=== PATIENT | female | born 1965 | race Caucasian/White ===

== ENCOUNTER → 2016-08-16 | Outpatient (CLI) | payer OTHER ==
--- NOTE | 2016-08-16 09:13 | US ---
EXAMINATION TYPE: US abdomen complete DATE OF EXAM: 08/16/2016 8:50 AM COMPARISON: NONE CLINICAL HISTORY: leokocytosis EXAM MEASUREMENTS: Liver Length: 14.2 cm Gallbladder Wall: 0.4 cm , mildly thickened. CBD: 0.2 cm Spleen: 8.2 cm Right Kidney: 10.3 x 3.2 x 3.7 cm Left Kidney: 9.5 x 5.0 x 5.6 cm ANATOMY: TECHNOLOGIST IMPRESSION: Pancreas: portions seen wnl, head and tail are secured by overlying bowel gas on images saved Liver: wnl Gallbladder: Poor distention with multiple shadowing mobile gallstones. Evidence for sonographic Spence's sign: no CBD: wnl Spleen: Heterogeneous nonenlarged. Right Kidney: upper pole 1.0 x 0.8 x 1.0 cm bright specular reflectors , possible small nonobstruc ting renal calculus no hydro Left Kidney: no hydro seen, Upper IVC: wnl Abd Aorta: wnl The liver is homogenous. The intrahepatic portion of the IVC and proximal abdominal aorta are within normal limits. Common bile duct is unremarkable. Kidneys are symmetric and free of hydronephrosis. No renal lesions are seen. IMPRESSION: Spleen is not enlarged but heterogeneous in appearance. Gallstones are present without se condary ultrasound evidence for acute cholecystitis. Normal Values: Liver Length: < 16cm wnl, 17-18cm upper limits, >18cm enlarged Spleen Length = < 13cm Renal Length = 9 - 12cm GB Wall: < 0.3cm CBD: < 0.6cm or < 1.0cm post cholecystectomy
== END | disposition home or self-care (01) ==
LOC: RADUSWWP 08:31
PROVIDERS: ATTEND Family Medicine
DX: K80.20 Calculus of gallbladder without cholecystitis without obstruction (principal); R93.5 Abnormal findings on diagnostic imaging of other abdominal regions, including retroperitoneum; D72.829 Elevated white blood cell count, unspecified
CPT/HCPCS: 76700

== ENCOUNTER → 2016-09-19 | Outpatient (CLI) | payer OTHER ==
--- NOTE | 2016-09-19 09:05 | CT ---
EXAMINATION TYPE: CT chest wo con DATE OF EXAM: 09/19/2016 8:30 AM COMPARISON: NONE HISTORY: Abn chest x-ray CT DLP: 423 mGycm Automated exposure control for dose reduction was used. FINDINGS: There are emphysematous changes throughout the lungs. There is a triangular, 4.6 mm nodule in the rig ht middle lobe, best seen on image 25. On the same image there is a second, 6.2 mm lesion in the righ t middle lobe. No additional nodular densities are seen. There is no significant axillary, internal mammary or hilar adenopathy. There is a 6.3 mm lymph node in the pretracheal space. There is no pleural or pericardial fluid. The heart is not enlarged. Visualized portions of the upper abdomen are normal. There is sclerosis and mild wedging of the T7 vertebral body and also mild sclerosis of the T8 verteb ral body. No definite obstructing lesion is seen. IMPRESSION: 1. EMPHYSEMATOUS CHANGE. 2. 2 RIGHT MIDDLE LOBE PULMONARY NODULES. 3. ABNORMAL SCLEROSIS OF THE T7 AND T8 VERTEBRAL BODIES. A NUCLEAR MEDICINE WHOLE BODY BONE SCAN WOUL D BE SUGGESTED.
== END | disposition home or self-care (01) ==
LOC: RADCTMAIN 08:02
PROVIDERS: ATTEND Family Medicine
DX: R91.8 Other nonspecific abnormal finding of lung field (principal); J43.9 Emphysema, unspecified
CPT/HCPCS: 71250

== ENCOUNTER → 2016-09-28 | Outpatient (CLI) | payer OTHER ==
[2016-09-28 11:58] LABS: Blood Urea Nitrogen 13 mg/dL (7-17); Non-African American GFR(MDRD) >60 (>60 ml/min/1.73 sqM)
--- NOTE | 2016-09-28 15:36 | NM ---
EXAMINATION TYPE: NM bone scan whole body DATE OF EXAM: 09/28/2016 3:24 PM COMPARISON: CT chest September 19, 2016. HISTORY: Abnormal recent CT. CT done after recent abnormal chest x-ray Delayed whole-body scanning was performed following the injection of 25.8 mCi Tc 99m MDP. Images acq uired 3.5 hours post injection. Spot images of the thorax are acquired in several projections. FINDINGS: Corresponding to area of CT concern there is increase uptake at T7-T8 vertebral body level, this is n onspecific finding and could reflect product of active inflammation or infection or increased degener ative change at this level. The latter is favored as there is some spurring at this level and scleros is is centered at the endplates on CT. No additional areas of suspicious radiotracer uptake identifie d. IMPRESSION: As above.
== END | disposition home or self-care (01) ==
LOC: RADNMMAIN 11:14
PROVIDERS: ATTEND Family Medicine
DX: R93.8 Abnormal findings on diagnostic imaging of other specified body structures (principal); R10.9 Unspecified abdominal pain
CPT/HCPCS: 82565; 84520; 78306; 36415; A9503

== ENCOUNTER → 2016-10-03 | Outpatient (CLI) | payer OTHER ==
--- NOTE | 2016-10-03 13:26 | CT ---
EXAMINATION TYPE: CT abdomen pelvis w con DATE OF EXAM: 10/03/2016 11:51 AM COMPARISON: NONE INDICATION: Right lower quadrant pain for years DLP: 1065 mGycm, Automated exposure control for dose reduction was used. CONTRAST: 100 mL of Omnipaque 300. Study performed with Oral Contrast TECHNIQUE: Axial images were obtained from above the diaphragm to the pubic rami in the axial plane a t 5 mm thick sections. Reconstructed images are reviewed on the computer in the coronal plane. FINDINGS: Limited CT sections are obtained the lung bases. The lung bases are clear. CT ABDOMEN: Liver: There is likely a 0.9 cm hemangioma within the anterior left lobe liver which appears homogeno us on delayed images. Spleen: Normal Pancreas: Normal Adrenal glands: The adrenal glands are normal. Gallbladder: Normal Kidneys: No masses are evident. No hydronephrosis is present. No cysts are present. Delayed images were obtained through the kidneys, which remain unremarkable. Aorta: Vascular calcification is within the aorta. Inferior vena cava: Normal. CT PELVIS: There is an intussusception of a small bowel loop within the left midabdomen. Series 3 image 41 no ob struction is evident. Contrast extends to the colon. Sigmoid colon has some irregular wall thickening . Correlate for mild diverticulitis. Underlying mass is considered within the differential. Additiona l workup is recommended. No perisigmoid inflammatory changes identified. There are loops of bowel whi ch are incompletely distended or lack oral contrast limiting their evaluation. Appendix: Normal as visualized. Urinary bladder: Normal. Genitourinary structures: Uterus is normal. Left adnexa is normal. Right ovary is not identified. Osseous structures: No suspicious lytic or sclerotic lesions. IMPRESSIONS: 1. Long segment of irregular thickening within the sigmoid colon without. Sigmoid inflammatory foley es. Correlate for mild acute diverticulitis versus underlying neoplasm. Additional workup is recommen ded. 2. Intussusception of a small bowel loop within the left midabdomen. 3. Probable 0.9 cm hemangioma anterior left lobe liver.
== END | disposition home or self-care (01) ==
LOC: RADCTMAIN 11:21
PROVIDERS: ATTEND Family Medicine
DX: K63.89 Other specified diseases of intestine (principal); R10.9 Unspecified abdominal pain
CPT/HCPCS: 74177; Q9967

== ENCOUNTER → 2017-02-03 | Outpatient (CLI) | payer OTHER ==
--- NOTE | 2017-02-03 14:59 | CT ---
EXAMINATION TYPE: CT chest w con DATE OF EXAM: 02/03/2017 COMPARISON: Prior chest CT 09/19/2016 HISTORY: Lung nodule CT DLP: 241.4 mGycm Automated exposure control for dose reduction was used. CONTRAST: CT scan of the chest is performed with IV Contrast, patient injected with 100 mL of Omnipaque 300. FINDINGS: LUNGS: The lungs are grossly clear, there is no concerning parenchymal mass identified. The right mid dle lobe nodularity is stable and may represent scar. Apical paraseptal emphysematous changes are pr esent as on prior exam. There is no pleural effusion or pneumothorax seen. The tracheobronchial tree is patent. MEDIASTINUM: There are no greater than 1 cm hilar or mediastinal lymph nodes. No pericardial effusi on is seen. AORTA: No additional significant abnormality is seen. OTHER: Sclerotic appearance of the T7, T8 vertebral bodies with anterior wedging at T7 is stable. Ga llbladder wall is contracted, there is questionable wall thickening. There is shows low attenuation p ossibly due to fatty infiltration. IMPRESSION: Stable exam, no significant interval change. Contracted gallbladder with wall thickening , correlate to exclude cholecystitis. Probable hepatic steatosis. Degenerative disc disease in the sp ine.
== END | disposition home or self-care (01) ==
LOC: RADCTMAIN 12:50
PROVIDERS: ATTEND Internal Medicine Hematology & Oncology
DX: R91.1 Solitary pulmonary nodule (principal)
CPT/HCPCS: 71260; Q9967

== ENCOUNTER → 2018-01-26 | Outpatient (CLI) | payer OTHER ==
--- NOTE | 2018-01-26 10:42 | CT ---
EXAMINATION TYPE: CT chest wo con DATE OF EXAM: 01/26/2018 COMPARISON: Prior chest CT February 03, 2017 and older exam September 19, 2016. HISTORY: Pulmonary nodule CT DLP: 241.80 mGycm. Automated Exposure Control for Dose Reduction was Utilized. TECHNIQUE: CT scan of the thorax is performed without IV contrast. FINDINGS: LUNGS: There is background mild to moderate right apical bleb formation redemonstrated. There is back ground mild emphysematous change. There is stable groundglass nodularity right middle lobe anteriorly axial image 26 with largest lesion measuring 6 x 5 mm. No new suspicious greater than 5 mm parenchym al nodule or mass is present. There is no pleural effusion or pneumothorax seen. The tracheobronchia l tree is patent. MEDIASTINUM: Lack of IV contrast is noted to limit evaluation for mediastinal and especially hilar ad enopathy. There are no definitive greater than 1 cm hilar or mediastinal lymph nodes. No cardiomega ly or pericardial effusion is seen. Coronary artery calcification is redemonstrated which is noted ma rker for coronary artery disease. OTHER: Gallbladder is hyperdense with dependent lucent areas, I suspect sludge-filled gallbladder wit h dependent stones. No surrounding inflammatory changes seen. Centered in the mid to lower thoracic s pine there is focal marked disc space narrowing and spurring with sclerosis at the peak of scoliosis and kyphosis involving the T7 and T8 vertebra with mild height loss of the T7 vertebra, this is not s ignificantly changed from prior exam. IMPRESSION: Overall stable findings, stable 6 x 5 mm anterior right mid lung groundglass nodule. No n ew nodules identified.
== END | disposition home or self-care (01) ==
LOC: RADCTMAIN 08:24
PROVIDERS: ATTEND Family Medicine
DX: R91.1 Solitary pulmonary nodule (principal)
CPT/HCPCS: 71250

== ENCOUNTER → 2018-02-14 | Outpatient (CLI) | payer OTHER ==
[2018-02-14 11:34] VITALS: BP 144/85; PULSE 83; TEMP 98.8; BMI 24.7
--- NOTE | 2018-02-16 08:47 | MM ---
Reason for exam: screening (asymptomatic). Last mammogram was performed 2 years and 3 months ago. History: Patient is postmenopausal. Family history of breast cancer in mother at age 52. Physical Findings: A clinical breast exam by your physician is recommended on an annual basis and results should be correlated with mammographic findings. MG Screening Mammo w CAD Bilateral CC and MLO view(s) were taken. Prior study comparison: November 03, 2015, bilateral MG screening mammo w CAD. There is a 4mm mass in the central, slightly lateral lower right breast at middle depth more conspicuous than the prior. No suspicious abnormality in the left breast. ASSESSMENT: Incomplete: need additional imaging evaluation, BI-RAD 0 RECOMMENDATION: Special view mammogram of the right breast. If lesion persists on supplemental views, image directed ultrasound is recommended. [facility] will attempt to contact patient to return for supplemental views and ultrasound if indicated.
== END | disposition home or self-care (01) ==
LOC: WWCWWP 11:12
PROVIDERS: ATTEND Obstetrics & Gynecology
DX: Z12.31 Encounter for screening mammogram for malignant neoplasm of breast (principal)
CPT/HCPCS: 77067

== ENCOUNTER 2018-02-16 06:04 | Observation (INO) | payer OTHER ==
--- NOTE | 2018-02-16 06:36 | ED ---
General Adult HPI - General Source: patient, RN notes reviewed, old records reviewed Mode of arrival: ambulatory Limitations: no limitations <Nikolay Heath - Last Filed: 02/16/18 06:32> <Nikolay Sandoval - Last Filed: 02/16/18 08:56> - General Chief complaint: Abdominal Pain Stated complaint: abd pain, gall stones Time Seen by Provider: 02/16/18 06:25 - History of Present Illness Initial comments: 52-year-old female presents for evaluation of right upper quadrant pain. Patient was diagnosed with gallstones on computed tomography scan approximately one month ago. She has had intermittent pain in her right upper quadrant since this time. She has an appointment with general surgery in approximately 6 weeks. She states she is unable to wait this long secondary to the pain. She denies fever or chills. Denies nausea or vomiting. Pain is constant in nature , does not seem to be associated with eating. Denies chest pain or shortness of breath. She denies significant alcohol consumption. (Nikolay Heath) - Related Data Home Medications Medication Instructions Recorded Confirmed Ibuprofen [Motrin] 600 mg PO Q6HR PRN 10/04/16 02/16/18 Sertraline HCl [Zoloft] 100 mg PO DAILY 10/04/16 02/16/18 Aspirin EC [Ecotrin Low Dose] 324 mg PO DAILY 02/16/18 02/16/18 Atorvastatin [Lipitor] 20 mg PO HS 02/16/18 02/16/18 Cholecalciferol [Vitamin D3] 1,000 unit PO DAILY 02/16/18 02/16/18 [place]-3 Fatty Acids/Fish Oil [Fish 1 cap PO DAILY 02/16/18 02/16/18 Oil 1,000 mg Softgel] Allergies Allergy/AdvReac Type Severity Reaction Status Date / Time Penicillins Allergy Unknown Verified 02/16/18 08:26 Childhood phenobarbital Allergy Unknown Verified 02/16/18 08:26 Review of Systems ROS Other: All systems not noted in ROS Statement are negative. <Nikolay Heath - Last Filed: 02/16/18 06:32> ROS Other: All systems not noted in ROS Statement are negative. <Nikolay Sandoval - Last Filed: 02/16/18 08:56> ROS Statement: Those systems with pertinent positive or pertinent negative responses have been documented in the HPI. Past Medical History Past Medical History: COPD, Hyperlipidemia Additional Past Medical History / Comment(s): Pt states she has had abdominal pain, bowel problems for many years, migraines, past bilateral buttock abscesses with I&Ds, "possible emphysema", has been told recently that her chest xray was abnormal and there are "dark spots on her T7 or T8 vertebrae-had recent bone scan. History of Any Multi-Drug Resistant Organisms: None Reported Past Surgical History: Appendectomy, Hysterectomy (Supracervical in 2012 with LSO) Additional Past Surgical History / Comment(s): Colonoscopies, ORIF L ankle, I&D bilateral buttock abscesses, PICC line insertion and removal. Past Anesthesia/Blood Transfusion Reactions: No Reported Reaction Past Psychological History: Anxiety, Depression Smoking Status: Current every day smoker Past Alcohol Use History: Occasional Past Drug Use History: Marijuana - Past Family History Father Family Medical History: Diabetes Mellitus (Type II diabetes) Additional Family Medical History / Comment(s): Father is an alcoholic. He is 86yrs old. Mother Family Medical History: Cancer Additional Family Medical History / Comment(s): Breast cancer with metastasis. <Nikolay Heath N - Last Filed: 02/16/18 06:32> General Exam Limitations: no limitations General appearance: alert, in no apparent distress Head exam: Present: atraumatic, normocephalic Eye exam: Present: normal appearance, PERRL ENT exam: Present: normal exam Neck exam: Present: normal inspection. Absent: tenderness, meningismus Respiratory exam: Present: normal lung sounds bilaterally. Absent: respiratory distress Cardiovascular Exam: Present: regular rate, normal rhythm GI/Abdominal exam: Present: soft, tenderness (Minimal right upper quadrant tenderness). Absent: distended, guarding, rebound Extremities exam: Present: normal inspection, full ROM, normal capillary refill. Absent: pedal edema, joint swelling Neurological exam: Present: alert, oriented X3, CN II-XII intact. Absent: motor sensory deficit Psychiatric exam: Present: normal affect, normal mood Skin exam: Present: warm, dry, intact. Absent: cyanosis, diaphoretic <Nikolay Heath - Last Filed: 02/16/18 06:32> Vital Signs 02/16/18 06:10 Temperature 98.1 F Pulse Rate 77 Respiratory 21 Rate Blood Pressure 142/94 O2 Sat by Pulse 98 Oximetry Medical Decision Making <Nikolay Heath Vanessa - Last Filed: 02/16/18 06:32> - Lab Data Result diagrams: 02/16/18 06:31 02/16/18 06:31 - Radiology Data Radiology results: report reviewed (I did review the imaging and report is evidence of gallbladder wall thickening gallstone sludge the CBD is within normal limits.), image reviewed <Nikolay Sandoval - Last Filed: 02/16/18 08:56> - Medical Decision Making Reexamination patient reveals she is still has marked tenderness to right upper quadrant to palpation. He does have a mildly elevated white blood cell count gallstones second gallbladder wall the presentation is consistent with acute cholelithiasis and cholecystitis. I did discuss the case with Dr. Prather who is covering for Dr. Herring. The patient be admitted with laparoscopic cholecystectomy done this afternoon. (Nikolay Sandoval) - Lab Data Lab Results 02/16/18 02/16/18 02/16/18 Range/Units 06:31 06:31 06:31 WBC 12.1 H (3.8-10.6) k/uL RBC 4.54 (3.80-5.40) m/uL Hgb 14.1 (11.4-16.0) gm/dL Hct 40.8 (34.0-46.0) % MCV 89.7 (80.0-100.0) fL MCH 31.0 (25.0-35.0) pg MCHC 34.6 (31.0-37.0) g/dL RDW 13.1 (11.5-15.5) % Plt Count 337 (150-450) k/uL Neutrophils % 53 % Lymphocytes % 36 % Monocytes % 7 % Eosinophils % 2 % Basophils % 1 % Neutrophils # 6.4 (1.3-7.7) k/uL Lymphocytes # 4.3 (1.0-4.8) k/uL Monocytes # 0.8 (0-1.0) k/uL Eosinophils # 0.3 (0-0.7) k/uL Basophils # 0.1 (0-0.2) k/uL PT 10.8 (9.0-12.0) sec INR 1.1 (<1.2) APTT 22.2 (22.0-30.0) sec Sodium 138 (137-145) mmol/L Potassium 5.0 (3.5-5.1) mmol/L Chloride 108 H (98-107) mmol/L Carbon Dioxide 22 (22-30) mmol/L Anion Gap 8 mmol/L BUN 17 (7-17) mg/dL Creatinine 0.60 (0.52-1.04) mg/dL Est GFR (CKD-EPI)AfAm >90 (>60 ml/min/1.73 sqM) Est GFR (CKD-EPI)NonAf >90 (>60 ml/min/1.73 sqM) Glucose 102 H (74-99) mg/dL Calcium 9.2 (8.4-10.2) mg/dL Total Bilirubin 0.3 (0.2-1.3) mg/dL AST 25 (14-36) U/L ALT 40 (9-52) U/L Alkaline Phosphatase 88 (38-126) U/L Total Protein 6.8 (6.3-8.2) g/dL Albumin 4.1 (3.5-5.0) g/dL Amylase 53 (30-110) U/L Lipase 197 (23-300) U/L Urine Color Urine Appearance (Clear) Urine pH (5.0-8.0) Ur Specific [place] (1.001-1.035) Urine Protein (Negative) Urine Glucose (UA) (Negative) Urine Ketones (Negative) Urine Blood (Negative) Urine Nitrite (Negative) Urine Bilirubin (Negative) Urine Urobilinogen (<2.0) mg/dL Ur Leukocyte Esterase (Negative) 02/16/18 Range/Units 06:34 WBC (3.8-10.6) k/uL RBC (3.80-5.40) m/uL Hgb (11.4-16.0) gm/dL Hct (34.0-46.0) % MCV (80.0-100.0) fL MCH (25.0-35.0) pg MCHC (31.0-37.0) g/dL RDW (11.5-15.5) % Plt Count (150-450) k/uL Neutrophils % % Lymphocytes % % Monocytes % % Eosinophils % % Basophils % % Neutrophils # (1.3-7.7) k/uL Lymphocytes # (1.0-4.8) k/uL Monocytes # (0-1.0) k/uL Eosinophils # (0-0.7) k/uL Basophils # (0-0.2) k/uL PT (9.0-12.0) sec INR (<1.2) APTT (22.0-30.0) sec Sodium (137-145) mmol/L Potassium (3.5-5.1) mmol/L Chloride (98-107) mmol/L Carbon Dioxide (22-30) mmol/L Anion Gap mmol/L BUN (7-17) mg/dL Creatinine (0.52-1.04) mg/dL Est GFR (CKD-EPI)AfAm (>60 ml/min/1.73 sqM) Est GFR (CKD-EPI)NonAf (>60 ml/min/1.73 sqM) Glucose (74-99) mg/dL Calcium (8.4-10.2) mg/dL Total Bilirubin (0.2-1.3) mg/dL AST (14-36) U/L ALT (9-52) U/L Alkaline Phosphatase (38-126) U/L Total Protein (6.3-8.2) g/dL Albumin (3.5-5.0) g/dL Amylase (30-110) U/L Lipase (23-300) U/L Urine Color Light Yellow Urine Appearance Clear (Clear) Urine pH 7.0 (5.0-8.0) Ur Specific [place] 1.015 (1.001-1.035) Urine Protein Negative (Negative) Urine Glucose (UA) Negative (Negative) Urine Ketones Negative (Negative) Urine Blood Negative (Negative) Urine Nitrite Negative (Negative) Urine Bilirubin Negative (Negative) Urine Urobilinogen <2.0 (<2.0) mg/dL Ur Leukocyte Esterase Negative (Negative) Disposition <Nikolay Heath - Last Filed: 02/16/18 06:32> <Nikolay Sandoval - Last Filed: 02/16/18 08:56> Clinical Impression: Cholelithiasis and cholecystitis without obstruction Disposition: ADMITTED IP TO THIS [facility] Condition: Stable Referrals: Nancy Dobbs MD [Primary Care Provider] - 1-2 days
[2018-02-16 06:43] LABS: Basophils # (A) 0.1 k/uL (0-0.2); Basophils % (A) 1 %; Eosinophils # (A) 0.3 k/uL (0-0.7); Eosinophils % (A) 2 %; HCT 40.8 % (34.0-46.0); HGB 14.1 gm/dL (11.4-16.0); Lymphocytes # (A) 4.3 k/uL (1.0-4.8); Lymphocytes % (A) 36 %; MCHC 34.6 g/dL (31.0-37.0); MCV 89.7 fL (80.0-100.0); Mean Platelet Volume 7.1; Monocytes # (A) 0.8 k/uL (0-1.0); Monocytes % (A) 7 %; Neutrophils # (A) 6.4 k/uL (1.3-7.7); Neutrophils % (A) 53 %; Platelet Count 337 k/uL (150-450); RBC 4.54 m/uL (3.80-5.40); RDW 13.1 % (11.5-15.5); WBC 12.1 k/uL (3.8-10.6)
[2018-02-16 06:54] LABS: INR 1.1 (<1.2); Partial Thromboplastin Time 22.2 sec (22.0-30.0); Prothrombin Time 10.8 sec (9.0-12.0)
[2018-02-16 06:56] LABS: ALT 40 U/L (9-52); AST 25 U/L (14-36); Albumin 4.1 g/dL (3.5-5.0); Alkaline Phosphatase 88 U/L (38-126); Amylase 53 U/L (30-110); Anion Gap 8 mmol/L; Blood Urea Nitrogen 17 mg/dL (7-17); Calcium 9.2 mg/dL (8.4-10.2); Carbon Dioxide 22 mmol/L (22-30); Chloride 108 mmol/L (98-107); Glucose 102 mg/dL (74-99); Lipase 197 U/L (23-300); Sodium 138 mmol/L (137-145); Total Bilirubin 0.3 mg/dL (0.2-1.3); Total Protein 6.8 g/dL (6.3-8.2)
[2018-02-16 06:56] LABS: Appearance,Urine Clear (Clear); Bilirubin,Urine Negative (Negative); Blood,Urine Negative (Negative); Color,Urine Light Yellow; Glucose,Urine (UA) Negative (Negative); Ketones,Urine Negative (Negative); Leukocyte Esterase,Urine Negative (Negative); Nitrite,Urine Negative (Negative); Protein,Urine Negative (Negative); Specific Gravity,Urine 1.015 (1.001-1.035); Urobilinogen,Urine <2.0 mg/dL (<2.0)
--- NOTE | 2018-02-16 07:03 | XR ---
EXAMINATION TYPE: XR KUB DATE OF EXAM: 02/16/2018 COMPARISON: NONE HISTORY: Right upper quadrant pain TECHNIQUE: 2 views FINDINGS: There is no sign of intestinal obstruction or pneumoperitoneum. Fecal pattern is normal. Cely ng bases are clear. There are no pathologic calcifications over the kidneys. IMPRESSION: Nonacute abdomen.
--- NOTE | 2018-02-16 07:53 | US ---
EXAMINATION TYPE: US gallbladder DATE OF EXAM: 02/16/2018 COMPARISON: 08/16/2016 CLINICAL HISTORY: Pain. EXAM MEASUREMENTS: Liver Length: 13.4 cm Gallbladder Wall: 0.5 cm CBD: 0.2 cm Right Kidney: 11.2 x 4.3 x 4.6cm Patient unable to well hold her breath, limiting exam. Pancreas: mid and ail obscured by overlying bowel gas Liver: hemangioma seen on CT, not seen by today's ultrasound, heterogeneous Gallbladder: full of stones and sludge, there appears to be some comet tail artifact seen in thicken ed wall Evidence for sonographic Spence's sign: very tender here CBD: wnl Right Kidney: Two probable punctate echogenic foci seen superior, again exam limited by patient abili ty to hold her breath IMPRESSION: 1. Gallbladder findings suggesting cholelithiasis, biliary sludge, and possible adenomyomatosis. Gall bladder wall thickening is favored to be sequela of chronic biliary disease as there is no current co mmon bile duct enlargement although right upper quadrant tenderness is noted on the examination. 2. Probable nonobstructing punctate right upper pole renal calculi.
[2018-02-16] MEDS ORDERED: NALOXONE 0.4 MG/ML 1 ML VIAL IV PRN (08:57)
[2018-02-16] MEDS ORDERED: ONDANSETRON 4 MG/2 ML VIAL IVP PRN (08:57)
[2018-02-16] MEDS ORDERED: PIPERACILLIN-TAZOBACTAM 3.375 GM in DEXTROSE/WATER 1 50ML.BAG IVPB STA (08:58)
[2018-02-16] MEDS ORDERED: PANTOPRAZOLE 40 MG/10 ML VIAL IV SCH (09:00)
[2018-02-16] MEDS: SODIUM CHLORIDE 0.9% 1,000 ML IV SCH ×3 (09:23→23:37)
[2018-02-16 10:29] VITALS: BMI 24.7
[2018-02-16] MEDS ORDERED: IV FLUID CONTINUATION 1,000 ML IV ONE (11:49)
[2018-02-16] MEDS ORDERED: ONDANSETRON 4 MG/2 ML VIAL IVP ONE ×2 (11:57→14:42)
[2018-02-16] MEDS ORDERED: DEXAMETHASONE SOD PHOS (MDV) 100 MG/10 ML VIAL IVP ONE (11:57)
--- NOTE | 2018-02-16 12:59 | P.GSHP ---
History of Present Illness H&P Date: 02/16/18 Chief Complaint: Right upper quadrant pain Is a 52-year-old female who presents today for laparoscopic cholecystectomy. Patient's echo with recurrent quadrant pain. She's had multiple attacks of cholecystitis. She presented emergently with complaints of pain. She is workup found have gallstones gallbladder wall. Patient admitted for laparoscopic cholecystectomy. Past Medical History Past Medical History: COPD, Hyperlipidemia Additional Past Medical History / Comment(s): Pt states she has had abdominal pain, bowel problems for many years, migraines, past bilateral buttock abscesses with I&Ds, "possible emphysema", has been told recently that her chest xray was abnormal and there are "dark spots on her T7 or T8 vertebrae-had recent bone scan. History of Any Multi-Drug Resistant Organisms: None Reported Past Surgical History: Appendectomy, Hysterectomy Additional Past Surgical History / Comment(s): Colonoscopies, ORIF L ankle, I&D bilateral buttock abscesses, PICC line insertion and removal. Past Anesthesia/Blood Transfusion Reactions: No Reported Reaction Past Psychological History: Anxiety, Depression Additional Psychological History / Comment(s): Pt states in the pase she has had suicidal thoughts and at one time, years ago she did take a bottle of pills. She states that she has depression and anxiety but her depression isn't severe at this time and has no thoughts of suicide or wishing to be . 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 She is independent. Smoking Status: Current every day smoker Past Alcohol Use History: Occasional Additional Past Alcohol Use History / Comment(s): Pt states she started smoking in 1972 and is a ppd smoker. Past Drug Use History: Marijuana Additional Drug Use History / Comment(s): Pt states she smokes 3 joints a day. - Past Family History Father Family Medical History: Diabetes Mellitus Additional Family Medical History / Comment(s): Father is an alcoholic. He is 86yrs old. Mother Family Medical History: Cancer Additional Family Medical History / Comment(s): Breast cancer with metastasis. Medications and Allergies Home Medications Medication Instructions Recorded Confirmed Type Ibuprofen [Motrin] 600 mg PO Q6HR PRN 10/04/16 02/16/18 History Sertraline HCl [Zoloft] 100 mg PO DAILY 10/04/16 02/16/18 History Aspirin EC [Ecotrin Low Dose] 324 mg PO DAILY 02/16/18 02/16/18 History Atorvastatin [Lipitor] 20 mg PO HS 02/16/18 02/16/18 History Cholecalciferol [Vitamin D3] 1,000 unit PO DAILY 02/16/18 02/16/18 History Medon-3 Fatty Acids/Fish Oil [Fish 1 cap PO DAILY 02/16/18 02/16/18 History Oil 1,000 mg Softgel] Allergies Allergy/AdvReac Type Severity Reaction Status Date / Time Penicillins Allergy Unknown Verified 02/16/18 08:26 Childhood phenobarbital Allergy Unknown Verified 02/16/18 08:26 Surgical - Exam Vital Signs Temp Pulse Resp BP Pulse Ox 98.1 F 77 21 142/94 98 02/16/18 06:10 02/16/18 06:10 02/16/18 06:10 02/16/18 06:10 02/16/18 06:10 - General well developed, no distress - Eyes PERRL - ENT normal pinna - Neck no masses - Respiratory normal expansion - Cardiovascular Rhythm: regular - Abdomen Right upper quadrant pain Abdomen: soft Results - Labs 02/16/18 06:31 02/16/18 06:31 Abnormal Lab Results - Last 24 Hours (Table) 02/16/18 02/16/18 Range/Units 06:31 06:31 WBC 12.1 H (3.8-10.6) k/uL Chloride 108 H (98-107) mmol/L Glucose 102 H (74-99) mg/dL Diabetes panel 02/16/18 Range/Units 06:31 Sodium 138 (137-145) mmol/L Potassium 5.0 (3.5-5.1) mmol/L Chloride 108 H (98-107) mmol/L Carbon Dioxide 22 (22-30) mmol/L BUN 17 (7-17) mg/dL Creatinine 0.60 (0.52-1.04) mg/dL Glucose 102 H (74-99) mg/dL Calcium 9.2 (8.4-10.2) mg/dL AST 25 (14-36) U/L ALT 40 (9-52) U/L Alkaline Phosphatase 88 (38-126) U/L Total Protein 6.8 (6.3-8.2) g/dL Albumin 4.1 (3.5-5.0) g/dL Calcium panel 02/16/18 Range/Units 06:31 Calcium 9.2 (8.4-10.2) mg/dL Albumin 4.1 (3.5-5.0) g/dL Pituitary panel 02/16/18 Range/Units 06:31 Sodium 138 (137-145) mmol/L Potassium 5.0 (3.5-5.1) mmol/L Chloride 108 H (98-107) mmol/L Carbon Dioxide 22 (22-30) mmol/L BUN 17 (7-17) mg/dL Creatinine 0.60 (0.52-1.04) mg/dL Glucose 102 H (74-99) mg/dL Calcium 9.2 (8.4-10.2) mg/dL Adrenal panel 02/16/18 Range/Units 06:31 Sodium 138 (137-145) mmol/L Potassium 5.0 (3.5-5.1) mmol/L Chloride 108 H (98-107) mmol/L Carbon Dioxide 22 (22-30) mmol/L BUN 17 (7-17) mg/dL Creatinine 0.60 (0.52-1.04) mg/dL Glucose 102 H (74-99) mg/dL Calcium 9.2 (8.4-10.2) mg/dL Total Bilirubin 0.3 (0.2-1.3) mg/dL AST 25 (14-36) U/L ALT 40 (9-52) U/L Alkaline Phosphatase 88 (38-126) U/L Total Protein 6.8 (6.3-8.2) g/dL Albumin 4.1 (3.5-5.0) g/dL Assessment and Plan Assessment: Right upper quadrant pain Cholelithiasis We will perform laparoscopic cholecystectomy.
[2018-02-16] MEDS ORDERED: ROCURONIUM BROMIDE 10 MG/ML 10 ML VIAL IV ONE (13:35)
[2018-02-16] MEDS ORDERED: MIDAZOLAM 2 MG/2 ML VIAL ONE (13:35)
[2018-02-16] MEDS ORDERED: PHENYLEPHRINE-0.9% NACL SYG 1 MG/10 ML SYRINGE ONE (13:35)
[2018-02-16] MEDS ORDERED: LIDOCAINE 1% INJ 10MG/ML (20 ML MDV) ONE (13:35)
[2018-02-16] MEDS ORDERED: NEOSTIGMINE 1 MG/ML 10 ML VIAL ONE (13:35)
[2018-02-16] MEDS ORDERED: PROPOFOL 10 MG/ML 20 ML VIAL IV ONE (13:35)
[2018-02-16] MEDS ORDERED: DEXAMETHASONE SOD PHOS (MDV) 100 MG/10 ML VIAL ONE (13:35)
[2018-02-16] MEDS ORDERED: KETOROLAC 30 MG/ML 1 ML VIAL ONE (13:35)
[2018-02-16] MEDS ORDERED: fentaNYL (PF) 50 MCG/ML 2 ML AMP ONE (13:35)
[2018-02-16] MEDS ORDERED: SUCCINYLCHOLINE CHLORIDE 100 MG/5 ML SYR IV ONE (13:35)
[2018-02-16] MEDS ORDERED: GLYCOPYRROLATE 0.2 MG/ML 2 ML VIAL ONE (13:35)
[2018-02-16] MEDS ORDERED: BUPIVACAINE (PF) 0.5% 30 ML VIAL SQ ONE (13:52)
--- NOTE | 2018-02-16 14:13 | P.OP ---
Date of Procedure: 02/16/18 Preoperative Diagnosis: Cholecystitis Postoperative Diagnosis: Cholecystitis Procedure(s) Performed: Laparoscopic cholecystectomy Anesthesia: VERONA Surgeon: Jacky Prather Estimated Blood Loss (ml): 20 Pathology: other (Gallbladder) Condition: stable Disposition: PACU Description of Procedure: The patient was placed on the operating table. The patient received a general endotracheal tube anesthesia. The patients abdomen was prepped and draped in the usual sterile fashion. Through an infraumbilical stab incision, the fascia of the anterior abdominal wall was grasped with a pair of Kochers and then the Veress needle was placed in the peritoneal cavity. Position of the Veress needle was confirmed with positive drop test. The abdomen was then insufflated. After adequate insufflation, the 10 mm trocar was placed in the peritoneal cavity. Following this the laparoscope was placed in the peritoneal cavity. The patient was placed in the head-up, right side up position and then a 5 mm trocar was placed in the right lateral and right subcostal position under direct visualization. A 8 mm trocar was placed in the epigastric position. The gallbladder was grasped in the fundus and infundibulum. Traction on the gallbladder was placed in the lateral and the cephalad positions. The triangle of Calot was visualized.. The cystic duct was bluntly dissected until the union of the cystic duct and common bile duct was seen. The cystic duct was then divided and sealed with the Harmonic scissors. A PDS Endoloop was then placed throughout the cystic duct stump. The cystic artery divided and sealed with the Harmonic scissors. The gallbladder was then removed from the liver bed using Harmonic scissors. The gallbladder was then extracted through the epigastric port site. Operative field was checked for any bleeding spots and Harmonic scissors was used to coagulate the liver bed. The abdomen was irrigated. The trocars were removed. The skin was closed using interrupted 3-0 Vicryl suture. Dermabond dressing were applied. The patient tolerated the procedure well.
[2018-02-16] MEDS ORDERED: ALBUTEROL NEBULIZED 2.5 MG/3 ML INHALATION ONE (14:35)
[2018-02-16] MEDS: HYDROmorphone 0.5 MG/0.5 ML SYRINGE IVP ONE ×2 (14:45→15:05)
[2018-02-16] MEDS: HYDROmorphone 1 MG/ML 1 ML SYRINGE IVP ONE ×2 (15:25→15:40)
[2018-02-16] MEDS ORDERED: NICOTINE 21MG/24HR PATCH TRANSDERM SCH (16:28)
[2018-02-16] MEDS: SERTRALINE 100 MG TAB PO SCH (19:03)
[2018-02-16] MEDS: HYDROmorphone 0.5 MG/0.5 ML SYRINGE IVP PRN ×2 (19:07→21:49)
[2018-02-16] MEDS ORDERED: ATORVASTATIN 20 MG TAB PO SCH (21:00)
[2018-02-17] MEDS: HYDROmorphone 0.5 MG/0.5 ML SYRINGE IVP PRN ×2 (02:33→05:44)
[2018-02-17] MEDS: SODIUM CHLORIDE 0.9% 1,000 ML IV SCH (06:30)
[2018-02-17] MEDS: SERTRALINE 100 MG TAB PO SCH (08:05)
[2018-02-17 08:10] VITALS: BP 118/73; PULSE 86; RESP 20; TEMP 98.9
[2018-02-17] MEDS ORDERED: ASPIRIN 325 MG TAB PO SCH (09:00)
[2018-02-17] MEDS ORDERED: NICOTINE 21MG/24HR PATCH TRANSDERM SCH (09:00)
[2018-02-17] MEDS ORDERED: LORazepam 2 MG/ML INJ IV STA (09:07)
[2018-02-17] MEDS ORDERED: WATER FOR INJECTION, STERILE 10 ML IV ONE (09:33)
--- NOTE | 2018-02-17 12:39 | P.PN ---
Subjective Progress Note Date: 02/17/18 The patient is a 52 year old female status post laparoscopic cholecystectomy by Dr. Prather. Patient is doing well. She is tolerating diet. Her pain is controlled. Objective - Vital Signs Vital signs: Vital Signs Temp 98.9 F 02/17/18 08:09 Pulse 86 02/17/18 08:09 Resp 20 02/17/18 08:09 BP 118/73 02/17/18 08:09 Pulse Ox 93 L 02/17/18 08:09 Intake & Output 02/16/18 02/17/18 02/17/18 18:59 06:59 18:59 Intake Total 1100 Output Total 30 Balance 1070 Weight 63.503 kg Intake: IV 1100 Output: Estimated Blood Loss 30 Other: # Voids 2 - Exam GENERAL: Well developed and in no acute distress. Pleasant. HEENT: No sclera icterus. Extraocular movements grossly intact. Moist buccal mucosa. Head is atraumatic, normocephalic. Hears conversational speech. No nasal drainage. NECK: Supple without lymphadenopathy. CHEST: Non-labored respirations and equal bilateral excursions. CARDIOVASCULAR: Regular rate and rhythm. Palpable 2+ radial pulses. ABDOMEN: Soft, incisions clean dry and intact. MUSCULOSKELETAL: No clubbing, cyanosis or edema. NEUROLOGIC: No focal or lateralizing signs. PSYCH: Appropriate affect. Alert and oriented to person, place and time. SKIN: Good skin turgor. Well perfused. - Labs CBC & Chem 7: 02/16/18 06:31 02/16/18 06:31 Assessment and Plan (1) Cholelithiasis and cholecystitis without obstruction Status: Acute Code(s): K80.10 - CALCULUS OF GALLBLADDER W CHRONIC CHOLECYST W/ O OBSTRUCTION SNOMED Code(s): 46802629 (2) Alcohol abuse Status: Acute Code(s): F10.10 - ALCOHOL ABUSE, UNCOMPLICATED SNOMED Code(s) : 18912124 (3) Tobacco abuse Status: Acute Code(s): Z72.0 - TOBACCO USE SNOMED Code(s): 716620670 Plan: 1. She is doing well and may follow up as outpatient. 2. Recommend outpatient management for multiple social issues and addiction.
--- NOTE | 2018-02-18 01:09 | P.CONS ---
History of Present Illness - Reason for Consult Consult date: 02/17/18 Medical management of COPD and other medical problems - Chief Complaint Abdominal pain - History of Present Illness Patient is a 52-year-old female with a known history of COPD, hyperlipidemia and migraine headaches as well as anxiety/depression was admitted to hospital for right upper quadrant pain. Patient does have a history of gallstones in the past diagnosed about a month ago. Patient has been having intermittent pain in the right upper quadrant. She has an appointment with general surgery in approximately 6 weeks. She states she is unable to wait this long secondary to the pain. She denies fever or chills. Denies nausea or vomiting. Pain is constant in nature, does not seem to be associated with eating. Denies chest pain or shortness of breath. She denies significant alcohol consumption. Gallbladder ultrasound showed suggesting cholelithiasis. Biliary sludge and possible adenomyomatosis Review of Systems Constitutional: Patient denies any fever or chills . No generalized weakness or weight loss. Abdomen: Patient denied nausea vomiting and diarrhea and abdominal pain. Cardiovascular: Patient denies any chest pain or short of breath no palpitations. Respiratory: patient denied any cough is from production. No shortness of breath Neurologic: Patient denied any numbness or tingling headache. Musculoskeletal: Patient denies any complaints of joint swelling or deformity. Skin: Negative Psychiatric: Negative Endocrine: No heat or cold intolerance. No recent weight gain. Genitourinary: No dysuria or hematuria. All other 14 point ROS negative except the above Past Medical History Past Medical History: COPD, Hyperlipidemia Additional Past Medical History / Comment(s): Pt states she has had abdominal pain, bowel problems for many years, migraines, past bilateral buttock abscesses with I&Ds, "possible emphysema", has been told recently that her chest xray was abnormal and there are "dark spots on her T7 or T8 vertebrae-had recent bone scan. History of Any Multi-Drug Resistant Organisms: None Reported Past Surgical History: Appendectomy, Hysterectomy Additional Past Surgical History / Comment(s): Colonoscopies, ORIF L ankle, I&D bilateral buttock abscesses, PICC line insertion and removal. Past Anesthesia/Blood Transfusion Reactions: No Reported Reaction Past Psychological History: Anxiety, Depression Additional Psychological History / Comment(s): Pt states in the pase she has had suicidal thoughts and at one time, years ago she did take a bottle of pills. She states that she has depression and anxiety but her depression isn't severe at this time and has no thoughts of suicide or wishing to be . 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 She is independent. Smoking Status: Current every day smoker Past Alcohol Use History: Occasional Additional Past Alcohol Use History / Comment(s): Pt states she started smoking in 1972 and is a ppd smoker. Past Drug Use History: Marijuana Additional Drug Use History / Comment(s): Pt states she smokes 3 joints a day. - Past Family History Father Family Medical History: Diabetes Mellitus Additional Family Medical History / Comment(s): Father is an alcoholic. He is 86yrs old. Mother Family Medical History: Cancer Additional Family Medical History / Comment(s): Breast cancer with metastasis. Medications and Allergies Home Medications Medication Instructions Recorded Confirmed Type Ibuprofen [Motrin] 600 mg PO Q6HR PRN 10/04/16 02/16/18 History Sertraline HCl [Zoloft] 100 mg PO DAILY 10/04/16 02/16/18 History Aspirin EC [Ecotrin Low Dose] 324 mg PO DAILY 02/16/18 02/16/18 History Atorvastatin [Lipitor] 20 mg PO HS 02/16/18 02/16/18 History Cholecalciferol [Vitamin D3] 1,000 unit PO DAILY 02/16/18 02/16/18 History Docusate [Colace] 100 mg PO BID #20 capsule 02/16/18 Rx HYDROcodone/APAP 7.5-325MG [[place] 1 tab PO Q4H PRN 3 Days #18 tab 02/16/18 Rx 7.5-325] Dike-3 Fatty Acids/Fish Oil [Fish 1 cap PO DAILY 02/16/18 02/16/18 History Oil 1,000 mg Softgel] Allergies Allergy/AdvReac Type Severity Reaction Status Date / Time Penicillins Allergy Unknown Verified 02/16/18 08:26 Childhood phenobarbital Allergy Unknown Verified 02/16/18 08:26 Physical Exam Vitals: Vital Signs Temp Pulse Pulse Resp BP Pulse Ox 02/17/18 08:09 98.9 F 86 20 118/73 93 L 02/17/18 03:55 98.4 F 92 16 132/79 96 02/16/18 23:10 98.2 F 87 16 113/70 95 02/16/18 20:15 98.3 F 88 18 110/75 96 02/16/18 18:00 90 20 113/71 94 L 02/16/18 17:30 90 18 105/74 93 L 02/16/18 17:00 92 18 101/65 94 L 02/16/18 16:45 84 18 105/70 94 L 02/16/18 16:30 78 18 118/66 93 L 02/16/18 16:15 98 F 80 18 124/70 93 L 02/16/18 15:45 79 16 123/77 97 02/16/18 15:30 80 16 129/75 95 02/16/18 15:15 70 16 128/72 92 L 02/16/18 15:00 72 16 137/79 92 L 02/16/18 14:48 70 16 149/83 92 L 02/16/18 14:33 72 16 150/80 96 Intake and Output 02/16/18 02/17/18 02/17/18 22:59 06:59 14:59 Intake Total 100 Balance 100 Intake: IV 100 Other: # Voids 1 2 PHYSICAL EXAMINATION: Patient is lying in the bed comfortably, no acute distress, awake alert and oriented.. HEENT: Normocephalic. Neck is supple. Pupils reactive. Nostrils clear. Oral cavity is moist. Ears reveal no drainage. Neck reveals no JVD, carotid bruits, or thyromegaly. CHEST EXAMINATION: Trachea is central. Symmetrical expansion. Lung carrion clear to auscultation and percussion. CARDIAC: Normal S1, S2 with no gallops. No murmurs ABDOMEN: Soft. Bowel sounds normal. No organomegaly. No abdominal bruits. Extremities: reveal no edema. No clubbing or cyanosis Neurologically awake, alert, oriented x3 with well-coordinated movements. No focal deficits noted Skin: No rash or skin lesions. Psychiatric: Coperative. Nonsuicidal Musculoskeletal: No joint swelling or deformity. Normal range of motion. Results CBC & Chem 7: 02/16/18 06:31 02/16/18 06:31 Assessment and Plan Assessment: Acute cholecystitis with gallbladder sludge and cholelithiasis. Status post laparoscopic cholecystectomy COPD stable Hyperlipidemia Anxiety and depression with history of suicidal ideation DVT prophylaxis Plan: Patient be continued on pain management and bowel regimen. Incentive spirometry. Breathing treatments as needed otherwise continue the current management. will continue to follow closely and further recommendations based on the clinical course. Thank you for your consult Time with Patient: Greater than 30
== END 2018-02-17 14:07 | disposition home or self-care (01) ==
LOC: EC 06:04 → 6PED 08:57
PROVIDERS: ADMIT Surgery; ATTEND Surgery
DX: K80.10 Calculus of gallbladder with chronic cholecystitis without obstruction (principal); K82.8 Other specified diseases of gallbladder; J44.9 Chronic obstructive pulmonary disease, unspecified; E78.5 Hyperlipidemia, unspecified; F17.210 Nicotine dependence, cigarettes, uncomplicated; F12.90 Cannabis use, unspecified, uncomplicated; F10.10 Alcohol abuse, uncomplicated; G43.909 Migraine, unspecified, not intractable, without status migrainosus; F41.9 Anxiety disorder, unspecified; F32.9 Major depressive disorder, single episode, unspecified; Z79.82 Long term (current) use of aspirin; Z79.899 Other long term (current) drug therapy; Z88.0 Allergy status to penicillin; Z88.8 Allergy status to other drugs, medicaments and biological substances; Z90.89 Acquired absence of other organs; Z90.710 Acquired absence of both cervix and uterus; Z91.5 Personal history of self-harm; Z83.3 Family history of diabetes mellitus; Z81.1 Family history of alcohol abuse and dependence; Z80.3 Family history of malignant neoplasm of breast; Z80.9 Family history of malignant neoplasm, unspecified
CPT/HCPCS: 47562; 99285 ×2; 36415; 88304; 80053; 82150; 83690; 85025; 85610; 85730; 81003; 87324; 74018; 76705; G0378 ×2; S4990; J2250; J2060; J2710; J2405; J2001; J3010; J1885; J1170 ×3; J2543; J1100; J2370; J0330; J2704; C9113

== ENCOUNTER → 2018-03-07 | Outpatient (CLI) | payer OTHER ==
[2018-03-07 11:16] LABS: Basophils # (A) 0.1 k/uL (0-0.2); Basophils % (A) 1 %; Eosinophils # (A) 0.4 k/uL (0-0.7); Eosinophils % (A) 3 %; HCT 43.9 % (34.0-46.0); HGB 14.1 gm/dL (11.4-16.0); Lymphocytes # (A) 4.7 k/uL (1.0-4.8); Lymphocytes % (A) 40 %; MCH 29.5 pg (25.0-35.0); MCV 92.1 fL (80.0-100.0); Mean Platelet Volume 7.2; Monocytes # (A) 0.6 k/uL (0-1.0); Monocytes % (A) 6 %; Neutrophils # (A) 5.6 k/uL (1.3-7.7); Neutrophils % (A) 48 %; Platelet Count 403 k/uL (150-450); RBC 4.77 m/uL (3.80-5.40); RDW 13.2 % (11.5-15.5); WBC 11.7 k/uL (3.8-10.6)
[2018-03-08 14:28] LABS: Alt. alternata IgE Class CLASS 0; Alternaria alternata IgE <0.35 kU/L (<0.35); Asperg. fumagatus IgE <0.35 kU/L (<0.35); Asperg. fumagatus IgE Class CLASS 0; Bermuda Grass IgE <0.35 kU/L (<0.35); Birch(Com.Silvr) IgE <0.35 kU/L (<0.35); Birch(Com.Silvr) IgE Class CLASS 0; Cat Epith & Dander IgE <0.35 kU/L (<0.35); Cat Epith & Dander IgE Class CLASS 0; Clad herbarum IgE <0.35 kU/L (<0.35); Cockroach IgE <0.35 kU/L (<0.35); Cottonwood IgE <0.35 kU/L (<0.35); Dermato. Pteronyssinus IgE <0.35 kU/L (<0.35); Dermato. farinae IgE <0.35 kU/L (<0.35); Dermato. farinae IgE Class CLASS 0; Dog Dander IgE <0.35 kU/L (<0.35); Elm IgE <0.35 kU/L (<0.35); Maple (Box Elder) IgE <0.35 kU/L (<0.35); Maple (Box Elder) IgE Class CLASS 0; Mountain Cedar IgE <0.35 kU/L (<0.35); Mountain Cedar IgE Class CLASS 0; Mouse Urine IgE Class CLASS 0; Nettle IgE <0.35 kU/L (<0.35); Nettle IgE Class CLASS 0; Oak IgE <0.35 kU/L (<0.35); Penicillium notatum IgE Class CLASS 0; Rough Marshelder IgE <0.35 kU/L (<0.35); Rough Marshelder IgE Class CLASS 0; Timothy Grass IgE <0.35 kU/L (<0.35); White Ash IgE Class CLASS 0
[2018-03-09 14:04] LABS: Alpha 1 Anti-Trypsin 121 mg/dL (90 - 200)
== END | disposition home or self-care (01) ==
LOC: LABWHC1 10:22
PROVIDERS: ATTEND Internal Medicine
DX: J45.909 Unspecified asthma, uncomplicated (principal)
CPT/HCPCS: 36415; 82103; 82104; 82785; 85025; 86001; 86003; 86606; 86609

== ENCOUNTER → 2018-05-15 | Outpatient (CLI) | payer OTHER ==
--- NOTE | 2018-05-16 08:25 | MM ---
Reason for exam: additional evaluation requested from abnormal screening. Last mammogram was performed 3 months ago. History: Patient is postmenopausal and history of other cancer. Family history of breast cancer in mother at age 52. Physical Findings: Nurse did not find any significant physical abnormalities on exam. MG Work Up Mamm w CAD RT Spot compression CC, spot compression MLO, and LM view(s) were taken of the right breast. Prior study comparison: February 14, 2018, bilateral MG screening mammo w CAD. November 03, 2015, bilateral MG screening mammo w CAD. Finding: There is a 5 mm round mass in the middle, central position of the right breast, does not go completely away on additional views. These results were verbally communicated with the patient and result sheet given to the patient on 05/15/18. ASSESSMENT: Incomplete: need additional imaging evaluation, BI-RAD 0 RECOMMENDATION: Ultrasound of the right breast.
--- NOTE | 2018-05-16 08:26 | USB ---
Reason for exam: additional evaluation requested from abnormal screening. History: Patient is postmenopausal and history of other cancer. Family history of breast cancer in mother at age 52. US Breast Workup Limited RT Right limited breast ultrasound including focal area of concern, retroareolar and axilla demonstrates a 0.5 x 0.3 x 0.5cm questionable node at 9 o'clock, an axilla node, a 0.3 x 0.3 x 0.3cm lesion too small to characterize at 11 o'clock and duct ectasia at the nipple. These results were verbally communicated with the patient and result sheet given to the patient on 05/15/18. ASSESSMENT: Probably benign, BI-RAD 3 RECOMMENDATION: Follow-up diagnostic mammogram of the right breast in 6 months.
== END ==
LOC: RADMAMWWP 14:21
PROVIDERS: ATTEND Obstetrics & Gynecology
DX: R92.8 Other abnormal and inconclusive findings on diagnostic imaging of breast (principal)
CPT/HCPCS: 77065

== ENCOUNTER → 2018-05-24 | Outpatient (CLI) | payer OTHER ==
--- NOTE | 2018-05-25 06:46 | CT ---
EXAMINATION TYPE: CT soft tissue neck wo con DATE OF EXAM: 05/24/2018 HISTORY: Vocal cord mass. COMPARISON: NONE CT DLP: 451 mGycm. Automated Exposure Control for Dose Reduction was Utilized. TECHNIQUE: CT scan of the neck is performed without intravenous contrast, axial images are obtained, coronal and sagittal reformatted images are reviewed. 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 True vocal cords appear symmetr ic and unremarkable. There is minimal asymmetry with focal 2 mm protuberance of the right mid to post erior false focal cord and some undulation of the left false vocal cord. The left piriform sinus is f illed with soft tissue density, possibly an most commonly related to secretions. Vallecula and right piriform sinus are unremarkable. There is some narrowing of the upper oropharynx by parapharyngeal to nsil hypertrophy. There is minimal left to right tracheal impression along the left lateral aspect of the trachea by the thyroid gland. Trachea is patent. Parotid/submandibular glands: No gross abnormality seen. Carotid/Vascular Structures: Normal variant bovine aortic arch. There appears to be ectasia of the ri ght carotid bulb and proximal internal carotid artery with some dilatation, limited in evaluation due to lack of intravenous contrast. Osseous Structures: Extensive degenerative changes are seen of the mid cervical spine, particularly a t C4-C6. There is grade 1 anterolisthesis of C3 on C4. There is diffuse sclerosis of the C4 and C5 ve rtebral bodies with endplate sclerosis of C6. Sclerosis of the C4 and C5 vertebral bodies is concerni ng for pathologic involvement. There are posterior disc osteophyte complexes at C5-C6 and C6-C7 creat ing at least mild spinal canal stenosis at these levels. Additionally C4-C5 there is severe left neur al foraminal narrowing and at C5-C6 there is severe bilateral neural foraminal narrowing. Other: Circumferential upper esophageal wall thickening may relate to incomplete distention or esopha gitis. There is incidentally noted bovine aortic arch. Subsegmental atelectasis is seen in the upper lungs. No enlarged (greater than 1 cm) lymph nodes are seen within the neck. Lymph nodes measure up to 6 mm. Left supraclavicular lymph node measures up to 4 mm and is within normal limits of size. Smaller ri ght supraclavicular lymph nodes are seen. IMPRESSION: 1. 2 mm polypoid nodular density of the right false vocal cord. True vocal cords appear unremarkable with no corresponding mass on CT to relate to the patient's history. No suspicious adenopathy in the neck. 2. Diffuse sclerosis of the C4 and C5 vertebral bodies suspicious for pathologic/metastatic involveme nt given the diffuse marrow replacement although laryngeal mass as a primary would be unlikely. Bone scan could be performed for further assessment. 3. Circumferential upper esophageal wall thickening is likely due to incomplete distention esophagiti s.
== END ==
LOC: RADCTMAIN 14:32
PROVIDERS: ATTEND Otolaryngology
DX: J38.2 Nodules of vocal cords (principal); K22.8 Other specified diseases of esophagus
CPT/HCPCS: 70490

== ENCOUNTER → 2018-07-20 | Outpatient (CLI) | payer OTHER ==
--- NOTE | 2018-07-20 15:00 | NM ---
EXAMINATION TYPE: NM bone scan whole body DATE OF EXAM: 07/20/2018 COMPARISON: NONE HISTORY: Abnormal CT neck Delayed whole-body scanning was performed following the injection of 24.8 mCi Tc 99m MDP. Images acq uired 3 hours post injection. FINDINGS: There are scattered areas of uptake at the appendicular joint spaces most likely degenerative in natu re. There is some focal uptake within the posterior right occipital vertex plain film correlation is rosa mmended There is some increased uptake within the mid thoracic spine on posterior views of the T8 and T9 leve ls. Plain film correlation is recommended. This exam is compared with the CT of the cervical spine 05/24/2018. Significant uptake within the mid cervical spine appears to correlate with the plain film findings suggestive for sclerotic metastasis . Some focal uptake is in the right lower spine likely at the T1 pedicles. Sclerotic metastasis shoul d be considered this level. IMPRESSION: 1. Increased uptake within the cervical spine as well as the right posterior T1 pedicle region suspic ious for sclerotic metastasis. 2. Increased uptake in the region of T8-T9 posteriorly within the posterior right occipital vertex wi thin the calvarium. Plain film correlation is recommended. These additional areas may also be suspici ous for metastatic disease. 3. Increased uptake diffusely within multiple joint space is more likely related to degenerative mora ges.
== END | disposition home or self-care (01) ==
LOC: RADNMMAIN 09:56
PROVIDERS: ATTEND Family Medicine
DX: R94.8 Abnormal results of function studies of other organs and systems (principal)
CPT/HCPCS: 78306; A9503

== ENCOUNTER → 2018-08-13 | Outpatient (CLI) | payer OTHER ==
--- NOTE | 2018-08-13 20:30 | MR ---
EXAMINATION TYPE: MR cervical spine wo/w con DATE OF EXAM: 08/13/2018 COMPARISON: None HISTORY: Neck pain and Stiffness with Left arm weakness, Gadavist 7.5ml CONTRAST: Performed utilizing 7.5 mL intravenous Gadavist gadolinium contrast. TECHNIQUE: Multiplanar multiecho imaging on a 3.0 Lois magnet is performed through the cervical spin e. FINDINGS: The craniovertebral junction is normal. Vertebral body alignment has a kyphosis centered a t C4-C6. There is a grade 1 spondylolisthesis of C3 anterior on C4. Mild retrolisthesis of C5 on C6 m ay be present. C7-T1: No focal disc herniation or significant disc bulge is evident. No spinal canal stenosis or n eural foraminal stenosis is present. C6-7: There is a broad-based central focal disc bulge with moderate anterior thecal sac compression. This has cord contact. This is not as apparent on the T1 postcontrast images. However, a moderate siz e left paracentral disc herniation appears to remain present. Some cord flattening may be present. Th ere is spinal canal stenosis measuring 0.8 cm in AP dimension. Foraminal stenosis is present bilatera lly. Disc space narrowing is present. C5-6: Broad-based disc uncovering from a retrolisthesis is present with moderate to severe anterior t hecal sac compression. This has cord contact and cord deformity. Spinal canal stenosis measuring 0.6 cm posterior to this disc level. Foraminal stenosis is present bilaterally. There is loss of disc hei ght to this level.. C4-5: There is loss of disc height is level. Large anterior vertebral body spurs present from the inf erior endplate of C4. Broad-based endplate changes have moderate anterior thecal sac flattening. This has cord contact. No spinal canal stenosis present. Mild right and moderate left foraminal stenosis is present. C3-4: No focal disc herniation or significant disc bulge is evident. No spinal canal stenosis or patricia ral foraminal stenosis is present. C2-3: No focal disc herniation or significant disc bulge is evident. No spinal canal stenosis or patricia ral foraminal stenosis is present. No suspicious enhancement is evident. IMPRESSIONS: 1. C6-7 disc bulging appears more focal into the left paracentral canal. This may have cord contact. 2. Broad-based disc uncovering has moderate anterior thecal sac compression and cord contact without cord deformity. AP spinal canal stenosis of 0.6 cm. 3. Endplate changes have moderate anterior thecal sac flattening at C4-5 with cord contact. 4. Multilevel foraminal stenosis C4-5 through C6-7.
== END | disposition home or self-care (01) ==
LOC: RADMRIMAIN 15:28
PROVIDERS: ATTEND Internal Medicine Hematology & Oncology
DX: M48.02 Spinal stenosis, cervical region (principal); M50.223 Other cervical disc displacement at C6-C7 level
CPT/HCPCS: 72156; A9585

== ENCOUNTER → 2018-11-14 | Outpatient (CLI) | payer OTHER ==
--- NOTE | 2018-11-14 14:13 | MM ---
Reason for exam: follow-up at short interval from prior study. Last mammogram was performed 6 months ago. History: Patient is postmenopausal and history of other cancer. Family history of breast cancer in mother at age 52. Physical Findings: Nurse did not find any significant physical abnormalities on exam. MG Diagnostic Mammo RT w CAD CC and MLO view(s) were taken of the right breast. Prior study comparison: May 15, 2018, right breast MG work up mamm w CAD RT. February 14, 2018, bilateral MG screening mammo w CAD. The breast tissue is heterogeneously dense. This may lower the sensitivity of mammography. Right central 3mm mass is unchanged at middle depth corresponding to a 3mm mass at 11 o'clock on prior ultrasound. These results were verbally communicated with the patient and result sheet given to the patient on 11/14/18. ASSESSMENT: Probably benign, BI-RAD 3 RECOMMENDATION: Follow-up diagnostic mammogram of both breasts in 6 months.
== END | disposition home or self-care (01) ==
LOC: RADMAMWWP 13:14
PROVIDERS: ATTEND Family Medicine
DX: R92.8 Other abnormal and inconclusive findings on diagnostic imaging of breast (principal)
CPT/HCPCS: 77065

== ENCOUNTER 2018-11-20 08:21 | Inpatient (IN) | payer OTHER ==
--- NOTE | 2018-11-20 08:38 | ED ---
General Adult HPI - General Chief complaint: Abdominal Pain Stated complaint: Constipation Time Seen by Provider: 11/20/18 08:28 Source: patient, RN notes reviewed, old records reviewed Mode of arrival: ambulatory Limitations: no limitations - History of Present Illness Initial comments: 53-year-old female presents with 3 days of generalized abdominal pain, and concern for constipation. Patient states she has not had a bowel movement in the past 3 days. She had several small hard bowel movements. She did have 2 episodes of vomiting yesterday. She has had previous cholecystectomy. Denies fever or chills. Denies cough or dyspnea. Denies chest pain. No previous history of obstruction. She does not recall when her last colonoscopy was. - Related Data Home Medications Medication Instructions Recorded Confirmed Sertraline HCl [Zoloft] 100 mg PO BID 10/04/16 11/20/18 Albuterol Sulfate [Proair Hfa] 2 puff INHALATION RT-Q4H PRN 11/20/18 11/20/18 Atorvastatin Calcium [Lipitor] 80 mg PO HS 11/20/18 11/20/18 Ergocalciferol [Vitamin D2] 50,000 unit PO QMONTH 11/20/18 11/20/18 Omeprazole [PriLOSEC] 20 mg PO DAILY 11/20/18 11/20/18 Tiotropium [place] [Spiriva] 1 cap INHALATION RT-DAILY 11/20/18 11/20/18 Allergies Allergy/AdvReac Type Severity Reaction Status Date / Time Penicillins Allergy Unknown Verified 11/20/18 08:45 Childhood phenobarbital Allergy Unknown Verified 11/20/18 08:45 Review of Systems ROS Statement: Those systems with pertinent positive or pertinent negative responses have been documented in the HPI. ROS Other: All systems not noted in ROS Statement are negative. Past Medical History Past Medical History: COPD, Hyperlipidemia Additional Past Medical History / Comment(s): Pt states she has had abdominal pain, bowel problems for many years, migraines, past bilateral buttock abscesses with I&Ds, "possible emphysema", has been told recently that her chest xray was abnormal and there are "dark spots on her T7 or T8 vertebrae-had recent bone scan. History of Any Multi-Drug Resistant Organisms: None Reported Past Surgical History: Appendectomy, Cholecystectomy, Hysterectomy Additional Past Surgical History / Comment(s): Colonoscopies, ORIF L ankle, I&D bilateral buttock abscesses, PICC line insertion and removal. Past Anesthesia/Blood Transfusion Reactions: No Reported Reaction Past Psychological History: Anxiety, Depression Smoking Status: Current every day smoker Past Alcohol Use History: Occasional Past Drug Use History: Marijuana - Past Family History Father Family Medical History: Diabetes Mellitus Additional Family Medical History / Comment(s): Father is an alcoholic. He is 86yrs old. Mother Family Medical History: Cancer Additional Family Medical History / Comment(s): Breast cancer with metastasis. General Exam Limitations: no limitations General appearance: alert, in no apparent distress Head exam: Present: atraumatic, normocephalic Eye exam: Present: normal appearance, PERRL ENT exam: Present: normal exam Neck exam: Present: normal inspection. Absent: tenderness, meningismus Respiratory exam: Present: normal lung sounds bilaterally. Absent: respiratory distress Cardiovascular Exam: Present: regular rate, normal rhythm GI/Abdominal exam: Present: soft, distended, tenderness. Absent: guarding, rebound Extremities exam: Present: normal inspection, normal capillary refill. Absent: pedal edema Neurological exam: Present: alert, oriented X3, CN II-XII intact. Absent: motor sensory deficit Psychiatric exam: Present: normal affect, normal mood Skin exam: Present: warm, dry, intact. Absent: cyanosis, diaphoretic Course Vital Signs 11/20/18 08:23 Temperature 99.0 F Pulse Rate 82 Respiratory 22 Rate Blood Pressure 134/89 O2 Sat by Pulse 95 Oximetry Medical Decision Making - Medical Decision Making 53-year-old female presenting with 3 days of abdominal pain, concern for constipation. On exam patient is distended, with diffuse tenderness palpation. His concern for obstruction, x-rays obtained, does show enlarged large intestine. CT is performed, CT shows large bowel obstruction, adjacent abscess, and concern for colonic mass. Patient is significantly elevated white blood cell count 19.3, normal CMP, urinalysis pending. She is initiated on antib iotics. She will be admitted with surgery on consult. Case discussed with admitting physician. - Lab Data Result diagrams: 11/20/18 08:55 11/20/18 08:55 Lab Results 11/20/18 11/20/18 11/20/18 Range/Units 08:55 08:55 08:55 WBC 19.3 H (3.8-10.6) k/uL RBC 4.56 (3.80-5.40) m/uL Hgb 13.6 (11.4-16.0) gm/dL Hct 41.1 (34.0-46.0) % MCV 90.1 (80.0-100.0) fL MCH 29.8 (25.0-35.0) pg MCHC 33.0 (31.0-37.0) g/dL RDW 12.7 (11.5-15.5) % Plt Count 437 (150-450) k/uL Neutrophils % 67 % Lymphocytes % 23 % Monocytes % 7 % Eosinophils % 1 % Basophils % 0 % Neutrophils # 12.9 H (1.3-7.7) k/uL Lymphocytes # 4.4 (1.0-4.8) k/uL Monocytes # 1.4 H (0-1.0) k/uL Eosinophils # 0.2 (0-0.7) k/uL Basophils # 0.1 (0-0.2) k/uL PT (9.0-12.0) sec INR (<1.2) APTT (22.0-30.0) sec Sodium 139 (137-145) mmol/L Potassium 3.8 (3.5-5.1) mmol/L Chloride 106 (98-107) mmol/L Carbon Dioxide 23 (22-30) mmol/L Anion Gap 10 mmol/L BUN 10 (7-17) mg/dL Creatinine 0.47 L (0.52-1.04) mg/dL Est GFR (CKD-EPI)AfAm >90 (>60 ml/min/1.73 sqM) Est GFR (CKD-EPI)NonAf >90 (>60 ml/min/1.73 sqM) Glucose 130 H (74-99) mg/dL Plasma Lactic Acid Philipp 0.9 (0.7-2.0) mmol/L Calcium 9.7 (8.4-10.2) mg/dL Total Bilirubin 0.7 (0.2-1.3) mg/dL AST 13 L (14-36) U/L ALT 31 (9-52) U/L Alkaline Phosphatase 133 H (38-126) U/L Total Protein 6.8 (6.3-8.2) g/dL Albumin 3.7 (3.5-5.0) g/dL Amylase 33 (30-110) U/L Lipase 75 (23-300) U/L 11/20/18 Range/Units 08:55 WBC (3.8-10.6) k/uL RBC (3.80-5.40) m/uL Hgb (11.4-16.0) gm/dL Hct (34.0-46.0) % MCV (80.0-100.0) fL MCH (25.0-35.0) pg MCHC (31.0-37.0) g/dL RDW (11.5-15.5) % Plt Count (150-450) k/uL Neutrophils % % Lymphocytes % % Monocytes % % Eosinophils % % Basophils % % Neutrophils # (1.3-7.7) k/uL Lymphocytes # (1.0-4.8) k/uL Monocytes # (0-1.0) k/uL Eosinophils # (0-0.7) k/uL Basophils # (0-0.2) k/uL PT 10.7 (9.0-12.0) sec INR 1.0 (<1.2) APTT 24.1 (22.0-30.0) sec Sodium (137-145) mmol/L Potassium (3.5-5.1) mmol/L Chloride (98-107) mmol/L Carbon Dioxide (22-30) mmol/L Anion Gap mmol/L BUN (7-17) mg/dL Creatinine (0.52-1.04) mg/dL Est GFR (CKD-EPI)AfAm (>60 ml/min/1.73 sqM) Est GFR (CKD-EPI)NonAf (>60 ml/min/1.73 sqM) Glucose (74-99) mg/dL Plasma Lactic Acid Philipp (0.7-2.0) mmol/L Calcium (8.4-10.2) mg/dL Total Bilirubin (0.2-1.3) mg/dL AST (14-36) U/L ALT (9-52) U/L Alkaline Phosphatase (38-126) U/L Total Protein (6.3-8.2) g/dL Albumin (3.5-5.0) g/dL Amylase (30-110) U/L Lipase (23-300) U/L Disposition Clinical Impression: Abdominal pain, Large bowel obstruction, Abdominal abscess Disposition: ADMITTED IP TO THIS [facility] Condition: Stable Is patient prescribed a controlled substance at d/c from ED?: No Referrals: Nancy Dobbs MD [Primary Care Provider] - 1-2 days Decision to Admit Reason: Admit from EC Decision Date: 11/20/18 Decision Time: 10:18
[2018-11-20] MEDS ORDERED: MORPHINE SULFATE 4 MG/ML SYRINGE IV STA (08:47)
[2018-11-20] MEDS ORDERED: SODIUM CHLORIDE 0.9% 1,000 ML IV STA (08:47)
[2018-11-20] MEDS ORDERED: SODIUM CHLORIDE 0.9% 500 ML 500 ML IV STA (08:47)
--- NOTE | 2018-11-20 09:03 | XR ---
EXAMINATION TYPE: XR KUB DATE OF EXAM: 11/20/2018 COMPARISON: 02/16/2018 INDICATION: Dizzy unable to stand pain constipation nausea TECHNIQUE: Single view abdomen frontal projection FINDINGS: There is a normal bowel gas pattern. No mass effect is evident. Psoas margins are normal. No organomegaly is present. No suspicious calcifications are evident. Phleboliths appear to be within the pelvis. Some pubic symp hysitis may be present. IMPRESSION: 1. No acute changes.
[2018-11-20] MEDS ORDERED: ONDANSETRON 4 MG/2 ML VIAL IVP STA (09:18)
[2018-11-20 09:25] LABS: ALT 31 U/L (9-52); AST 13 U/L (14-36); Albumin 3.7 g/dL (3.5-5.0); Alkaline Phosphatase 133 U/L (38-126); Amylase 33 U/L (30-110); Anion Gap 10 mmol/L; Blood Urea Nitrogen 10 mg/dL (7-17); Calcium 9.7 mg/dL (8.4-10.2); Carbon Dioxide 23 mmol/L (22-30); Chloride 106 mmol/L (98-107); Glucose 130 mg/dL (74-99); Lipase 75 U/L (23-300); Potassium 3.8 mmol/L (3.5-5.1); Sodium 139 mmol/L (137-145); Total Bilirubin 0.7 mg/dL (0.2-1.3); Total Protein 6.8 g/dL (6.3-8.2)
[2018-11-20 09:27] LABS: Basophils # (A) 0.1 k/uL (0-0.2); Basophils % (A) 0 %; Eosinophils # (A) 0.2 k/uL (0-0.7); Eosinophils % (A) 1 %; HCT 41.1 % (34.0-46.0); HGB 13.6 gm/dL (11.4-16.0); Lymphocytes # (A) 4.4 k/uL (1.0-4.8); Lymphocytes % (A) 23 %; MCH 29.8 pg (25.0-35.0); MCV 90.1 fL (80.0-100.0); Mean Platelet Volume 7.1; Monocytes # (A) 1.4 k/uL (0-1.0); Monocytes % (A) 7 %; Neutrophils # (A) 12.9 k/uL (1.3-7.7); Neutrophils % (A) 67 %; Platelet Count 437 k/uL (150-450); RBC 4.56 m/uL (3.80-5.40); RDW 12.7 % (11.5-15.5); WBC 19.3 k/uL (3.8-10.6)
[2018-11-20 09:39] LABS: Partial Thromboplastin Time 24.1 sec (22.0-30.0); Prothrombin Time 10.7 sec (9.0-12.0)
--- NOTE | 2018-11-20 10:06 | CT ---
EXAMINATION TYPE: CT abdomen pelvis w con DATE OF EXAM: 11/20/2018 HISTORY: Generalized pain and constipation. CT DLP: 788.3mGycm Automated Exposure Control for Dose Reduction was Utilized. CONTRAST: CT scan of the abdomen and pelvis is performed with IV Contrast, patient injected with 100 mL of Isov ue 300. COMPARISON: 10/03/2016 FINDINGS: LUNG BASES: Minimal bibasilar subsegmental dependent atelectasis is present. LIVER/GB: Unchanged probable flash filling hemangioma seen in the left hepatic lobe in comparison to exam of 2017. Minimal intrahepatic biliary ductal dilatation is also unchanged. Focal fatty infiltrat ion near the fissure for the falciform ligament is stable. Gallbladder is now surgically absent with a radiopaque clip at the cystic duct.. PANCREAS: No significant abnormality is seen. SPLEEN: No significant abnormality is seen. ADRENALS: No significant abnormality is seen. KIDNEYS: 1 cm right renal superior pole cyst is present. Otherwise the kidneys enhance and excrete sy mmetrically. BOWEL: There is progression of long segment sigmoid colonic wall thickening with new diffuse inflamma tory fat stranding and elongated bilobed abscess situated between the vaginal cuff and urinary bladde r. This originates from the inferior margin of the sigmoid colon extending 5.7 cm in craniocaudal dim ension and 2.6 cm in anterior posterior dimension as well as 2.5 cm in transverse dimension. Numerous tethering adhesions are seen within the pelvis on image 63. Focal stricturing of the sigmoid colon a nd extensive irregular bowel wall thickening to the rectum with surrounding mesenteric edema and smal l amount of dependent free fluid are also seen. There is resultant dilatation of the descending colon up to 5.8 cm and dilatation of the splenic flexure with less pronounced dilatation of the transverse and ascending colon. There are numerous surrounding abnormal lymph nodes measuring up to 1 cm in the left common iliac chain and 6 mm in the periaortic region. Other abnormal local lymph nodes are pres ent. What is likely the left ovary is situated along the left pelvic sidewall measures 3.0 cm. The go nafisa vein appears to abut this structure. This is less likely adenopathy. LYMPH NODES: Abnormal lymph nodes are discussed in the bowel section. OSSEOUS STRUCTURES: Grade 1 anterolisthesis of L5 on S1 likely as a result of facet hypertrophy. Scle rosis of the pubic bones with cystic change are likely degenerative. IMPRESSION: 1. 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 The abscess is situated between the posterior urinary bladder wall and vaginal cuff extending from the in ferior sigmoid colon. Resultant extensive urinary bladder wall thickening is seen. Fistulous communic ation remains a possibility. No air is seen within the urinary bladder at this time. 2. Suspicious retroperitoneal and intraperitoneal adenopathy. 3. Probable stable left hepatic lobe hemangioma and focal fatty infiltration.
[2018-11-20] MEDS ORDERED: LEVOFLOXACIN 500MG-D5W PMX 500 MG in DEXTROSE/WATER 1 100ML.BAG IVPB STA (10:08)
[2018-11-20] MEDS ORDERED: metroNIDAZOLE-NS PMX 500 MG in SALINE 1 100ML.BAG IVPB STA (10:08)
[2018-11-20] MEDS ORDERED: ACETAMINOPHEN TAB 325 MG TAB PO PRN (10:13)
[2018-11-20] MEDS ORDERED: ONDANSETRON 4 MG/2 ML VIAL IVP PRN ×2 (10:13→15:45)
[2018-11-20] MEDS ORDERED: NALOXONE 0.4 MG/ML 1 ML VIAL IV PRN ×2 (10:13→15:45)
[2018-11-20] MEDS ORDERED: HYDROmorphone 0.5 MG/0.5 ML SYRINGE IVP PRN (10:13)
[2018-11-20 11:16] LABS: Appearance,Urine Clear (Clear); Bilirubin,Urine Negative (Negative); Blood,Urine Trace (Negative); Color,Urine Yellow; Glucose,Urine (UA) Negative (Negative); Ketones,Urine Negative (Negative); Leukocyte Esterase,Urine Negative (Negative); Mucus,Urine Rare /hpf; Nitrite,Urine Negative (Negative); PH, Urine 6.5 (5.0-8.0); Protein,Urine Trace (Negative); RBC,Urine 2 /hpf (0-5); Squamous Epithelial Cell,Urine 2 /hpf (0-4); Urobilinogen,Urine <2.0 mg/dL (<2.0); WBC,Urine 1 /hpf (0-5)
[2018-11-20 11:34] LABS: Specific Gravity,Urine >1.050 (1.001-1.035)
--- NOTE | 2018-11-20 11:35 | P.HPIM ---
History of Present Illness This is a pleasant 63 years old female with past medical history of COPD, hyperlipidemia migraine, cigarette smoker who presents because of abdominal pain. Patient has bilateral lower abdominal pain on both sides, a 4 day duration, progressively getting worse, colicky in nature, 10/10 in severity up on admission, increase by movement and relieved by morphine. Associated with abdominal distention, nausea vomiting but with no blood in the fluid and no bowel movement over the last 3 days. Patient also has decreased appetite and shows not been eating for the last 3 days. She smokes about 1 pack per day, and she uses alcohol and marijuana occasionally whenever she gets them. However she denies daily use of alcohol or cannabinoids On admission vitals are stable, that shows leukocytosis with 19.3 KG, INR 1.0. BMP and liver enzymes were unremarkable. She has CT of the abdomen and pelvis: Rectosigmoid colon cancer with stricture and early stage bowel obstruction and extensive colitis with pericolonic abscess. Patient received 1 dose of Levaquin and Flagyl, IV fluids surgical team has been already contacted by emergency room staff, with plan for surgical intervention as per surgery team. I discussed the case with the emergency room physicians under going to call surgical team for evaluation. Review of Systems CONSTITUTIONAL: No fever, no malaise, no fatigue. HEENT: No recent visual problems or hearing problems. Denied any sore throat. CARDIOVASCULAR: No orthopnea, PND, no palpitations, no syncope. PULMONARY: No shortness of breath, no cough, no hemoptysis. GASTROINTESTINAL: No diarrhea, no nausea, no vomiting, no abdominal pain. Normoactive bowel sounds. NEUROLOGICAL: No headaches, no weakness, no numbness. HEMATOLOGICAL: Denies any bleeding or petechiae. GENITOURINARY: Denies any burning micturition, frequency, or urgency. MUSCULOSKELETAL/RHEUMATOLOGICAL: Denies any joint pain, swelling, or any muscle pain. ENDOCRINE: Denies any polyuria or polydipsia. Past Medical History Past Medical History: COPD, Hyperlipidemia Additional Past Medical History / Comment(s): Pt states she has had abdominal pain, bowel problems for many years, migraines, past bilateral buttock abscesses with I&Ds, "possible emphysema", has been told recently that her chest xray was abnormal and there are "dark spots on her T7 or T8 vertebrae-had recent bone scan. History of Any Multi-Drug Resistant Organisms: None Reported Past Surgical History: Appendectomy, Cholecystectomy, Hysterectomy Additional Past Surgical History / Comment(s): Colonoscopies, ORIF L ankle, I&D bilateral buttock abscesses, PICC line insertion and removal. Past Anesthesia/Blood Transfusion Reactions: No Reported Reaction Past Psychological History: Anxiety, Depression Smoking Status: Current every day smoker Past Alcohol Use History: Occasional Past Drug Use History: Marijuana - Past Family History Father Family Medical History: Diabetes Mellitus Additional Family Medical History / Comment(s): Father is an alcoholic. He is 86yrs old. Mother Family Medical History: Cancer Additional Family Medical History / Comment(s): Breast cancer with metastasis. Medications and Allergies Home Medications Medication Instructions Recorded Confirmed Type Sertraline HCl [Zoloft] 100 mg PO BID 10/04/16 11/20/18 History Albuterol Sulfate [Proair Hfa] 2 puff INHALATION RT-Q4H PRN 11/20/18 11/20/18 History Atorvastatin Calcium [Lipitor] 80 mg PO HS 11/20/18 11/20/18 History Ergocalciferol [Vitamin D2] 50,000 unit PO QMONTH 11/20/18 11/20/18 History Omeprazole [PriLOSEC] 20 mg PO DAILY 11/20/18 11/20/18 History Tiotropium [place] [Spiriva] 1 cap INHALATION RT-DAILY 11/20/18 11/20/18 History Allergies Allergy/AdvReac Type Severity Reaction Status Date / Time Penicillins Allergy Unknown Verified 11/20/18 08:45 Childhood phenobarbital Allergy Unknown Verified 11/20/18 08:45 Physical Exam Vitals: Vital Signs Temp Pulse Resp BP Pulse Ox 11/20/18 08:23 99.0 F 82 22 134/89 95 Intake and Output 11/19/18 11/20/18 11/20/18 22:59 06:59 14:59 Other: Weight 63.957 kg GENERAL: The patient is alert and oriented x3, not in any acute distress. Well developed, well nourished. HEENT: Pupils are round and equally reacting to light. EOMI. No scleral icterus. No conjunctival pallor. Normocephalic, atraumatic. No pharyngeal erythema. No thyromegaly. CARDIOVASCULAR: S1 and S2 present. No murmurs, rubs, or gallops. PULMONARY: Chest is clear to auscultation, no wheezing or crackles. ABDOMEN: Soft, nontender, nondistended, normoactive bowel sounds. No palpable organomegaly. MUSCULOSKELETAL: No joint swelling or deformity. EXTREMITIES: No cyanosis, clubbing, or pedal edema. NEUROLOGICAL: Gross neurological examination did not reveal any focal deficits. SKIN: No rashes. Results CBC & Chem 7: 11/20/18 08:55 11/20/18 08:55 Labs: Abnormal Lab Results - Last 24 Hours (Table) 11/20/18 11/20/18 Range/Units 08:55 08:55 WBC 19.3 H (3.8-10.6) k/uL Neutrophils # 12.9 H (1.3-7.7) k/uL Monocytes # 1.4 H (0-1.0) k/uL Creatinine 0.47 L (0.52-1.04) mg/dL Glucose 130 H (74-99) mg/dL AST 13 L (14-36) U/L Alkaline Phosphatase 133 H (38-126) U/L Assessment and Plan Assessment: Abdominal pain. Secondary to possible rectosigmoid cancer with early bowel obstruction Extensive colitis and pericolonic abscesses Possible left liver lobe hemangioma and focal fatty infiltration, seen on CAT scan of the abdomen Nicotine dependence History of COPD History of hyperlipidemia History of migraine Plan: This is a pleasant 53 years old female who presents with rectosigmoid cancer and colitis. Continue with antibiotics. Follow-up culture results. Surgical team consult for possible surgical resection of the cancers and abscesses.Labs and medication were reviewed.. Continue same treatment. Continue with symptomatic treatment. Resume home medication. Monitor lytes and vitals. DVT and GI prophylaxis. Further recommendations of the clinical course of the patient DVT prophylaxis: Anticoagulation on hold until after surgery GI Prophylaxis: Pepcid Prognosis is guarded
[2018-11-20] MEDS: NICOTINE 21MG/24HR PATCH TRANSDERM SCH (12:01)
--- NOTE | 2018-11-20 13:21 | P.GSCN ---
History of Present Illness Consult date: 11/20/18 Reason for Consult: Abdominal pain History of present illness: 53-year-old female presents to the ER with a one-week history of progressive abd ominal distention and pain. Patient apparently was having diarrhea initially following that had a decrease in bowel function. Last bowel moment 4-5 days ago. Scant flatus over the last several days. Patient describes increased bloating and cramps. No vomiting. Appetite diminished. Last colonoscopy over 5 years ago. No history of known inflammatory bowel disease. Describes a history of diverticulitis previously. Had a previous hysterectomy for a large tumor that was nonmalignant of the uterus in the past. Denies rectal bleeding or melena. Patient has had intentional weight loss over the last few years. Review of Systems Patient denies any acute changes in his hearing or vision, chest pain, shortness of breath, rectal bleeding, melena, dysuria, hematuria, lightheadedness, unexplained weight loss Past Medical History Past Medical History: COPD, Hyperlipidemia Additional Past Medical History / Comment(s): Pt states she has had abdominal pain, bowel problems for many years, migraines, past bilateral buttock abscesses with I&Ds, "possible emphysema", has been told recently that her chest xray was abnormal and there are "dark spots on her T7 or T8 vertebrae-had recent bone scan. History of Any Multi-Drug Resistant Organisms: None Reported Past Surgical History: Appendectomy, Cholecystectomy, Hysterectomy Additional Past Surgical History / Comment(s): Colonoscopies, ORIF L ankle, I&D bilateral buttock abscesses, PICC line insertion and removal. Past Anesthesia/Blood Transfusion Reactions: No Reported Reaction Past Psychological History: Anxiety, Depression Smoking Status: Current every day smoker Past Alcohol Use History: Occasional Past Drug Use History: Marijuana - Past Family History Father Family Medical History: Diabetes Mellitus Additional Family Medical History / Comment(s): Father is an alcoholic. He is 86yrs old. Mother Family Medical History: Cancer Additional Family Medical History / Comment(s): Breast cancer with metastasis. Medications and Allergies Home Medications Medication Instructions Recorded Confirmed Type Sertraline HCl [Zoloft] 100 mg PO BID 10/04/16 11/20/18 History Albuterol Sulfate [Proair Hfa] 2 puff INHALATION RT-Q4H PRN 11/20/18 11/20/18 History Atorvastatin Calcium [Lipitor] 80 mg PO HS 11/20/18 11/20/18 History Ergocalciferol [Vitamin D2] 50,000 unit PO QMONTH 11/20/18 11/20/18 History Omeprazole [PriLOSEC] 20 mg PO DAILY 11/20/18 11/20/18 History Tiotropium [place] [Spiriva] 1 cap INHALATION RT-DAILY 11/20/18 11/20/18 History Allergies Allergy/AdvReac Type Severity Reaction Status Date / Time Penicillins Allergy Unknown Verified 11/20/18 08:45 Childhood phenobarbital Allergy Unknown Verified 11/20/18 08:45 Surgical - Exam Vital Signs Temp Pulse Resp BP Pulse Ox 99.0 F 82 22 134/89 95 11/20/18 08:23 11/20/18 08:23 11/20/18 08:23 11/20/18 08:23 11/20/18 08:23 GENERAL: Well developed, well nourished HEENT: Normocephalic, sclera non-icteric CHEST: No deformities ABDOMEN: Distended, mild tympany, mild diffuse tenderness with moderate tenderness left midabdomen EXTREMITIES: No edema NEURO: Alert and appropriate Rectal: Perianal scarring from previous cyst per patient. Spastic anal canal with narrowing of the distal rectum and anus, no palpable mass Results - Labs 11/20/18 08:55 11/20/18 08:55 Abnormal Lab Results - Last 24 Hours (Table) 11/20/18 11/20/18 11/20/18 Range/Units 08:55 08:55 10:00 WBC 19.3 H (3.8-10.6) k/uL Neutrophils # 12.9 H (1.3-7.7) k/uL Monocytes # 1.4 H (0-1.0) k/uL Creatinine 0.47 L (0.52-1.04) mg/dL Glucose 130 H (74-99) mg/dL AST 13 L (14-36) U/L Alkaline Phosphatase 133 H (38-126) U/L Ur Specific [place] >1.050 H (1.001-1.035) Urine Protein Trace H (Negative) Urine Blood Trace H (Negative) Urine Mucus Rare H (None) /hpf Diabetes panel 11/20/18 Range/Units 08:55 Sodium 139 (137-145) mmol/L Potassium 3.8 (3.5-5.1) mmol/L Chloride 106 (98-107) mmol/L Carbon Dioxide 23 (22-30) mmol/L BUN 10 (7-17) mg/dL Creatinine 0.47 L (0.52-1.04) mg/dL Glucose 130 H (74-99) mg/dL Calcium 9.7 (8.4-10.2) mg/dL AST 13 L (14-36) U/L ALT 31 (9-52) U/L Alkaline Phosphatase 133 H (38-126) U/L Total Protein 6.8 (6.3-8.2) g/dL Albumin 3.7 (3.5-5.0) g/dL Calcium panel 11/20/18 Range/Units 08:55 Calcium 9.7 (8.4-10.2) mg/dL Albumin 3.7 (3.5-5.0) g/dL Pituitary panel 11/20/18 Range/Units 08:55 Sodium 139 (137-145) mmol/L Potassium 3.8 (3.5-5.1) mmol/L Chloride 106 (98-107) mmol/L Carbon Dioxide 23 (22-30) mmol/L BUN 10 (7-17) mg/dL Creatinine 0.47 L (0.52-1.04) mg/dL Glucose 130 H (74-99) mg/dL Calcium 9.7 (8.4-10.2) mg/dL Adrenal panel 11/20/18 Range/Units 08:55 Sodium 139 (137-145) mmol/L Potassium 3.8 (3.5-5.1) mmol/L Chloride 106 (98-107) mmol/L Carbon Dioxide 23 (22-30) mmol/L BUN 10 (7-17) mg/dL Creatinine 0.47 L (0.52-1.04) mg/dL Glucose 130 H (74-99) mg/dL Calcium 9.7 (8.4-10.2) mg/dL Total Bilirubin 0.7 (0.2-1.3) mg/dL AST 13 L (14-36) U/L ALT 31 (9-52) U/L Alkaline Phosphatase 133 H (38-126) U/L Total Protein 6.8 (6.3-8.2) g/dL Albumin 3.7 (3.5-5.0) g/dL Assessment and Plan (1) Large bowel obstruction Narrative/Plan: The patient's CAT scan findings were reviewed with the patient in detail. CAT scan suggests the development of a colonic obstruction at the site of narrowing involving the mid to distal sigmoid colon. Etiology unclear at this time. Received with barium enema at this time to evaluate the patency of that section of colon. If very minimal confirms significant obstruction we'll proceed with exploratory laparotomy with colostomy and possible colectomy. The patient was notified that divergent was the primary focus of that surgery and colectomy would take place if it appeared free of significant inflammation. Risks of bleeding, infection, abscess, hernia, colostomy-related complications, potential need for additional surgery and/or biopsies. Patient understands and wishes to proceed if needed. Current Visit: Yes Status: Acute Code(s): K56.609 - UNSP INTESTNL OBST, UNSP TO PARTIAL VERSUS COMPLETE OBST SNOMED Code(s): 315914732
--- NOTE | 2018-11-20 14:19 | FL ---
EXAMINATION TYPE: FL barium enema DATE OF EXAM: 11/20/2018 COMPARISON: CT dated 11/20/2018 HISTORY: Abdominal pain and constipation for 4 days TECHNIQUE: A single contrast enema study is performed with Isovue. 1 minute and 11 seconds of fluoro scopy was utilized. 23 fluoroscopic images were saved. FINDINGS: Slight resistance was felt while inserting the rectal probe however the probe was able to be inserted smoothly. There is some irregularity of the rectal wall posteriorly with no discrete mass. The rectu m is able to be distended. Approximately 10 cm from the rectum complete distal sigmoid colonic obstru ction is seen. After approximately 1 minute no contrast was seen extending through the point of obstr uction in the examination was terminated. Findings were discussed with the ordering physician directl y after the examination. IMPRESSION: Complete distal sigmoid colonic obstruction with concern for underlying neoplasm. Slight distal rectal posterior wall coastal irregularity is noted without discrete mass.
[2018-11-20] MEDS: SODIUM CHLORIDE 0.9% 1,000 ML IV SCH (15:15)
[2018-11-20] MEDS ORDERED: IV FLUID CONTINUATION 800 ML IV ONE (15:25)
[2018-11-20] MEDS ORDERED: MIDAZOLAM (PF) 2 MG/2 ML VIAL IV ONE (15:32)
[2018-11-20] MEDS ORDERED: fentaNYL (PF) 50 MCG/ML 2 ML AMP IV ONE (15:32)
[2018-11-20] MEDS ORDERED: GLYCOPYRROLATE 0.2 MG/ML 2 ML VIAL ONE (15:40)
[2018-11-20] MEDS ORDERED: NEOSTIGMINE 1 MG/ML 10 ML VIAL ONE (15:40)
[2018-11-20] MEDS ORDERED: LIDOCAINE 1% INJ 10MG/ML (20 ML MDV) ONE (15:40)
[2018-11-20] MEDS ORDERED: PHENYLEPHRINE-0.9% NACL SYG 1 MG/10 ML SYRINGE ONE (15:40)
[2018-11-20] MEDS ORDERED: PROPOFOL 10 MG/ML 20 ML VIAL IV ONE (15:40)
[2018-11-20] MEDS ORDERED: fentaNYL (PF) 50 MCG/ML 2 ML AMP ONE (15:40)
[2018-11-20] MEDS ORDERED: SUCCINYLCHOLINE CHLORIDE 100 MG/5 ML SYR IV ONE (15:40)
[2018-11-20] MEDS ORDERED: VECURONIUM 10 MG VIAL IV ONE (15:40)
[2018-11-20] MEDS ORDERED: ROPIVACAINE 250 MG, HYDROMORPHONE (PF) 5 MG in SODIUM CHLORIDE 0.9% 200 ML EPIDURAL PRN (15:45)
[2018-11-20] MEDS: HEPARIN SODIUM,PORCINE 5,000 UNIT/ML 1 ML VIAL SQ SCH (15:46)
[2018-11-20] MEDS ORDERED: SODIUM CHLORIDE 0.9% 100 ML with ceFAZolin 2,000 MG IV ONE ×2 (15:50)
[2018-11-20] MEDS ORDERED: LACTATED RINGERS 1,000 ML IV ONE ×2 (16:37→17:32)
[2018-11-20] MEDS ORDERED: METOCLOPRAMIDE 5 MG/ML 2 ML VIAL IVP PRN (17:51)
--- NOTE | 2018-11-20 17:58 | P.OP ---
Date of Procedure: 11/20/18 Procedure(s) Performed: PREOPERATIVE DIAGNOSIS: Colonic obstruction POSTOPERATIVE DIAGNOSIS: Colonic obstruction, intra-abdominal adhesions, incisional hernia PROCEDURE: Exploratory laparotomy, diverting loop colostomy, extensive lysis of adhesions, partial omentectomy, repair incisional hernia SURGEON: Nima EBL: 50 mL ANESTHESIA: Gen. COMPLICATIONS: None OPERATIVE PROCEDURE: Patient placed in the operating table in the supine position. The patient was placed under general anesthesia. The abdomen was prepped sterilely. The patient's previous midline incision was re-incised and this was extended above the umbilicus as well. Dissection through the saphenous fat and fascia took place using electrocautery. The patient had 2 small incisional hernias present along the midline inferior to the umbilicus. Both of these were incorporated into our fascial opening. These were later repaired as a part of our fascial closure. The patient had dense adhesions between the omentum and the small bowel loops. These were lysed using both sharp dissection electrocautery and blunt dissection. The patient's colon was distended however appeared viable throughout. As we identified the descending colon this was followed to an inflammatory/indurated region involving the deep pelvis. There were some small bowel loops that were adherent to this region as well. This was quite firm and I was not convinced this was resectable at this time. There was no purulence seen or evidence of perforation. Given the findings a diverting loop colostomy was chosen. The transverse colon proximally was mobilized. A circular incision was made in the right upper quadrant. Dissection through the subcutaneous fat and fascia took place using electrocautery. The loop of colon was then brought out through the chosen ostomy site and kept in place using a 28-Amharic red rubber catheter. This was later cut and utilized as a bridge. Following that the abdomen was irrigated. No bleeding was seen. The midline fascia was closed using 2 separate double-stranded #1 PDS sutures. The saphenous tissues were closed using 2-0 Vicryl sutures. The skin was closed using selwyn. It should be noted that the patient's liver and peritoneum showed no evidence of metastasis. Following that the loop colostomy was matured by making a transverse incision in the transverse colon at the stomal site. The edges of the stomal opening were sutured to the surrounding skin using 3-0 Vicryl sutures. The bridge was sutured to the skin using 2-0 silk sutures. An ostomy appliance was applied and a midline dressing was applied as well. At the end of the procedure the sponge needle and counts were all correct. DISPOSITION: Stable to recovery room
[2018-11-20] MEDS ORDERED: LIDOCAINE 1% INJ 10MG/ML (10 ML MDV) INTRATRACH ONE (18:32)
[2018-11-20 20:25] LABS: Basophils # (A) 0.1 k/uL (0-0.2); Basophils % (A) 0 %; Eosinophils # (A) 0.1 k/uL (0-0.7); Eosinophils % (A) 1 %; HCT 39.5 % (34.0-46.0); HGB 12.8 gm/dL (11.4-16.0); Lymphocytes # (A) 1.5 k/uL (1.0-4.8); Lymphocytes % (A) 8 %; MCH 30.3 pg (25.0-35.0); MCHC 32.5 g/dL (31.0-37.0); MCV 93.4 fL (80.0-100.0); Monocytes % (A) 5 %; Neutrophils % (A) 85 %; Platelet Count 386 k/uL (150-450); RBC 4.23 m/uL (3.80-5.40); RDW 12.7 % (11.5-15.5); WBC 18.8 k/uL (3.8-10.6)
[2018-11-20] MEDS: CEFEPIME 2 GM in SODIUM CHLORIDE 0.9% 100 ML IVPB SCH (20:30)
[2018-11-20] MEDS: FAMOTIDINE 20 MG/2 ML VIAL IV SCH (20:31)
[2018-11-20] MEDS: metroNIDAZOLE-NS PMX 500 MG in SALINE 1 100ML.BAG IVPB SCH (20:32)
[2018-11-20 20:40] LABS: Anion Gap 6 mmol/L; Blood Urea Nitrogen 11 mg/dL (7-17); Carbon Dioxide 24 mmol/L (22-30); Chloride 109 mmol/L (98-107); Glucose 112 mg/dL (74-99); Potassium 4.3 mmol/L (3.5-5.1); Sodium 139 mmol/L (137-145)
[2018-11-20] MEDS: diphenhydrAMINE 50 MG/ML 1 ML VIAL IVP PRN (20:56)
[2018-11-20] MEDS: SERTRALINE 100 MG TAB PO SCH (20:56)
[2018-11-20] MEDS ORDERED: ZOLPIDEM 5 MG TAB PO SCH (21:00)
[2018-11-21] MEDS: ZOLPIDEM 5 MG TAB PO PRN ×2 (00:09→20:54)
[2018-11-21] MEDS: SODIUM CHLORIDE 0.9% 1,000 ML IV SCH ×3 (02:08→20:58)
[2018-11-21 03:52] LABS: Appearance,Urine Turbid (Clear); Bacteria,Urine Moderate /hpf; Bilirubin,Urine Negative (Negative); Blood,Urine Moderate (Negative); Color,Urine Yellow; Glucose,Urine (UA) Negative (Negative); Ketones,Urine 1+ (Negative); Leukocyte Esterase,Urine Large (Negative); Mucus,Urine Moderate /hpf; Nitrite,Urine Negative (Negative); Protein,Urine 1+ (Negative); RBC,Urine 74 /hpf (0-5); Specific Gravity,Urine 1.027 (1.001-1.035); Squamous Epithelial Cell,Urine 1 /hpf (0-4); Urobilinogen,Urine <2.0 mg/dL (<2.0); WBC,Urine >182 /hpf (0-5)
[2018-11-21] MEDS: metroNIDAZOLE-NS PMX 500 MG in SALINE 1 100ML.BAG IVPB SCH ×3 (04:27→20:54)
[2018-11-21] MEDS: diphenhydrAMINE 50 MG/ML 1 ML VIAL IVP PRN ×2 (04:27→20:54)
--- NOTE | 2018-11-21 06:31 | CONS ---
CONSULTATION DATE OF SERVICE: 11/20/2018 REASON FOR CONSULTATION: Colitis, abdominal abscess, antibiotic recommendation. HISTORY OF PRESENT ILLNESS: The patient is a 53-year-old female presenting to the ER at [facility] this morning with chief complaint of generalized abdominal pain that has been going on for 3 days before presenting to the hospital. The patient now describes the pain to be more of a dull aching to sharp pain out of 10 and no radiation. The patient also did not have any bowel movement for 3 days and 2 episodes of vomiting yesterday. Denies high grade fever, rigors or chills. No chest pain, shortness of breath or cough and no urinary symptoms. With these symptoms, patient was evaluated by the ER physician. On arrival to the ER, the patient did have a low-grade fever of 99. She did have elevated white count 19,000. UA was negative. 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 Patient subsequently was evaluated by Dr. Herring. She was taken to the OR and the patient is status post exploratory laparotomy with diverting loop colostomy and extensive lysis of adhesions and partial omentectomy and repair of incisional hernia. No OR culture. The patient will be treated with Levaquin and Flagyl because of her PENICILLIN allergy. Infectious Disease was consulted for further recommendation regarding antibiotic therapy. REVIEW OF SYSTEMS: Positive points have been mentioned in HPI. The rest of the systems negative. PAST MEDICAL HISTORY: COPD, hyperlipidemia. PAST SURGICAL HISTORY: Appendectomy, cholecystectomy, hysterectomy, colonoscopy, ORIF left ankle, I&D bilateral buttock abscess, PICC line infection with subsequent removal. PAST PSYCHOLOGICAL HISTORY: Anxiety and depression. SOCIAL HISTORY: Current everyday smoker. Occasionally drinks. marijuana use. FAMILY HISTORY: Father history of diabetes who is an alcoholic as well. Mother with history of metastatic breast cancer. ALLERGIES: Allergy to PENICILLIN, childhood reaction, no clear history of anaphylaxis; also PHENOBARBITAL. MEDICATIONS: Medications include the patient is currently on Tylenol, Benadryl, Pepcid, heparin, Dilaudid, Reglan, Flagyl, Narcan, nicotine patch, Zoloft, Ambien. PHYSICAL EXAMINATION: On examination, her blood pressure is 164/76 with a pulse of 95, temperature 98.8. She is 91% on room air. General description is a middle aged female lying in bed in no distress. No tachypnea or accessory muscle for respiration use. HEENT examination shows no pallor or scleral icterus. Oral mucous membrane is dry. NECK: Trachea is central. No thyromegaly. LUNGS: Unlabored breathing. Clear to auscultation anteriorly. No wheeze or crackles. HEART: S1, S2. Regular rate and rhythm. ABDOMEN: Soft. No tenderness. No guarding or rigidity. EXTREMITIES: No edema of feet. SKIN EXAMINATION: No rash or mass palpable. NEUROLOGIC: The patient is slightly lethargic post surgery. . LABS: Hemoglobin is 12.8, white count of 18.8. The patient's white count was 19.3. BUN of 11, creatinine 0.55. were normal. UA was negative. Blood culture pending. No OR cultures. DIAGNOSTIC IMPRESSION AND PLAN: 1. Patient admitted to the hospital with abdominal pain, constipation and especially did have evidence of extensive colitis with some mucosal abscess and possible large bowel obstruction status post laparotomy with diverting colostomy. At the time of surgery, inflammatory changes were noted in the pelvis, but no mention of any abscess as no cultures. Will need to cover for enteric gram-negative both aerobes and anaerobes. 2. The patient did have a PENICILLIN ALLERGY that will limit the number of antibiotics safe use. PLAN: 1. Discontinue the Levaquin. 2. Start the patient on cefepime 2 grams q.12 and continue the Flagyl 500 IV q.8. 3. IV fluids. 4. We will follow up on clinical condition and culture to further adjust medication if needed. Thank you for this consultation. Will follow this patient along with you. MMODL / IJN: [id number] /
[2018-11-21] MEDS ORDERED: NALOXONE 0.4 MG/ML 1 ML VIAL IV PRN (07:22)
--- NOTE | 2018-11-21 07:22 | P.PN ---
Progress Note - Text Progress Note Date: 11/21/18 Postoperative day #1 status post explaratory laparotomy,epidural catheter p laced for postoperative analgesia, patient doing well epidural site okay, patient currently on combination of epidural infusion solution of Ropivacaine 0.0625% and Dilaudid 20 g per mL the infusion rate at 9 ml per hour , patient had no motor deficit epidural site okay , vital signs stable ,VAS 4/10 , patient complaining of severe itching, which could be side effect of the Dilaudid , patient getting Benadryl every 6 hours and she still have severe itching Assessment and plan= post operative day # 1 patient doing well , patient complaining of severe itching for this reason I will discontinue Dilaudid and I will start patient on combination medication of fentanyl/ropivacaine, and I will increase the rate from 9 mL/h to 10 mL/h, will follow up tomorrow morning
[2018-11-21 07:34] LABS: Basophils # (A) 0.1 k/uL (0-0.2); Basophils % (A) 0 %; Eosinophils # (A) 0.2 k/uL (0-0.7); Eosinophils % (A) 1 %; HCT 37.4 % (34.0-46.0); HGB 11.9 gm/dL (11.4-16.0); Lymphocytes # (A) 2.5 k/uL (1.0-4.8); Lymphocytes % (A) 13 %; MCH 29.5 pg (25.0-35.0); MCHC 31.9 g/dL (31.0-37.0); MCV 92.5 fL (80.0-100.0); Mean Platelet Volume 6.9; Monocytes # (A) 1.1 k/uL (0-1.0); Monocytes % (A) 6 %; Neutrophils # (A) 15.7 k/uL (1.3-7.7); Neutrophils % (A) 79 %; Platelet Count 390 k/uL (150-450); RBC 4.04 m/uL (3.80-5.40); RDW 12.7 % (11.5-15.5); WBC 19.8 k/uL (3.8-10.6)
[2018-11-21 07:56] LABS: ALT 91 U/L (9-52); AST 66 U/L (14-36); Albumin 2.8 g/dL (3.5-5.0); Alkaline Phosphatase 162 U/L (38-126); Anion Gap 7 mmol/L; Blood Urea Nitrogen 11 mg/dL (7-17); Calcium 8.7 mg/dL (8.4-10.2); Carbon Dioxide 23 mmol/L (22-30); Chloride 108 mmol/L (98-107); Glucose 74 mg/dL (74-99); Potassium 3.7 mmol/L (3.5-5.1); Sodium 138 mmol/L (137-145); Total Bilirubin 0.6 mg/dL (0.2-1.3); Total Protein 5.3 g/dL (6.3-8.2)
[2018-11-21] MEDS: FAMOTIDINE 20 MG/2 ML VIAL IV SCH ×2 (08:09→20:53)
[2018-11-21] MEDS: CEFEPIME 2 GM in SODIUM CHLORIDE 0.9% 100 ML IVPB SCH ×2 (08:09→21:56)
[2018-11-21] MEDS: NICOTINE 21MG/24HR PATCH TRANSDERM SCH (08:10)
[2018-11-21] MEDS: SERTRALINE 100 MG TAB PO SCH ×2 (08:10→17:51)
[2018-11-21] MEDS ORDERED: SODIUM CHLORIDE 0.9% 500 ML 500 ML IV ONE (09:22)
[2018-11-21] MEDS: ROPIVACAINE 250 MG, fentaNYL (PF) 625 MCG in SODIUM CHLORIDE 0.9% 188 ML EPIDURAL PRN (10:17)
--- NOTE | 2018-11-21 10:55 | P.PN ---
<Carmen Beaver A - Last Filed: 11/21/18 10:48> Subjective Progress Note Date: 11/21/18 CHIEF COMPLAINT: Abdominal pain HISTORY OF PRESENT ILLNESS: Patient is status post exploratory laparotomy, diverting loop colostomy, extensive lysis of adhesions, partial omentectomy, and repair of incisional hernia. POD #1. Patient examined this morning at the bedside. Epidural was changed this morning from dilaudid to fentanyl secondary to itching. Patient reports her pain is tolerable. Denies nausea or vomiting. Tolerating ice chips. Urinary catheter is intact with yvonne urine with sediment. 325 mL urine output per EMR overnight. PHYSICAL EXAM: VITAL SIGNS: Reviewed. GENERAL: Well-developed in no acute distress. HEENT: No sclera icterus. Extraocular movements grossly intact. Moist buccal mucosa. Head is atraumatic, normocephalic. ABDOMEN: Soft. Nondistended. Ostomy to right side of abdomen with small amount of serous drainage. No stool noted. Midline incision clean dry and intact. NEUROLOGIC: Alert and oriented. Cranial nerves II through XII grossly intact. ASSESSMENT: 1. Abdominal pain 2. Colonic obstruction, s/p exploratory laparotomy, diverting loop colostomy, extensive lysis of adhesions, partial omentectomy, and repair of incisional hernia PLAN: 1. Continue ice chips only until bowel function returns 2. Continue epidural and rothman. May remove POD #3 3. 500cc bolus secondary to decreased urine output. 4. Continue maintenance fluids at 100 mL an hour 5. Incentive spirometry 6. Activity as tolerated. Patient to be out of bed and in the chair today. 7. Ostomy resource nurse on consult. 8. Await pathology 9. Dr. Velarde on consult. Antibiotics per ID. Monitor WBC. Nurse practitioner note has been reviewed by physician. Signing provider agrees with the documented findings, assessment, and plan of care. Objective - Vital Signs Vital signs: Vital Signs Temp 98.8 F 11/21/18 07:54 Pulse 100 11/21/18 07:54 Resp 14 11/21/18 07:54 BP 115/75 11/21/18 07:54 Pulse Ox 95 11/21/18 07:54 Intake & Output 11/20/18 11/21/18 11/21/18 18:59 06:59 18:59 Intake Total 1999 Output Total 175 300 Balance 1825 -300 Weight 63.957 kg Intake: IV 2000 Output: Urine 125 200 Stool 100 Estimated Blood Loss 50 Other: Voiding Method Indwelling Catheter Indwelling Catheter - Labs CBC & Chem 7: 11/21/18 07:07 11/21/18 07:07 Labs: Abnormal Lab Results - Last 24 Hours (Table) 11/20/18 11/20/18 11/20/18 Range/Units 10:00 19:58 19:58 WBC 18.8 H (3.8-10.6) k/uL Neutrophils # 16.0 H (1.3-7.7) k/uL Monocytes # (0-1.0) k/uL Chloride 109 H (98-107) mmol/L Creatinine (0.52-1.04) mg/dL Glucose 112 H (74-99) mg/dL AST (14-36) U/L ALT (9-52) U/L Alkaline Phosphatase (38-126) U/L Total Protein (6.3-8.2) g/dL Albumin (3.5-5.0) g/dL Urine Appearance (Clear) Ur Specific Orr >1.050 H (1.001-1.035) Urine Protein Trace H (Negative) Urine Ketones (Negative) Urine Blood Trace H (Negative) Ur Leukocyte Esterase (Negative) Urine RBC (0-5) /hpf Urine WBC (0-5) /hpf Urine WBC Clumps (None) /hpf Urine Bacteria (None) /hpf Urine Mucus Rare H (None) /hpf 11/21/18 11/21/18 11/21/18 Range/Units 03:00 07:07 07:07 WBC 19.8 H (3.8-10.6) k/uL Neutrophils # 15.7 H (1.3-7.7) k/uL Monocytes # 1.1 H (0-1.0) k/uL Chloride 108 H (98-107) mmol/L Creatinine 0.50 L (0.52-1.04) mg/dL Glucose (74-99) mg/dL AST 66 H (14-36) U/L ALT 91 H (9-52) U/L Alkaline Phosphatase 162 H (38-126) U/L Total Protein 5.3 L (6.3-8.2) g/dL Albumin 2.8 L (3.5-5.0) g/dL Urine Appearance Turbid H (Clear) Ur Specific Orr (1.001-1.035) Urine Protein 1+ H (Negative) Urine Ketones 1+ H (Negative) Urine Blood Moderate H (Negative) Ur Leukocyte Esterase Large H (Negative) Urine RBC 74 H (0-5) /hpf Urine WBC >182 H (0-5) /hpf Urine WBC Clumps Few H (None) /hpf Urine Bacteria Moderate H (None) /hpf Urine Mucus Moderate H (None) /hpf Microbiology - Last 24 Hours (Table) 11/20/18 10:00 Urine Culture - Preliminary Urine,Voided <Malcolm Herring - Last Filed: 11/21/18 20:45> Subjective As above. Patient very hungry. She is ambulating in the hallways. Epidural seems to be controlling her pain nicely. Some ostomy function today. Ostomy is pink and viable. Will begin clear liquid diet. Continue ambulation. Continue antibiotics. Change in urinalysis could be on the basis of developing colovesical fistula. Objective - Vital Signs Vital signs: Vital Signs Temp 98.9 F 11/21/18 19:40 Pulse 100 11/21/18 19:40 Resp 16 11/21/18 19:40 BP 134/87 11/21/18 19:40 Pulse Ox 93 L 11/21/18 19:40 Intake & Output 11/21/18 11/21/18 11/22/18 06:59 18:59 06:59 Output Total 300 740 Balance -300 -740 Output: Urine 200 615 Stool 100 125 Other: Voiding Method Indwelling Catheter Indwelling Catheter - Labs CBC & Chem 7: 11/21/18 07:07 11/21/18 07:07 Labs: Abnormal Lab Results - Last 24 Hours (Table) 11/21/18 11/21/18 11/21/18 Range/Units 03:00 07:07 07:07 WBC 19.8 H (3.8-10.6) k/uL Neutrophils # 15.7 H (1.3-7.7) k/uL Monocytes # 1.1 H (0-1.0) k/uL Chloride 108 H (98-107) mmol/L Creatinine 0.50 L (0.52-1.04) mg/dL AST 66 H (14-36) U/L ALT 91 H (9-52) U/L Alkaline Phosphatase 162 H (38-126) U/L Total Protein 5.3 L (6.3-8.2) g/dL Albumin 2.8 L (3.5-5.0) g/dL Urine Appearance Turbid H (Clear) Urine Protein 1+ H (Negative) Urine Ketones 1+ H (Negative) Urine Blood Moderate H (Negative) Ur Leukocyte Esterase Large H (Negative) Urine RBC 74 H (0-5) /hpf Urine WBC >182 H (0-5) /hpf Urine WBC Clumps Few H (None) /hpf Urine Bacteria Moderate H (None) /hpf Urine Mucus Moderate H (None) /hpf Microbiology - Last 24 Hours (Table) 11/21/18 03:00 Urine Culture - Preliminary Urine,Catheterized 11/20/18 10:49 Blood Culture - Preliminary Blood No Growth after 24 hours 11/20/18 10:00 Urine Culture - Final Urine,Voided Assessment and Plan (1) Large bowel obstruction Current Visit: Yes Status: Acute Code(s): K56.609 - UNSP INTESTNL OBST, UNSP TO PARTIAL VERSUS COMPLETE OBST SNOMED Code(s): 718377785
[2018-11-21] MEDS ORDERED: LEVOFLOXACIN 500MG-D5W PMX 500 MG in DEXTROSE/WATER 1 100ML.BAG IVPB SCH (12:00)
--- NOTE | 2018-11-21 12:45 | P.PN ---
Subjective Patient is status post exploratory laparoscopy with diverticular loop colostomy with lysis of extensive adhesions, partial omentectomy and repair of incisional hernia. Patient is on a pain pump. She says that she is doing fine. No chest pain or r acing heart, no cough no shortness of breath. Objective - Vital Signs Vital signs: Vital Signs Temp 98.8 F 11/21/18 07:54 Pulse 100 11/21/18 07:54 Resp 14 11/21/18 07:54 BP 115/75 11/21/18 07:54 Pulse Ox 95 11/21/18 07:54 Intake & Output 11/20/18 11/21/18 11/21/18 18:59 06:59 18:59 Intake Total 2000 Output Total 175 300 Balance 1825 -300 Weight 63.957 kg Intake: IV 1999 Output: Urine 125 200 Stool 100 Estimated Blood Loss 50 Other: Voiding Method Indwelling Catheter Indwelling Catheter - Exam On exam, alert and oriented x3. HEENT: Conjunctivae normal. eyes normal. NECK: No JVD. No thyroid enlargement. No LNs CARDIOVASCULAR: S1, S2 muffled. No murmur RESPIRATION: Breath sounds diminished in the bases. No rhonchi or crackles. No bronchial breathing. ABDOMEN: Soft, tender she has colostomy bag in the right lower quadrant. She has dressing applied status post surgery in the middle of the abdomen. LEGS: No edema. no swelling NERVOUS SYSTEM: Cranial N 2-12 grossly normal. Moves all 4 limbs. No focal deficits. No sensory deficit. No signs of cerebellar dysfucntion. Skin: no ulcer no rash - Labs CBC & Chem 7: 11/21/18 07:07 11/21/18 07:07 Labs: Abnormal Lab Results - Last 24 Hours (Table) 11/20/18 11/20/18 11/21/18 Range/Units 19:58 19:58 03:00 WBC 18.8 H (3.8-10.6) k/uL Neutrophils # 16.0 H (1.3-7.7) k/uL Monocytes # (0-1.0) k/uL Chloride 109 H (98-107) mmol/L Creatinine (0.52-1.04) mg/dL Glucose 112 H (74-99) mg/dL AST (14-36) U/L ALT (9-52) U/L Alkaline Phosphatase (38-126) U/L Total Protein (6.3-8.2) g/dL Albumin (3.5-5.0) g/dL Urine Appearance Turbid H (Clear) Urine Protein 1+ H (Negative) Urine Ketones 1+ H (Negative) Urine Blood Moderate H (Negative) Ur Leukocyte Esterase Large H (Negative) Urine RBC 74 H (0-5) /hpf Urine WBC >182 H (0-5) /hpf Urine WBC Clumps Few H (None) /hpf Urine Bacteria Moderate H (None) /hpf Urine Mucus Moderate H (None) /hpf 11/21/18 11/21/18 Range/Units 07:07 07:07 WBC 19.8 H (3.8-10.6) k/uL Neutrophils # 15.7 H (1.3-7.7) k/uL Monocytes # 1.1 H (0-1.0) k/uL Chloride 108 H (98-107) mmol/L Creatinine 0.50 L (0.52-1.04) mg/dL Glucose (74-99) mg/dL AST 66 H (14-36) U/L ALT 91 H (9-52) U/L Alkaline Phosphatase 162 H (38-126) U/L Total Protein 5.3 L (6.3-8.2) g/dL Albumin 2.8 L (3.5-5.0) g/dL Urine Appearance (Clear) Urine Protein (Negative) Urine Ketones (Negative) Urine Blood (Negative) Ur Leukocyte Esterase (Negative) Urine RBC (0-5) /hpf Urine WBC (0-5) /hpf Urine WBC Clumps (None) /hpf Urine Bacteria (None) /hpf Urine Mucus (None) /hpf Microbiology - Last 24 Hours (Table) 11/20/18 10:00 Urine Culture - Preliminary Urine,Voided Assessment and Plan Assessment: - Colonic obstruction status post expiratory laparotomy, diverticular colostomy and extensive lysis of dictation, partial omentectomy and repair of the incisional hernia postop day 1 - History of COPD - History of migraines - Tobacco abuse - Hyperlipidemia Plan - We'll continue current management. - Pain control as per surgery team - Infectious disease consulted for antibiotic recommendations - Continue IV fluids - We'll continue to monitor the patient Time with Patient: Greater than 30
--- NOTE | 2018-11-21 18:19 | PN ---
PROGRESS NOTE DATE OF SERVICE: 11/21/2018. REASON FOR FOLLOWUP VISIT: Colitis with abdominal abscess. INTERVAL HISTORY: The patient did have a low-grade fever of 99.8 last night. The patient is afebrile. Since then, the patient has been breathing comfortably. The patient has been complaining of abdominal pain mostly lower abdominal area, worse with coughing. No chest pain. No nausea, no vomiting. PHYSICAL EXAMINATION: Blood pressure 115/75 with a pulse of 100. Temperature 98.8. She is 95% on 2 L nasal cannula. General description is a middle aged female lying in bed in no distress. Respiratory system: Unlabored breathing with decreased breath sounds at the bases. No wheeze. Heart S1, S2. Regular rate and rhythm. ABDOMEN: Soft, nondistended. No guarding. No rigidity. LABS: Hemoglobin 11.8, white count 8.8 with a BUN of 11, creatinine 0.50. Urine has been positive. Cultures currently pending. DIAGNOSTIC IMPRESSION AND PLAN: Patient with a diverticulitis and possible abscess in this patient status post laparotomy with diverting colostomy and repair of the hernias. The patient is currently covered with cefepime and Flagyl to continue while waiting for the culture to finalize. Did have slight jump in white count. We will monitor closely. If any new fever or further jump in the white count, cultures will be obtained before adjusting antibiotic further. Continue supportive care. MMODL / IJN: [id number] /
[2018-11-21] MEDS ORDERED: NICOTINE 21MG/24HR PATCH TRANSDERM STA (19:05)
[2018-11-21] MEDS: HEPARIN SODIUM,PORCINE 5,000 UNIT/ML 1 ML VIAL SQ SCH (20:54)
[2018-11-22] MEDS: metroNIDAZOLE-NS PMX 500 MG in SALINE 1 100ML.BAG IVPB SCH ×4 (05:14→23:59)
[2018-11-22] MEDS: SODIUM CHLORIDE 0.9% 1,000 ML IV SCH ×2 (05:18→15:14)
[2018-11-22] MEDS: CEFEPIME 2 GM in SODIUM CHLORIDE 0.9% 100 ML IVPB SCH ×2 (09:00→15:23)
[2018-11-22 09:03] LABS: Basophils % (A) 0 %; Eosinophils # (A) 0.5 k/uL (0-0.7); Eosinophils % (A) 3 %; HCT 34.2 % (34.0-46.0); HGB 11.5 gm/dL (11.4-16.0); Lymphocytes % (A) 11 %; MCH 30.4 pg (25.0-35.0); MCHC 33.6 g/dL (31.0-37.0); MCV 90.5 fL (80.0-100.0); Mean Platelet Volume 7.6; Monocytes # (A) 1.1 k/uL (0-1.0); Monocytes % (A) 6 %; Neutrophils # (A) 13.8 k/uL (1.3-7.7); Neutrophils % (A) 78 %; Platelet Count 410 k/uL (150-450); RBC 3.78 m/uL (3.80-5.40); RDW 12.8 % (11.5-15.5); WBC 17.6 k/uL (3.8-10.6)
[2018-11-22 09:33] LABS: Sodium 136 mmol/L (137-145)
[2018-11-22 09:34] LABS: ALT 59 U/L (9-52); AST 31 U/L (14-36); Albumin 2.6 g/dL (3.5-5.0); Alkaline Phosphatase 135 U/L (38-126); Anion Gap 5 mmol/L; Blood Urea Nitrogen 7 mg/dL (7-17); Calcium 8.4 mg/dL (8.4-10.2); Carbon Dioxide 23 mmol/L (22-30); Chloride 108 mmol/L (98-107); Glucose 116 mg/dL (74-99); Potassium 3.3 mmol/L (3.5-5.1); Total Bilirubin 0.4 mg/dL (0.2-1.3)
[2018-11-22] MEDS: HEPARIN SODIUM,PORCINE 5,000 UNIT/ML 1 ML VIAL SQ SCH ×2 (09:49→20:22)
[2018-11-22] MEDS: SERTRALINE 100 MG TAB PO SCH ×2 (09:51→19:06)
[2018-11-22] MEDS: NICOTINE 21MG/24HR PATCH TRANSDERM SCH (09:52)
[2018-11-22] MEDS ORDERED: Potassium Replacement Protocol 1 EACH MISC MISCELLANE PRN (09:58)
--- NOTE | 2018-11-22 10:00 | P.PN ---
<Carmen Beaver A - Last Filed: 11/22/18 09:53> Subjective Progress Note Date: 11/22/18 CHIEF COMPLAINT: Abdominal pain HISTORY OF PRESENT ILLNESS: Patient is status post exploratory laparotomy, diverting loop colostomy, extensive lysis of adhesions, partial omentectomy, and repair of incisional hernia. POD #2. Patient examined this morning at the bedside. Reports abdominal pain is tolerable this morning. Epidural infusing at 7cc/hr. Reports improvement in itching. Tolerating clear liquid diet. Ostomy with gas present but no stool. Urine appears more clear today. Patient using IS but only pulling 500-750. Encouraged use. PHYSICAL EXAM: VITAL SIGNS: Reviewed. GENERAL: Well-developed in no acute distress. HEENT: No sclera icterus. Extraocular movements grossly intact. Moist buccal mucosa. Head is atraumatic, normocephalic. ABDOMEN: Soft. Mildly distended. Ostomy to right side of abdomen with small amount of serous drainage. No stool noted. Midline incision dressing intact with small amount of shadowing present. NEUROLOGIC: Alert and oriented. Cranial nerves II through XII grossly intact. ASSESSMENT: 1. Abdominal pain 2. Colonic obstruction, s/p exploratory laparotomy, diverting loop colostomy, extensive lysis of adhesions, partial omentectomy, and repair of incisional hernia PLAN: 1. Continue clear liquid diet. Await bowel function 2. Continue epidural and rothman. May remove POD #3 3. Incentive spirometry 4. Activity as tolerated. Patient to be out of bed and in the chair today. Encourage ambulation in the hallways. 5. Ostomy resource nurse on consult. 6. Await pathology 7. Dr. Velarde on consult. Antibiotics per ID. Monitor WBC. Nurse practitioner note has been reviewed by physician. Signing provider agrees with the documented findings, assessment, and plan of care. Objective - Vital Signs Vital signs: Vital Signs Temp 98.8 F 11/22/18 07:15 Pulse 105 H 11/22/18 07:28 Resp 16 11/22/18 07:28 BP 127/80 11/22/18 07:28 Pulse Ox 98 11/22/18 07:28 Intake & Output 11/21/18 11/22/18 11/22/18 18:59 06:59 18:59 Output Total 740 400 Balance -740 -400 Output: Urine 615 400 Stool 125 Other: Voiding Method Indwelling Catheter Indwelling Catheter Indwelling Catheter - Labs CBC & Chem 7: 11/22/18 08:42 11/22/18 08:42 Labs: Abnormal Lab Results - Last 24 Hours (Table) 11/22/18 11/22/18 Range/Units 08:42 08:42 WBC 17.6 H (3.8-10.6) k/uL RBC 3.78 L (3.80-5.40) m/uL Neutrophils # 13.8 H (1.3-7.7) k/uL Monocytes # 1.1 H (0-1.0) k/uL Sodium 136 L (137-145) mmol/L Potassium 3.3 L (3.5-5.1) mmol/L Chloride 108 H (98-107) mmol/L Creatinine 0.42 L (0.52-1.04) mg/dL Glucose 116 H (74-99) mg/dL ALT 59 H (9-52) U/L Alkaline Phosphatase 135 H (38-126) U/L Total Protein 5.0 L (6.3-8.2) g/dL Albumin 2.6 L (3.5-5.0) g/dL Microbiology - Last 24 Hours (Table) 11/21/18 03:00 Urine Culture - Preliminary Urine,Catheterized 11/20/18 10:49 Blood Culture - Preliminary Blood No Growth after 24 hours 11/20/18 10:00 Urine Culture - Final Urine,Voided <Malcolm Herring - Last Filed: 11/22/18 18:49> Subjective As above. Patient still feels bloated. She did have a stool rectally today. Tolerating full liquids. She is increasing her activity today. Elevated white blood cell count persists. Continue pulmonary toilet. Objective - Vital Signs Vital signs: Vital Signs Temp 98.6 F 11/22/18 13:25 Pulse 103 H 11/22/18 13:27 Resp 16 11/22/18 13:25 BP 124/79 11/22/18 13:25 Pulse Ox 94 L 11/22/18 13:25 Intake & Output 11/21/18 11/22/18 11/22/18 18:59 06:59 18:59 Intake Total 570 Output Total 740 400 760 Balance -740 -400 -190 Intake: Intake, IV Titration 250 Amount Ropivacaine 250 mg 250 fentaNYL (PF) 625 mcg In Sodium Chloride 0.9% 188 ml @ Per Protocol EPIDURAL .Q0M PRN Rx#: [id number] Oral 320 Output: Urine 615 400 660 Uretheral (Rothman) 660 Stool 125 100 Other: Voiding Method Indwelling Catheter Indwelling Catheter Indwelling Catheter - Labs CBC & Chem 7: 11/22/18 08:42 11/22/18 14:51 Labs: Abnormal Lab Results - Last 24 Hours (Table) 11/22/18 11/22/18 Range/Units 08:42 08:42 WBC 17.6 H (3.8-10.6) k/uL RBC 3.78 L (3.80-5.40) m/uL Neutrophils # 13.8 H (1.3-7.7) k/uL Monocytes # 1.1 H (0-1.0) k/uL Sodium 136 L (137-145) mmol/L Potassium 3.3 L (3.5-5.1) mmol/L Chloride 108 H (98-107) mmol/L Creatinine 0.42 L (0.52-1.04) mg/dL Glucose 116 H (74-99) mg/dL ALT 59 H (9-52) U/L Alkaline Phosphatase 135 H (38-126) U/L Total Protein 5.0 L (6.3-8.2) g/dL Albumin 2.6 L (3.5-5.0) g/dL Microbiology - Last 24 Hours (Table) 11/20/18 10:49 Blood Culture - Preliminary Blood No Growth after 48 hours 11/21/18 03:00 Urine Culture - Final Urine,Catheterized Assessment and Plan (1) Large bowel obstruction Current Visit: Yes Status: Acute Code(s): K56.609 - UNSP INTESTNL OBST, UNSP TO PARTIAL VERSUS COMPLETE OBST SNOMED Code(s): 046464401
[2018-11-22] MEDS: POTASSIUM CHLORIDE ER 20 MEQ TAB.ER PO SCH ×4 (11:40→20:21)
--- NOTE | 2018-11-22 12:54 | P.PN ---
Subjective Patient is status post exploratory laparoscopy with diverting loop colostomy with lysis of extensive adhesions, partial omentectomy and repair of incisional hernia. Patient is on a pain pump. She says that she is doing fine. No chest pain or racing heart, no cough no shortness of breath. 11/22/2018 Patient says that she is doing better pain is better controlled on pain pump She tried popsicles today No chest pain or racing heart no cough or shortness breath Objective - Vital Signs Vital signs: Vital Signs Temp 98.8 F 11/22/18 07:15 Pulse 105 H 11/22/18 07:28 Resp 16 11/22/18 07:28 BP 127/80 11/22/18 07:28 Pulse Ox 98 11/22/18 07:28 Intake & Output 11/21/18 11/22/18 11/22/18 18:59 06:59 18:59 Output Total 740 400 Balance -740 -400 Output: Urine 615 400 Stool 125 Other: Voiding Method Indwelling Catheter Indwelling Catheter Indwelling Catheter - Exam On exam, alert and oriented x3. HEENT: Conjunctivae normal. eyes normal. NECK: No JVD. No thyroid enlargement. No LNs CARDIOVASCULAR: S1, S2 muffled. No murmur RESPIRATION: Breath sounds diminished in the bases. No rhonchi or crackles. No bronchial breathing. ABDOMEN: Soft, tender she has colostomy bag in the right lower quadrant. She has dressing applied status post surgery in the middle of the abdomen. LEGS: No edema. no swelling NERVOUS SYSTEM: Cranial N 2-12 grossly normal. Moves all 4 limbs. No focal deficits. No sensory deficit. No signs of cerebellar dysfucntion. Skin: no ulcer no rash - Labs CBC & Chem 7: 11/22/18 08:42 11/22/18 08:42 Labs: Abnormal Lab Results - Last 24 Hours (Table) 11/22/18 11/22/18 Range/Units 08:42 08:42 WBC 17.6 H (3.8-10.6) k/uL RBC 3.78 L (3.80-5.40) m/uL Neutrophils # 13.8 H (1.3-7.7) k/uL Monocytes # 1.1 H (0-1.0) k/uL Sodium 136 L (137-145) mmol/L Potassium 3.3 L (3.5-5.1) mmol/L Chloride 108 H (98-107) mmol/L Creatinine 0.42 L (0.52-1.04) mg/dL Glucose 116 H (74-99) mg/dL ALT 59 H (9-52) U/L Alkaline Phosphatase 135 H (38-126) U/L Total Protein 5.0 L (6.3-8.2) g/dL Albumin 2.6 L (3.5-5.0) g/dL Microbiology - Last 24 Hours (Table) 11/21/18 03:00 Urine Culture - Final Urine,Catheterized 11/20/18 10:49 Blood Culture - Preliminary Blood No Growth after 24 hours 11/20/18 10:00 Urine Culture - Final Urine,Voided Assessment and Plan Assessment: - Colonic obstruction status post expiratory laparotomy, diverticular colostomy and extensive lysis of dictation, partial omentectomy and repair of the incisional hernia postop day 1 - History of COPD - History of migraines - Tobacco abuse - Hyperlipidemia Plan - We'll continue current management. - Pain control as per surgery team - Diet advancement as per surgery recommendations - Infectious disease consulted for antibiotic recommendations - Continue IV fluids - We'll continue to monitor the patient Time with Patient: Greater than 30
[2018-11-22] MEDS: FAMOTIDINE 20 MG/2 ML VIAL IV SCH ×2 (15:17→20:21)
[2018-11-22] MEDS ORDERED: CEFEPIME 2 GM in SODIUM CHLORIDE 0.9% 100 ML IVPB SCH (16:00)
[2018-11-22] MEDS: ROPIVACAINE 250 MG, fentaNYL (PF) 625 MCG in SODIUM CHLORIDE 0.9% 188 ML EPIDURAL PRN (18:06)
--- NOTE | 2018-11-22 18:11 | PN ---
PROGRESS NOTE DATE OF SERVICE: 11/22/2018. REASON FOR FOLLOWUP: Colitis and abdominal abscess. INTERVAL HISTORY: The patient did have a low-grade fever of 100.8 . The patient afebrile since then. The patient seems to have a problem with IVs. Currently with no IV access. Denies having any chest pain. No shortness of breath. No cough. No worsening abdominal pain. Did have output in her colostomy bag. PHYSICAL EXAMINATION: Blood pressure 124/79 with a pulse of 103. Temperature 98.6, 94% on room air. General description is a middle-aged female lying in bed in no distress. Respiratory system: Unlabored breathing. Clear to auscultation anteriorly. Heart S1, S2. Regular rate and rhythm. Abdomen is soft, mildly distended. No guarding. No rigidity. Colostomy did have good output. Extremities: No edema of the feet. LABS: Hemoglobin 11.5, white count 17.8 with a BUN of 7, creatinine 0.42. Blood culture so far negative. No OR cultures. DIAGNOSTIC IMPRESSION AND PLAN: Patient with complicated diverticulitis in this patient who did have evidence of possible sepsis. The patient is status post laparotomy with diverting colostomy. Currently covered with Cefepime and Flagyl. In view of no IV access, will obtain a midline for IV antibiotic therapy. We will monitor clinical course and cultures closely. Continue supportive care. MMODL / KAILASHN: [id number] /
[2018-11-22] MEDS: ZOLPIDEM 5 MG TAB PO PRN (23:56)
[2018-11-23] MEDS: CEFEPIME 2 GM in SODIUM CHLORIDE 0.9% 100 ML IVPB SCH ×2 (02:49→14:39)
[2018-11-23] MEDS: SODIUM CHLORIDE 0.9% 1,000 ML IV SCH ×2 (03:29→11:29)
--- NOTE | 2018-11-23 06:02 | P.PN ---
Progress Note - Text Progress Note Date: 11/23/18 53 yo female s/p Exp. Lap. POD#3. Epidural catheter in place, no redness. Had a good night sleep. VAS=0. Adeqaute pain control. Epidural rate at 8cc/hr. No motor or sensory deficit, no itching. Keep at the same rate. Discontinue today.
[2018-11-23] MEDS: SERTRALINE 100 MG TAB PO SCH ×2 (06:55→17:21)
[2018-11-23] MEDS: metroNIDAZOLE-NS PMX 500 MG in SALINE 1 100ML.BAG IVPB SCH ×2 (06:55→15:58)
[2018-11-23] MEDS: NICOTINE 21MG/24HR PATCH TRANSDERM SCH (07:59)
[2018-11-23] MEDS: FAMOTIDINE 20 MG/2 ML VIAL IV SCH ×2 (07:59→20:46)
[2018-11-23 09:03] LABS: Basophils % (A) 0 %; Eosinophils # (A) 0.2 k/uL (0-0.7); Eosinophils % (A) 1 %; HCT 38.3 % (34.0-46.0); HGB 12.5 gm/dL (11.4-16.0); Lymphocytes # (A) 1.9 k/uL (1.0-4.8); Lymphocytes % (A) 9 %; MCH 29.7 pg (25.0-35.0); MCHC 32.6 g/dL (31.0-37.0); Mean Platelet Volume 7.6; Monocytes # (A) 1.1 k/uL (0-1.0); Monocytes % (A) 6 %; Neutrophils # (A) 16.6 k/uL (1.3-7.7); Neutrophils % (A) 83 %; Platelet Count 490 k/uL (150-450); RBC 4.21 m/uL (3.80-5.40); RDW 12.9 % (11.5-15.5); WBC 20.1 k/uL (3.8-10.6)
[2018-11-23 09:22] LABS: ALT 48 U/L (9-52); AST 20 U/L (14-36); Albumin 2.6 g/dL (3.5-5.0); Alkaline Phosphatase 123 U/L (38-126); Anion Gap 10 mmol/L; Blood Urea Nitrogen 8 mg/dL (7-17); Calcium 8.7 mg/dL (8.4-10.2); Carbon Dioxide 18 mmol/L (22-30); Chloride 113 mmol/L (98-107); Glucose 120 mg/dL (74-99); Sodium 141 mmol/L (137-145); Total Bilirubin 0.3 mg/dL (0.2-1.3); Total Protein 5.2 g/dL (6.3-8.2)
[2018-11-23] MEDS: HEPARIN SODIUM,PORCINE 5,000 UNIT/ML 1 ML VIAL SQ SCH ×2 (10:07→20:46)
[2018-11-23] MEDS: LORazepam 0.5 MG TAB PO PRN (10:09)
--- NOTE | 2018-11-23 11:10 | P.PN ---
<BeaverCarmen A - Last Filed: 11/23/18 11:05> Subjective Progress Note Date: 11/23/18 CHIEF COMPLAINT: Abdominal pain HISTORY OF PRESENT ILLNESS: Patient is status post exploratory laparotomy, diverting loop colostomy, extensive lysis of adhesions, partial omentectomy, and repair of incisional hernia. POD #3. Patient examined this morning at the bedside. Reports abdominal pain is tolerable this morning. Epidural infusing. Reports emesis z 1 this morning. WBC 20.1. Nursing reports patient is refusing Flagyl. Temp 99.1 this morning. Pathology report reveals fibroadipose tissue and scar with overlying skin consistent with omental adhesions. PHYSICAL EXAM: VITAL SIGNS: Reviewed. GENERAL: Well-developed in no acute distress. HEENT: No sclera icterus. Extraocular movements grossly intact. Moist buccal m ucosa. Head is atraumatic, normocephalic. ABDOMEN: Soft. Mildly distended. Ostomy to right side of abdomen with liquid stool present. Midline incision dressing intact with small amount of shadowing present. NEUROLOGIC: Alert and oriented. Cranial nerves II through XII grossly intact. ASSESSMENT: 1. Abdominal pain 2. Colonic obstruction, s/p exploratory laparotomy, diverting loop colostomy, extensive lysis of adhesions, partial omentectomy, and repair of incisional hernia PLAN: 1. Continue clear liquid diet. Do not advance due to episode of emesis this morning 2. Discontinue epidural today. Continue rothman catheter until evaluated by Dr. Herring this afternoon. 3. Incentive spirometry 4. Activity as tolerated. Patient to be out of bed and in the chair today. Encourage ambulation in the hallways. 5. Ostomy resource nurse on consult. 6. Nursing to notify Dr. Velarde that patient is refusing Flagyl.Antibiotics per ID. Monitor WBC. Nurse practitioner note has been reviewed by physician. Signing provider agrees with the documented findings, assessment, and plan of care. Objective - Vital Signs Vital signs: Vital Signs Temp 99.1 F 11/23/18 08:22 Pulse 96 11/23/18 08:22 Resp 16 11/23/18 08:22 BP 121/71 11/23/18 08:22 Pulse Ox 93 L 11/23/18 08:22 Intake & Output 11/22/18 11/23/18 11/23/18 18:59 06:59 18:59 Intake Total 570 Output Total 760 100 Balance -190 -100 Intake: Intake, IV Titration 250 Amount Ropivacaine 250 mg 250 fentaNYL (PF) 625 mcg In Sodium Chloride 0.9% 188 ml @ Per Protocol EPIDURAL .Q0M PRN Rx#: [id number] Oral 320 Output: Urine 660 Uretheral (Rothman) 660 Stool 100 100 Other: Voiding Method Indwelling Catheter Indwelling Catheter Indwelling Catheter - Labs CBC & Chem 7: 11/23/18 08:24 11/23/18 08:24 Labs: Abnormal Lab Results - Last 24 Hours (Table) 11/23/18 11/23/18 Range/Units 08:24 08:24 WBC 20.1 H (3.8-10.6) k/uL Plt Count 490 H (150-450) k/uL Neutrophils # 16.6 H (1.3-7.7) k/uL Monocytes # 1.1 H (0-1.0) k/uL Chloride 113 H (98-107) mmol/L Carbon Dioxide 18 L (22-30) mmol/L Creatinine 0.41 L (0.52-1.04) mg/dL Glucose 120 H (74-99) mg/dL Total Protein 5.2 L (6.3-8.2) g/dL Albumin 2.6 L (3.5-5.0) g/dL Microbiology - Last 24 Hours (Table) 11/20/18 10:49 Blood Culture - Preliminary Blood No Growth after 48 hours 11/21/18 03:00 Urine Culture - Final Urine,Catheterized <Malcolm Herring - Last Filed: 11/23/18 15:03> Subjective Patient had episodes of vomiting small morning. Doing better currently. She is asking for full liquid diet. We'll remove epidural. Following that we'll segundo ve Rothman catheter. Continue IV antibiotics. Advance diet to full liquids. Ambulate. Objective - Vital Signs Vital signs: Vital Signs Temp 99.6 F 11/23/18 14:58 Pulse 105 H 11/23/18 14:58 Resp 16 11/23/18 14:58 BP 126/85 11/23/18 14:58 Pulse Ox 92 L 11/23/18 14:58 Intake & Output 11/22/18 11/23/18 11/23/18 18:59 06:59 18:59 Intake Total 570 Output Total 760 100 Balance -190 -100 Weight 63.957 kg Intake: Intake, IV Titration 250 Amount Ropivacaine 250 mg 250 fentaNYL (PF) 625 mcg In Sodium Chloride 0.9% 188 ml @ Per Protocol EPIDURAL .Q0M PRN Rx#: [id number] Oral 320 Output: Urine 660 Uretheral (Rothman) 660 Stool 100 100 Other: Voiding Method Indwelling Catheter Indwelling Catheter Indwelling Catheter - Labs CBC & Chem 7: 11/23/18 08:24 11/23/18 08:24 Labs: Abnormal Lab Results - Last 24 Hours (Table) 11/23/18 11/23/18 Range/Units 08:24 08:24 WBC 20.1 H (3.8-10.6) k/uL Plt Count 490 H (150-450) k/uL Neutrophils # 16.6 H (1.3-7.7) k/uL Monocytes # 1.1 H (0-1.0) k/uL Chloride 113 H (98-107) mmol/L Carbon Dioxide 18 L (22-30) mmol/L Creatinine 0.41 L (0.52-1.04) mg/dL Glucose 120 H (74-99) mg/dL Total Protein 5.2 L (6.3-8.2) g/dL Albumin 2.6 L (3.5-5.0) g/dL Microbiology - Last 24 Hours (Table) 11/20/18 10:49 Blood Culture - Preliminary Blood No Growth after 72 hours 11/21/18 03:00 Urine Culture - Final Urine,Catheterized Assessment and Plan (1) Large bowel obstruction Current Visit: Yes Status: Acute Code(s): K56.609 - UNSP INTESTNL OBST, UNSP TO PARTIAL VERSUS COMPLETE OBST SNOMED Code(s): 300927783
[2018-11-23 13:18] VITALS: BMI 25.0
[2018-11-23] MEDS: HYDROmorphone 1 MG/ML 1 ML SYRINGE IVP PRN ×2 (16:24→20:47)
--- NOTE | 2018-11-23 16:42 | PN ---
PROGRESS NOTE DATE OF SERVICE: 11/23/2018 REASON FOR FOLLOWUP: Abdominal abscess. INTERVAL HISTORY: The patient is currently afebrile. The patient, though, did have one episode of vomiting. The patient apparently has been refusing her IV Flagyl and missed two of her doses. RN mentioned to me this morning that the patient is slightly upset for not getting the food, saying that current clear liquid diet is not giving her enough nutrition. Denies having any chest pain or shortness of breath or cough or any worsening abdominal pain. PHYSICAL EXAMINATION: Blood pressure 126/85 with a pulse of 96, temperature 99.6. She is 92% on room air. General description is a middle-aged female lying in bed in no distress. RESPIRATORY SYSTEM: Unlabored breathing with decreased breath sounds. No wheeze. HEART: S1, S2. Regular rate and rhythm. ABDOMEN: Soft. Mildly distended. No guarding or rigidity. EXTREMITIES: No edema of the feet. LABS: Hemoglobin is 12.5, white count 20,000. BUN of 8, creatinine 0.41. DIAGNOSTIC IMPRESSION AND PLAN: Patient with abdominal abscess, diverticulitis, status post diverting colostomy. The patient has been advised that she needs to take her Flagyl, as cefepime alone would not be able to cover for the enteric anaerobes that are usually involved in this type of infection. She did have a slightly elevated white count which could be more likely because patient missed two of her doses of Flagyl. Patient to continue with IV cefepime and Flagyl. Repeat CBC tomorrow. Continue with supportive care. MMODL / IJN: [id number] /
[2018-11-23] MEDS: KETOROLAC 30 MG/ML 1 ML VIAL IVP SCH ×2 (17:21→23:44)
[2018-11-23] MEDS ORDERED: LORazepam 0.5 MG TAB PO SCH (21:00)
[2018-11-23] MEDS: ZOLPIDEM 5 MG TAB PO PRN (23:45)
[2018-11-24] MEDS: metroNIDAZOLE-NS PMX 500 MG in SALINE 1 100ML.BAG IVPB SCH ×4 (01:44→23:46)
[2018-11-24] MEDS: SODIUM CHLORIDE 0.9% 1,000 ML IV SCH ×3 (01:45→17:50)
[2018-11-24] MEDS: KETOROLAC 30 MG/ML 1 ML VIAL IVP SCH ×4 (05:29→23:45)
[2018-11-24] MEDS: CEFEPIME 2 GM in SODIUM CHLORIDE 0.9% 100 ML IVPB SCH ×2 (05:29→14:32)
[2018-11-24 08:55] LABS: Basophils # (A) 0.1 k/uL (0-0.2); Basophils % (A) 0 %; Eosinophils # (A) 0.7 k/uL (0-0.7); Eosinophils % (A) 5 %; HCT 35.9 % (34.0-46.0); HGB 11.5 gm/dL (11.4-16.0); Lymphocytes # (A) 2.9 k/uL (1.0-4.8); Lymphocytes % (A) 20 %; MCH 29.9 pg (25.0-35.0); MCHC 32.2 g/dL (31.0-37.0); MCV 92.9 fL (80.0-100.0); Mean Platelet Volume 7.2; Monocytes % (A) 7 %; Neutrophils # (A) 9.6 k/uL (1.3-7.7); Neutrophils % (A) 66 %; Platelet Count 459 k/uL (150-450); RBC 3.86 m/uL (3.80-5.40); RDW 12.8 % (11.5-15.5); WBC 14.5 k/uL (3.8-10.6)
[2018-11-24 09:14] LABS: ALT 45 U/L (9-52); AST 22 U/L (14-36); Albumin 2.6 g/dL (3.5-5.0); Alkaline Phosphatase 105 U/L (38-126); Anion Gap 5 mmol/L; Blood Urea Nitrogen 8 mg/dL (7-17); Calcium 8.4 mg/dL (8.4-10.2); Carbon Dioxide 23 mmol/L (22-30); Chloride 112 mmol/L (98-107); Glucose 140 mg/dL (74-99); Potassium 3.5 mmol/L (3.5-5.1); Sodium 140 mmol/L (137-145); Total Bilirubin 0.2 mg/dL (0.2-1.3)
[2018-11-24] MEDS: NICOTINE 21MG/24HR PATCH TRANSDERM SCH (09:14)
[2018-11-24] MEDS: FAMOTIDINE 20 MG/2 ML VIAL IV SCH (09:15)
[2018-11-24] MEDS: SERTRALINE 100 MG TAB PO SCH ×2 (09:16→17:09)
[2018-11-24] MEDS: HEPARIN SODIUM,PORCINE 5,000 UNIT/ML 1 ML VIAL SQ SCH ×2 (09:16→20:33)
[2018-11-24] MEDS: LORazepam 0.5 MG TAB PO PRN ×2 (13:22→23:45)
[2018-11-24] MEDS: HYDROmorphone 1 MG/ML 1 ML SYRINGE IVP PRN ×2 (14:37→20:32)
--- NOTE | 2018-11-24 15:39 | P.PN ---
Subjective Progress Note Date: 11/24/18 CHIEF COMPLAINT: Large bowel obstruction HISTORY OF PRESENT ILLNESS: The patient is a 53-year-old female postop day 4 status post diverting loop colostomy and incisional hernia repair with lysis of adhesions, 11/20/2018. "I want to get out of here; someone took my colostomy appliance!" She is angry as she has a colostomy bag. She was to go home. No moderate reports of pain. Patient now taking antibiotics as per recommendation of infectious disease. She has been seen by ostomy nurse Penny Alarcon today. Ostomy is functioning. ROS: No reports of nausea and vomiting. No fevers or chills. No new chest pain. No productive sputum PHYSICAL EXAM: VITAL SIGNS: Reviewed CONSTITUTIONAL: Well developed and in no acute distress. EYES: Conjuctivae without sclera icterus. Extraocular movements grossly intact. HEAD, EARS, NOSE, THROAT: Moist buccal mucosa. Head is atraumatic, normoceph alic. Hears conversational speech. No nasal drainage. NECK: Supple. No thyroidomegaly. RESPIRATORY: Non-labored respirations and equal bilateral excursions. CARDIOVASCULAR: Palpable 2+ radial pulses. Regular rate. Regular rhythm. ABDOMEN: Dressing intact. Soft. No peritonitis. Ostomy with flatus and stool. MUSCULOSKELETAL: No gross deformity of the lower extremities noted. No clubbing. No cyanosis. SKIN: Good skin turgor. Well perfused. NEUROLOGIC: Cranial nerves I through XII grossly intact. No focal or lateralizing signs. PSYCH: Angry affect. Alert and oriented to person, place and time. CLINCAL LABS: White blood cell count over 20,000. ASSESSMENT: 1. Large bowel obstruction 2. Status post lysis of adhesions and diverting colostomy PLAN: 1. Her white count is elevating and pending additional recommendations by infectious disease 2. Ostomy education performed by ostomy nurse 3. Although she wants to go home, patient is not clinically stable for discharge with rising leukocytosis unless cleared by infectious disease 4. Repeat CBC and may need to look for sources of infection Objective - Vital Signs Vital signs: Vital Signs Temp 98.8 F 11/24/18 08:02 Pulse 90 11/24/18 08:02 Resp 16 11/24/18 08:02 BP 143/92 11/24/18 08:02 Pulse Ox 95 11/24/18 08:02 Intake & Output 11/23/18 11/24/18 11/24/18 18:59 06:59 18:59 Intake Total 200 Output Total 500 100 200 Balance -500 -100 0 Weight 63.957 kg Intake: Oral 200 Output: Urine 400 Stool 100 100 200 Other: Voiding Method Indwelling Catheter Toilet Toilet - Labs CBC & Chem 7: 11/24/18 08:21 11/24/18 08:21 Labs: Abnormal Lab Results - Last 24 Hours (Table) 11/24/18 11/24/18 Range/Units 08:21 08:21 WBC 14.5 H (3.8-10.6) k/uL Plt Count 459 H (150-450) k/uL Neutrophils # 9.6 H (1.3-7.7) k/uL Chloride 112 H (98-107) mmol/L Creatinine 0.41 L (0.52-1.04) mg/dL Glucose 140 H (74-99) mg/dL Total Protein 5.0 L (6.3-8.2) g/dL Albumin 2.6 L (3.5-5.0) g/dL Microbiology - Last 24 Hours (Table) 11/20/18 10:49 Blood Culture - Preliminary Blood No Growth after 96 hours
--- NOTE | 2018-11-24 16:51 | P.PN ---
Subjective Progress Note Date: 11/23/18 Principal diagnosis: Abdominal pain Patient is status post exploratory laparotomy, diverting loop colostomy, extensive lysis of adhesions, partial omentectomy, and repair of incisional hernia. POD #3. Patient examined this morning at the bedside. Reports abdominal pain is tolerable this morning. Epidural infusing. Reports emesis x 1 this morning. WBC 20.1. Nursing reports patient is refusing Flagyl. Temp 99.1 this morning. Pathology report reveals fibroadipose tissue and scar with overlying skin consistent with omental adhesions. Patient relates that she has episodes of itching with Flagyl; await further recommendations from ID Objective - Vital Signs Vital signs: Vital Signs Temp 99.1 F 11/23/18 08:22 Pulse 96 11/23/18 08:22 Resp 16 11/23/18 08:22 BP 121/71 11/23/18 08:22 Pulse Ox 93 L 11/23/18 08:22 Intake & Output 11/22/18 11/23/18 11/23/18 18:59 06:59 18:59 Intake Total 570 Output Total 760 100 Balance -190 -100 Intake: Intake, IV Titration 250 Amount Ropivacaine 250 mg 250 fentaNYL (PF) 625 mcg In Sodium Chloride 0.9% 188 ml @ Per Protocol EPIDURAL .Q0M PRN Rx#: [id number] Oral 320 Output: Urine 660 Uretheral (Rothman) 660 Stool 100 100 Other: Voiding Method Indwelling Catheter Indwelling Catheter - Exam PHYSICAL EXAMINATION: GENERAL: The patient is alert and oriented x3, not in any acute distress. Well developed, well nourished. HEENT: Pupils are round and equally reacting to light. EOMI. No scleral icterus. No conjunctival pallor. Normocephalic, atraumatic. No pharyngeal erythema. No thyromegaly. CARDIOVASCULAR: S1 and S2 present. No murmurs, rubs, or gallops. PULMONARY: Chest is clear to auscultation, no wheezing or crackles. ABDOMEN: Soft, nontender, nondistended, normoactive bowel sounds. No palpable organomegaly. MUSCULOSKELETAL: No joint swelling or deformity. EXTREMITIES: No cyanosis, clubbing, or pedal edema. NEUROLOGICAL: Gross neurological examination did not reveal any focal deficits. SKIN: No rashes. - Labs CBC & Chem 7: 11/24/18 08:21 11/24/18 08:21 Labs: Abnormal Lab Results - Last 24 Hours (Table) 11/23/18 11/23/18 Range/Units 08:24 08:24 WBC 20.1 H (3.8-10.6) k/uL Plt Count 490 H (150-450) k/uL Neutrophils # 16.6 H (1.3-7.7) k/uL Monocytes # 1.1 H (0-1.0) k/uL Chloride 113 H (98-107) mmol/L Carbon Dioxide 18 L (22-30) mmol/L Creatinine 0.41 L (0.52-1.04) mg/dL Glucose 120 H (74-99) mg/dL Total Protein 5.2 L (6.3-8.2) g/dL Albumin 2.6 L (3.5-5.0) g/dL Microbiology - Last 24 Hours (Table) 11/20/18 10:49 Blood Culture - Preliminary Blood No Growth after 48 hours 11/21/18 03:00 Urine Culture - Final Urine,Catheterized Assessment and Plan Assessment: 1. Abdominal pain 2. Colonic obstruction, s/p exploratory laparotomy, diverting loop colostomy, extensive lysis of adhesions, partial omentectomy, and repair of incisional hernia - Continue clear liquid diet. Do not advance due to episode of emesis this morning - Discontinue epidural today. Continue rothman catheter until evaluated by Dr. Herring this afternoon. - Incentive spirometry - Activity as tolerated. Patient to be out of bed and in the chair today. Encourage ambulation in the hallways. - Ostomy resource nurse on consult. - Nursing to notify Dr. Velarde that patient is refusing Flagyl.Antibiotics per ID. Monitor WBC. 3. COPD; not in exacerbation 4. Hyperlipidemia; we'll hold off on statin therapy to oral intake improves 5. History of migraines; Dilaudid when necessary 6. Chronic tobacco use; nicotine patch 21 mg per 24 hours 7. DVT prophylaxis; subcu heparin CODE STATUS; full code
[2018-11-24] MEDS: FAMOTIDINE 20 MG TAB PO SCH (20:32)
[2018-11-24] MEDS: ZOLPIDEM 5 MG TAB PO PRN (23:45)
[2018-11-25] MEDS: CEFEPIME 2 GM in SODIUM CHLORIDE 0.9% 100 ML IVPB SCH ×2 (04:42→15:21)
[2018-11-25] MEDS: KETOROLAC 30 MG/ML 1 ML VIAL IVP SCH ×4 (04:47→23:36)
[2018-11-25] MEDS: SODIUM CHLORIDE 0.9% 1,000 ML IV SCH ×3 (04:48→23:35)
[2018-11-25 07:37] LABS: Basophils # (A) 0.1 k/uL (0-0.2); Basophils % (A) 0 %; Eosinophils # (A) 0.7 k/uL (0-0.7); Eosinophils % (A) 5 %; HCT 35.6 % (34.0-46.0); HGB 11.7 gm/dL (11.4-16.0); Lymphocytes % (A) 20 %; MCHC 32.9 g/dL (31.0-37.0); MCV 91.2 fL (80.0-100.0); Mean Platelet Volume 7.4; Monocytes # (A) 0.9 k/uL (0-1.0); Monocytes % (A) 6 %; Neutrophils # (A) 10.3 k/uL (1.3-7.7); Neutrophils % (A) 67 %; Platelet Count 518 k/uL (150-450); RBC 3.91 m/uL (3.80-5.40); RDW 13.2 % (11.5-15.5); WBC 15.3 k/uL (3.8-10.6)
[2018-11-25] MEDS: metroNIDAZOLE-NS PMX 500 MG in SALINE 1 100ML.BAG IVPB SCH ×3 (07:41→23:37)
[2018-11-25] MEDS: SERTRALINE 100 MG TAB PO SCH ×2 (07:41→16:55)
[2018-11-25] MEDS: HEPARIN SODIUM,PORCINE 5,000 UNIT/ML 1 ML VIAL SQ SCH ×2 (08:44→20:06)
[2018-11-25] MEDS: FAMOTIDINE 20 MG TAB PO SCH ×2 (08:44→20:06)
[2018-11-25] MEDS: NICOTINE 21MG/24HR PATCH TRANSDERM SCH (08:44)
[2018-11-25] MEDS: HYDROmorphone 1 MG/ML 1 ML SYRINGE IVP PRN ×3 (10:33→21:11)
[2018-11-25] MEDS: LORazepam 0.5 MG TAB PO PRN (10:35)
--- NOTE | 2018-11-25 11:56 | P.PN ---
Subjective Progress Note Date: 11/24/18 Principal diagnosis: Abdominal pain Patient is status post exploratory laparotomy, diverting loop colostomy, extensive lysis of adhesions, partial omentectomy, and repair of incisional hernia. POD #3. Patient examined this morning at the bedside. Reports abdominal pain is tolerable this morning. Epidural infusing. Reports emesis x 1 this morning. WBC 20.1. Nursing reports patient is refusing Flagyl. Temp 99.1 this morning. Pathology report reveals fibroadipose tissue and scar with overlying skin consistent with omental adhesions. Patient relates that she has episodes of itching with Flagyl; await further recommendations from ID 11/24/2018 Patient is seen and evaluated in the room at bedside ; She is angry as she has a colostomy bag. She was to go home. No moderate reports of pain. Patient now taking antibiotics as per recommendation of infectious disease. She has been seen by ostomy nurse Penny Alarcon today. Ostomy is functioning. Vital signs are reviewed with a stable temperature of 98.8, pulse 90, respirations 16 and blood pressure of 143/92 Lab review shows an improved white blood count of 14.5; patient has been seen by ID and has been advised to take Flagyl along with cefepime since cefepime alone will not be enough to cover enteric anaerobes; patient is agreeable to continue with Flagyl for now; we will continue to monitor CBC Objective - Vital Signs Vital signs: Vital Signs Temp 98.8 F 11/24/18 08:02 Pulse 90 11/24/18 08:02 Resp 16 11/24/18 08:02 BP 143/92 11/24/18 08:02 Pulse Ox 95 11/24/18 08:02 Intake & Output 11/23/18 11/24/18 11/24/18 18:59 06:59 18:59 Intake Total 200 Output Total 500 100 200 Balance -500 -100 0 Weight 63.957 kg Intake: Oral 200 Output: Urine 400 Stool 100 100 200 Other: Voiding Method Indwelling Catheter Toilet Toilet - Exam PHYSICAL EXAMINATION: GENERAL: The patient is alert and oriented x3, not in any acute distress. Well developed, well nourished. HEENT: Pupils are round and equally reacting to light. EOMI. No scleral icterus. No conjunctival pallor. Normocephalic, atraumatic. No pharyngeal erythema. No thyromegaly. CARDIOVASCULAR: S1 and S2 present. No murmurs, rubs, or gallops. PULMONARY: Chest is clear to auscultation, no wheezing or crackles. ABDOMEN: Soft, nontender, nondistended, normoactive bowel sounds. No palpable organomegaly. MUSCULOSKELETAL: No joint swelling or deformity. EXTREMITIES: No cyanosis, clubbing, or pedal edema. NEUROLOGICAL: Gross neurological examination did not reveal any focal deficits. SKIN: No rashes. - Labs CBC & Chem 7: 11/25/18 07:13 11/24/18 08:21 Labs: Abnormal Lab Results - Last 24 Hours (Table) 11/24/18 11/24/18 Range/Units 08:21 08:21 WBC 14.5 H (3.8-10.6) k/uL Plt Count 459 H (150-450) k/uL Neutrophils # 9.6 H (1.3-7.7) k/uL Chloride 112 H (98-107) mmol/L Creatinine 0.41 L (0.52-1.04) mg/dL Glucose 140 H (74-99) mg/dL Total Protein 5.0 L (6.3-8.2) g/dL Albumin 2.6 L (3.5-5.0) g/dL Microbiology - Last 24 Hours (Table) 11/20/18 10:49 Blood Culture - Preliminary Blood No Growth after 96 hours Assessment and Plan Assessment: 1. Abdominal pain 2. Colonic obstruction, s/p exploratory laparotomy, diverting loop colostomy, extensive lysis of adhesions, partial omentectomy, and repair of incisional hernia - Continue clear liquid diet. Do not advance due to episode of emesis this morning - Discontinue epidural today. Continue rothman catheter until evaluated by Dr. Herring this afternoon. - Incentive spirometry - Activity as tolerated. Patient to be out of bed and in the chair today. Encourage ambulation in the hallways. - Ostomy resource nurse on consult. - Nursing to notify Dr. Velarde that patient is refusing Flagyl.Antibiotics per ID. Monitor WBC. 3. COPD; not in exacerbation 4. Hyperlipidemia; we'll hold off on statin therapy to oral intake improves 5. History of migraines; Dilaudid when necessary 6. Chronic tobacco use; nicotine patch 21 mg per 24 hours 7. DVT prophylaxis; subcu heparin CODE STATUS; full code Time with Patient: Greater than 30
--- NOTE | 2018-11-25 13:38 | P.PN ---
Subjective Progress Note Date: 11/25/18 CHIEF COMPLAINT: Large bowel obstruction HISTORY OF PRESENT ILLNESS: The patient is a 53-year-old female postop day 5 status post diverting loop colostomy and incisional hernia repair with lysis of adhesions, 11/20/2018. She is anxious to go home. She is much better mood today. She is tolerating diet. ROS: No reports of nausea and vomiting. No fevers or chills. No new chest pain. No productive sputum PHYSICAL EXAM: VITAL SIGNS: Reviewed CONSTITUTIONAL: Well developed and in no acute distress. EYES: Conjuctivae without sclera icterus. Extraocular movements grossly intact. HEAD, EARS, NOSE, THROAT: Moist buccal mucosa. Head is atraumatic, normocephalic. Hears conversational speech. No nasal drainage. NECK: Supple. No thyroidomegaly. RESPIRATORY: Non-labored respirations and equal bilateral excursions. CARDIOVASCULAR: Palpable 2+ radial pulses. Regular rate. Regular rhythm. ABDOMEN: Dressings clean dry and intact. Ostomy with stool and flatus. MUSCULOSKELETAL: No gross deformity of the lower extremities noted. No clubbing. No cyanosis. SKIN: Good skin turgor. Well perfused. NEUROLOGIC: Cranial nerves I through XII grossly intact. No focal or lateralizing signs. PSYCH: Angry affect. Alert and oriented to person, place and time. CLINCAL LABS: White blood cell count over 20,000 now under 15,000 ASSESSMENT: 1. Large bowel obstruction 2. Status post lysis of adhesions and diverting colostomy 3. Leukocytosis PLAN: 1. I discussed with her care management and home health care needs that requires authorization same day on a week day. Overall early feasible discharge is for Monday as leukocytosis resolves. 2. Diet as tolerated Objective - Vital Signs Vital signs: Vital Signs Temp 98.3 F 11/25/18 07:53 Pulse 89 11/25/18 07:53 Resp 16 11/25/18 07:53 BP 150/96 11/25/18 07:53 Pulse Ox 94 L 11/25/18 08:31 Intake & Output 11/24/18 11/25/18 11/25/18 18:59 06:59 18:59 Intake Total 200 Output Total 200 100 Balance 0 -100 Intake: Oral 200 Output: Stool 200 100 Other: Voiding Method Toilet - Labs CBC & Chem 7: 11/25/18 07:13 11/24/18 08:21 Labs: Abnormal Lab Results - Last 24 Hours (Table) 11/25/18 Range/Units 07:13 WBC 15.3 H (3.8-10.6) k/uL Plt Count 518 H (150-450) k/uL Neutrophils # 10.3 H (1.3-7.7) k/uL Microbiology - Last 24 Hours (Table) 11/20/18 10:49 Blood Culture - Preliminary Blood No Growth after 120 hours Assessment and Plan (1) Colostomy in place Current Visit: Yes Status: Acute Code(s): Z93.3 - COLOSTOMY STATUS SNOMED Code(s): 670568307 (2) Abdominal pain Current Visit: Yes Status: Acute Code(s): R10.9 - UNSPECIFIED ABDOMINAL PAIN SNOMED Code(s): 75400222 (3) Large bowel obstruction Current Visit: Yes Status: Acute Code(s): K56.609 - UNSP INTESTNL OBST, UNSP TO PARTIAL VERSUS COMPLETE OBST SNOMED Code(s): 524762875 (4) Leukocytosis Current Visit: Yes Status: Acute Code(s): D72.829 - ELEVATED WHITE BLOOD CELL COUNT, UNSPECIFIED SNOMED Code(s): 591559645
[2018-11-25] MEDS ORDERED: FLUCONAZOLE 100 MG TAB PO ONE (23:15)
[2018-11-25] MEDS: ZOLPIDEM 5 MG TAB PO PRN (23:31)
[2018-11-26 01:35] VITALS: RESP 16
[2018-11-26] MEDS: CEFEPIME 2 GM in SODIUM CHLORIDE 0.9% 100 ML IVPB SCH ×2 (03:56→14:35)
[2018-11-26] MEDS: HYDROmorphone 1 MG/ML 1 ML SYRINGE IVP PRN ×2 (03:56→08:10)
[2018-11-26] MEDS: KETOROLAC 30 MG/ML 1 ML VIAL IVP SCH ×2 (05:10→11:25)
[2018-11-26 07:54] LABS: Basophils # (A) 0.1 k/uL (0-0.2); Basophils % (A) 1 %; Eosinophils # (A) 0.7 k/uL (0-0.7); Eosinophils % (A) 5 %; HCT 34.6 % (34.0-46.0); HGB 11.4 gm/dL (11.4-16.0); Lymphocytes # (A) 3.9 k/uL (1.0-4.8); Lymphocytes % (A) 28 %; MCH 30.2 pg (25.0-35.0); MCV 91.4 fL (80.0-100.0); Mean Platelet Volume 7.1; Monocytes # (A) 0.8 k/uL (0-1.0); Monocytes % (A) 6 %; Neutrophils # (A) 7.8 k/uL (1.3-7.7); Neutrophils % (A) 57 %; Platelet Count 503 k/uL (150-450); RBC 3.79 m/uL (3.80-5.40); WBC 13.7 k/uL (3.8-10.6)
[2018-11-26] MEDS: NICOTINE 21MG/24HR PATCH TRANSDERM SCH (08:08)
[2018-11-26] MEDS: HEPARIN SODIUM,PORCINE 5,000 UNIT/ML 1 ML VIAL SQ SCH (08:08)
[2018-11-26] MEDS: SERTRALINE 100 MG TAB PO SCH (08:08)
[2018-11-26] MEDS: FAMOTIDINE 20 MG TAB PO SCH (08:08)
[2018-11-26] MEDS: LORazepam 0.5 MG TAB PO PRN (08:08)
[2018-11-26] MEDS: metroNIDAZOLE-NS PMX 500 MG in SALINE 1 100ML.BAG IVPB SCH ×2 (08:09→14:35)
[2018-11-26] MEDS: SODIUM CHLORIDE 0.9% 1,000 ML IV SCH (11:27)
--- NOTE | 2018-11-26 12:41 | P.PN ---
Progress Note - Text Progress Note Date: 11/25/18 PROGRESS NOTE DATE OF SERVICE: 11/25/2018 REASON FOR FOLLOWUP: Abdominal abscess. INTERVAL HISTORY: The patient denies any fever or chills. Patient with a further nausea or vomiting Patient continued to have some lower abdominal pain but no worsening did have Output in her colostomy bag, denies having any chest pain shortness of breath or cough PHYSICAL EXAMINATION: Blood pressure 156/85 with a pulse of 86, temperature 98.6. She is 92% on room air. General description is a middle-aged female lying in bed in no distress. RESPIRATORY SYSTEM: Unlabored breathing with decreased breath sounds. No wheeze. HEART: S1, S2. Regular rate and rhythm. ABDOMEN: Soft. Mildly distended. No guarding or rigidity. EXTREMITIES: No edema of the feet. LABS: Hemoglobin is 12.5, white count 15,000. DIAGNOSTIC IMPRESSION AND PLAN: Patient with abdominal abscess, diverticulitis, status post diverting colostomy. The patient will continue on Flagyl, and cefepime. White count did improve but still elevated He will add Diflucan 200 daily and Repeat CBC tomorrow. Continue with supportive care.
--- NOTE | 2018-11-26 14:19 | P.PN ---
Subjective Progress Note Date: 11/26/18 Principal diagnosis: Colon obstruction Patient doing well today. She is quite anxious for discharge. Tolerating diet. Good ostomy function. She is afebrile. Objective - Vital Signs Vital signs: Vital Signs Temp 98.9 F 11/26/18 07:00 Pulse 75 11/26/18 07:00 Resp 16 11/26/18 08:01 BP 165/99 11/26/18 07:00 Pulse Ox 95 11/26/18 07:00 Intake & Output 11/25/18 11/26/18 11/26/18 18:59 06:59 18:59 Intake Total 1200 Output Total 100 Balance 1100 Weight 63.957 kg Intake: Oral 1200 Output: Stool 100 - Exam Abdomen: Soft, minimal distention, incision clean and dry - Labs CBC & Chem 7: 11/26/18 07:11 11/24/18 08:21 Labs: Abnormal Lab Results - Last 24 Hours (Table) 11/26/18 Range/Units 07:11 WBC 13.7 H (3.8-10.6) k/uL RBC 3.79 L (3.80-5.40) m/uL Plt Count 503 H (150-450) k/uL Neutrophils # 7.8 H (1.3-7.7) k/uL Microbiology - Last 24 Hours (Table) 11/20/18 10:49 Blood Culture - Final Blood No Growth after 144 hours Assessment and Plan (1) Large bowel obstruction Narrative/Plan: Stable for discharge today from my standpoint. Follow-up in the office 1 week. Outpatient antibiotics per infectious disease. Current Visit: Yes Status: Acute Code(s): K56.609 - UNSP INTESTNL OBST, UNSP TO PARTIAL VERSUS COMPLETE OBST SNOMED Code(s): 631779328
[2018-11-26 14:40] VITALS: BP 146/91; PULSE 87; TEMP 98.8
--- NOTE | 2018-11-26 15:15 | P.EN ---
patient left before i go to see her.
--- NOTE | 2018-11-26 22:19 | P.PN ---
Progress Note - Text Progress Note Date: 11/26/18 YAYA NOTE DATE OF SERVICE: 11/26/2018 REASON FOR FOLLOWUP: Abdominal abscess. INTERVAL HISTORY: The patient is afebrile. Patient overall is feeling better denies having any bone pain no nausea no vomiting Did have output in her colostomy bag, patient is insisting on going home today PHYSICAL EXAMINATION: Blood pressure 149/87 with a pulse of 80, temperature 98.6. She is 92% on room air. General description is a middle-aged female lying in bed in no distress. RESPIRATORY SYSTEM: Unlabored breathing with decreased breath sounds At the base. HEART: S1, S2. Regular rate and rhythm. ABDOMEN: Soft. Mildly distended. No guarding or rigidity. EXTREMITIES: No edema of the feet. LABS: Hemoglobin is 12.5, white count 13,000. DIAGNOSTIC IMPRESSION AND PLAN: Patient with abdominal abscess, diverticulitis, status post diverting colostomy. The patient is released from going home, antibiotic will be transitioned to oral Ceftin 500 mg twice a day, Flagyl 500 mg 3 times a day and Diflucan 200 mg daily for 10 days And close outpatient follow-up, prescription was sent to the pharmacy
--- NOTE | 2018-11-28 11:53 | CDI ---
Documentation Clarification Form Date: 11/28/2018 10:07:00 AM From: Brittni Real Anisha Brower, Specialty Person Hours-8:30 am & 5 pm MTerese Admit Date: 11/20/2018 10:13:00 AM Patient Name: Lala Downing Visit Number: [id number] Discharge Date: 11/26/2018 3:00:00 PM ATTENTION: The Clinical Documentation Specialists (CDI) and [facility] Coding Staff appreciate your assistance in clarifying documentation. Please respond to the clarification below the line at the bottom and electronically sign. The CDI & [facility] Coding staff will review the response and follow-up if needed. Please note: Queries are made part of the Legal Health Record. If you have any questions, please contact the author of this message via ITS. Dr. 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 Surgeon determined 'not resectable at this time' In your professional opinion, can you please clarify: Obstruction due to malignancy Obstruction due to diverticulitis Obstruction due to other Other, please specify Unable to determine Unable to determine MTDD
== END 2018-11-26 15:00 | disposition home health service (06) | DRG 329 ==
LOC: EC 08:21 → 4SSUR 10:13 → 4MS4W 11-26 12:02
PROVIDERS: ADMIT Internal Medicine; ATTEND Internal Medicine
PROC: 0D1L0Z4 Bypass Transverse Colon to Cutaneous, Open Approach (ICD-10-PCS; 2018-11-20)
PROC: 0WQF0ZZ Repair Abdominal Wall, Open Approach (ICD-10-PCS; 2018-11-20)
PROC: 0DNU0ZZ Release Omentum, Open Approach (ICD-10-PCS; principal; 2018-11-20 09:25)
PROC: 05HC33Z Insertion of Infusion Device into Left Basilic Vein, Percutaneous Approach (ICD-10-PCS; 2018-11-22)
DX: K56.609 Unspecified intestinal obstruction, unspecified as to partial versus complete obstruction (principal); K65.1 Peritoneal abscess; K57.80 Diverticulitis of intestine, part unspecified, with perforation and abscess without bleeding; C19 Malignant neoplasm of rectosigmoid junction; J44.9 Chronic obstructive pulmonary disease, unspecified; E78.5 Hyperlipidemia, unspecified; G43.909 Migraine, unspecified, not intractable, without status migrainosus; F41.9 Anxiety disorder, unspecified; F32.9 Major depressive disorder, single episode, unspecified; F17.210 Nicotine dependence, cigarettes, uncomplicated; K43.2 Incisional hernia without obstruction or gangrene; K66.0 Peritoneal adhesions (postprocedural) (postinfection); Z79.899 Other long term (current) drug therapy; Z90.49 Acquired absence of other specified parts of digestive tract; Z90.710 Acquired absence of both cervix and uterus; Z88.0 Allergy status to penicillin; Z88.8 Allergy status to other drugs, medicaments and biological substances; Z83.3 Family history of diabetes mellitus; Z81.1 Family history of alcohol abuse and dependence; Z80.3 Family history of malignant neoplasm of breast
CPT/HCPCS: 36410; 36415; 74018; 74177; 74270; 76937; 80048; 80053; 81001; 82150; 82378; 83605; 83690; 84132; 84484; 85025; 85610; 85730; 87040; 87086; 88305; 96361; 96365; 96367; 96375; 99285

== ENCOUNTER 2018-12-10 21:27 | Emergency (ER) | payer OTHER ==
[2018-12-10 21:33] VITALS: RESP 18; TEMP 98.6
[2018-12-10] MEDS ORDERED: SODIUM CHLORIDE 0.9% 500 ML 500 ML IV STA (22:22)
[2018-12-10] MEDS ORDERED: MORPHINE SULFATE 4 MG/ML SYRINGE IV STA (22:22)
--- NOTE | 2018-12-10 22:39 | ED ---
Abdominal Pain HPI - General Chief Complaint: Abdominal Pain Stated Complaint: Colostomy bag issues Time Seen by Provider: 12/10/18 21:39 Source: patient Mode of arrival: ambulatory Limitations: no limitations - History of Present Illness Initial Comments: This patient is a 53-year-old woman presenting to be evaluated for which she feels is a problem with her colostomy. The patient states that she was told to have the colostomy evaluated immediately should her black, and she felt that it did appear black today. The patient gives history of having had a colostomy on November 20, performed by Dr. Herring. She states that this was related to bowel obstruction. Patient states that she also feels like she has some generalized abdominal bloating and cramping like she may be getting obstructed again. Patient denies having any vomiting. She has had gas into the bag. No fever or chills. No change in urination. MD Complaint: abdominal pain -: hour(s) Location: diffuse, RUQ Radiation: none Migration to: no migration Severity: moderate Quality: cramping, fullness Consistency: constant Improves With: nothing Worsens With: nothing Associated Symptoms: denies other symptoms - Related Data Home Medications Medication Instructions Recorded Confirmed Sertraline HCl [Zoloft] 100 mg PO BID 10/04/16 12/10/18 Albuterol Sulfate [Proair Hfa] 2 puff INHALATION RT-Q4H PRN 11/20/18 12/10/18 Atorvastatin Calcium [Lipitor] 80 mg PO HS 11/20/18 12/10/18 Omeprazole [PriLOSEC] 20 mg PO DAILY 11/20/18 12/10/18 Cholecalciferol (Vitamin D3) 2,000 unit PO DAILY 12/10/18 12/10/18 [Vitamin D3] Naproxen Sodium [Aleve] 220 mg PO Q8H 12/10/18 12/10/18 diphenhydrAMINE ELIXIR [Benadryl 50 mg PO HS 12/10/18 12/10/18 Elixir] Previous Rx's Medication Instructions Recorded Dicyclomine [Bentyl] 20 mg PO QID #15 tablet 12/11/18 Sulfamethox-Tmp 800-160Mg [Bactrim 1 each PO Q12HR #6 tab 12/11/18 Ds] Allergies Allergy/AdvReac Type Severity Reaction Status Date / Time Penicillins Allergy Unknown Verified 12/10/18 21:56 Childhood phenobarbital Allergy Unknown Verified 12/10/18 21:56 Review of Systems ROS Statement: Those systems with pertinent positive or pertinent negative responses have been documented in the HPI. ROS Other: All systems not noted in ROS Statement are negative. Constitutional: Denies: fever, chills Respiratory: Denies: cough, dyspnea Cardiovascular: Denies: chest pain, palpitations, orthopnea, edema Gastrointestinal: Reports: abdominal pain, constipation (Decreased stool output). Denies: nausea, vomiting, diarrhea, hematemesis, melena, hematochezia Genitourinary: Denies: dysuria, frequency, hematuria Musculoskeletal: Denies: back pain Skin: Denies: rash Neurological: Denies: headache, weakness, numbness Past Medical History Past Medical History: COPD, Hyperlipidemia Additional Past Medical History / Comment(s): Pt states she has had abdominal pain, bowel problems for many years, migraines, past bilateral buttock abscesses with I&Ds, "possible emphysema", has been told recently that her chest xray was abnormal and there are "dark spots on her T7 or T8 vertebrae-had recent bone sca n. History of Any Multi-Drug Resistant Organisms: None Reported Past Surgical History: Appendectomy, Cholecystectomy, Hysterectomy Additional Past Surgical History / Comment(s): Colonoscopies, ORIF L ankle, I&D bilateral buttock abscesses, PICC line insertion and removal. colostomy placement, Past Anesthesia/Blood Transfusion Reactions: No Reported Reaction Past Psychological History: Anxiety, Depression Smoking Status: Current every day smoker Past Alcohol Use History: Occasional Past Drug Use History: Marijuana - Past Family History Father Family Medical History: Diabetes Mellitus Additional Family Medical History / Comment(s): Father is an alcoholic. He is 86yrs old. Mother Family Medical History: Cancer Additional Family Medical History / Comment(s): Breast cancer with metastasis. General Exam Limitations: no limitations General appearance: alert, in no apparent distress Head exam: Present: atraumatic, normocephalic Eye exam: Present: normal appearance. Absent: scleral icterus, conjunctival injection ENT exam: Present: mucous membranes dry Respiratory exam: Present: normal lung sounds bilaterally. Absent: respiratory distress, wheezes, rales, rhonchi, stridor Cardiovascular Exam: Present: regular rate, normal rhythm, normal heart sounds. Absent: systolic murmur, diastolic murmur, rubs, gallop GI/Abdominal exam: Present: soft, distended, other (The patient has a loop colostomy in the right upper quadrant, there are red rubber catheters that are stapled into each lumen. The mucosa does not appear to be black. There was some dark stool at the proximal opening which when wiped from the mucosa reveals normal pink appearing mucosa. There is fluid and gas in the bag though the output from the ostomy appears to be more solid than would be expected.). Absent: tenderness, guarding, rebound, rigid, mass Extremities exam: Present: normal inspection, normal capillary refill. Absent: pedal edema, calf tenderness Back exam: Present: normal inspection. Absent: CVA tenderness (R), CVA tenderness (L) Neurological exam: Present: alert Skin exam: Present: warm, dry, intact, normal color. Absent: rash Course Vital Signs 12/10/18 12/10/18 21:30 23:59 Temperature 98.6 F Pulse Rate 92 76 Respiratory 18 18 Rate Blood Pressure 138/86 118/79 O2 Sat by Pulse 97 97 Oximetry Medical Decision Making - Lab Data Result diagrams: 12/10/18 22:35 12/10/18 22:35 Lab Results 12/10/18 12/10/18 12/10/18 Range/Units 22:35 22:35 22:35 WBC 15.1 H (3.8-10.6) k/uL RBC 4.32 (3.80-5.40) m/uL Hgb 13.2 (11.4-16.0) gm/dL Hct 40.0 (34.0-46.0) % MCV 92.5 (80.0-100.0) fL MCH 30.5 (25.0-35.0) pg MCHC 33.0 (31.0-37.0) g/dL RDW 13.3 (11.5-15.5) % Plt Count 401 (150-450) k/uL Neutrophils % 61 % Lymphocytes % 25 % Monocytes % 5 % Eosinophils % 6 % Basophils % 1 % Neutrophils # 9.2 H (1.3-7.7) k/uL Lymphocytes # 3.7 (1.0-4.8) k/uL Monocytes # 0.8 (0-1.0) k/uL Eosinophils # 0.9 H (0-0.7) k/uL Basophils # 0.1 (0-0.2) k/uL Sodium 139 (137-145) mmol/L Potassium 5.4 H (3.5-5.1) mmol/L Chloride 109 H (98-107) mmol/L Carbon Dioxide 24 (22-30) mmol/L Anion Gap 6 mmol/L BUN 20 H (7-17) mg/dL Creatinine 0.68 (0.52-1.04) mg/dL Est GFR (CKD-EPI)AfAm >90 (>60 ml/min/1.73 sqM) Est GFR (CKD-EPI)NonAf >90 (>60 ml/min/1.73 sqM) Glucose 167 H (74-99) mg/dL Plasma Lactic Acid Philipp 1.7 (0.7-2.0) mmol/L Calcium 9.6 (8.4-10.2) mg/dL Total Bilirubin 0.6 (0.2-1.3) mg/dL AST 27 (14-36) U/L ALT 29 (9-52) U/L Alkaline Phosphatase 102 (38-126) U/L Troponin I (0.000-0.034) ng/mL C-Reactive Protein <5.0 (<10.0) mg/L Total Protein 6.7 (6.3-8.2) g/dL Albumin 3.7 (3.5-5.0) g/dL Amylase 63 (30-110) U/L Lipase 314 H (23-300) U/L Urine Color Urine Appearance (Clear) Urine pH (5.0-8.0) Ur Specific Lorenzo (1.001-1.035) Urine Protein (Negative) Urine Glucose (UA) (Negative) Urine Ketones (Negative) Urine Blood (Negative) Urine Nitrite (Negative) Urine Bilirubin (Negative) Urine Urobilinogen (<2.0) mg/dL Ur Leukocyte Esterase (Negative) Urine RBC (0-5) /hpf Urine WBC (0-5) /hpf Ur Squamous Epith Cells (0-4) /hpf Urine Bacteria (None) /hpf Urine Mucus (None) /hpf Blood Type Blood Type Confirm Blood Type Recheck Antibody Screen Spec Expiration Date 05/06/19 05/06/19 05/06/19 Range/Units 22:35 22:35 22:35 WBC (3.8-10.6) k/uL RBC (3.80-5.40) m/uL Hgb (11.4-16.0) gm/dL Hct (34.0-46.0) % MCV (80.0-100.0) fL MCH (25.0-35.0) pg MCHC (31.0-37.0) g/dL RDW (11.5-15.5) % Plt Count (150-450) k/uL Neutrophils % % Lymphocytes % % Monocytes % % Eosinophils % % Basophils % % Neutrophils # (1.3-7.7) k/uL Lymphocytes # (1.0-4.8) k/uL Monocytes # (0-1.0) k/uL Eosinophils # (0-0.7) k/uL Basophils # (0-0.2) k/uL Sodium (137-145) mmol/L Potassium (3.5-5.1) mmol/L Chloride (98-107) mmol/L Carbon Dioxide (22-30) mmol/L Anion Gap mmol/L BUN (7-17) mg/dL Creatinine (0.52-1.04) mg/dL Est GFR (CKD-EPI)AfAm (>60 ml/min/1.73 sqM) Est GFR (CKD-EPI)NonAf (>60 ml/min/1.73 sqM) Glucose (74-99) mg/dL Plasma Lactic Acid Philipp (0.7-2.0) mmol/L Calcium (8.4-10.2) mg/dL Total Bilirubin (0.2-1.3) mg/dL AST (14-36) U/L ALT (9-52) U/L Alkaline Phosphatase (38-126) U/L Troponin I <0.012 (0.000-0.034) ng/mL C-Reactive Protein (<10.0) mg/L Total Protein (6.3-8.2) g/dL Albumin (3.5-5.0) g/dL Amylase (30-110) U/L Lipase (23-300) U/L Urine Color Urine Appearance (Clear) Urine pH (5.0-8.0) Ur Specific Lorenzo (1.001-1.035) Urine Protein (Negative) Urine Glucose (UA) (Negative) Urine Ketones (Negative) Urine Blood (Negative) Urine Nitrite (Negative) Urine Bilirubin (Negative) Urine Urobilinogen (<2.0) mg/dL Ur Leukocyte Esterase (Negative) Urine RBC (0-5) /hpf Urine WBC (0-5) /hpf Ur Squamous Epith Cells (0-4) /hpf Urine Bacteria (None) /hpf Urine Mucus (None) /hpf Blood Type A Negative Blood Type Confirm A Negative Blood Type Recheck CABO Indicated Antibody Screen NEGATIVE Spec Expiration Date 12/13/2018233412/10/18 Range/Units 22:50 WBC (3.8-10.6) k/uL RBC (3.80-5.40) m/uL Hgb (11.4-16.0) gm/dL Hct (34.0-46.0) % MCV (80.0-100.0) fL MCH (25.0-35.0) pg MCHC (31.0-37.0) g/dL RDW (11.5-15.5) % Plt Count (150-450) k/uL Neutrophils % % Lymphocytes % % Monocytes % % Eosinophils % % Basophils % % Neutrophils # (1.3-7.7) k/uL Lymphocytes # (1.0-4.8) k/uL Monocytes # (0-1.0) k/uL Eosinophils # (0-0.7) k/uL Basophils # (0-0.2) k/uL Sodium (137-145) mmol/L Potassium (3.5-5.1) mmol/L Chloride (98-107) mmol/L Carbon Dioxide (22-30) mmol/L Anion Gap mmol/L BUN (7-17) mg/dL Creatinine (0.52-1.04) mg/dL Est GFR (CKD-EPI)AfAm (>60 ml/min/1.73 sqM) Est GFR (CKD-EPI)NonAf (>60 ml/min/1.73 sqM) Glucose (74-99) mg/dL Plasma Lactic Acid Philipp (0.7-2.0) mmol/L Calcium (8.4-10.2) mg/dL Total Bilirubin (0.2-1.3) mg/dL AST (14-36) U/L ALT (9-52) U/L Alkaline Phosphatase (38-126) U/L Troponin I (0.000-0.034) ng/mL C-Reactive Protein (<10.0) mg/L Total Protein (6.3-8.2) g/dL Albumin (3.5-5.0) g/dL Amylase (30-110) U/L Lipase (23-300) U/L Urine Color Yellow Urine Appearance Turbid H (Clear) Urine pH 6.0 (5.0-8.0) Ur Specific Lorenzo 1.037 H (1.001-1.035) Urine Protein Trace H (Negative) Urine Glucose (UA) Negative (Negative) Urine Ketones Trace H (Negative) Urine Blood Negative (Negative) Urine Nitrite Negative (Negative) Urine Bilirubin Negative (Negative) Urine Urobilinogen 3.0 (<2.0) mg/dL Ur Leukocyte Esterase Negative (Negative) Urine RBC 43 H (0-5) /hpf Urine WBC 7 H (0-5) /hpf Ur Squamous Epith Cells 1 (0-4) /hpf Urine Bacteria Rare H (None) /hpf Urine Mucus Occasional H (None) /hpf Blood Type Blood Type Confirm Blood Type Recheck Antibody Screen Spec Expiration Date Disposition Clinical Impression: Urinary tract infection, Abdominal pain Disposition: HOME SELF-CARE Condition: Good Instructions (If sedation given, give patient instructions): Urinary Tract Infection in Women (ED), Abdominal Pain (ED) Prescriptions: Sulfamethox-Tmp 800-160Mg [Bactrim Ds] 1 each PO Q12HR #6 tab Dicyclomine [Bentyl] 20 mg PO QID #15 tablet Is patient prescribed a controlled substance at d/c from ED?: No Referrals: Nancy Dobbs MD [Primary Care Provider] - 1-2 days
[2018-12-10 22:51] LABS: Basophils # (A) 0.1 k/uL (0-0.2); Basophils % (A) 1 %; Eosinophils # (A) 0.9 k/uL (0-0.7); Eosinophils % (A) 6 %; HGB 13.2 gm/dL (11.4-16.0); Lymphocytes # (A) 3.7 k/uL (1.0-4.8); Lymphocytes % (A) 25 %; MCH 30.5 pg (25.0-35.0); MCV 92.5 fL (80.0-100.0); Mean Platelet Volume 6.9; Monocytes # (A) 0.8 k/uL (0-1.0); Monocytes % (A) 5 %; Neutrophils # (A) 9.2 k/uL (1.3-7.7); Neutrophils % (A) 61 %; Platelet Count 401 k/uL (150-450); RBC 4.32 m/uL (3.80-5.40); RDW 13.3 % (11.5-15.5); WBC 15.1 k/uL (3.8-10.6)
[2018-12-10 23:03] LABS: ALT 29 U/L (9-52); AST 27 U/L (14-36); Albumin 3.7 g/dL (3.5-5.0); Alkaline Phosphatase 102 U/L (38-126); Amylase 63 U/L (30-110); Anion Gap 6 mmol/L; Blood Urea Nitrogen 20 mg/dL (7-17); C Reactive Protein <5.0 mg/L (<10.0); Calcium 9.6 mg/dL (8.4-10.2); Carbon Dioxide 24 mmol/L (22-30); Chloride 109 mmol/L (98-107); Glucose 167 mg/dL (74-99); Lipase 314 U/L (23-300); Sodium 139 mmol/L (137-145); Total Bilirubin 0.6 mg/dL (0.2-1.3); Total Protein 6.7 g/dL (6.3-8.2)
[2018-12-10 23:13] LABS: Potassium 5.4 mmol/L (3.5-5.1)
--- NOTE | 2018-12-10 23:22 | CT ---
EXAM: CT Abdomen and Pelvis Without Intravenous Contrast CLINICAL HISTORY: ITS.REASON CT Reason: Pain TECHNIQUE: Axial computed tomography images of the abdomen and pelvis without intravenous contrast. CTDI is 8.6 mGy and DLP is 443.7 mGy-cm. This CT exam was performed using one or more of the following dose reduction techniques: automated exposure control, adjustment of the mA and/or kV according to patient size, and/or use of iterative reconstruction technique. COMPARISON: CT abdomen/pelvis on 11/20/2018 FINDINGS: Evaluation of solid organs somewhat limited without IV contrast. Liver: Nonspecific small hypodensity in the left liver. Spleen: No focal lesion. Gallbladder: Prior cholecystectomy. Pancreas: No acute inflammation. No mass. Adrenal glands: No mass. Kidneys: Normal. No hydronephrosis or stone. No mass. Bowel: Stomach is mildly distended by ingested material which may be related to a recent meal. Prominence of the wall of the transverse colon and descending colon and portions of the right colon, including at the stoma, may be secondary to under distention versus colitis. Wall thickening in the sigmoid colon is again concerning for neoplasm with decreased surrounding fat stranding and fluid. No bowel obstruction. Normal appendix. Right-sided colostomy. Urinary bladder: Bladder wall thickening with surrounding fat stranding. Reproductive organs: Prior hysterectomy. Muscles: No mass. Subcutaneous tissues: Right-sided colostomy. Recent postsurgical changes in the anterior abdominal wall. Peritoneal space: No free fluid. Multiple phleboliths in the pelvis. Lymph nodes: Slightly decreased prominence of mesenteric and retroperitoneal lymph nodes. Similar small perirectal lymph nodes. Vessels: Minimal atherosclerotic changes. No aneurysm. Bones: Mild degenerative changes of the spine. Degenerative grade 1 anterolisthesis of L5 on S1. No acute fracture or bony lesion. Lung bases: Mild dependent atelectasis bilaterally. Trace bilateral pleural effusions. IMPRESSION: 1. Bladder wall thickening with surrounding fat stranding. Please correlate with urinalysis to evaluate for cystitis. 2. Prominence of the wall of the transverse colon and descending colon and portions of the right colon, including of the stoma, may be secondary to under distention versus colitis. Wall thickening in the sigmoid colon is again concerning for neoplasm with decreased surrounding fat stranding and fluid. Right-sided colostomy. 3. Trace bilateral pleural effusions.
[2018-12-10 23:35] LABS: Appearance,Urine Turbid (Clear); Bacteria,Urine Rare /hpf; Bilirubin,Urine Negative (Negative); Blood,Urine Negative (Negative); Color,Urine Yellow; Glucose,Urine (UA) Negative (Negative); Ketones,Urine Trace (Negative); Leukocyte Esterase,Urine Negative (Negative); Mucus,Urine Occasional /hpf; Nitrite,Urine Negative (Negative); Protein,Urine Trace (Negative); RBC,Urine 43 /hpf (0-5); Specific Gravity,Urine 1.037 (1.001-1.035); Squamous Epithelial Cell,Urine 1 /hpf (0-4); WBC,Urine 7 /hpf (0-5)
[2018-12-11 00:01] VITALS: BP 118/79; PULSE 76
[2018-12-11] MEDS ORDERED: SULFAMETHOX-TMP 800-160MG 1 EACH TAB PO STA (00:13)
== END 2018-12-11 00:35 | disposition home or self-care (01) ==
LOC: EC 21:27
DX: N39.0 Urinary tract infection, site not specified (principal); Z93.3 Colostomy status; E78.5 Hyperlipidemia, unspecified; F41.9 Anxiety disorder, unspecified; F32.9 Major depressive disorder, single episode, unspecified; F17.200 Nicotine dependence, unspecified, uncomplicated; Z79.1 Long term (current) use of non-steroidal anti-inflammatories (NSAID); Z79.899 Other long term (current) drug therapy; Z88.0 Allergy status to penicillin; Z88.8 Allergy status to other drugs, medicaments and biological substances; Z90.49 Acquired absence of other specified parts of digestive tract; Z90.89 Acquired absence of other organs; Z90.710 Acquired absence of both cervix and uterus
CPT/HCPCS: 36415; 86900; 86901; 80053; 82150; 83605; 83690; 84484; 85025; 86850; 86140; 81001; 74176; 99284; 96374; 96361; J2270

== ENCOUNTER 2018-12-20 12:46 | Day surgery (SDC) | payer OTHER ==
[2018-12-17 15:40] VITALS: BMI 22.1
[~2018-12-20 12:46] MED LIST: LACTATED RINGERS 1,000 ML IV SCH; LIDOCAINE 1% 20 ML VIAL (10MG/ML) FOR IV START INTRADERMA PRN
[2018-12-20 13:29] VITALS: TEMP 98
[2018-12-20] MEDS ORDERED: LACTATED RINGERS 1,000 ML IV ONE (13:29)
[2018-12-20] MEDS ORDERED: PROPOFOL 10 MG/ML 20 ML VIAL IV ONE (14:55)
--- NOTE | 2018-12-20 15:21 | P.PCN ---
Date of Procedure: 12/20/18 Procedure(s) Performed: PREOPERATIVE DIAGNOSIS: Sigmoid colon obstruction POSTOPERATIVE DIAGNOSIS: Sigmoid colon obstruction likely on the basis of diverticulitis PROCEDURE: Colonoscopy ANESTHESIA: MAC SURGEON: Malcolm Herring M.D. SPECIMENS: None ENDOSCOPIC PROCEDURE: The patient was placed on the endoscopy table in the left decubitus position. The Olympus colonoscope was inserted into the anus and passed under direct visualization to the mid sigmoid colon. At about 15-20 cm I was unable to advance beyond a narrowing of the lumen. There was no evidence of neoplasm at the site of narrowing but instead significant tortuosity. There was diverticulosis in that region. The scope was then advanced into the proximal limb of the loop transverse colostomy. The cecum and ascending and proximal transverse colon appeared normal. The scope was then advanced into the distal limb of the transverse loop colostomy. The transverse and descending colon appeared fairly normal. There was some slight narrowing and spasticity likely on the basis of disuse. Once again I reached an area where we could not advance the scope further with some angulation. I did not visualize any mucosal abnormalities. Again I suspect diverticular stricture as the source of the obstruction. It should be noted that during our lower colonoscopy of the rectum and sigmoid air did fill our ostomy bag suggesting some patency. Digital rectal examination revealed some stricture and posterior scarring likely on the basis of previous anal fissure. The patient was taken to the recovery room in stable condition per anesthesia guidelines. RECOMMENDATIONS: We'll review the patient's recent CAT scan. Resume diet. Will have patient follow-up in the next 2-3 weeks.
[2018-12-20 15:28] VITALS: RESP 18
[2018-12-20 15:53] VITALS: BP 121/85; PULSE 72
== END 2018-12-20 16:11 | disposition home or self-care (01) ==
LOC: ORWHC2ENDO 12:46
PROVIDERS: ATTEND Surgery
DX: K56.699 Other intestinal obstruction unspecified as to partial versus complete obstruction (principal); J44.9 Chronic obstructive pulmonary disease, unspecified; F41.9 Anxiety disorder, unspecified; F32.9 Major depressive disorder, single episode, unspecified; G43.909 Migraine, unspecified, not intractable, without status migrainosus; Z79.1 Long term (current) use of non-steroidal anti-inflammatories (NSAID); Z79.899 Other long term (current) drug therapy; Z93.3 Colostomy status; Z88.0 Allergy status to penicillin; Z88.8 Allergy status to other drugs, medicaments and biological substances
CPT/HCPCS: 44388; 45330; J2704

== ENCOUNTER → 2019-03-21 | Outpatient (CLI) | payer OTHER ==
[2019-03-21 11:27] LABS: HCT 43.5 % (34.0-46.0); HGB 14.5 gm/dL (11.4-16.0); MCH 30.4 pg (25.0-35.0); MCHC 33.3 g/dL (31.0-37.0); MCV 91.6 fL (80.0-100.0); Platelet Count 346 k/uL (150-450); RBC 4.75 m/uL (3.80-5.40); RDW 13.8 % (11.5-15.5); WBC 16.8 k/uL (3.8-10.6)
[2019-03-21 11:33] LABS: Potassium 4.1 mmol/L (3.5-5.1)
== END | disposition home or self-care (01) ==
LOC: LABPAT 10:23
PROVIDERS: ATTEND Surgery
DX: Z01.812 Encounter for preprocedural laboratory examination (principal); K57.92 Diverticulitis of intestine, part unspecified, without perforation or abscess without bleeding; Z90.49 Acquired absence of other specified parts of digestive tract
CPT/HCPCS: 36415; 80051; 85027

== ENCOUNTER 2019-03-22 07:52 | Inpatient (IN) | payer OTHER ==
--- NOTE | 2019-03-22 07:47 | P.GSHP ---
History of Present Illness H&P Date: 03/22/19 Chief Complaint: Colon obstruction 53-year-old female well-known to our service. In November of this year the patient had evidence of colonic obstruction. She went to the operating room and at that time the sigmoid colon was densely adherent to the pelvis. A diverting transv erse loop colostomy took place at that time. Since then the patient has done well. We proceeded with colonoscopy within the last few months. We were unable to advance beyond the site of obstruction of the sigmoid colon. No neoplastic changes were seen. Diverticulitis was suspected. Patient is interested in colostomy reversal. Past Medical History Past Medical History: Cancer, COPD, Hyperlipidemia Additional Past Medical History / Comment(s): 2 bowel obstructions with colostomy placed November 2018, migraines, hx skin cancer History of Any Multi-Drug Resistant Organisms: None Reported Past Surgical History: Appendectomy, Cholecystectomy, Hysterectomy, Orthopedic Surgery Additional Past Surgical History / Comment(s): Colonoscopies, left ankle surgery, I&D bilateral buttock abscesses, PICC line insertion and removal, colostomy placement. Past Anesthesia/Blood Transfusion Reactions: No Reported Reaction Additional Past Anesthesia/Blood Transfusion Reaction / Comment(s): Family hx unknown. Smoking Status: Current every day smoker - Past Family History Mother Family Medical History: Cancer Additional Family Medical History / Comment(s): Breast cancer with metastasis. Medications and Allergies Home Medications Medication Instructions Recorded Confirmed Type Sertraline HCl [Zoloft] 100 mg PO BID 10/04/16 03/21/19 History Atorvastatin Calcium [Lipitor] 80 mg PO HS 11/20/18 03/21/19 History Cholecalciferol (Vitamin D3) 2,000 unit PO DAILY 12/10/18 03/21/19 History [Vitamin D3] Allergies Allergy/AdvReac Type Severity Reaction Status Date / Time Penicillins Allergy Unknown Verified 03/21/19 09:15 Childhood phenobarbital Allergy Unknown Verified 03/21/19 09:15 Surgical - Exam Physical exam: General: Well-developed, well-nourished HEENT: Normocephalic, sclerae nonicteric Abdomen: Nontender, nondistended, right upper quadrant ostomy noted Extremities: No edema Neuro: Alert and oriented Assessment and Plan (1) Colostomy in place Narrative/Plan: 53-year-old female with colonic obstruction. Plan at this time is to proceed with exploratory laparotomy and resection of the sigmoid colon with wendie nastomosis. Possible reversal of the transverse loop colostomy at this time as well. Risks of bleeding, infection, leak, abscess, lateral and ureteral injury, bowel obstruction, hernia, possible need for ongoing small bowel or colonic ostomy, respiratory and cardiac complications, recurrent obstruction reviewed. She understands and wishes to proceed. Status: Acute Code(s): Z93.3 - COLOSTOMY STATUS SNOMED Code(s): 399348601
[~2019-03-22 07:52] MED LIST changes: +ALVIMOPAN 12 MG CAPSULE PO ONE; +DEXAMETHASONE SOD PHOSPHATE 10 MG/ML 1 ML VIAL IV ONE; +HEPARIN SODIUM,PORCINE 5,000 UNIT/ML 1 ML VIAL SQ ONE; +HYDROmorphone 0.5 MG/0.5 ML SYRINGE IVP PRN; -LACTATED RINGERS 1,000 ML IV SCH; -LIDOCAINE 1% 20 ML VIAL (10MG/ML) FOR IV START INTRADERMA PRN; +MIDAZOLAM 2 MG/2 ML VIAL IV PRN; +ONDANSETRON 4 MG/2 ML VIAL IVP ONE; +SCOPOLAMINE 1.5MG/72HR PATCH TRANSDERM ONE; +metroNIDAZOLE-NS PMX 500 MG in SALINE 1 100ML.BAG IVPB ONE
[2019-03-22] MEDS ORDERED: LIDOCAINE 1% 20 ML VIAL (10MG/ML) FOR IV START INTRADERMA ONE (08:53)
[2019-03-22] MEDS ORDERED: LACTATED RINGERS 1,000 ML IV ONE ×4 (08:56→12:57)
[2019-03-22] MEDS ORDERED: fentaNYL (PF) 50 MCG/ML 2 ML AMP IVP ONE (09:10)
[2019-03-22] MEDS ORDERED: MIDAZOLAM PF (FBP) 2 MG/2 ML VIAL IVP ONE (09:10)
[2019-03-22] MEDS ORDERED: ROPIVACAINE 250 MG, HYDROMORPHONE (PF) 5 MG in SODIUM CHLORIDE 0.9% 200 ML EPIDURAL PRN (10:02)
[2019-03-22] MEDS ORDERED: NALOXONE 0.4 MG/ML 1 ML VIAL IV PRN (10:02)
[2019-03-22] MEDS ORDERED: GLYCOPYRROLATE 0.2 MG/ML 2 ML VIAL ONE (10:05)
[2019-03-22] MEDS ORDERED: ePHEDrine SULFATE/0.9% NACL/PF 50 MG/5 ML SYRINGE IV ONE (10:05)
[2019-03-22] MEDS ORDERED: MIDAZOLAM 2 MG/2 ML VIAL ONE (10:05)
[2019-03-22] MEDS ORDERED: GLUCAGON 1 MG/ML VIAL ONE (10:05)
[2019-03-22] MEDS ORDERED: fentaNYL (PF) 50 MCG/ML 2 ML AMP ONE (10:05)
[2019-03-22] MEDS ORDERED: NEOSTIGMINE 1 MG/ML 10 ML VIAL ONE (10:05)
[2019-03-22] MEDS ORDERED: ROCURONIUM BROMIDE 10 MG/ML 10 ML VIAL IV ONE (10:05)
[2019-03-22] MEDS ORDERED: SUCCINYLCHOLINE CHLORIDE 100 MG/5 ML SYR IV ONE (10:05)
[2019-03-22] MEDS ORDERED: LIDOCAINE 1% INJ 10MG/ML (20 ML MDV) ONE (10:05)
[2019-03-22] MEDS ORDERED: PROPOFOL 10 MG/ML 20 ML VIAL IV ONE (10:05)
[2019-03-22] MEDS ORDERED: HYDROmorphone (PF) 1 MG/ML ONE (10:05)
[2019-03-22] MEDS ORDERED: METOCLOPRAMIDE 5 MG/ML 2 ML VIAL IVP PRN (14:45)
[2019-03-22] MEDS ORDERED: ONDANSETRON 4 MG/2 ML VIAL IVP PRN (14:45)
--- NOTE | 2019-03-22 14:57 | P.OP ---
Date of Procedure: 03/22/19 Procedure(s) Performed: PREOPERATIVE DIAGNOSIS: Sigmoid colon obstruction, anal stricture POSTOPERATIVE DIAGNOSIS: Sigmoid colon obstruction, extensive intra-abdominal adhesions PROCEDURE: Exploratory laparotomy with sigmoid colectomy and low rectal anastomosis, extensive lysis of adhesions, small bowel resection, mobilization splenic flexure, dilation anal stricture SURGEON: Nima EBL: 100 mL ANESTHESIA: General COMPLICATIONS: None OPERATIVE PROCEDURE: Patient was placed on the operative table in the supine position. The patient was placed under general anesthesia. The patient was then placed in lithotomy. The abdomen was prepped and draped in usual sterile fashion. The patient transverse loop colostomy was addressed using an Ioban across the entire abdomen. A vertical incision was made encompassing the patient's previous midline incision. The fascia was divided as well. To 3 small defects along the midline fascia were consistent with small incisional hernias and incorporated into the fascial opening. The patient was noted to have extensive intra-abdominal adhesions. Lysis of adhesions took place which took over 1 hour just to free up the pelvis. The patient had a particular loop of small bowel that was densely adherent to the mid sigmoid colon at the suspected site of obstruction. This had a inflamed appearance without perforation. I decided to remove this small section of small bowel. The bowel was divided proximal and distal to this section using a linear 75 stapler. The mesentery was divided using the LigaSure device. A [id number] anastomosis took place after removing the antimesenteric portion of the staple line and firing a 75 stapler along the antimesenteric border. The defect left was closed using a TX 60 device. The TX 60 stapler line was imbricated using 3-0 GI silk sutures. The mesenteric defect was closed using interrupted 3-0 GI silk sutures as well. Attention was then directed to the pelvis. The Bookwalter retractor was utilized. The sigmoid colon was fully mobilized by incising the white line of Toldt. The left and right ureters were both identified and preserved. The sigmoid colon was markedly inflamed and adherent to the pelvic structures. Once dissection allowed us to mobilize the sigmoid colon. The sigmoid colon was divided proximal to the suspected obstruction site using a year 75 stapler. The mesentery was divided using the LigaSure device. Dissection then took place to the proximal rectum which was then divided using a contour stapler. The proximal sigmoid colon would not reach the pelvis nicely at this point. We proceeded with mobilization of the splenic flexure. This took place using electrocautery and the LigaSure device. We then had adequate length. It should be noted that the patient's anal stricture was addressed prior to wrapping the abdomen. This was manually dilated digitally then using the 25 EEA sizer then using the 29 EEA sizer. The specimen was passed off the field at that point. A small colotomy was made adjacent to the proximal staple line. The 28 EEA anvil was advanced into the lumen of the bowel. The bowel was then divided using a linear 75 stapler. The anvil was brought out just adjacent to the staple line at that point. A 3-0 GI silk pursestring suture was applied. The stapler was then inserted into the anus and brought up to the staple line. The obturator was brought out just anterior to the staple line. The 2 portions of the stapler were connected to one another and subsequently tightened and fired. There was no tension on the anastomosis. The bowel was clamped proximal to the anastomosis. The rigid sigmoidoscope was utilized to fill the anastomotic site nicely with air. There was saline in the pelvis at this time. The patient did have evidence of air bubbles present. The anastomosis was so deep in the pelvis it was difficult to evaluate the leak site fully however a small defect in the left anterior position was suspected. I was unable to place a stitch there given the poor visualization and depth in the pelvis. At that point per discuss ion with the family preoperatively I decided to place a drain in the pelvis along the right side of the anastomosis. This was a 19-Thai channel drain. I decided that point to leave the patient's transverse loop colostomy to allow that area to heal properly. The abdomen was irrigated with saline. The liver, stomach, visualized colon, and small bowel appeared normal. The midline fascia was then reapproximated using 3 separate double-stranded #1 PDS sutures. The subcutaneous tissues were closed using 3-0 Vicryl sutures. The skin was then closed using selwyn. Sterile dressings and an ostomy appliance were then applied. DISPOSITION: Stable to recovery room
[2019-03-22] MEDS: NICOTINE 14MG/24HR PATCH TRANSDERM SCH (16:51)
[2019-03-22] MEDS: HEPARIN SODIUM,PORCINE 5,000 UNIT/ML 1 ML VIAL SQ SCH ×2 (16:51→23:43)
[2019-03-22] MEDS: D5-0.45% NACL WITH KCL 20MEQ/L 1,000 ML IV SCH ×2 (16:51→23:46)
[2019-03-22] MEDS: SERTRALINE 100 MG TAB PO SCH (17:26)
[2019-03-22] MEDS: FAMOTIDINE 20 MG/2 ML VIAL IV SCH (21:06)
[2019-03-22] MEDS: ATORVASTATIN 80 MG TAB PO SCH (21:06)
[2019-03-22] MEDS: LACTATED RINGERS 1,000 ML IV SCH (22:40)
[2019-03-23] MEDS: MELATONIN 5 MG TABLET PO SCH ×2 (01:37→19:23)
[2019-03-23] MEDS: LACTATED RINGERS 1,000 ML IV SCH (02:19)
[2019-03-23 07:17] LABS: Basophils # (A) 0.1 k/uL (0-0.2); Basophils % (A) 0 %; Eosinophils # (A) 0.4 k/uL (0-0.7); Eosinophils % (A) 1 %; HCT 37.6 % (34.0-46.0); HGB 12.4 gm/dL (11.4-16.0); Lymphocytes % (A) 11 %; MCH 30.3 pg (25.0-35.0); MCHC 32.9 g/dL (31.0-37.0); MCV 92.3 fL (80.0-100.0); Mean Platelet Volume 7.4; Monocytes # (A) 1.2 k/uL (0-1.0); Monocytes % (A) 5 %; Neutrophils # (A) 21.3 k/uL (1.3-7.7); Neutrophils % (A) 82 %; Platelet Count 311 k/uL (150-450); RBC 4.08 m/uL (3.80-5.40); RDW 13.8 % (11.5-15.5); WBC 26.1 k/uL (3.8-10.6)
[2019-03-23 07:28] LABS: African American GFR (CKD) >90 (>60 ml/min/1.73 sqM); Anion Gap 5 mmol/L; Blood Urea Nitrogen 11 mg/dL (7-17); Calcium 8.8 mg/dL (8.4-10.2); Carbon Dioxide 23 mmol/L (22-30); Chloride 105 mmol/L (98-107); Glucose 134 mg/dL (74-99); Non-African American GFR(CKD) >90 (>60 ml/min/1.73 sqM); Potassium 4.5 mmol/L (3.5-5.1); Sodium 133 mmol/L (137-145)
[2019-03-23] MEDS: SERTRALINE 100 MG TAB PO SCH ×2 (08:52→19:22)
[2019-03-23] MEDS: FAMOTIDINE 20 MG/2 ML VIAL IV SCH ×2 (08:52→19:29)
[2019-03-23] MEDS: CHOLECALCIFEROL 1,000 UNIT TAB PO SCH (08:52)
[2019-03-23] MEDS: ALVIMOPAN 12 MG CAPSULE PO SCH ×2 (08:52→19:23)
[2019-03-23] MEDS: HEPARIN SODIUM,PORCINE 5,000 UNIT/ML 1 ML VIAL SQ SCH ×3 (08:52→22:53)
[2019-03-23] MEDS: NICOTINE 14MG/24HR PATCH TRANSDERM SCH (08:52)
[2019-03-23] MEDS: D5-0.45% NACL WITH KCL 20MEQ/L 1,000 ML IV SCH ×3 (08:53→19:33)
--- NOTE | 2019-03-23 11:06 | P.PN ---
Subjective Progress Note Date: 03/23/19 CHIEF COMPLAINT: Sigmoid diverticulitis HISTORY OF PRESENT ILLNESS: The patient is a 53-year-old female status post ileostomy and colectomy, 03/22/2019. POD 1. She is doing very well. She is moving around. She is tolerating liquids. She has flatus in her ostomy. She has an epidural. No fevers or chills. ROS: No reports of nausea and vomiting. No new chest pain. No productive sputum PHYSICAL EXAM: VITAL SIGNS: Reviewed CONSTITUTIONAL: Well developed and in no acute distress. EYES: Conjuctivae without sclera icterus. Extraocular movements grossly intact. HEAD, EARS, NOSE, THROAT: Moist buccal mucosa. Head is atraumatic, normocephalic. Hears conversational speech. No nasal drainage. NECK: Supple. No thyroidomegaly. RESPIRATORY: Non-labored respirations and equal bilateral excursions. CARDIOVASCULAR: Palpable 2+ radial pulses. ABDOMEN: Dressing intact with mild shadowing. No cellulitis or infection. Ileostomy with flatus. MUSCULOSKELETAL: No gross deformity of the lower extremities noted. No clubbing. No cyanosis. SKIN: Good skin turgor. Well perfused. NEUROLOGIC: Cranial nerves I through XII grossly intact. No focal or lateralizing signs. PSYCH: Appropriate affect. Alert and oriented to person, place and time. CLINCAL LABS: White blood cell count over 25,000. Leukocytosis is post-reactive ASSESSMENT: 1. Sigmoid diverticulitis PLAN: 1. Antibiotics resumed for colorectal surgery 2. Continue epidural 3. She is ambulating 4. Incentive spirometry Objective - Vital Signs Vital signs: Vital Signs Temp 99.1 F 03/23/19 07:00 Pulse 107 H 03/23/19 07:00 Resp 17 03/23/19 07:00 BP 111/73 03/23/19 07:00 Pulse Ox 94 L 03/23/19 07:00 Intake & Output 03/22/19 03/23/19 03/23/19 18:59 06:59 18:59 Intake Total 3650 100 Output Total 465 795 30 Balance 3185 -795 70 Intake: IV 3650 Oral 100 Output: Drainage 95 30 Left Abdomen 95 30 Urine 300 700 Estimated Blood Loss 165 Other: Voiding Method Indwelling Catheter Indwelling Catheter Indwelling Catheter - Labs CBC & Chem 7: 03/23/19 06:55 03/23/19 06:55 Labs: Abnormal Lab Results - Last 24 Hours (Table) 03/23/19 03/23/19 Range/Units 06:55 06:55 WBC 26.1 H (3.8-10.6) k/uL Neutrophils # 21.3 H (1.3-7.7) k/uL Monocytes # 1.2 H (0-1.0) k/uL Sodium 133 L (137-145) mmol/L Glucose 134 H (74-99) mg/dL Assessment and Plan (1) Ileostomy in place Current Visit: Yes Status: Acute Code(s): Z93.2 - ILEOSTOMY STATUS SNOMED Code(s): 671572756 (2) Diverticulitis Current Visit: No Status: Acute Code(s): K57.92 - DVTRCLI OF INTEST, PART UNSP, W/O PERF OR ABSCESS W/O BLEED SNOMED Code(s): 728646965
[2019-03-23] MEDS: diphenhydrAMINE 50 MG/ML 1 ML VIAL IVP PRN ×2 (12:15→19:30)
[2019-03-23] MEDS: metroNIDAZOLE-NS PMX 500 MG in SALINE 1 100ML.BAG IVPB SCH ×2 (12:16→17:46)
--- NOTE | 2019-03-23 12:54 | P.CON ---
Consult Note - . Consult date: 03/23/19 Assessment/Plan:: Reason for consult -management of chronic medical conditions. Ms. Downing is a 53-year-old female with a past medical history of 2 bowel obstructions and colostomy placed in November 2018, migraine headaches, history of skin cancer, hyperlipidemia admitted to the hospital for reversal of colostomy. We have been consulted for management of her chronic medical conditions. Patient has history of hyperlipidemia, COPD and history of skin cancer and migraine headaches. Patient has chronic smoking history and is a current smoker. She has cough that is nonproductive. No change in her symptoms. Patient was taken to the OR yesterday for exploratory laparotomy for resection of the sigmoid colon with reanastomosis and reversal of transverse loop colostomy. But the reversal could not be done as there were extensive intra- abdominal adhesions. Patient has been empirically started on antibiotics for colorectal surgery. Postop patient has an epidural in place currently. She reports having itching since last night. Patient's labs and vitals have been reviewed. White count is elevated which could be post surgical and reactive. Patient denies having any fever chills or rigors. She has been restarted on her Zoloft and atorvastatin. She is being given a trial of clear fluids. All 13 review of systems done and negative except for the ones mentioned. Past Medical History Past Medical History: Cancer, COPD, Hyperlipidemia Additional Past Medical History / Comment(s): 2 bowel obstructions with colostomy placed November 2018, migraines, hx skin cancer History of Any Multi-Drug Resistant Organisms: None Reported Past Surgical History: Appendectomy, Cholecystectomy, Hysterectomy, Orthopedic Surgery Additional Past Surgical History / Comment(s): Colonoscopies, left ankle surgery, I&D bilateral buttock abscesses, PICC line insertion and removal, colostomy placement. Past Anesthesia/Blood Transfusion Reactions: No Reported Reaction Additional Past Anesthesia/Blood Transfusion Reaction / Comment(s): Family hx unknown. 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 She is independent. Smoking Status: Current every day smoker Past Alcohol Use History: Rare Additional Past Alcohol Use History / Comment(s): Pt states she started smoking in 1972 and was a ppd smoker, has cut back and is trying to quit, down to 1/2ppd Past Drug Use History: Marijuana Additional Drug Use History / Comment(s): Marijuana use up to 1 per day. - Past Family History Father Family Medical History: Diabetes Mellitus Additional Family Medical History / Comment(s): Father is an alcoholic. He is 86yrs old. Mother Family Medical History: Cancer Additional Family Medical History / Comment(s): Breast cancer with metastasis. Medications and Allergies Home Medications Medication Instructions Recorded Confirmed Type Sertraline HCl [Zoloft] 100 mg PO BID 10/04/16 03/22/19 History Atorvastatin Calcium [Lipitor] 80 mg PO HS 11/20/18 03/22/19 History Cholecalciferol (Vitamin D3) 2,000 unit PO DAILY 12/10/18 03/22/19 History [Vitamin D3] Allergies Allergy/AdvReac Type Severity Reaction Status Date / Time Penicillins Allergy Unknown Verified 03/22/19 14:29 Childhood phenobarbital Allergy Unknown Verified 03/22/19 14:29 Physical Exam Vitals: Vital Signs Temp Pulse Pulse Resp BP BP Pulse Ox 03/23/19 07:00 99.1 F 107 H 17 111/73 94 L 03/23/19 02:10 99.0 F 109 H 17 105/68 94 L 03/22/19 23:46 108/68 03/22/19 23:40 98.4 F 108 H 14 95/67 95 03/22/19 15:47 93 16 03/22/19 14:30 93 16 113/74 98 03/22/19 14:15 95 14 113/74 96 03/22/19 14:11 97.2 F L 101 H 22 118/78 99 Intake and Output 03/22/19 03/23/19 03/23/19 22:59 06:59 14:59 Intake Total 100 Output Total 910 856 0630 Balance -150 795 -1130 Intake: Oral 100 Output: Drainage 95 30 Left Abdomen 95 30 Urine 270 546 4869 Other: Voiding Method Indwelling Catheter Indwelling Catheter Indwelling Catheter GEN. APPEARANCE: alert, in no apparent distress HEENT: No pallor. No icterus. RESPIRATORY EXAM: Decreased breath sounds in all lung carrion bilaterally. No wheeze or crackles. CARDIOVASCULAR EXAM: S1 and S2 heard GI/ABDOMINAL EXAM: Surgical scar covered, no evidence of any bleeding. JANE drain in place with sanguinous discharge of around 15 mL. Thomas's catheter in place. EXTREMITIES EXAM: No pedal edema. BACK EXAM: Epidural catheter in place. NEUROLOGICAL EXAM: alert, oriented X3, no focal neurological deficits SKIN EXAM: warm, dry, intact, normal color. Absent: rash Results CBC & Chem 7: 03/23/19 06:55 03/23/19 06:55 Labs: Abnormal Lab Results - Last 24 Hours (Table) 03/23/19 03/23/19 Range/Units 06:55 06:55 WBC 26.1 H (3.8-10.6) k/uL Neutrophils # 21.3 H (1.3-7.7) k/uL Monocytes # 1.2 H (0-1.0) k/uL Sodium 133 L (137-145) mmol/L Glucose 134 H (74-99) mg/dL ASSESSMENT Exploratory laparotomy - status post day 1 Extensive intra-abdominal adhesions Leukocytosis- most likely reactive postsurgical History of migraine headaches Hyperlipidemia Chronic Nicotine dependence PLAN: Patient is postop day [address] Pain management and bowel regimen as per primary care team. Patient has been restarted on atorvastatin and Zoloft which are her home medications. GI DVT prophylaxis as per primary care team. Continue with the nicotine patch. As the patient has been complaining of itching, Benadryl has been started on when necessary basis. We'll continue to follow the patient. Thank you for the consult.
[2019-03-23] MEDS ORDERED: diphenhydrAMINE 50 MG/ML 1 ML VIAL IVP STA (16:20)
[2019-03-23] MEDS: ATORVASTATIN 80 MG TAB PO SCH (19:23)
[2019-03-23] MEDS ORDERED: NALOXONE 0.4 MG/ML 1 ML VIAL IV PRN (19:32)
--- NOTE | 2019-03-23 19:36 | P.PN ---
Progress Note - Text Progress Note Date: 03/23/19 Postoperative day #1 status post , colostomy reversal/epidural catheter placed for postoperative analgesia, patient doing well epidural site okay, patient currently on combination of epidural infusion solution of Ropivacaine 0.0625% and Dilaudid 20 g per mL the infusion rate at 9 ml per hour , patient had no motor deficit epidural site okay , vital signs stable , VAS 7/10 , she is complaining of severe itching Assessment and plan= post operative day # 1 , epidural catheter in place patient had side effects of Dilaudid ,(severe itching) , I will change the epidural infusion solution to combination of fentanyl/ropivacaine
[2019-03-23] MEDS: ROPIVACAINE 250 MG, fentaNYL (PF) 625 MCG in SODIUM CHLORIDE 0.9% 188 ML EPIDURAL PRN (20:18)
[2019-03-24] MEDS: diphenhydrAMINE 50 MG/ML 1 ML VIAL IVP PRN ×2 (00:35→13:25)
[2019-03-24] MEDS: metroNIDAZOLE-NS PMX 500 MG in SALINE 1 100ML.BAG IVPB SCH ×4 (00:39→17:59)
[2019-03-24] MEDS: LACTATED RINGERS 1,000 ML IV SCH (05:49)
[2019-03-24 06:59] LABS: Basophils # (A) 0.1 k/uL (0-0.2); Basophils % (A) 0 %; Eosinophils # (A) 0.5 k/uL (0-0.7); Eosinophils % (A) 3 %; HCT 31.9 % (34.0-46.0); HGB 10.7 gm/dL (11.4-16.0); Lymphocytes # (A) 2.8 k/uL (1.0-4.8); Lymphocytes % (A) 14 %; MCH 30.2 pg (25.0-35.0); MCHC 33.7 g/dL (31.0-37.0); MCV 89.6 fL (80.0-100.0); Mean Platelet Volume 7.8; Monocytes % (A) 5 %; Neutrophils # (A) 15.1 k/uL (1.3-7.7); Neutrophils % (A) 77 %; Platelet Count 282 k/uL (150-450); RBC 3.55 m/uL (3.80-5.40); RDW 14.5 % (11.5-15.5); WBC 19.6 k/uL (3.8-10.6)
[2019-03-24] MEDS: FAMOTIDINE 20 MG/2 ML VIAL IV SCH ×2 (07:05→21:19)
[2019-03-24] MEDS: HEPARIN SODIUM,PORCINE 5,000 UNIT/ML 1 ML VIAL SQ SCH ×2 (07:05→16:52)
[2019-03-24] MEDS: ALVIMOPAN 12 MG CAPSULE PO SCH ×2 (07:06→21:18)
[2019-03-24] MEDS: CHOLECALCIFEROL 1,000 UNIT TAB PO SCH (07:06)
[2019-03-24] MEDS: SERTRALINE 100 MG TAB PO SCH ×2 (07:06→21:19)
[2019-03-24] MEDS: NICOTINE 14MG/24HR PATCH TRANSDERM SCH (07:06)
[2019-03-24] MEDS: D5-0.45% NACL WITH KCL 20MEQ/L 1,000 ML IV SCH ×2 (07:06→16:53)
[2019-03-24 07:09] LABS: African American GFR (CKD) >90 (>60 ml/min/1.73 sqM); Anion Gap 7 mmol/L; Blood Urea Nitrogen 3 mg/dL (7-17); Calcium 8.5 mg/dL (8.4-10.2); Carbon Dioxide 23 mmol/L (22-30); Chloride 108 mmol/L (98-107); Glucose 125 mg/dL (74-99); Non-African American GFR(CKD) >90 (>60 ml/min/1.73 sqM); Potassium 3.8 mmol/L (3.5-5.1); Sodium 138 mmol/L (137-145)
--- NOTE | 2019-03-24 13:15 | P.PN ---
Subjective Progress Note Date: 03/24/19 Principal diagnosis: Lysis of intra-abdominal adhesions Ms. Downing is a 53-year-old female with a past medical history of 2 bowel obstructions and colostomy placed in November 2018, migraine headaches, history of skin cancer, hyperlipidemia admitted to the hospital for reversal of colostomy. We have been consulted for management of her chronic medical conditions. Patient has history of hyperlipidemia, COPD and history of skin cancer and migraine headaches. Patient has chronic smoking history and is a current smoker. She has cough that is nonproductive. No change in her symptoms. Patient was taken to the OR yesterday for exploratory laparotomy for resection of the sigmoid colon with reanastomosis and reversal of transverse loop colostomy. But the reversal could not be done as there were extensive intra- abdominal adhesions. Patient has been empirically started on antibiotics for colorectal surgery. Postop patient has an epidural in place currently. She reports having itching since last night. Patient's labs and vitals have been reviewed. White count is elevated which could be post surgical and reactive. Patient denies having any fever chills or rigors. She has been restarted on her Zoloft and atorvastatin. She is being given a trial of clear fluids. On 03/24/2019 - patient is lying comfortably in the bed. As per the nursing staff report patient has been tossing and turning in the bed. Patient seems to be very restless, she complains about everything. She states that this would over here is not covered. She is currently on clear liquids and wants something solid to eat. She complains about the lights in the room. She complains of mil d abdominal soreness. She denies having any nausea or vomiting. Her JANE drain is fallen off. She said that she did not pull it out. She thinks it might have, because she has been tossing and turning in the bed a lot. She denies having any fevers chills or rigors. As the patient was having itching, her epidural infusion solution has been changed to anesthesia yesterday evening. Patient continues to be on antibiotic prophylaxis. Objective - Vital Signs Vital signs: Vital Signs Temp 99.1 F 03/24/19 07:43 Pulse 103 H 03/24/19 07:43 Resp 16 03/24/19 08:00 BP 112/74 03/24/19 07:43 Pulse Ox 94 L 03/24/19 07:43 Intake & Output 03/23/19 03/24/19 03/24/19 18:59 06:59 18:59 Intake Total 300 Output Total 1260 1490 Balance -960 -1490 Intake: Oral 300 Output: Drainage 60 90 Left Abdomen 60 90 Urine 1200 1400 Other: Voiding Method Indwelling Catheter Indwelling Catheter Indwelling Catheter - Exam GEN. APPEARANCE: alert, in no apparent distress HEENT: No pallor. No icterus. RESPIRATORY EXAM: Decreased breath sounds in all lung carrion bilaterally. No wheeze or crackles. CARDIOVASCULAR EXAM: S1 and S2 heard GI/ABDOMINAL EXAM: Surgical scar covered, no evidence of any active bleeding. JANE drain has fallen off. Thomas's catheter in place. EXTREMITIES EXAM: No pedal edema. BACK EXAM: Epidural catheter in place. NEUROLOGICAL EXAM: alert, oriented X3, no focal neurological deficits SKIN EXAM: warm, dry, intact, normal color. Absent: rash - Labs CBC & Chem 7: 03/24/19 06:34 03/24/19 06:34 Labs: Abnormal Lab Results - Last 24 Hours (Table) 03/24/19 03/24/19 Range/Units 06:34 06:34 WBC 19.6 H (3.8-10.6) k/uL RBC 3.55 L (3.80-5.40) m/uL Hgb 10.7 L (11.4-16.0) gm/dL Hct 31.9 L (34.0-46.0) % Neutrophils # 15.1 H (1.3-7.7) k/uL Chloride 108 H (98-107) mmol/L BUN 3 L (7-17) mg/dL Creatinine 0.45 L (0.52-1.04) mg/dL Glucose 125 H (74-99) mg/dL Assessment and Plan Assessment: ASSESSMENT Exploratory laparotomy - status post day 2 Extensive intra-abdominal adhesions Leukocytosis- most likely reactive postsurgical History of migraine headaches Hyperlipidemia Chronic Nicotine dependence PLAN: Patient is postop day 2 with epidural still in place. Patient JANE drain has fallen off . Leukocytosis is trending down. After changing her epidural solution, patient does not have any more itching. Patient seemed to be restless for everything. We will give her trial of Xanax to calm her down. Also discussed at length with the patient, the need for her to be calm, as there is a risk of wound dehiscence. Antibiotics, GI, DVT prophylaxis as per primary care team. Continue with nicotine patch for chronic smoking. Will continue to follow the patient.
[2019-03-24] MEDS: ALPRAZolam 0.25 MG TAB PO PRN ×2 (13:26→21:19)
--- NOTE | 2019-03-24 14:35 | P.PN ---
Subjective Progress Note Date: 03/24/19 CHIEF COMPLAINT: Sigmoid diverticulitis HISTORY OF PRESENT ILLNESS: The patient is a 53-year-old female status post ileostomy and colectomy, 03/22/2019. POD 2. She had accidentally pulled her JANE out. She has anxiety and was placed on an anxiolytic per medicine. ROS: No reports of nausea and vomiting. No new chest pain. No productive sputum PHYSICAL EXAM: VITAL SIGNS: Reviewed CONSTITUTIONAL: Well developed and in no acute distress. EYES: Conjuctivae without sclera icterus. Extraocular movements grossly intact. HEAD, EARS, NOSE, THROAT: Moist buccal mucosa. Head is atraumatic, normoceph alic. Hears conversational speech. No nasal drainage. NECK: Supple. No thyroidomegaly. RESPIRATORY: Non-labored respirations and equal bilateral excursions. CARDIOVASCULAR: Palpable 2+ radial pulses. ABDOMEN: JANE removed. Ileostomy with flatus. MUSCULOSKELETAL: No gross deformity of the lower extremities noted. No clubbing. No cyanosis. SKIN: Good skin turgor. Well perfused. NEUROLOGIC: Cranial nerves I through XII grossly intact. No focal or lateralizing signs. PSYCH: Appropriate affect. Alert and oriented to person, place and time. CLINCAL LABS: White blood cell count over 25,000 now to over 16,000. ASSESSMENT: 1. Sigmoid diverticulitis 2. Ileostomy status. PLAN: 1. Continue antibiotics. 2. Continue liquid diet. Objective - Vital Signs Vital signs: Vital Signs Temp 99.1 F 03/24/19 07:43 Pulse 103 H 03/24/19 07:43 Resp 16 03/24/19 08:00 BP 112/74 03/24/19 07:43 Pulse Ox 94 L 03/24/19 07:43 Intake & Output 03/23/19 03/24/19 03/24/19 18:59 06:59 18:59 Intake Total 300 Output Total 1260 1490 1830 Balance -960 -1490 -1830 Intake: Oral 300 Output: Drainage 60 90 30 Left Abdomen 60 90 30 Urine 1200 1400 1800 Other: Voiding Method Indwelling Catheter Indwelling Catheter Indwelling Catheter - Labs CBC & Chem 7: 03/24/19 06:34 03/24/19 06:34 Labs: Abnormal Lab Results - Last 24 Hours (Table) 08/18/19 08/18/19 Range/Units 06:34 06:34 WBC 19.6 H (3.8-10.6) k/uL RBC 3.55 L (3.80-5.40) m/uL Hgb 10.7 L (11.4-16.0) gm/dL Hct 31.9 L (34.0-46.0) % Neutrophils # 15.1 H (1.3-7.7) k/uL Chloride 108 H (98-107) mmol/L BUN 3 L (7-17) mg/dL Creatinine 0.45 L (0.52-1.04) mg/dL Glucose 125 H (74-99) mg/dL Assessment and Plan (1) Ileostomy in place Current Visit: Yes Status: Acute Code(s): Z93.2 - ILEOSTOMY STATUS SNOMED Code(s): 125891638 (2) Diverticulitis Current Visit: No Status: Acute Code(s): K57.92 - DVTRCLI OF INTEST, PART UNSP, W/O PERF OR ABSCESS W/O BLEED SNOMED Code(s): 933718851
[2019-03-24] MEDS: ROPIVACAINE 250 MG, fentaNYL (PF) 625 MCG in SODIUM CHLORIDE 0.9% 188 ML EPIDURAL PRN (16:13)
--- NOTE | 2019-03-24 20:56 | P.PN ---
Progress Note - Text Progress Note Date: 03/24/19 Postoperative day #2 status post , colostomy reversal/epidural catheter placed for postoperative analgesia, patient doing well epidural site okay, patient currently on combination of epidural infusion solution of Ropivacaine 0.0625% and Fentanyle 2.5 g per mL the infusion rate at 8 ml per hour , patient had no motor deficit epidural site okay , vital signs stable , VAS 7/10 , she used to have itching from the Dilaudid,the itching improved Assessment and plan= post operative day # 2 , epidural catheter in place , we will increase the epidural infusion to 9 mL per hour
[2019-03-24] MEDS: MELATONIN 5 MG TABLET PO SCH (21:19)
[2019-03-24] MEDS: ATORVASTATIN 80 MG TAB PO SCH (21:19)
[2019-03-25] MEDS: diphenhydrAMINE 50 MG/ML 1 ML VIAL IVP PRN (00:12)
[2019-03-25] MEDS: HEPARIN SODIUM,PORCINE 5,000 UNIT/ML 1 ML VIAL SQ SCH ×3 (00:12→17:36)
[2019-03-25] MEDS: metroNIDAZOLE-NS PMX 500 MG in SALINE 1 100ML.BAG IVPB SCH ×4 (00:13→18:55)
[2019-03-25] MEDS: D5-0.45% NACL WITH KCL 20MEQ/L 1,000 ML IV SCH ×4 (03:56→13:38)
[2019-03-25] MEDS: LACTATED RINGERS 1,000 ML IV SCH (06:48)
[2019-03-25] MEDS: NICOTINE 14MG/24HR PATCH TRANSDERM SCH (06:58)
[2019-03-25] MEDS: FAMOTIDINE 20 MG/2 ML VIAL IV SCH ×2 (06:59→21:23)
[2019-03-25] MEDS: SERTRALINE 100 MG TAB PO SCH ×2 (06:59→21:23)
[2019-03-25] MEDS: ALVIMOPAN 12 MG CAPSULE PO SCH ×2 (06:59→21:23)
[2019-03-25] MEDS: CHOLECALCIFEROL 1,000 UNIT TAB PO SCH (06:59)
[2019-03-25] MEDS: ALPRAZolam 0.25 MG TAB PO PRN ×2 (06:59→21:23)
[2019-03-25 08:24] LABS: Basophils # (A) 0.1 k/uL (0-0.2); Basophils % (A) 0 %; Eosinophils # (A) 0.7 k/uL (0-0.7); Eosinophils % (A) 4 %; HCT 32.8 % (34.0-46.0); HGB 11.2 gm/dL (11.4-16.0); Lymphocytes # (A) 4.3 k/uL (1.0-4.8); Lymphocytes % (A) 22 %; MCH 31.1 pg (25.0-35.0); MCHC 34.2 g/dL (31.0-37.0); MCV 90.9 fL (80.0-100.0); Mean Platelet Volume 7.7; Monocytes # (A) 1.3 k/uL (0-1.0); Monocytes % (A) 7 %; Neutrophils # (A) 13.3 k/uL (1.3-7.7); Neutrophils % (A) 67 %; Platelet Count 302 k/uL (150-450); RDW 13.9 % (11.5-15.5); WBC 19.9 k/uL (3.8-10.6)
[2019-03-25 08:40] LABS: African American GFR (CKD) >90 (>60 ml/min/1.73 sqM); Anion Gap 8 mmol/L; Blood Urea Nitrogen 2 mg/dL (7-17); Calcium 8.5 mg/dL (8.4-10.2); Carbon Dioxide 24 mmol/L (22-30); Chloride 108 mmol/L (98-107); Glucose 106 mg/dL (74-99); Non-African American GFR(CKD) >90 (>60 ml/min/1.73 sqM); Potassium 3.9 mmol/L (3.5-5.1); Sodium 140 mmol/L (137-145)
[2019-03-25] MEDS: HYDROcodone/APAP 5-325MG 1 EACH TAB PO PRN ×2 (10:20→18:56)
[2019-03-25 11:17] VITALS: BMI 26.1
--- NOTE | 2019-03-25 12:17 | P.PN ---
<Carmen Beaver Moody - Last Filed: 03/25/19 12:11> Subjective Progress Note Date: 03/25/19 CHIEF COMPLAINT: sigmoid colon obstruction HISTORY OF PRESENT ILLNESS: patient is status post exploratory laparotomy with sigmoid colectomy and low rectal anastomosis, extensive lysis of adhesions, small bowel resection, mobilization of splenic flexure and dilation of anal stricture. POD #3. JANE was accidentally pulled out over the weekend. She reports her pain is tolerable. Tolerating full liquid diet. Patient states she has not been out of bed very much since surgery and feels very weak. WBC 19.9. Hemoglobin 11.2. Temp 99.4. Blood pressure stable. PHYSICAL EXAM: VITAL SIGNS: Reviewed. GENERAL: Well-developed in no acute distress. HEENT: No sclera icterus. Extraocular movements grossly intact. Moist buccal mucosa. Head is atraumatic, normocephalic. ABDOMEN: Soft. Nondistended. Nontender. Dressing to abdomen saturated. Ostomy to right side abdomen with stool and gas noted. NEUROLOGIC: Alert and oriented. Cranial nerves II through XII grossly intact. ASSESSMENT: 1. Sigmoid colon obstruction, status post exploratory laparotomy with sigmoid colectomy and low rectal anastomosis, extensive lysis of adhesions, small bowel resection, mobilization of splenic flexure and dilation of anal stricture 2. History of ileostomy 3. Leukocytosis PLAN: 1. Low fiber diet 2. Activity as tolerated. PT/OT consulted for evaluation 3. Incentive spirometry 4. Pain control 5. Continue to monitor WBC 6. Continue antibiotics 7. Discontinue rothman catheter 8. Discontinue epidural Nurse practitioner note has been reviewed by physician. Signing provider agrees with the documented findings, assessment, and plan of care. Objective - Vital Signs Vital signs: Vital Signs Temp 99.4 F 03/25/19 07:12 Pulse 96 03/25/19 07:12 Resp 16 03/25/19 07:12 BP 126/80 03/25/19 07:12 Pulse Ox 97 03/25/19 07:12 Intake & Output 03/24/19 03/25/19 03/25/19 18:59 06:59 18:59 Intake Total 159.333 288.8 350 Output Total 2730 900 750 Balance -2570.667 -611.2 -400 Weight 65.771 kg Intake: Intake, IV Titration 159.333 288.8 Amount Ropivacaine 250 mg 159.333 38.8 fentaNYL (PF) 625 mcg In Sodium Chloride 0.9% 188 ml @ Per Protocol EPIDURAL .Q0M PRN Rx#: [id number] ceFAZolin 2 gm In Sodium 50 Chloride 0.9% 50 ml @ 100 mls/hr IVPB Q8HR [facility] Rx# :[id number] metroNIDAZOLE-NS PMX 500 200 mg In Saline 1 100ml.bag @ 100 mls/hr IVPB Q6HR [facility] Rx#:[id number] Oral 350 Output: Drainage 30 Left Abdomen 30 Urine 2700 900 750 Uretheral ([place]) 900 900 Other: Voiding Method Indwelling Catheter Indwelling Catheter Indwelling Catheter # Voids 2 - Labs CBC & Chem 7: 03/25/19 06:58 03/25/19 06:58 Labs: Abnormal Lab Results - Last 24 Hours (Table) 03/25/19 03/25/19 Range/Units 06:58 06:58 WBC 19.9 H (3.8-10.6) k/uL RBC 3.60 L (3.80-5.40) m/uL Hgb 11.2 L (11.4-16.0) gm/dL Hct 32.8 L (34.0-46.0) % Neutrophils # 13.3 H (1.3-7.7) k/uL Monocytes # 1.3 H (0-1.0) k/uL Chloride 108 H (98-107) mmol/L BUN 2 L (7-17) mg/dL Creatinine 0.40 L (0.52-1.04) mg/dL Glucose 106 H (74-99) mg/dL <Malcolm Herring - Last Filed: 03/25/19 16:55> Subjective As above. Patient doing better. Some loose stools through ostomy. No stools rectally. Denies any significant anal pain. Midline abdominal pain gradually improving she states. Epidural removed earlier today. Will add Toradol for pain control. Continue low fiber diet. Objective - Vital Signs Vital signs: Vital Signs Temp 98.9 F 03/25/19 14:17 Pulse 97 03/25/19 14:17 Resp 16 03/25/19 14:17 BP 142/90 03/25/19 14:17 Pulse Ox 96 03/25/19 14:17 Intake & Output 0803/25/19 03/25/19 18:59 06:59 18:59 Intake Total 159.333 288.8 610 Output Total 2730 900 750 Balance -2570.667 -611.2 -140 Weight 65.771 kg Intake: Intake, IV Titration 159.333 288.8 Amount Ropivacaine 250 mg 159.333 38.8 fentaNYL (PF) 625 mcg In Sodium Chloride 0.9% 188 ml @ Per Protocol EPIDURAL .Q0M PRN Rx#: [id number] ceFAZolin 2 gm In Sodium 50 Chloride 0.9% 50 ml @ 100 mls/hr IVPB Q8HR [facility] Rx# :[id number] metroNIDAZOLE-NS PMX 500 200 mg In Saline 1 100ml.bag @ 100 mls/hr IVPB Q6HR [facility] Rx#:[id number] Oral 610 Output: Drainage 30 Left Abdomen 30 Urine 2700 900 750 Uretheral ([place]) 900 900 Other: Voiding Method Indwelling Catheter Indwelling Catheter Indwelling Catheter # Voids 2 - Labs CBC & Chem 7: 03/25/19 06:58 03/25/19 06:58 Labs: Abnormal Lab Results - Last 24 Hours (Table) 03/25/19 03/25/19 Range/Units 06:58 06:58 WBC 19.9 H (3.8-10.6) k/uL RBC 3.60 L (3.80-5.40) m/uL Hgb 11.2 L (11.4-16.0) gm/dL Hct 32.8 L (34.0-46.0) % Neutrophils # 13.3 H (1.3-7.7) k/uL Monocytes # 1.3 H (0-1.0) k/uL Chloride 108 H (98-107) mmol/L BUN 2 L (7-17) mg/dL Creatinine 0.40 L (0.52-1.04) mg/dL Glucose 106 H (74-99) mg/dL Assessment and Plan (1) Colostomy in place Current Visit: No Status: Acute Code(s): Z93.3 - COLOSTOMY STATUS SNOMED Code(s): 322215519
--- NOTE | 2019-03-25 13:10 | P.PN ---
Subjective Progress Note Date: 03/25/19 Principal diagnosis: Lysis of intra-abdominal adhesions Ms. Downing is a 53-year-old female with a past medical history of 2 bowel obstructions and colostomy placed in November 2018, migraine headaches, history of skin cancer, hyperlipidemia admitted to the hospital for reversal of colostomy. We have been consulted for management of her chronic medical conditions. Patient has history of hyperlipidemia, COPD and history of skin cancer and migraine headaches. Patient has chronic smoking history and is a current smoker. She has cough that is nonproductive. No change in her symptoms. Patient was taken to the OR yesterday for exploratory laparotomy for resection of the sigmoid colon with reanastomosis and reversal of transverse loop colostomy. But the reversal could not be done as there were extensive intra- abdominal adhesions. Patient has been empirically started on antibiotics for colorectal surgery. Postop patient has an epidural in place currently. She reports having itching since last night. Patient's labs and vitals have been reviewed. White count is elevated which could be post surgical and reactive. Patient denies having any fever chills or rigors. She has been restarted on her Zoloft and atorvastatin. She is being given a trial of clear fluids. On 03/24/2019 - patient is lying comfortably in the bed. As per the nursing staff report patient has been tossing and turning in the bed. Patient seems to be very restless, she complains about everything. She states that this would over here is not covered. She is currently on clear liquids and wants something solid to eat. She complains about the lights in the room. She complains of mil d abdominal soreness. She denies having any nausea or vomiting. Her JANE drain is fallen off. She said that she did not pull it out. She thinks it might have, because she has been tossing and turning in the bed a lot. She denies having any fevers chills or rigors. As the patient was having itching, her epidural infusion solution has been changed to anesthesia yesterday evening. Patient continues to be on antibiotic prophylaxis. On 03/25/2019 - patient is comfortably lying in bed. The patient's epidural has been discontinued, Thomas's catheter has been removed. JANE tube has fallen off extensively yesterday. Patient is much more, compared to yesterday. She complains of some abdominal soreness. Patient denies having any fevers chills or rigors. No nausea or vomiting. Colostomy bag has dark-colored stool. Active Medications Hydrocodone Bitart/Acetaminophen ([place] 5-325) 1 each PO Q4HR PRN PRN Reason: Pain Last Admin: 03/25/19 10:20 Dose: 1 each Documented by: Alprazolam (Xanax) 0.25 mg PO Q8H PRN PRN Reason: Anxiety Last Admin: 03/25/19 06:59 Dose: 0.25 mg Documented by: Alvimopan (Entereg) 12 mg PO BID [facility] Stop: 03/29/19 21:01 Last Admin: 03/25/19 06:59 Dose: 12 mg Documented by: Atorvastatin Calcium (Lipitor) 80 mg PO HS [facility] Last Admin: 03/24/19 21:19 Dose: 80 mg Documented by: Cholecalciferol (Vitamin D3 (25 Mcg = 1000 Iu)) 2,000 unit PO DAILY [facility] Last Admin: 03/25/19 06:59 Dose: 2,000 unit Documented by: Diphenhydramine HCl (Benadryl) 25 mg IVP Q6HR PRN PRN Reason: Itching Last Admin: 03/25/19 00:12 Dose: 25 mg Documented by: Famotidine (Pepcid) 20 mg IV BID [facility] Last Admin: 03/25/19 06:59 Dose: 20 mg Documented by: Heparin Sodium (Porcine) (Heparin) 5,000 unit SQ Q8HR [facility] Last Admin: 03/25/19 06:59 Dose: 5,000 unit Documented by: Lactated Ringer's (Lactated Ringers) 1,000 mls @ 20 mls/hr IV .Q24H [facility] Last Admin: 03/25/19 06:48 Dose: Not Given Documented by: Potassium Chloride/Dextrose/Sod Cl (D5%-1/2ns-Kcl 20 Meq/L Iv Solution) 1,000 mls @ 125 mls/hr IV .Q8H [facility] Last Admin: 03/25/19 09:02 Dose: Not Given Documented by: Cefazolin Sodium 2 gm/ Sodium (Chloride) 50 mls @ 100 mls/hr IVPB Q8HR [facility] Last Admin: 03/25/19 06:58 Dose: 100 mls/hr Documented by: Metronidazole 500 mg/ IV (Solution) 100 mls @ 100 mls/hr IVPB Q6HR [facility] Last Admin: 03/25/19 05:59 Dose: 100 mls/hr Documented by: Ropivacaine 250 mg/ Fentanyl Citrate 625 mcg/ Sodium Chloride 250 mls @ 0 mls/ hr EPIDURAL .Q0M PRN; Protocol PRN Reason: Pain Control Last Infusion: 03/24/19 21:04 Dose: 9 mls/hr Documented by: Melatonin (Melatonin) 5 mg PO HS [facility] Last Admin: 03/24/19 21:19 Dose: 5 mg Documented by: Metoclopramide HCl (Reglan) 10 mg IVP Q6HR PRN PRN Reason: Nausea and Vomiting Naloxone HCl (Narcan) 0.2 mg IV Q2M PRN PRN Reason: Opioid Reversal Nicotine (Habitrol 14mg/24hr Patch) 1 patch TRANSDERM DAILY [facility] Last Admin: 03/25/19 06:58 Dose: 1 patch Documented by: Ondansetron HCl (Zofran) 4 mg IVP Q8HR PRN PRN Reason: Nausea And Vomiting Sertraline HCl (Zoloft) 100 mg PO BID [facility] Last Admin: 03/25/19 06:59 Dose: 100 mg Documented by: Objective - Vital Signs Vital signs: Vital Signs Temp 99.4 F 03/25/19 07:12 Pulse 96 03/25/19 07:12 Resp 16 03/25/19 07:12 BP 126/80 03/25/19 07:12 Pulse Ox 97 03/25/19 07:12 Intake & Output 03/24/19 03/25/19 03/25/19 18:59 06:59 18:59 Intake Total 159.333 288.8 610 Output Total 2730 900 750 Balance -2570.667 -611.2 -140 Weight 65.771 kg Intake: Intake, IV Titration 159.333 288.8 Amount Ropivacaine 250 mg 159.333 38.8 fentaNYL (PF) 625 mcg In Sodium Chloride 0.9% 188 ml @ Per Protocol EPIDURAL .Q0M PRN Rx#: [id number] ceFAZolin 2 gm In Sodium 50 Chloride 0.9% 50 ml @ 100 mls/hr IVPB Q8HR [facility] Rx# :[id number] metroNIDAZOLE-NS PMX 500 200 mg In Saline 1 100ml.bag @ 100 mls/hr IVPB Q6HR [facility] Rx#:[id number] Oral 610 Output: Drainage 30 Left Abdomen 30 Urine 2700 900 750 Uretheral (Thomas) 900 900 Other: Voiding Method Indwelling Catheter Indwelling Catheter Indwelling Catheter # Voids 2 - Exam GEN. APPEARANCE: alert , in no apparent distress HEENT: No pallor. No icterus. RESPIRATORY EXAM: Decreased breath sounds in all lung carrion bilaterally. No wheeze or crackles. CARDIOVASCULAR EXAM: S1 and S2 heard GI/ABDOMINAL EXAM: Surgical scar covered in gauage, no evidence of any active bleeding. Colostomy bag in place with dark colored stool. EXTREMITIES EXAM: No pedal edema. NEUROLOGICAL EXAM: alert, oriented X3, no focal neurological deficits SKIN EXAM: warm, dry, intact, normal color. Absent: rash - Labs CBC & Chem 7: 03/25/19 06:58 03/25/19 06:58 Labs: Abnormal Lab Results - Last 24 Hours (Table) 03/25/19 03/25/19 Range/Units 06:58 06:58 WBC 19.9 H (3.8-10.6) k/uL RBC 3.60 L (3.80-5.40) m/uL Hgb 11.2 L (11.4-16.0) gm/dL Hct 32.8 L (34.0-46.0) % Neutrophils # 13.3 H (1.3-7.7) k/uL Monocytes # 1.3 H (0-1.0) k/uL Chloride 108 H (98-107) mmol/L BUN 2 L (7-17) mg/dL Creatinine 0.40 L (0.52-1.04) mg/dL Glucose 106 H (74-99) mg/dL Assessment and Plan Assessment: ASSESSMENT Exploratory laparotomy - status post day 3 Extensive intra-abdominal adhesions Leukocytosis- most likely reactive postsurgical History of migraine headaches Hyperlipidemia Chronic Nicotine dependence PLAN: Patient is postop day 3. Epidural catheter has been discontinued. Thomas's catheter has been removed. Patient JANE drain has fallen off . Leukocytosis is trending down. Patient was started on Xanax for his restlessness, as per the nursing staff report she is much more calmer compared to yesterday. Antibiotics, GI, DVT prophylaxis as per primary care team. Continue with nicotine patch for chronic smoking. Will continue to follow the patient.
[2019-03-25] MEDS: KETOROLAC 30 MG/ML 1 ML VIAL IVP SCH (18:56)
[2019-03-25] MEDS: ATORVASTATIN 80 MG TAB PO SCH (21:23)
[2019-03-25] MEDS: MELATONIN 5 MG TABLET PO SCH (21:23)
[2019-03-26] MEDS: metroNIDAZOLE-NS PMX 500 MG in SALINE 1 100ML.BAG IVPB SCH ×3 (00:10→12:24)
[2019-03-26] MEDS: HEPARIN SODIUM,PORCINE 5,000 UNIT/ML 1 ML VIAL SQ SCH ×3 (00:10→17:51)
[2019-03-26] MEDS: KETOROLAC 30 MG/ML 1 ML VIAL IVP SCH ×3 (00:10→12:27)
[2019-03-26] MEDS: diphenhydrAMINE 50 MG/ML 1 ML VIAL IVP PRN (00:12)
[2019-03-26] MEDS: D5-0.45% NACL WITH KCL 20MEQ/L 1,000 ML IV SCH ×2 (00:15→17:51)
[2019-03-26] MEDS: LACTATED RINGERS 1,000 ML IV SCH (06:27)
[2019-03-26 07:55] LABS: Basophils # (A) 0.1 k/uL (0-0.2); Basophils % (A) 0 %; Eosinophils # (A) 0.8 k/uL (0-0.7); Eosinophils % (A) 5 %; HCT 33.3 % (34.0-46.0); HGB 11.1 gm/dL (11.4-16.0); Lymphocytes # (A) 2.9 k/uL (1.0-4.8); Lymphocytes % (A) 18 %; MCH 30.6 pg (25.0-35.0); MCHC 33.4 g/dL (31.0-37.0); MCV 91.5 fL (80.0-100.0); Mean Platelet Volume 7.8; Monocytes # (A) 0.7 k/uL (0-1.0); Monocytes % (A) 4 %; Neutrophils # (A) 11.4 k/uL (1.3-7.7); Neutrophils % (A) 71 %; Platelet Count 356 k/uL (150-450); RBC 3.64 m/uL (3.80-5.40); RDW 14.8 % (11.5-15.5)
[2019-03-26 08:11] VITALS: RESP 16
[2019-03-26] MEDS: FAMOTIDINE 20 MG/2 ML VIAL IV SCH (08:59)
[2019-03-26] MEDS: CHOLECALCIFEROL 1,000 UNIT TAB PO SCH (09:00)
[2019-03-26] MEDS: SERTRALINE 100 MG TAB PO SCH (09:00)
[2019-03-26] MEDS: NICOTINE 14MG/24HR PATCH TRANSDERM SCH (09:00)
[2019-03-26] MEDS: ALVIMOPAN 12 MG CAPSULE PO SCH (09:00)
--- NOTE | 2019-03-26 12:57 | P.PN ---
<Carmen Beaver Moody - Last Filed: 03/26/19 12:54> Subjective Progress Note Date: 03/26/19 CHIEF COMPLAINT: sigmoid colon obstruction HISTORY OF PRESENT ILLNESS: patient is status post exploratory laparotomy with sigmoid colectomy and low rectal anastomosis, extensive lysis of adhesions, small bowel resection, mobilization of splenic flexure and dilation of anal stricture. POD #4. Patient examined at the bedside this morning. She reports feeling well and is hoping to be discharged soon. Tolerating diet. Denies nausea or vomiting. Ostomy with stool present. patient reports she has been out of bed and ambulating. WBC 16.0. Hemoglobin 11.1. PHYSICAL EXAM: VITAL SIGNS: Reviewed. GENERAL: Well-developed in no acute distress. HEENT: No sclera icterus. Extraocular movements grossly intact. Moist buccal mucosa. Head is atraumatic, normocephalic. ABDOMEN: Soft. Nondistended. Nontender. Dressing to abdomen clean dry intact. Ostomy to right side abdomen with stool noted. NEUROLOGIC: Alert and oriented. Cranial nerves II through XII grossly intact. ASSESSMENT: 1. Sigmoid colon obstruction, status post exploratory laparotomy with sigmoid colectomy and low rectal anastomosis, extensive lysis of adhesions, small bowel resection, mobilization of splenic flexure and dilation of anal stricture 2. History of ileostomy 3. Leukocytosis PLAN: 1. Low fiber diet 2. Activity as tolerated. PT/OT evaluated patient and safe for discharge home from PT standpoint. 3. Incentive spirometry 4. Pain control 5. Continue to monitor WBC 6. Continue antibiotics 7. Possible discharge home tomorrow Nurse practitioner note has been reviewed by physician. Signing provider agrees with the documented findings, assessment, and plan of care. Objective - Vital Signs Vital signs: Vital Signs Temp 97.5 F L 03/26/19 08:10 Pulse 91 03/26/19 08:10 Resp 16 03/26/19 08:10 BP 144/90 03/26/19 08:10 Pulse Ox 97 03/26/19 08:10 Intake & Output 03/25/19 03/26/19 03/26/19 18:59 06:59 18:59 Intake Total 610 50 Output Total 1150 430 400 Balance -540 -380 -400 Weight 65.771 kg Intake: Intake, IV Titration 50 Amount ceFAZolin 2 gm In Sodium 50 Chloride 0.9% 50 ml @ 100 mls/hr IVPB Q8HR [facility] Rx# :[id number] Oral 610 Output: Drainage 30 Left Abdomen 30 Urine 750 Stool 400 400 400 Other: Voiding Method Indwelling Catheter Indwelling Catheter - Labs CBC & Chem 7: 03/26/19 07:05 03/25/19 06:58 Labs: Abnormal Lab Results - Last 24 Hours (Table) 03/26/19 Range/Units 07:05 WBC 16.0 H (3.8-10.6) k/uL RBC 3.64 L (3.80-5.40) m/uL Hgb 11.1 L (11.4-16.0) gm/dL Hct 33.3 L (34.0-46.0) % Neutrophils # 11.4 H (1.3-7.7) k/uL Eosinophils # 0.8 H (0-0.7) k/uL <Malcolm Herring - Last Filed: 03/26/19 18:37> Subjective As above see discharge summary Objective - Vital Signs Vital signs: Vital Signs Temp 98.4 F 03/26/19 14:05 Pulse 86 03/26/19 14:05 Resp 16 03/26/19 14:05 BP 146/90 03/26/19 14:05 Pulse Ox 96 03/26/19 14:05 Intake & Output 03/25/19 03/26/19 03/26/19 18:59 06:59 18:59 Intake Total 610 50 Output Total 1150 430 400 Balance -540 -380 -400 Weight 65.771 kg Intake: Intake, IV Titration 50 Amount ceFAZolin 2 gm In Sodium 50 Chloride 0.9% 50 ml @ 100 mls/hr IVPB Q8HR [facility] Rx# :[id number] Oral 610 Output: Drainage 30 Left Abdomen 30 Urine 750 Stool 400 400 400 Other: Voiding Method Indwelling Catheter Indwelling Catheter - Labs CBC & Chem 7: 03/26/19 07:05 03/25/19 06:58 Labs: Abnormal Lab Results - Last 24 Hours (Table) 03/26/19 Range/Units 07:05 WBC 16.0 H (3.8-10.6) k/uL RBC 3.64 L (3.80-5.40) m/uL Hgb 11.1 L (11.4-16.0) gm/dL Hct 33.3 L (34.0-46.0) % Neutrophils # 11.4 H (1.3-7.7) k/uL Eosinophils # 0.8 H (0-0.7) k/uL Assessment and Plan (1) Colostomy in place Current Visit: No Status: Acute Code(s): Z93.3 - COLOSTOMY STATUS SNOMED Code(s): 974054170
[2019-03-26 14:06] VITALS: BP 146/90; PULSE 86; TEMP 98.4
--- NOTE | 2019-03-26 15:01 | P.PN ---
Subjective Progress Note Date: 03/26/19 Principal diagnosis: Lysis of intra-abdominal adhesions Ms. Downing is a 53-year-old female with a past medical history of 2 bowel obstructions and colostomy placed in November 2018, migraine headaches, history of skin cancer, hyperlipidemia admitted to the hospital for reversal of colostomy. We have been consulted for management of her chronic medical conditions. Patient has history of hyperlipidemia, COPD and history of skin cancer and migraine headaches. Patient has chronic smoking history and is a current smoker. She has cough that is nonproductive. No change in her symptoms. Patient was taken to the OR yesterday for exploratory laparotomy for resection of the sigmoid colon with reanastomosis and reversal of transverse loop colostomy. But the reversal could not be done as there were extensive intra- abdominal adhesions. Patient has been empirically started on antibiotics for colorectal surgery. Postop patient has an epidural in place currently. She reports having itching since last night. Patient's labs and vitals have been reviewed. White count is elevated which could be post surgical and reactive. Patient denies having any fever chills or rigors. She has been restarted on her Zoloft and atorvastatin. She is being given a trial of clear fluids. On 03/24/2019 - patient is lying comfortably in the bed. As per the nursing staff report patient has been tossing and turning in the bed. Patient seems to be very restless, she complains about everything. She states that this would over here is not covered. She is currently on clear liquids and wants something solid to eat. She complains about the lights in the room. She complains of mil d abdominal soreness. She denies having any nausea or vomiting. Her JANE drain is fallen off. She said that she did not pull it out. She thinks it might have, because she has been tossing and turning in the bed a lot. She denies having any fevers chills or rigors. As the patient was having itching, her epidural infusion solution has been changed to anesthesia yesterday evening. Patient continues to be on antibiotic prophylaxis. On 03/25/2019 - patient is comfortably lying in bed. The patient's epidural has been discontinued, Thomas's catheter has been removed. JANE tube has fallen off extensively yesterday. Patient is much more, compared to yesterday. She complains of some abdominal soreness. Patient denies having any fevers chills or rigors. No nausea or vomiting. Colostomy bag has dark-colored stool. 03/26/2019 Patient is lying in bed in no acute distress. Patient states that she is awaiting for Dr. Herring to return to assess her for possible discharge today. Patient is eager and wanting to go home today. Patient denies any chest pain, palpitations, or shortness of breath at this time. Patient denies any nausea or vomiting and has been tolerating diet. Patient is still currently having dark- colored stool in the colostomy bag. Patient is urinating in the bathroom with no difficulties. Patient is afebrile. Guarded prognosis. Objective - Vital Signs Vital signs: Vital Signs Temp 98.4 F 03/26/19 14:05 Pulse 86 03/26/19 14:05 Resp 16 03/26/19 14:05 BP 146/90 03/26/19 14:05 Pulse Ox 96 03/26/19 14:05 Intake & Output 03/25/19 03/26/19 03/26/19 18:59 06:59 18:59 Intake Total 610 50 Output Total 1150 430 400 Balance -540 -380 -400 Weight 65.771 kg Intake: Intake, IV Titration 50 Amount ceFAZolin 2 gm In Sodium 50 Chloride 0.9% 50 ml @ 100 mls/hr IVPB Q8HR [facility] Rx# :[id number] Oral 610 Output: Drainage 30 Left Abdomen 30 Urine 750 Stool 400 400 400 Other: Voiding Method Indwelling Catheter Indwelling Catheter - Exam Gen: This is a 53-year-old female lying in bed in no acute distress. Vital signs are stable. HEENT: Head is atraumatic, normocephalic. Pupils equal, round. Sclerae is anicteric. NECK: Supple. No JVD. No lymphadenopathy. No thyromegaly. LUNGS: Diminished breath sounds bilaterally in the bases otherwise clear to auscultation. No wheezes or rhonchi. No intercostal retractions. HEART: Regular rate and rhythm. No murmur. ABDOMEN: Soft. Bowel sounds are present. No masses. No tenderness. Colostomy present on the right side with dark brown stool noted. Stoma is pink. Abdominal dressing of the midline is dry and intact. EXTREMITIES: No pedal edema. No calf tenderness. NEUROLOGICAL: Patient is awake, alert and oriented x3. Cranial nerves 2 through 12 are grossly intact. - Labs CBC & Chem 7: 03/26/19 07:05 03/25/19 06:58 Labs: Abnormal Lab Results - Last 24 Hours (Table) 03/26/19 Range/Units 07:05 WBC 16.0 H (3.8-10.6) k/uL RBC 3.64 L (3.80-5.40) m/uL Hgb 11.1 L (11.4-16.0) gm/dL Hct 33.3 L (34.0-46.0) % Neutrophils # 11.4 H (1.3-7.7) k/uL Eosinophils # 0.8 H (0-0.7) k/uL Assessment and Plan Assessment: Exploratory laparotomy - status post day 4 Extensive intra-abdominal adhesions Leukocytosis- most likely reactive postsurgical; trending down, current WBC is 16.0 History of migraine headaches Hyperlipidemia Chronic Nicotine dependence GI prophylaxis with Pepcid DVT prophylaxis heparin subq every 8 hours Recommendations and discussion Recommend continue current medications, management, and symptomatically treatment. Per surgery recommendations advance the diet to low fiber, continue pain control, continue antibiotics and possible discharge tomorrow. Will continue to monitor closely. Will monitor vital signs and labs in the morning. Continue to encourage incentive spirometry use. Guarded prognosis. Further recommendations to follow. Possible discharge in 24 hours.
--- NOTE | 2019-03-26 18:39 | P.DS ---
Providers Date of admission: 03/22/19 07:52 Expected date of discharge: 03/26/19 Attending physician: Malcolm Herring Consults: 03/22/19 14:45 Consult Physician Routine Consulting Provider: Uli Priest Consult Reason/Comments: Medical management Do you want consulting provider notified?: Yes Primary care physician: Nancy Dobbs - Discharge Diagnosis(es) (1) Colostomy in place Patient minute last Monday for sigmoid colectomy. Patient had a previous transverse loop colostomy. During the operation the patient was found have a small leak deep in the pelvis. This leak could not be resutured given its location. The transverse loop colostomy was left in place. A drain was placed in the pelvis. Unfortunately over the weekend following surgery the drain fell out. Unclear if the patient pulled this out or not. She has done well otherwise. Tolerating her diet. Quite anxious to go home today. Will plan discharge today with outpatient follow-up in 1 week. Patient's white blood cell count was slightly elevated preoperatively and remain slightly elevated today. Afebrile. Incision is clean and dry with only mild incisional tenderness. Prescription for [place] provided. Current Visit: No Status: Acute Plan - Discharge Summary Discharge Rx Participant: Yes New Discharge Prescriptions: No Action Sertraline HCl [Zoloft] 100 mg PO BID Atorvastatin Calcium [Lipitor] 80 mg PO HS Cholecalciferol (Vitamin D3) [Vitamin D3] 2,000 unit PO DAILY Discharge Medication List Sertraline HCl [Zoloft] 100 mg PO BID 10/04/16 [History] Atorvastatin Calcium [Lipitor] 80 mg PO HS 11/20/18 [History] Cholecalciferol (Vitamin D3) [Vitamin D3] 2,000 unit PO DAILY 12/10/18 [History] Follow up Appointment(s)/Referral(s): [facility], [NON-STAFF] - Activity/Diet/Wound Care/Special Instructions: Ostomy Care Recommendations for home: Last appliance change: 03/26/2019 One piece cut to fit Convatec with filter #[id number] ( four for home being sent) No sting prep pads (12) for home sent Ostomy powder (one) for home sent Ms ClayDowning to change the pouching system every 3-5 days Ms Downing to empty the pouching system when 1/2 to 1/3 full Home Health to arrange for pre cut pouching system oval preference of pt in 2-3 weeks as requested by the patient.
== END 2019-03-26 17:00 | disposition home health service (06) | DRG 330 ==
LOC: 2ORMAIN 07:52 → 4SSUR 14:07
PROVIDERS: ADMIT Surgery; ATTEND Surgery
PROC: 0DNW0ZZ Release Peritoneum, Open Approach (ICD-10-PCS; 2019-03-22)
PROC: 0D7Q0ZZ Dilation of Anus, Open Approach (ICD-10-PCS; 2019-03-22)
PROC: 0DB80ZZ Excision of Small Intestine, Open Approach (ICD-10-PCS; 2019-03-22)
PROC: 0W9G00Z Drainage of Peritoneal Cavity with Drainage Device, Open Approach (ICD-10-PCS; 2019-03-22)
PROC: 0DBN0ZZ Excision of Sigmoid Colon, Open Approach (ICD-10-PCS; principal; 2019-03-22 10:00)
DX: K56.50 Intestinal adhesions [bands], unspecified as to partial versus complete obstruction (principal); K57.32 Diverticulitis of large intestine without perforation or abscess without bleeding; E78.5 Hyperlipidemia, unspecified; F17.210 Nicotine dependence, cigarettes, uncomplicated; F41.9 Anxiety disorder, unspecified; J44.9 Chronic obstructive pulmonary disease, unspecified; Z43.3 Encounter for attention to colostomy; Z79.899 Other long term (current) drug therapy; Z81.1 Family history of alcohol abuse and dependence; Z83.3 Family history of diabetes mellitus; Z85.828 Personal history of other malignant neoplasm of skin; Z90.710 Acquired absence of both cervix and uterus; F32.9 Major depressive disorder, single episode, unspecified; D72.828 Other elevated white blood cell count; Z88.0 Allergy status to penicillin; Z88.8 Allergy status to other drugs, medicaments and biological substances; K43.2 Incisional hernia without obstruction or gangrene
CPT/HCPCS: 80048; 85025; 86850; 86900; 86901; 88307

== ENCOUNTER → 2019-05-28 | Outpatient (CLI) | payer OTHER ==
--- NOTE | 2019-05-28 22:34 | MR ---
EXAMINATION TYPE: MR brain wo con DATE OF EXAM: 05/28/2019 COMPARISON: CT brain November 21, 2009. HISTORY: Headache, Hx Closed Head Injury 1978 TECHNIQUE: Multiplanar, multisequence imaging of the brain and brainstem is performed without IV cont rast. FINDINGS: Diffusion weighted images demonstrate no evidence of a recent infarct or other diffusion abnormality. There is no worrisome extra-axial fluid collection. Mild ventricular and sulcal prominence. Foci of T 2 hyperintensity adjacent to frontal horns periventricular white matter axial image 19 noted. T2 Star -weighted images show blooming artifact right brain near frontal temporal junction corresponding to p arenchymal calcification on CT. Midline structures demonstrate normal morphology. The craniocervical junction appears within normal limits. Normal vascular flow voids are present. Mild mucosal thickening involving right maxillary sin us otherwise paranasal sinuses are clear. The globes are intact bilaterally. IMPRESSION: Mild diffuse cerebral atrophy slightly more prominent over bilateral frontal lobes with m ild chronic small vessel ischemic change. Focal right parenchymal calcification could reflect product of old trauma or infection.
--- NOTE | 2019-05-29 11:40 | US ---
EXAMINATION TYPE: US carotid duplex BILAT DATE OF EXAM: 05/28/2019 COMPARISON: NONE CLINICAL HISTORY: R51 Headache,Z87.820 Hx Closed Head Injury, R42. Headaches. EXAM MEASUREMENTS: RIGHT: Peak Systolic Velocity (PSV) cm/sec ----- Right CCA: 105.5 ----- Right ICA: 121.5 ----- Right ECA: 96.8 ICA/CCA ratio: 1.2 RIGHT: End Diastole cm/sec ----- Right CCA: 34.3 ----- Right ICA: 50.3 ----- Right ECA: 16.9 LEFT: Peak Systolic Velocity (PSV) cm/sec ----- Left CCA: 91 ----- Left ICA: 112.8 ----- Left ECA: 85.2 ICA/CCA ratio: 1.2 LEFT: End Diastole cm/sec ----- Left CCA: 31.4 ----- Left ICA: 41.6 ----- Left ECA: 15.4 VERTEBRALS (direction of flow): Right Vertebral: Antegrade Left Vertebral: Antegrade Rhythm: Normal IMPRESSION: 1. Mild Atheromatous plaquing and intimal thickening without significant flow-limiting stenosis. Criteria for Assigning % of Stenosis / Diameter reduction (Estimation based on the indirect measurements of the internal carotid artery velocities (ICA PSV). 1. Normal (no stenosis)=ICA PSV < 125 cm/s: ratio < 2.0: ICA EDV<40 cm/s. 2. Less than 50% stenosis=ICA PSV < 125 cm/s: ratio < 2.0: ICA EDV<40 cm/s. 3. 50 to 69% stenosis=ICA PSV of 125 to 230 cm/s: ration 2.0 ? 4.0: ICA EDV 40-100 cm/s. 4. Greater than 70% stenosis to near occlusion= ICA PSV > 230 cm/s: ratio > 4.0: ICA EDV > 100 cm/s. 5. Near occlusion= ICA PSV velocities may be low or undetectable: variable ratio and ICA EDV. 6. Total occlusion=unable to detect flow.
== END | disposition home or self-care (01) ==
LOC: RADUSMAIN 14:39
PROVIDERS: ATTEND Family Medicine
DX: G31.9 Degenerative disease of nervous system, unspecified (principal); I67.82 Cerebral ischemia; I65.23 Occlusion and stenosis of bilateral carotid arteries; D72.829 Elevated white blood cell count, unspecified; Z87.820 Personal history of traumatic brain injury
CPT/HCPCS: 70551; 93880

== ENCOUNTER → 2019-05-28 | Outpatient (CLI) | payer OTHER | END | disposition home or self-care (01) | LOC: RADMRIMAIN 14:32 | PROVIDERS: ATTEND Family Medicine | DX: Z53.9 Procedure and treatment not carried out, unspecified reason (principal) ==

== ENCOUNTER 2019-05-29 11:23 | Emergency (ER) | payer OTHER ==
[2019-05-29 12:06] VITALS: RESP 18
[2019-05-29] MEDS ORDERED: KETOROLAC 30 MG/ML 1 ML VIAL IVP STA (13:43)
[2019-05-29 13:51] LABS: ALT 42 U/L (9-52); AST 25 U/L (14-36); African American GFR (CKD) >90 (>60 ml/min/1.73 sqM); Albumin 4.4 g/dL (3.5-5.0); Alkaline Phosphatase 114 U/L (38-126); Amylase 53 U/L (30-110); Anion Gap 9 mmol/L; Blood Urea Nitrogen 14 mg/dL (7-17); Calcium 9.9 mg/dL (8.4-10.2); Carbon Dioxide 22 mmol/L (22-30); Chloride 108 mmol/L (98-107); Glucose 109 mg/dL (74-99); Potassium 4.7 mmol/L (3.5-5.1); Sodium 139 mmol/L (137-145); Total Bilirubin 0.2 mg/dL (0.2-1.3); Total Protein 7.6 g/dL (6.3-8.2)
[2019-05-29 14:10] LABS: Basophils # (A) 0.1 k/uL (0-0.2); Basophils % (A) 0 %; Eosinophils # (A) 0.4 k/uL (0-0.7); Eosinophils % (A) 2 %; HCT 43.9 % (34.0-46.0); Lymphocytes # (A) 4.9 k/uL (1.0-4.8); Lymphocytes % (A) 27 %; MCH 31.1 pg (25.0-35.0); MCHC 33.5 g/dL (31.0-37.0); MCV 92.9 fL (80.0-100.0); Mean Platelet Volume 6.4; Monocytes # (A) 0.8 k/uL (0-1.0); Monocytes % (A) 4 %; Neutrophils # (A) 11.3 k/uL (1.3-7.7); Neutrophils % (A) 64 %; Platelet Count 385 k/uL (150-450); RBC 4.73 m/uL (3.80-5.40); WBC 17.7 k/uL (3.8-10.6)
[2019-05-29 14:14] LABS: HGB 14.7 gm/dL (11.4-16.0)
--- NOTE | 2019-05-29 15:10 | CT ---
EXAMINATION TYPE: CT abdomen pelvis w con DATE OF EXAM: 05/29/2019 HISTORY: Possible infection, abdominal pain around stoma CT DLP: 819.6mGycm Automated Exposure Control for Dose Reduction was Utilized. CONTRAST: CT scan of the abdomen and pelvis is performed without oral but with IV Contrast, patient injected wi th 100 mL of Isovue 300. COMPARISON: CT abdomen and pelvis December 10, 2018 FINDINGS: LUNG BASES: Patchy bibasilar linear scarring and/or atelectasis posteriorly. LIVER/GB: Cholecystectomy clips are redemonstrated. There is 8 mm hyperdense focus left hepatic lobe could reflect flash filling hemangioma. PANCREAS: No significant abnormality is seen. SPLEEN: No significant abnormality is seen. ADRENALS: No significant abnormality is seen. KIDNEYS: No significant abnormality is seen. BOWEL: Stomach is poorly distended and thus suboptimally evaluated on current study. No suspicious sm all or large bowel dilatation. Surgical sutures are identified involving bowel loops anterior upper p kanika towards the midline and there are level of sigmoid rectal colon on current exam. There is redem onstration of right mid abdominal ostomy with peristomal hernia noted on current study. No suspicious focal bowel dilatation to suggest obstruction is noted. No well-formed fluid collection or abscess i s identified. No significant fat stranding is seen. UTERUS/ADNEXA: Uterus is surgically absent or atrophic in appearance. LYMPH NODES: No greater than 1cm abdominal or pelvic lymph nodes are appreciated. OSSEOUS STRUCTURES: Persisting grade 1 anterolisthesis L5 on S1 with moderate disc space narrowing. OTHER: No significant additional abnormality is seen. IMPRESSION: New parastomal hernia without suspicious inflammatory change or drainable abscess or evid ence of bowel obstruction.
[2019-05-29 15:23] VITALS: BP 117/78; PULSE 75
[2019-05-29 15:24] VITALS: TEMP 98.2
[2019-05-29 15:38] LABS: Appearance,Urine Clear (Clear); Bacteria,Urine Rare /hpf; Bilirubin,Urine Negative (Negative); Blood,Urine Trace (Negative); Color,Urine Yellow; Glucose,Urine (UA) Negative (Negative); Ketones,Urine Negative (Negative); Leukocyte Esterase,Urine Moderate (Negative); Mucus,Urine Rare /hpf; Nitrite,Urine Negative (Negative); PH, Urine 5.5 (5.0-8.0); Protein,Urine Negative (Negative); RBC,Urine 16 /hpf (0-5); Squamous Epithelial Cell,Urine 1 /hpf (0-4); Urobilinogen,Urine <2.0 mg/dL (<2.0); WBC,Urine 11 /hpf (0-5)
--- NOTE | 2019-05-29 15:45 | ED ---
General Adult HPI - General Chief complaint: Recheck/Abnormal Lab/Rx Stated complaint: Poss infection Time Seen by Provider: 05/29/19 12:23 Source: patient, RN notes reviewed Mode of arrival: ambulatory Limitations: no limitations - History of Present Illness Initial comments: 53-year-old female presents to the emergency department for a chief complaint of pain around the colostomy bag. Patient states cluster the bag was placed in November 2018. States she has had pain since that time but it is now worsening. States she has a colostomy bag because she has had 2 bowel obstructions. States that colostomy bag is functioning normally. Denies any redness around the area. However states that there is bulging her on the colostomy and patient is conc erned it could be infected. Denies fevers or chills. States she saw Dr. Jones for this problem a week ago and was told it was probably a hernia.Patient has no other complaints at this time including shortness of breath, chest pain, nausea or vomiting, headache, or visual changes. - Related Data Home Medications Medication Instructions Recorded Confirmed Sertraline HCl [Zoloft] 100 mg PO BID 10/04/16 05/29/19 Atorvastatin Calcium [Lipitor] 80 mg PO HS 11/20/18 05/29/19 Cholecalciferol (Vitamin D3) 2,000 unit PO DAILY 12/10/18 05/29/19 [Vitamin D3] Ibuprofen 800 mg PO Q6H 05/29/19 05/29/19 Nasal [place] (Unknown) 2 spray NASAL BID PRN 05/29/19 05/29/19 Allergies Allergy/AdvReac Type Severity Reaction Status Date / Time Penicillins Allergy Unknown Verified 05/29/19 13:15 Childhood phenobarbital Allergy Unknown Verified 05/29/19 13:15 Review of Systems ROS Statement: Those systems with pertinent positive or pertinent negative responses have been documented in the HPI. ROS Other: All systems not noted in ROS Statement are negative. Past Medical History Past Medical History: Cancer, COPD, Hyperlipidemia Additional Past Medical History / Comment(s): 2 bowel obstructions with colostomy placed November 2018, migraines History of Any Multi-Drug Resistant Organisms: None Reported Past Surgical History: Appendectomy, Cholecystectomy, Hysterectomy, Orthopedic Surgery Additional Past Surgical History / Comment(s): Colonoscopies, left ankle surgery, I&D bilateral buttock abscesses, PICC line insertion and removal, colostomy placement. Past Anesthesia/Blood Transfusion Reactions: No Reported Reaction Additional Past Anesthesia/Blood Transfusion Reaction / Comment(s): Family hx unknown. Past Psychological History: Anxiety, Depression Smoking Status: Current every day smoker Past Alcohol Use History: Rare Past Drug Use History: Marijuana - Past Family History Mother Family Medical History: Cancer Additional Family Medical History / Comment(s): Breast cancer with metastasis. General Exam Limitations: no limitations General appearance: alert, in no apparent distress Head exam: Present: atraumatic, normocephalic, normal inspection Eye exam: Present: normal appearance, PERRL, EOMI. Absent: scleral icterus, conjunctival injection, periorbital swelling ENT exam: Present: normal exam, mucous membranes moist Neck exam: Present: normal inspection, full ROM. Absent: tenderness, meningism us, lymphadenopathy Respiratory exam: Present: normal lung sounds bilaterally. Absent: respiratory distress, wheezes, rales, rhonchi, stridor Cardiovascular Exam: Present: regular rate, normal rhythm, normal heart sounds. Absent: systolic murmur, diastolic murmur, rubs, gallop, clicks GI/Abdominal exam: Present: soft, normal bowel sounds, other (Patient does have a stoma noted. There is no erythema around the stoma site. There is mild tenderness around the stoma site.). Absent: distended, tenderness, guarding, rebound, rigid Neurological exam: Present: alert Psychiatric exam: Present: normal affect, normal mood Course Vital Signs 05/29/19 05/29/19 12:01 13:53 Temperature 98.4 F Pulse Rate 86 67 Respiratory 18 18 Rate Blood Pressure 139/98 140/92 O2 Sat by Pulse 97 97 Oximetry Medical Decision Making - Medical Decision Making Vitals are stable. Exam as documented. CBC does show a white count of 17.7. This appears to be patient's baseline. Lymphatic count is also elevated. Patient will follow up with primary care for this. CMP is unremarkable. Urinalysis does not show evidence of infection and patient does not have any urinary symptoms however culture is pending. CT abdomen and pelvis with IV contrast shows a new parastomal hernia without suspicious inflammatory change or drainable abscess or evidence of bowel obstruction. The patient's pain is minimal at this time. Discussed with patient that she needs to follow-up with Dr. Ellison for further management. She does agree with this. She will return if she has any worsening symptoms. - Lab Data Result diagrams: 05/29/19 13:20 05/29/19 13:20 Lab Results 05/29/19 05/29/19 Range/Units 13:20 13:20 WBC 17.7 H (3.8-10.6) k/uL RBC 4.73 (3.80-5.40) m/uL Hgb 14.7 D (11.4-16.0) gm/dL Hct 43.9 (34.0-46.0) % MCV 92.9 (80.0-100.0) fL MCH 31.1 (25.0-35.0) pg MCHC 33.5 (31.0-37.0) g/dL RDW 13.0 (11.5-15.5) % Plt Count 385 (150-450) k/uL Neutrophils % 64 % Lymphocytes % 27 % Monocytes % 4 % Eosinophils % 2 % Basophils % 0 % Neutrophils # 11.3 H (1.3-7.7) k/uL Lymphocytes # 4.9 H (1.0-4.8) k/uL Monocytes # 0.8 (0-1.0) k/uL Eosinophils # 0.4 (0-0.7) k/uL Basophils # 0.1 (0-0.2) k/uL Sodium 139 (137-145) mmol/L Potassium 4.7 (3.5-5.1) mmol/L Chloride 108 H (98-107) mmol/L Carbon Dioxide 22 (22-30) mmol/L Anion Gap 9 mmol/L BUN 14 (7-17) mg/dL Creatinine 0.57 (0.52-1.04) mg/dL Est GFR (CKD-EPI)AfAm >90 (>60 ml/min/1.73 sqM) Est GFR (CKD-EPI)NonAf >90 (>60 ml/min/1.73 sqM) Glucose 109 H (74-99) mg/dL Calcium 9.9 (8.4-10.2) mg/dL Total Bilirubin 0.2 (0.2-1.3) mg/dL AST 25 (14-36) U/L ALT 42 (9-52) U/L Alkaline Phosphatase 114 (38-126) U/L Total Protein 7.6 (6.3-8.2) g/dL Albumin 4.4 (3.5-5.0) g/dL Amylase 53 (30-110) U/L Lipase 174 (23-300) U/L Disposition Clinical Impression: Parastomal hernia Disposition: HOME SELF-CARE Condition: Good Instructions (If sedation given, give patient instructions): Ventral Hernia (ED) Additional Instructions: Please follow up with Dr. Herring in one to 2 days. If you have any worsening symptoms or worsening pain return to the emergency department. Is patient prescribed a controlled substance at d/c from ED?: No Referrals: Nancy Dobbs MD [Primary Care Provider] - 1-2 days Time of Disposition: 15:51
== END 2019-05-29 16:05 | disposition home or self-care (01) ==
LOC: EC 11:23
DX: K43.5 Parastomal hernia without obstruction or gangrene (principal); R79.89 Other specified abnormal findings of blood chemistry; J44.9 Chronic obstructive pulmonary disease, unspecified; E78.5 Hyperlipidemia, unspecified; F32.9 Major depressive disorder, single episode, unspecified; F41.9 Anxiety disorder, unspecified; F17.200 Nicotine dependence, unspecified, uncomplicated; Z88.0 Allergy status to penicillin; Z88.8 Allergy status to other drugs, medicaments and biological substances; Z79.1 Long term (current) use of non-steroidal anti-inflammatories (NSAID); Z79.899 Other long term (current) drug therapy; Z85.9 Personal history of malignant neoplasm, unspecified; Z90.49 Acquired absence of other specified parts of digestive tract; Z93.3 Colostomy status
CPT/HCPCS: 36415; 80053; 82150; 83690; 85025; 81001; 87086; 74177; 99284; 96374; J1885; Q9967

== ENCOUNTER → 2019-06-04 | Outpatient (CLI) | payer OTHER ==
[2019-06-04 12:36] VITALS: BP 122/88; PULSE 86; RESP 16
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
== END | disposition home or self-care (01) ==
LOC: PNWHC3 12:16
PROVIDERS: ATTEND Specialist
DX: M48.02 Spinal stenosis, cervical region (principal); M54.81 Occipital neuralgia; F17.200 Nicotine dependence, unspecified, uncomplicated; Z79.1 Long term (current) use of non-steroidal anti-inflammatories (NSAID); Z79.899 Other long term (current) drug therapy; Z88.0 Allergy status to penicillin; Z88.8 Allergy status to other drugs, medicaments and biological substances
CPT/HCPCS: 99211

== ENCOUNTER 2019-06-10 08:36 | Day surgery (SDC) | payer OTHER ==
[2019-06-06 11:43] VITALS: BMI 26.3
[~2019-06-10 08:36] MED LIST changes: -ALVIMOPAN 12 MG CAPSULE PO ONE; -DEXAMETHASONE SOD PHOSPHATE 10 MG/ML 1 ML VIAL IV ONE; -HEPARIN SODIUM,PORCINE 5,000 UNIT/ML 1 ML VIAL SQ ONE; -HYDROmorphone 0.5 MG/0.5 ML SYRINGE IVP PRN; +LACTATED RINGERS 1,000 ML IV SCH; -MIDAZOLAM 2 MG/2 ML VIAL IV PRN; -ONDANSETRON 4 MG/2 ML VIAL IVP ONE; -SCOPOLAMINE 1.5MG/72HR PATCH TRANSDERM ONE; -metroNIDAZOLE-NS PMX 500 MG in SALINE 1 100ML.BAG IVPB ONE
[2019-06-10 09:48] VITALS: TEMP 97.3
[2019-06-10 11:33] VITALS: RESP 16
[2019-06-10 11:38] VITALS: BP 134/92; PULSE 82
--- NOTE | 2019-06-10 11:59 | P.PCN ---
Date of Procedure: 06/10/19 Procedure(s) Performed: Pre-operative diagnosis: Left occipital neuralgia Post Operative Diagnosis same Procedure: Left occipital nerve block ANESTHESIA: none EBL: Minimal PROCEDURE INDICATION: The patient with neck pain and headache secondary to occipital neuralgia unresponsive to conservative treatments. PROCEDURE DESCRIPTION / TECHNIQUE: The patient was seen and identified in the preoperative area. Risks, benefits, complications, and alternatives were discussed with the patient, the patient agreed to proceed with the procedure and signed the consent. IV was started. Vital signs remained stable throughout the procedure. Patient was taken to the OR and time out was completed. The patient was placed in the seated position on the procedure table. The cervical area and Left occiptial area were prepped with alcohol swab. Vital signs were closely monitored during the procedure. The Left occiptal ridge was palpated and was then accessed with a 25 G needle. Then after negative aspiration, 3 ml of the block solution containing 2 ml of ropivacaine 0.5% and Depo-Medrol 40 mg was injected. Needle was withdrawn intact. Patient tolerated procedure well. No acute complications.
== END 2019-06-10 11:36 | disposition home or self-care (01) ==
LOC: ORPAIN 08:36
PROVIDERS: ATTEND Anesthesiology
DX: G89.29 Other chronic pain (principal); M54.81 Occipital neuralgia; M48.02 Spinal stenosis, cervical region; J44.9 Chronic obstructive pulmonary disease, unspecified; G43.909 Migraine, unspecified, not intractable, without status migrainosus; F17.200 Nicotine dependence, unspecified, uncomplicated; E78.5 Hyperlipidemia, unspecified; Z93.3 Colostomy status; Z78.0 Asymptomatic menopausal state; Z90.49 Acquired absence of other specified parts of digestive tract; Z90.710 Acquired absence of both cervix and uterus; Z85.828 Personal history of other malignant neoplasm of skin; Z80.3 Family history of malignant neoplasm of breast; Z79.899 Other long term (current) drug therapy; Z88.0 Allergy status to penicillin; Z88.8 Allergy status to other drugs, medicaments and biological substances
CPT/HCPCS: 64405; J1030

== ENCOUNTER → 2019-06-11 | Outpatient (CLI) | payer OTHER ==
--- NOTE | 2019-06-11 13:53 | CT ---
EXAMINATION TYPE: CT abdomen pelvis wo con DATE OF EXAM: 06/11/2019 COMPARISON: 05/29/2019 HISTORY: Bowel obstruction. CT DLP: 1006 mGycm Automated exposure control for dose reduction was used. TECHNIQUE: Helical acquisition of images was performed from the lung bases through the pelvis. FINDINGS: LUNG BASES: Right middle lobe subsegmental atelectasis is seen. LIVER/GB: Unenhanced liver is of unremarkable morphology. The bladder is surgically absent. PANCREAS: No significant abnormality is seen. SPLEEN: No splenomegaly. ADRENALS: No nodularity or thickening. KIDNEYS: Single curvilinear calcification is seen within the superior pole of the right kidney along a known right renal cystic lesion, suboptimally visualized without contrast. No hydronephrosis of eit her kidney. FREE AIR: No free air is visualized REPRODUCTIVE ORGANS: Left adnexal lesion measures 2.0 x 2.8 cm and is stable from the prior of 2018. URINARY BLADDER: Incompletely distended ADENOPATHY: No greater than 1 cm short axis lymph node in the abdomen or pelvis. OSSEOUS STRUCTURES: Grade 1 anterolisthesis of L5 on S1. Mild degenerative changes of the spine. BOWEL: Right mid abdominal stoma and colostomy is seen with parastomal hernia containing numerous lo ops of small bowel and mesenteric fat. 2 areas of bowel resection are seen within the anterior low ab domen appearing within small bowel as well within the rectosigmoid junction. The rectal tubing termin ates at the suture line of the sigmoid colon with some resistance was noted by the technologist. Ther e is slight narrowing however patency is seen with retrograde filling of the sigmoid colon, descendin g colon, and transverse colon and contrast extending into the colostomy bag. Mild grade narrowing at the anastomotic site without obstruction. Mild degree colonic fecal stasis within the right hemicolon. No dilated small bowel. OTHER: Abdominal aorta is of normal course and caliber. IMPRESSION: 1. LOW OF THE SIGMOID ANASTOMOTIC SITE WITH SLIGHT NARROWING HOWEVER THERE IS PATENCY MAINTAINED C ONTRAST EXTENDS IN A RETROGRADE MANNER FROM THE RECTUM THROUGH THE TRANSVERSE COLON INTO THE COLOSTOM Y. NO DILATED BOWEL. NO OBSTRUCTION SEEN. 2. REDEMONSTRATION OF A PARASTOMAL HERNIA CONTAINING LOOPS OF NONDILATED SMALL BOWEL AND MESENTERIC F AT WITHOUT PHLEGMONOUS CHANGE.
== END | disposition home or self-care (01) ==
LOC: RADCTMAIN 12:46
PROVIDERS: ATTEND Surgery
DX: K43.5 Parastomal hernia without obstruction or gangrene (principal); Z93.3 Colostomy status
CPT/HCPCS: 74176

== ENCOUNTER → 2019-06-20 | Outpatient (CLI) | payer OTHER ==
[2019-06-20 14:45] LABS: Basophils # (A) 0.1 k/uL (0-0.2); Basophils % (A) 0 %; Eosinophils # (A) 0.3 k/uL (0-0.7); Eosinophils % (A) 1 %; HCT 42.9 % (34.0-46.0); HGB 14.6 gm/dL (11.4-16.0); Lymphocytes # (A) 5.4 k/uL (1.0-4.8); Lymphocytes % (A) 28 %; MCH 31.5 pg (25.0-35.0); MCHC 33.9 g/dL (31.0-37.0); MCV 92.8 fL (80.0-100.0); Mean Platelet Volume 6.3; Monocytes # (A) 0.9 k/uL (0-1.0); Monocytes % (A) 5 %; Neutrophils # (A) 12.3 k/uL (1.3-7.7); Neutrophils % (A) 64 %; Platelet Count 419 k/uL (150-450); RBC 4.63 m/uL (3.80-5.40); RDW 12.8 % (11.5-15.5); WBC 19.2 k/uL (3.8-10.6)
[2019-06-20 15:00] LABS: Potassium 4.5 mmol/L (3.5-5.1)
[2019-06-20 15:08] LABS: Stomatocytes Present
== END | disposition home or self-care (01) ==
LOC: LABPAT 13:07
PROVIDERS: ATTEND Surgery
DX: Z01.812 Encounter for preprocedural laboratory examination (principal); K57.33 Diverticulitis of large intestine without perforation or abscess with bleeding
CPT/HCPCS: 80051; 85025; 86850; 86900; 86901

== ENCOUNTER 2019-06-27 12:16 | Day surgery (SDC) | payer OTHER ==
[2019-06-25 13:50] VITALS: BMI 25.4
[~2019-06-27 12:16] MED LIST changes: +DEXAMETHASONE SOD PHOSPHATE 10 MG/ML 1 ML VIAL IV ONE; +LIDOCAINE 1% 20 ML VIAL (10MG/ML) FOR IV START INTRADERMA PRN
[2019-06-27 12:54] VITALS: RESP 16; TEMP 96.9
[2019-06-27] MEDS ORDERED: PROPOFOL 10 MG/ML 20 ML VIAL IV ONE (13:08)
[2019-06-27] MEDS ORDERED: LIDOCAINE 1% INJ 10MG/ML (20 ML MDV) ONE (13:08)
--- NOTE | 2019-06-27 13:14 | P.GSHP ---
History of Present Illness H&P Date: 06/27/19 Chief Complaint: Diverticulitis Patient here today for flexible sigmoidoscopy. Patient is being set up for possible transverse loop colostomy reversal tomorrow. At the time of her recent low anterior resection the patient had evidence of leakage from the anastomotic site. The ostomy was left in place for that reason. She had a recent CAT scan which showed no evidence of leak at the anastomosis. Luminal diameter was difficult to visualize. Additionally the patient has significant anal stenosis from previous trauma. Past Medical History Past Medical History: Cancer, COPD, Hyperlipidemia Additional Past Medical History / Comment(s): elevated WBCs,irritation around stoma,2 bowel obstructions with colostomy placed November 2018, migraines,skin CA History of Any Multi-Drug Resistant Organisms: None Reported Past Surgical History: Appendectomy, Cholecystectomy, Hysterectomy, Orthopedic Surgery Additional Past Surgical History / Comment(s): Colonoscopies, left ankle surgery, I&D bilateral buttock abscesses, PICC line insertion and removal, colostomy placement. Past Anesthesia/Blood Transfusion Reactions: No Reported Reaction Additional Past Anesthesia/Blood Transfusion Reaction / Comment(s): No hx blood transfusion,Family hx unknown. Smoking Status: Current every day smoker - Past Family History Father Family Medical History: Diabetes Mellitus Additional Family Medical History / Comment(s): Father is an alcoholic. He is 86yrs old. Mother Family Medical History: Cancer Additional Family Medical History / Comment(s): Breast cancer with metastasis. Medications and Allergies Home Medications Medication Instructions Recorded Confirmed Type Atorvastatin Calcium [Lipitor] 80 mg PO HS 11/20/18 06/27/19 History Ibuprofen 800 mg PO Q8H PRN 05/29/19 06/27/19 History busPIRone HCl [Buspar] 10 mg PO TID 06/03/19 06/27/19 History Phenylephrine HCl [Sudafed PE] 10 mg PO BID PRN 06/21/19 06/27/19 History Allergies Allergy/AdvReac Type Severity Reaction Status Date / Time Penicillins Allergy Unknown Verified 06/25/19 13:46 Childhood phenobarbital Allergy Unknown Verified 06/25/19 13:46 Childhood Surgical - Exam Vital Signs Temp Pulse Resp BP Pulse Ox 96.9 F L 97 16 137/86 98 06/27/19 12:52 06/27/19 12:52 06/27/19 12:52 06/27/19 12:52 06/27/19 12:52 Physical exam: General: Well-developed, well-nourished HEENT: Normocephalic, sclerae nonicteric Abdomen: Nontender, nondistended Extremities: No edema Neuro: Alert and oriented Assessment and Plan (1) Diverticulitis Narrative/Plan: Will proceed with flexible sigmoidoscopy at this time. Current Visit: No Status: Acute Code(s): K57.92 - DVTRCLI OF INTEST, PART UNSP, W/O PERF OR ABSCESS W/O BLEED SNOMED Code(s): 710646163
--- NOTE | 2019-06-27 13:27 | P.PCN ---
Date of Procedure: 06/27/19 Procedure(s) Performed: PREOPERATIVE DIAGNOSIS: Diverticulitis POSTOPERATIVE DIAGNOSIS: Mild anastomotic stricture PROCEDURE: Flexible sigmoidoscopy ANESTHESIA: MAC SURGEON: Malcolm Herring M.D. SPECIMENS: None ENDOSCOPIC PROCEDURE: The patient was placed on the endoscopy table in the left decubitus position. The Olympus colonoscope was inserted into the anus and passed under direct visualization to the anastomotic site in the proximal to mid rectum. There was mild narrowing at the anastomotic site. Luminal diameter approximately 13 mm. The 11.5 mm scope was able to advance through there without significant difficulty. There was no stool above the anastomotic ring. A small piece of stool was present at the distal rectum and evacuated manually. The patient's anal stricture surprisingly was not bad at this time. No significant dilation was required of the anal stricture. No visible diver ticulosis was seen. The patient was taken to the recovery room in stable condition per anesthesia guidelines. RECOMMENDATIONS: Clinical scenario will be discussed with the patient. At this point part of the narrowing at the anastomotic site is certainly related to disuse. Will tentatively plan proceeding with colostomy reversal tomorrow. If constipation is identified postoperatively may require balloon dilation. We will encourage increased stool softeners postoperatively to keep the stool consistency loose. Slight increased risks of anastomotic leak will be discussed with the patient.
[2019-06-27 13:37] VITALS: BP 100/66; PULSE 79
[2019-06-28] MEDS ORDERED: HEPARIN SODIUM,PORCINE 5,000 UNIT/ML 1 ML VIAL SQ ONE (05:00)
[2019-06-28] MEDS ORDERED: ALVIMOPAN 12 MG CAPSULE PO ONE (05:00)
[2019-06-28] MEDS ORDERED: metroNIDAZOLE-NS PMX 500 MG in SALINE 1 100ML.BAG IVPB ONE (05:00)
== END 2019-06-27 14:30 | disposition home or self-care (01) ==
LOC: ORWHC2ENDO 12:16
PROVIDERS: ATTEND Surgery
DX: T85.898A Other specified complication of other internal prosthetic devices, implants and grafts, initial encounter (principal); K62.4 Stenosis of anus and rectum; K57.92 Diverticulitis of intestine, part unspecified, without perforation or abscess without bleeding; J44.9 Chronic obstructive pulmonary disease, unspecified; E78.5 Hyperlipidemia, unspecified; Z90.710 Acquired absence of both cervix and uterus; Z90.49 Acquired absence of other specified parts of digestive tract; Z80.3 Family history of malignant neoplasm of breast; Z83.3 Family history of diabetes mellitus; F17.200 Nicotine dependence, unspecified, uncomplicated; G43.909 Migraine, unspecified, not intractable, without status migrainosus; Z79.1 Long term (current) use of non-steroidal anti-inflammatories (NSAID); Z79.891 Long term (current) use of opiate analgesic; Z79.899 Other long term (current) drug therapy; Z88.0 Allergy status to penicillin; Z88.8 Allergy status to other drugs, medicaments and biological substances
CPT/HCPCS: 45330; J2001; J2704; 45331

== ENCOUNTER 2019-06-28 07:45 | Inpatient (IN) | payer OTHER ==
[2019-06-20 14:45] LABS: Basophils # (A) 0.1 k/uL (0-0.2); Basophils % (A) 0 %; Eosinophils # (A) 0.3 k/uL (0-0.7); Eosinophils % (A) 1 %; HCT 42.9 % (34.0-46.0); HGB 14.6 gm/dL (11.4-16.0); Lymphocytes # (A) 5.4 k/uL (1.0-4.8); Lymphocytes % (A) 28 %; MCH 31.5 pg (25.0-35.0); MCHC 33.9 g/dL (31.0-37.0); MCV 92.8 fL (80.0-100.0); Mean Platelet Volume 6.3; Monocytes # (A) 0.9 k/uL (0-1.0); Monocytes % (A) 5 %; Neutrophils # (A) 12.3 k/uL (1.3-7.7); Neutrophils % (A) 64 %; Platelet Count 419 k/uL (150-450); RBC 4.63 m/uL (3.80-5.40); RDW 12.8 % (11.5-15.5); WBC 19.2 k/uL (3.8-10.6)
[2019-06-20 15:00] LABS: Potassium 4.5 mmol/L (3.5-5.1)
[2019-06-20 15:08] LABS: Stomatocytes Present
[2019-06-25 13:39] VITALS: BMI 25.4
[~2019-06-28 07:45] MED LIST changes: +HYDROmorphone 0.5 MG/0.5 ML SYRINGE IVP PRN; -LACTATED RINGERS 1,000 ML IV SCH; +ONDANSETRON 4 MG/2 ML VIAL IVP ONE; +fentaNYL (PF) 50 MCG/ML 2 ML AMP IV PRN
[2019-06-28] MEDS: LACTATED RINGERS 1,000 ML IV SCH (10:49)
[2019-06-28] MEDS ORDERED: ALVIMOPAN 12 MG CAPSULE PO ONE (10:53)
[2019-06-28] MEDS ORDERED: MIDAZOLAM 2 MG/2 ML VIAL IV ONE (11:06)
--- NOTE | 2019-06-28 11:25 | P.GSHP ---
History of Present Illness H&P Date: 06/28/19 Chief Complaint: Colon obstruction 53-year-old female underwent previous sigmoid colectomy and transverse loop colostomy for colonic obstruction. Yesterday she underwent colonoscopy which showed patency of her anastomosis. Here today for colostomy reversal. Past Medical History Past Medical History: Cancer, COPD, Hyperlipidemia Additional Past Medical History / Comment(s): elevated WBCs,irritation around stoma,2 bowel obstructions with colostomy placed November 2018, migraines,skin CA History of Any Multi-Drug Resistant Organisms: None Reported Past Surgical History: Appendectomy, Cholecystectomy, Hysterectomy, Orthopedic Surgery Additional Past Surgical History / Comment(s): Colonoscopies, left ankle surgery, I&D bilateral buttock abscesses, PICC line insertion and removal, colostomy placement. Past Anesthesia/Blood Transfusion Reactions: No Reported Reaction Additional Past Anesthesia/Blood Transfusion Reaction / Comment(s): No hx blood transfusion,Family hx unknown. Smoking Status: Current every day smoker - Past Family History Father Family Medical History: Diabetes Mellitus Additional Family Medical History / Comment(s): Father is an alcoholic. He is 86yrs old. Mother Family Medical History: Cancer Additional Family Medical History / Comment(s): Breast cancer with metastasis. Medications and Allergies Home Medications Medication Instructions Recorded Confirmed Type Atorvastatin Calcium [Lipitor] 80 mg PO HS 11/20/18 06/28/19 History Ibuprofen 800 mg PO Q8H PRN 05/29/19 06/28/19 History busPIRone HCl [Buspar] 10 mg PO TID 06/03/19 06/28/19 History Phenylephrine HCl [Sudafed PE] 10 mg PO BID PRN 06/21/19 06/28/19 History Allergies Allergy/AdvReac Type Severity Reaction Status Date / Time Penicillins Allergy Unknown Verified 06/28/19 10:36 Childhood phenobarbital Allergy Unknown Verified 06/28/19 10:36 Childhood Surgical - Exam Vital Signs Temp Pulse Resp BP Pulse Ox 98.3 F 118 H 16 144/79 97 06/28/19 10:39 06/28/19 10:39 06/28/19 10:39 06/28/19 10:39 06/28/19 10:39 Physical exam: General: Well-developed, well-nourished HEENT: Normocephalic, sclerae nonicteric Abdomen: Nontender, nondistended, right upper quadrant ostomy noted Extremities: No edema Neuro: Alert and oriented Results - Labs 06/20/19 14:10 06/20/19 14:10 Assessment and Plan (1) Colostomy in place Narrative/Plan: Will proceed with colostomy reversal at this time. Risks of bleeding, infection, leak, abscess, possible need for colostomy again in future, stricture, hernia, anesthesia related, patient's reviewed. She understands and wishes to proceed. Current Visit: No Status: Acute Code(s): Z93.3 - COLOSTOMY STATUS SNOMED Code(s): 160507186
[2019-06-28] MEDS ORDERED: SUCCINYLCHOLINE CHLORIDE 100 MG/5 ML SYR IV ONE (11:50)
[2019-06-28] MEDS ORDERED: PROPOFOL 10 MG/ML 20 ML VIAL IV ONE (11:50)
[2019-06-28] MEDS ORDERED: LIDOCAINE 1% INJ 10MG/ML (20 ML MDV) ONE (11:50)
[2019-06-28] MEDS ORDERED: GLYCOPYRROLATE 0.2 MG/ML 2 ML VIAL ONE (11:50)
[2019-06-28] MEDS ORDERED: KETOROLAC 30 MG/ML 1 ML VIAL ONE (11:50)
[2019-06-28] MEDS ORDERED: ROCURONIUM BROMIDE 10 MG/ML 10 ML VIAL IV ONE (11:50)
[2019-06-28] MEDS ORDERED: fentaNYL (PF) 50 MCG/ML 2 ML AMP ONE (11:50)
[2019-06-28] MEDS ORDERED: PHENYLEPHRINE-0.9% NACL SYG 1 MG/10 ML SYRINGE ONE (11:50)
[2019-06-28] MEDS ORDERED: MIDAZOLAM 2 MG/2 ML VIAL ONE (11:50)
[2019-06-28] MEDS ORDERED: NEOSTIGMINE 1 MG/ML 10 ML VIAL ONE (11:50)
[2019-06-28] MEDS ORDERED: HYDROmorphone (PF) 1 MG/ML ONE (11:50)
[2019-06-28] MEDS ORDERED: metroNIDAZOLE-NS PMX 500 MG in SALINE 1 100ML.BAG IVPB ONE (11:53)
[2019-06-28] MEDS ORDERED: NALOXONE 0.4 MG/ML 1 ML VIAL IV PRN (12:09)
[2019-06-28] MEDS ORDERED: LACTATED RINGERS 1,000 ML IV ONE (12:41)
[2019-06-28] MEDS ORDERED: METOCLOPRAMIDE 5 MG/ML 2 ML VIAL IVP PRN (13:53)
[2019-06-28] MEDS ORDERED: ONDANSETRON 4 MG/2 ML VIAL IVP PRN (13:53)
--- NOTE | 2019-06-28 13:58 | P.OP ---
Date of Procedure: 06/28/19 Procedure(s) Performed: PREOPERATIVE DIAGNOSIS: Diverticulitis POSTOPERATIVE DIAGNOSIS: Same, adhesions, peristomal hernia PROCEDURE: Colostomy reversal, repair of peristomal hernia, lysis of adhesions SURGEON: Nima EBL: 100 mL ANESTHESIA: General COMPLICATIONS: None OPERATIVE PROCEDURE: Patient was placed on the operative table in the supine position. The patient was placed under general anesthesia. The abdomen was prepped and draped in usual sterile fashion. An elliptical incision was made around the colostomy. Dissection through the subcutaneous fat took place using electrocautery. The patient had a moderate-sized parastomal hernia. Entrance into the peritoneal cavity took place through the hernia sac. The stoma was fully mobilized and reduced back into the peritoneal cavity. The patient had fairly dense adhesions beneath the fascia circumferentially that were lysed sharply and using blunt dissection. No serosal tears were seen. The bowel distal and proximal to the loop colostomy were divided using the linear stapler. The antimesenteric portion of the staple line was removed proximally and distally. The linear stapler was fired along the antimesenteric border creating a [id number] anastomosis. The defect was closed using a TX 60 device. The TX 60 stapler line was imbricated using 3-0 GI silk sutures. A 3-0 GI silk crotch stitch was also placed. It was no tension on the anastomosis. No bleeding was seen. The area was irrigated. The fascia was then reapproximated using [id number] #1 Vicryl sutures in a vertical fashion. A drain was placed above the level of the fascia exiting laterally. This was sutured to the skin using an Ethibond stitch. Subcutaneous tissues were closed using 2-0 Vicryl sutures. The skin was then closed using selwyn. Sterile dressings were then applied. DISPOSITION: Stable to recovery room
[2019-06-28] MEDS: ROPIVACAINE 400 MG, HYDROMORPHONE (PF) 5 MG in SODIUM CHLORIDE 0.9% 170 ML EPIDURAL PRN ×2 (14:06→14:47)
[2019-06-28] MEDS ORDERED: diphenhydrAMINE 50 MG/ML 1 ML VIAL IVP ONE (14:27)
[2019-06-28] MEDS: NICOTINE 21MG/24HR PATCH TRANSDERM SCH (17:49)
[2019-06-28] MEDS: D5-0.45% NACL WITH KCL 20MEQ/L 1,000 ML IV SCH (17:49)
[2019-06-28] MEDS: HEPARIN SODIUM,PORCINE 5,000 UNIT/ML 1 ML VIAL SQ SCH (17:51)
[2019-06-28] MEDS: diphenhydrAMINE 50 MG/ML 1 ML VIAL IVP PRN (17:51)
[2019-06-28] MEDS: FAMOTIDINE 20 MG/2 ML VIAL IV SCH (19:31)
[2019-06-28] MEDS: HYDROmorphone 1 MG/ML 1 ML SYRINGE IVP PRN (19:32)
[2019-06-28] MEDS ORDERED: busPIRone HCl 10 MG TAB PO SCH (22:00)
[2019-06-29] MEDS: HEPARIN SODIUM,PORCINE 5,000 UNIT/ML 1 ML VIAL SQ SCH ×4 (00:27→23:34)
[2019-06-29] MEDS: D5-0.45% NACL WITH KCL 20MEQ/L 1,000 ML IV SCH ×4 (00:27→23:35)
[2019-06-29] MEDS: diphenhydrAMINE 50 MG/ML 1 ML VIAL IVP PRN (00:59)
[2019-06-29] MEDS ORDERED: busPIRone HCl 10 MG TAB PO SCH (01:17)
[2019-06-29] MEDS: busPIRone HCl 10 MG TAB PO SCH ×3 (03:06→19:47)
[2019-06-29 06:56] LABS: Basophils % (A) 0 %; Eosinophils # (A) 0.1 k/uL (0-0.7); Eosinophils % (A) 1 %; HCT 35.1 % (34.0-46.0); HGB 12.2 gm/dL (11.4-16.0); Lymphocytes # (A) 4.4 k/uL (1.0-4.8); Lymphocytes % (A) 21 %; MCH 31.9 pg (25.0-35.0); MCHC 34.6 g/dL (31.0-37.0); MCV 92.2 fL (80.0-100.0); Mean Platelet Volume 6.5; Monocytes # (A) 1.4 k/uL (0-1.0); Monocytes % (A) 6 %; Neutrophils # (A) 14.8 k/uL (1.3-7.7); Neutrophils % (A) 71 %; Platelet Count 329 k/uL (150-450); RBC 3.81 m/uL (3.80-5.40); RDW 12.6 % (11.5-15.5)
[2019-06-29 07:07] LABS: African American GFR (CKD) >90 (>60 ml/min/1.73 sqM); Anion Gap 6 mmol/L; Blood Urea Nitrogen 9 mg/dL (7-17); Carbon Dioxide 24 mmol/L (22-30); Chloride 107 mmol/L (98-107); Glucose 113 mg/dL (74-99); Non-African American GFR(CKD) >90 (>60 ml/min/1.73 sqM); Potassium 4.3 mmol/L (3.5-5.1); Sodium 137 mmol/L (137-145)
[2019-06-29] MEDS: LACTATED RINGERS 1,000 ML IV SCH (07:15)
[2019-06-29] MEDS: ALVIMOPAN 12 MG CAPSULE PO SCH ×2 (08:21→19:47)
[2019-06-29] MEDS: NICOTINE 21MG/24HR PATCH TRANSDERM SCH (08:21)
[2019-06-29] MEDS: FAMOTIDINE 20 MG/2 ML VIAL IV SCH ×2 (08:21→19:51)
--- NOTE | 2019-06-29 11:15 | P.PN ---
Subjective Progress Note Date: 06/29/19 Principal diagnosis: Diverticulitis Patient was apparently somewhat below belligerent with the staff yesterday evening. She removed her epidural apparently. She was threatening to leave AGAINST MEDICAL ADVICE earlier. Mild tachycardia, T-max 99.5. White blood cell count elevated at 21. JANE drain serosanguineous. She is asking for solid foods. Objective - Vital Signs Vital signs: Vital Signs Temp 97.9 F 06/29/19 07:00 Pulse 105 H 06/29/19 07:00 Resp 18 06/29/19 07:00 BP 118/75 06/29/19 07:00 Pulse Ox 93 L 06/29/19 07:00 Intake & Output 06/28/19 06/29/19 06/29/19 18:59 06:59 18:59 Intake Total 2729 Output Total 85 3220 1300 Balance 2644 -3220 -1300 Weight 61.689 kg Intake: IV 2107 Oral 622 Output: Drainage 20 Right Abdomen 20 Urine 60 3200 1300 Uretheral (Thomas) 1300 Estimated Blood Loss 25 Other: Voiding Method Indwelling Catheter Indwelling Catheter - Exam Abdomen: Soft, nondistended, dressing clean and dry, JANE is serosanguineous - Labs CBC & Chem 7: 06/29/19 06:11 06/29/19 06:11 Labs: Abnormal Lab Results - Last 24 Hours (Table) 06/29/19 06/29/19 Range/Units 06:11 06:11 WBC 21.0 H (3.8-10.6) k/uL Neutrophils # 14.8 H (1.3-7.7) k/uL Monocytes # 1.4 H (0-1.0) k/uL Glucose 113 H (74-99) mg/dL Assessment and Plan (1) Colostomy in place Narrative/Plan: Patient doing relatively well. White blood cell count chronically elevated for this patient although this is above baseline. We'll recheck labs tomorrow. Increase ambulation. Advance diet to full liquids. Decrease IV fluid rate. Remove Thomas catheter. Keep JANE drain for now. Possible discharge 24-48 hours. Current Visit: No Status: Acute Code(s): Z93.3 - COLOSTOMY STATUS SNOMED Code(s): 844338051
--- NOTE | 2019-06-29 16:43 | P.PN ---
Progress Note - Text 06/29 1605am 53-year-old female status post colostomy reversal by Dr. Herring. Patient had an epidural for postop pain control this and was strictly local anesthetic, epidural was DC'd by the surgeon this morning. Patient is comfortable doing well
[2019-06-29] MEDS: ATORVASTATIN 80 MG TAB PO SCH (19:48)
[2019-06-29] MEDS: HYDROmorphone 1 MG/ML 1 ML SYRINGE IVP PRN (20:27)
--- NOTE | 2019-06-29 21:38 | CONS ---
CONSULTATION REASON FOR CONSULTATION: Advice regarding COPD and other multiple medical issues, requested by Dr. Herring. HISTORY OF PRESENT ILLNESS: This 53-year-old woman with a past history of COPD, hyperlipidemia, history of cholecystectomy, history of appendectomy, history of anxiety, depression, being followed by Dr. Nancy Dobbs in the outpatient setting underwent colostomy reversal, repair of peristomal hernia, lysis of adhesions for previous diverticulitis. The patient tolerated the procedure well. The patient is rather slightly drowsy at this time. There is no history of fever, rigors or chills. No history of headache, loss of consciousness, seizures, chest pain, palpitations, hematochezia or melena at this time. PAST MEDICAL HISTORY: COPD, hyperlipidemia, history of appendectomy, cholecystectomy, anxiety, depression. MEDICATIONS: Prior to admission include: 1. BuSpar 10 mg p.o. t.i.d. 2. Sudafed P 10 mg b.i.d. p.r.n. 3. Ibuprofen 800 mg q.8 p.r.n. 4. Lipitor 80 mg q.h.s. ALLERGIES: PENICILLIN, PHENOBARBITAL. FAMILY HISTORY: Breast cancer with METS in the family. SOCIAL HISTORY: History of smoking, continued and ongoing. REVIEW OF SYSTEMS: ENT: No diminished vision. No diminished hearing. CARDIOVASCULAR: No angina or palpitations. RESPIRATIONS: No cough. No hemoptysis. GI as mentioned earlier. no dysuria. NERVOUS SYSTEM: No numbness or weakness. ALLERGY/IMMUNOLOGY: No asthma or hayfever. MUSCULOSKELETAL as mentioned earlier. HEMATOLOGY/ONCOLOGY: No history of anemia. ENDOCRINE: No history of diabetes or hypothyroidism. CONSTITUTIONAL: As mentioned earlier. DERMATOLOGY: Negative. RHEUMATOLOGY: Negative. PSYCHIATRIC: As mentioned earlier. PHYSICAL EXAMINATION: The patient is alert and oriented times three. Pulse is 105. Blood pressure 118/75. Respirations 18. Temperature 97.9. Pulse ox 93% on room air. HEENT: Conjunctivae normal. Oral mucosa moist. NECK is no jugular venous distention. No carotid bruit. No lymph node enlargement. CARDIOVASCULAR SYSTEM: S1, S2. RESPIRATIONS: Breath sounds diminished in the bases. No rhonchi. No crackles. ABDOMEN: Soft, status post surgery. Nontender. No guarding. No mass palpable. LEGS: No edema. No swelling. NERVOUS SYSTEM: Higher functions as mentioned earlier. Moves all 4 limbs. No focal motor or sensory deficits. LYMPHATICS: No lymph nodes palpable in the neck, axillae or groin. SKIN no ulcers, no rashes and no bleeding. JOINTS: No active deforming arthropathy. LABS: WBC 21, hemoglobin 12.2. Sodium 130, potassium 4.3. ASSESSMENT: 1. Status post colostomy reversal, repair of the peristomal hernia as well as lysis of adhesions. 2. History of diverticulitis. 3. Increased WBC, possibly reactive. 4. History of chronic obstructive pulmonary disease. 5. Hyperlipidemia. 6. History of bowel obstruction. 7. History of migraines. 8. History of skin cancer. 9. History of anxiety, depression. 10.History of cholecystectomy. 11.History of bilateral gluteal abscess and PICC line insertion. 12.History of continued ongoing nicotine dependence. 13.History of THC. RECOMMENDATIONS AND DISCUSSION: In this 53-year-old woman who presented with multiple medical issues, at this time, I recommend to continue current medications, continue to monitor, symptomatic treatment. Resume the home medications. Incentive spirometry. DVT prophylaxis. Will follow the patient closely with you. Smoking cessation. Patient stopped smoking according to her and the patient may be asked to follow Dr. Nancy Dobbs in the outpatient setting. Thank you Dr. Herring for letting us participate in the care of this patient. MMODL / IJN: [id number] /
[2019-06-30] MEDS: busPIRone HCl 10 MG TAB PO SCH ×3 (02:49→19:04)
[2019-06-30] MEDS: HYDROmorphone 1 MG/ML 1 ML SYRINGE IVP PRN (06:00)
[2019-06-30 06:38] LABS: Basophils % (A) 0 %; Eosinophils # (A) 0.6 k/uL (0-0.7); Eosinophils % (A) 4 %; HCT 36.3 % (34.0-46.0); HGB 12.5 gm/dL (11.4-16.0); Lymphocytes # (A) 4.4 k/uL (1.0-4.8); Lymphocytes % (A) 29 %; MCH 31.9 pg (25.0-35.0); MCHC 34.5 g/dL (31.0-37.0); MCV 92.6 fL (80.0-100.0); Mean Platelet Volume 6.6; Monocytes # (A) 1.1 k/uL (0-1.0); Monocytes % (A) 7 %; Neutrophils # (A) 8.8 k/uL (1.3-7.7); Neutrophils % (A) 58 %; Platelet Count 336 k/uL (150-450); RBC 3.92 m/uL (3.80-5.40); RDW 12.9 % (11.5-15.5); WBC 15.1 k/uL (3.8-10.6)
[2019-06-30 06:52] LABS: African American GFR (CKD) >90 (>60 ml/min/1.73 sqM); Anion Gap 5 mmol/L; Blood Urea Nitrogen 4 mg/dL (7-17); Calcium 8.9 mg/dL (8.4-10.2); Carbon Dioxide 26 mmol/L (22-30); Chloride 108 mmol/L (98-107); Glucose 105 mg/dL (74-99); Non-African American GFR(CKD) >90 (>60 ml/min/1.73 sqM); Potassium 4.3 mmol/L (3.5-5.1); Sodium 139 mmol/L (137-145)
[2019-06-30] MEDS: MAGNESIUM HYDROXIDE 2,400 MG/10 ML CUP PO SCH (08:02)
[2019-06-30] MEDS: FAMOTIDINE 20 MG/2 ML VIAL IV SCH (08:02)
[2019-06-30] MEDS: HEPARIN SODIUM,PORCINE 5,000 UNIT/ML 1 ML VIAL SQ SCH ×2 (08:02→15:12)
[2019-06-30] MEDS: ALVIMOPAN 12 MG CAPSULE PO SCH ×2 (08:03→19:04)
[2019-06-30] MEDS: NICOTINE 21MG/24HR PATCH TRANSDERM SCH (08:03)
[2019-06-30] MEDS: D5-0.45% NACL WITH KCL 20MEQ/L 1,000 ML IV SCH (10:32)
--- NOTE | 2019-06-30 10:39 | P.PN ---
Subjective Progress Note Date: 06/30/19 Principal diagnosis: Diverticulitis Patient doing well. She did have a loose or bowel movement. Denies nausea or vomiting. White blood cell count improved at 15.1 which is closer to her baseline. JANE drain decreased in output. She is tolerating diet. Objective - Vital Signs Vital signs: Vital Signs Temp 99.2 F 06/30/19 08:53 Pulse 90 06/30/19 08:53 Resp 18 06/30/19 08:53 BP 119/77 06/30/19 08:53 Pulse Ox 96 06/30/19 08:53 Intake & Output 06/29/19 06/30/19 06/30/19 18:59 06:59 18:59 Intake Total 675 450 Output Total 1550 15 Balance -875 450 -15 Intake: Intake, IV Titration 675 450 Amount D5-0.45% NaCl with KCl 375 20Meq/l 1,000 ml @ 125 mls/hr IV .Q8H [facility] Rx#: [id number] D5-0.45% NaCl with KCl 300 450 20Meq/l 1,000 ml @ 75 mls /hr IV .[id number] [facility] Rx#: [id number] Output: Drainage 15 Right Abdomen 15 Urine 1550 Uretheral (Thomas) 1300 Other: Voiding Method Indwelling Catheter Toilet Toilet - Exam Abdomen: Soft, nondistended, dressing clean and dry - Labs CBC & Chem 7: 06/30/19 06:07 06/30/19 06:07 Labs: Abnormal Lab Results - Last 24 Hours (Table) 06/30/19 06/30/19 Range/Units 06:07 06:07 WBC 15.1 H (3.8-10.6) k/uL Neutrophils # 8.8 H (1.3-7.7) k/uL Monocytes # 1.1 H (0-1.0) k/uL Chloride 108 H (98-107) mmol/L BUN 4 L (7-17) mg/dL Creatinine 0.46 L (0.52-1.04) mg/dL Glucose 105 H (74-99) mg/dL Assessment and Plan (1) Colostomy in place Narrative/Plan: Continue low fiber diet. Ambulate. Tentatively plan discharge tomorrow and removal of JANE drain prior to discharge. Current Visit: No Status: Acute Code(s): Z93.3 - COLOSTOMY STATUS SNOMED Code(s): 990806544
[2019-06-30] MEDS ORDERED: diphenhydrAMINE 25 MG CAP PO PRN (14:06)
[2019-06-30] MEDS: HYDROcodone/APAP 5-325MG 1 EACH TAB PO PRN ×2 (14:52→19:16)
[2019-06-30] MEDS: FAMOTIDINE 20 MG TAB PO SCH (19:04)
[2019-06-30] MEDS: ATORVASTATIN 80 MG TAB PO SCH (19:04)
--- NOTE | 2019-06-30 19:10 | PN ---
PROGRESS NOTE DATE OF SERVICE: 06/30/2019 This 53-year-old woman who was admitted with a colostomy reversal, had slightly increased WBC. No chest pain. No palpitations. Patient is slightly drowsy. EXAM: Alert and oriented x3. Pulse 98, blood pressure 116/86, respirations 17, temperature 98.4, pulse ox 98% on room air HEENT: Conjunctivae normal. Oral mucosa moist. NECK: No jugular venous distention. No lymph node enlargement. CARDIOVASCULAR: S1, S2. RESPIRATORY: Diminished breath sounds at the bases. No rhonchi, no crackles. ABDOMEN: Soft. Status post surgery. NERVOUS SYSTEM: No focal deficits. LABS: WBC 15.1, sodium 139, potassium 4.3. ASSESSMENT: 1. Status post colostomy reversal, repair of peristomal hernia as well as lysis of adhesions. 2. History of diverticulitis. 3. Increased WBC, possibly reactive. 4. History of chronic obstructive pulmonary disease. 5. Hyperlipidemia. 6. History of bowel obstruction. 7. History of migraine. 8. History of skin cancer. 9. History of anxiety, depression. 10.History of cholecystectomy. 11.History of bilateral gluteal abscess and PICC line insertion remotely. 12.History of continued ongoing nicotine dependence. 13.History of THC. RECOMMENDATIONS AND DISCUSSION: Recommend to continue current medications, continue to monitor, continue symptomatic treatment. Otherwise, repeat labs tomorrow. Closely monitor. Incentive spirometry. Closely follow with surgery. Further recommendations to follow. MMODL / IJN: [id number] /
[2019-07-01] MEDS: HEPARIN SODIUM,PORCINE 5,000 UNIT/ML 1 ML VIAL SQ SCH ×2 (00:36→08:28)
[2019-07-01] MEDS: D5-0.45% NACL WITH KCL 20MEQ/L 1,000 ML IV SCH (00:36)
[2019-07-01] MEDS: HYDROmorphone 1 MG/ML 1 ML SYRINGE IVP PRN (00:40)
[2019-07-01] MEDS: busPIRone HCl 10 MG TAB PO SCH ×2 (02:30→10:56)
[2019-07-01 07:14] LABS: Basophils # (A) 0.1 k/uL (0-0.2); Basophils % (A) 1 %; Eosinophils # (A) 0.7 k/uL (0-0.7); Eosinophils % (A) 4 %; HCT 38.2 % (34.0-46.0); Lymphocytes # (A) 4.8 k/uL (1.0-4.8); Lymphocytes % (A) 30 %; MCHC 34.1 g/dL (31.0-37.0); MCV 93.8 fL (80.0-100.0); Mean Platelet Volume 7.2; Monocytes % (A) 6 %; Neutrophils # (A) 9.4 k/uL (1.3-7.7); Neutrophils % (A) 58 %; Platelet Count 278 k/uL (150-450); RBC 4.07 m/uL (3.80-5.40); RDW 12.8 % (11.5-15.5); WBC 16.2 k/uL (3.8-10.6)
[2019-07-01 07:53] VITALS: BP 104/73; PULSE 92; RESP 15; TEMP 98.6
[2019-07-01] MEDS: ALVIMOPAN 12 MG CAPSULE PO SCH (08:25)
[2019-07-01] MEDS: FAMOTIDINE 20 MG TAB PO SCH (08:25)
[2019-07-01] MEDS: HYDROcodone/APAP 5-325MG 1 EACH TAB PO PRN ×2 (08:25→11:37)
[2019-07-01] MEDS: NICOTINE 21MG/24HR PATCH TRANSDERM SCH (08:27)
[2019-07-01] MEDS: MAGNESIUM HYDROXIDE 2,400 MG/10 ML CUP PO SCH (08:28)
--- NOTE | 2019-07-01 12:31 | P.DS ---
<Carmen Beaver - Last Filed: 07/01/19 11:55> Providers Expected date of discharge: 07/01/19 Hospital Course: 53-year-old female who underwent colostomy reversal, repair of parastomal hernia, and lysis of adhesions with Dr. Herring on 06/28/2019. Patient is doing well postoperatively without any immediate complications. She is tolerating diet without nausea or vomiting. Pain is controlled on oral medications. Vital signs have been stable. She is stable for discharge home today. Please see EMR for further hospital course details. Discharge diagnosis 1. History of diverticulitis, status post colostomy reversal, repair of parastomal hernia, and lysis of adhesions Nurse practitioner note has been reviewed by physician. Signing provider agrees with the documented findings, assessment, and plan of care. Plan - Discharge Summary Discharge Rx Participant: No New Discharge Prescriptions: New Hydrocodone/Acetaminophen [Haugan 5-325] 1 tab PO Q6HR PRN 3 Days #12 tab PRN Reason: Pain No Action Atorvastatin Calcium [Lipitor] 80 mg PO HS Ibuprofen 800 mg PO Q8H PRN PRN Reason: Pain busPIRone HCl [Buspar] 10 mg PO TID Phenylephrine HCl [Sudafed PE] 10 mg PO BID PRN PRN Reason: Allergy Symptoms Discharge Medication List Atorvastatin Calcium [Lipitor] 80 mg PO HS 11/20/18 [History] Ibuprofen 800 mg PO Q8H PRN 05/29/19 [History] busPIRone HCl [Buspar] 10 mg PO TID 06/03/19 [History] Phenylephrine HCl [Sudafed PE] 10 mg PO BID PRN 06/21/19 [History] Hydrocodone/Acetaminophen [Haugan 5-325] 1 tab PO Q6HR PRN 3 Days #12 tab 07/01/19 [Rx] Follow up Appointment(s)/Referral(s): Malcolm Herring MD [Medical Doctor] - 07/10/19 3:45 pm Nancy Dobbs MD [Primary Care Provider] - 07/09/19 3:00 pm Patient Instructions/Handouts: Open Colostomy Reversal (DC) Activity/Diet/Wound Care/Special Instructions: No driving while taking H[place] No lifting over 10 pounds You may shower. No soaking or tub baths Very light activity until you are reevaluated at your follow up appointment with your surgeon Discharge Disposition: HOME SELF-CARE <Malcolm Herring - Last Filed: 07/01/19 16:10> Providers Date of admission: 06/28/19 10:11 Attending physician: Malcolm Herring Consults: 06/28/19 13:55 Consult Physician Routine Consulting Provider: Andreina Dove Consult Reason/Comments: Medical management Do you want consulting provider notified?: Yes Primary care physician: Nancy Dobbs - Discharge Diagnosis(es) (1) Colostomy in place Status: Acute Hospital Course: As above. Patient doing well. We'll discharge today. Follow-up one week.
--- NOTE | 2019-07-01 16:05 | PN ---
PROGRESS NOTE DATE OF SERVICE: 07/01/2019 This 53-year-old woman who was admitted after colostomy reversal improved significantly. No chest pain. No palpitations. No fever. PHYSICAL EXAMINATION: On exam, alert and oriented x3. Pulse is 92, blood pressure 141/73, respirations 15, temperature 98.6, pulse ox 97% on room air. HEENT: Conjunctivae normal. NECK: No jugular venous distention. RESPIRATORY: Diminished breath sounds at the bases. No rhonchi. No crackles. ABDOMEN: Soft. Status post surgery. LEGS: No edema, no swelling. NERVOUS SYSTEM: No focal deficits. LABS: WBC 16.2. ASSESSMENT: 1. Status post colostomy reversal, repair of peristomal hernia as well as lysis of adhesions. 2. History of diverticulitis. 3. Increased WBC, possibly reactive. 4. History of chronic obstructive pulmonary disease. 5. Hyperlipidemia. 6. History of bowel obstruction. 7. History of migraine. 8. History of skin cancer. 9. History of anxiety, depression. 10.History of cholecystectomy. 11.History of bilateral gluteal abscess and PICC line insertion remotely. 12.History of continued ongoing nicotine dependence. 13.History of THC. RECOMMENDATIONS AND DISCUSSION: Recommend to continue current medications, continue to monitor, continue symptomatic treatment . Otherwise at this time resume the home medications. The rest of the recommendations per surgery. Follow closely with Dr. Nancy Dobbs in the outpatient setting for recommendations for the lungs. MMODL / IJN: [id number] /
== END 2019-07-01 15:30 | disposition home or self-care (01) | DRG 330 ==
LOC: 2ORMAIN 10:11 → 4SSUR 15:07
PROVIDERS: ADMIT Surgery; ATTEND Surgery
PROC: 0WQF0ZZ Repair Abdominal Wall, Open Approach (ICD-10-PCS; 2019-06-28)
PROC: 0DNW0ZZ Release Peritoneum, Open Approach (ICD-10-PCS; 2019-06-28)
PROC: 0DB80ZZ Excision of Small Intestine, Open Approach (ICD-10-PCS; principal; 2019-06-28 12:00)
DX: Z43.3 Encounter for attention to colostomy (principal); K57.92 Diverticulitis of intestine, part unspecified, without perforation or abscess without bleeding; E78.5 Hyperlipidemia, unspecified; F17.210 Nicotine dependence, cigarettes, uncomplicated; J44.9 Chronic obstructive pulmonary disease, unspecified; Z79.899 Other long term (current) drug therapy; Z81.1 Family history of alcohol abuse and dependence; Z83.3 Family history of diabetes mellitus; Z85.828 Personal history of other malignant neoplasm of skin; Z90.710 Acquired absence of both cervix and uterus; Z90.49 Acquired absence of other specified parts of digestive tract; Z80.3 Family history of malignant neoplasm of breast; G43.909 Migraine, unspecified, not intractable, without status migrainosus; Z88.0 Allergy status to penicillin; Z88.8 Allergy status to other drugs, medicaments and biological substances; K66.0 Peritoneal adhesions (postprocedural) (postinfection)
CPT/HCPCS: 80048; 80051; 85025; 86850; 86900; 86901; 88304

== ENCOUNTER 2019-08-12 07:37 | Day surgery (SDC) | payer OTHER ==
[2019-08-02 15:28] VITALS: BMI 24.7
[~2019-08-12 07:37] MED LIST changes: +BUPIVACAINE (PF) 0.5% 30 ML VIAL ONE; -DEXAMETHASONE SOD PHOSPHATE 10 MG/ML 1 ML VIAL IV ONE; -HYDROmorphone 0.5 MG/0.5 ML SYRINGE IVP PRN; +LACTATED RINGERS 1,000 ML IV SCH; -LIDOCAINE 1% 20 ML VIAL (10MG/ML) FOR IV START INTRADERMA PRN; -ONDANSETRON 4 MG/2 ML VIAL IVP ONE; -fentaNYL (PF) 50 MCG/ML 2 ML AMP IV PRN; +methylPREDNISolone ACETATE 40 MG/ML 1 ML VIAL ONE
[2019-08-12] MEDS ORDERED: LACTATED RINGERS 1,000 ML IV SCH (08:02)
[2019-08-12 08:16] VITALS: RESP 16; TEMP 97
[2019-08-12] MEDS ORDERED: LIDOCAINE 1% 20 ML VIAL (10MG/ML) FOR IV START INTRADERMA ONE (08:16)
--- NOTE | 2019-08-12 09:15 | P.PCN ---
Date of Procedure: 08/12/19 Procedure(s) Performed: Pre-operative diagnosis: Left occipital neuralgia Post Operative Diagnosis same Procedure: Left occipital nerve block ANESTHESIA: none EBL: Minimal PROCEDURE INDICATION: The patient with neck pain and headache secondary to occipital neuralgia unresponsive to conservative treatments. PROCEDURE DESCRIPTION / TECHNIQUE: The patient was seen and identified in the preoperative area. Risks, benefits, complications, and alternatives were discussed with the patient, the patient agreed to proceed with the procedure and signed the consent. IV was started. Vital signs remained stable throughout the procedure. Patient was taken to the OR and time out was completed. The patient was placed in the seated position on the procedure table. The cervical area and Left occiptial area were prepped with alcohol swab. Vital signs were closely monitored during the procedure. The Left occiptal ridge was palpated and was then accessed with a 25 G needle. Then after negative aspiration, 3 ml of the block solution containing 2 ml of ropivacaine 0.5% and Depo-Medrol 40 mg was injected. Needle was withdrawn intact. Patient tolerated procedure well. No acute complications.
[2019-08-12] MEDS ORDERED: IV FLUID CONTINUATION 1,000 ML IV ONE (09:20)
[2019-08-12 09:24] VITALS: BP 118/74; PULSE 72
== END 2019-08-12 09:35 | disposition home or self-care (01) ==
LOC: ORPAIN 07:37
PROVIDERS: ATTEND Anesthesiology
DX: M54.81 Occipital neuralgia (principal); Z88.0 Allergy status to penicillin; Z88.8 Allergy status to other drugs, medicaments and biological substances
CPT/HCPCS: 64405; J1030

== ENCOUNTER 2019-08-15 06:14 | Day surgery (SDC) | payer OTHER ==
[2019-08-09 16:04] VITALS: BMI 24.7
[~2019-08-15 06:14] MED LIST changes: -BUPIVACAINE (PF) 0.5% 30 ML VIAL ONE; +LIDOCAINE 1% 20 ML VIAL (10MG/ML) FOR IV START INTRADERMA PRN; -methylPREDNISolone ACETATE 40 MG/ML 1 ML VIAL ONE
[2019-08-15 06:58] VITALS: TEMP 98.9
[2019-08-15] MEDS ORDERED: PROPOFOL 10 MG/ML 20 ML VIAL IV ONE (07:25)
[2019-08-15 08:20] VITALS: BP 139/86; PULSE 86; RESP 16
[2019-08-15 09:25] LABS: Basophils # (A) 0.3 k/uL (0-0.2); Basophils % (A) 2 %; Eosinophils # (A) 0.3 k/uL (0-0.7); Eosinophils % (A) 2 %; HCT 43.6 % (34.0-46.0); HGB 14.9 gm/dL (11.4-16.0); Lymphocytes # (A) 6.1 k/uL (1.0-4.8); Lymphocytes % (A) 36 %; MCH 31.6 pg (25.0-35.0); MCHC 34.2 g/dL (31.0-37.0); MCV 92.4 fL (80.0-100.0); Mean Platelet Volume 8.8; Monocytes # (A) 0.9 k/uL (0-1.0); Monocytes % (A) 5 %; Neutrophils # (A) 9.2 k/uL (1.3-7.7); Neutrophils % (A) 54 %; Platelet Count 432 k/uL (150-450); RBC 4.72 m/uL (3.80-5.40); RDW 12.6 % (11.5-15.5); Reticulocyte % 2.5 % (0.5-2.0); WBC 17.2 k/uL (3.8-10.6)
--- NOTE | 2019-08-15 09:41 | PCN ---
PROCEDURE NOTE PREOPERATIVE DIAGNOSIS: Leukocytosis. POSTOPERATIVE DIAGNOSIS: Leukocytosis. PROCEDURE: Bone marrow aspirate and biopsy site right iliac crest. ANESTHESIA: Local with IV systemic sedation. DETAILS: Utilizing sterile technique, the skin overlying the right iliac crest was prepared with Betadine and alcohol. After adequate sterile draping, local anesthesia with 1% lidocaine, a size 11 4 inch Adzerkshidi needle was utilized to access the periosteum with ease. A total of 15 mL of aspirate and 3 cm bone core biopsies were obtained. The patient tolerated the procedure very well. There was no immediate procedure-related complications. TOTAL BLOOD LOSS: Less than 1 mL. Results pending. MMODL / IJN: [id number] /
== END 2019-08-15 08:27 | disposition home or self-care (01) ==
LOC: OR 06:14
PROVIDERS: ATTEND Internal Medicine Hematology & Oncology
DX: D72.824 Basophilia (principal); E78.5 Hyperlipidemia, unspecified; J44.9 Chronic obstructive pulmonary disease, unspecified; F39 Unspecified mood [affective] disorder; F41.1 Generalized anxiety disorder; F32.9 Major depressive disorder, single episode, unspecified; F17.200 Nicotine dependence, unspecified, uncomplicated; Z79.899 Other long term (current) drug therapy; Z88.1 Allergy status to other antibiotic agents; Z88.8 Allergy status to other drugs, medicaments and biological substances; Z90.49 Acquired absence of other specified parts of digestive tract; Z90.711 Acquired absence of uterus with remaining cervical stump; Z80.3 Family history of malignant neoplasm of breast; Z80.1 Family history of malignant neoplasm of trachea, bronchus and lung; Z80.49 Family history of malignant neoplasm of other genital organs; Z80.8 Family history of malignant neoplasm of other organs or systems
CPT/HCPCS: 85025; 85045; 38222; J2704

== ENCOUNTER → 2020-02-05 | Outpatient (CLI) | payer OTHER ==
[2020-02-05 13:45] LABS: Basophils # (A) 0.2 k/uL (0-0.2); Basophils % (A) 1 %; Eosinophils # (A) 0.3 k/uL (0-0.7); Eosinophils % (A) 2 %; HCT 49.8 % (34.0-46.0); HGB 15.2 gm/dL (11.4-16.0); Lymphocytes % (A) 30 %; MCH 29.6 pg (25.0-35.0); MCHC 30.5 g/dL (31.0-37.0); Mean Platelet Volume 7.4; Monocytes # (A) 0.9 k/uL (0-1.0); Monocytes % (A) 7 %; Neutrophils % (A) 59 %; Platelet Count 360 k/uL (150-450); RBC 5.14 m/uL (3.80-5.40); RDW 13.1 % (11.5-15.5); WBC 13.6 k/uL (3.8-10.6)
== END | disposition home or self-care (01) ==
LOC: LABPAT 11:52
PROVIDERS: ATTEND Surgery
DX: Z01.818 Encounter for other preprocedural examination (principal); K43.0 Incisional hernia with obstruction, without gangrene
CPT/HCPCS: 36415; 85025

== ENCOUNTER 2020-02-10 11:29 | Observation (INO) | payer OTHER ==
[2020-02-05 11:03] VITALS: BMI 26.5
[~2020-02-10 11:29] MED LIST changes: +ACETAMINOPHEN TAB 500 MG TAB PO ONE; +DEXAMETHASONE SOD PHOSPHATE 10 MG/ML 1 ML VIAL IV ONE; +HEPARIN SODIUM,PORCINE 5,000 UNIT/ML 1 ML VIAL SQ ONE; -LACTATED RINGERS 1,000 ML IV SCH; -LIDOCAINE 1% 20 ML VIAL (10MG/ML) FOR IV START INTRADERMA PRN; +MIDAZOLAM 2 MG/2 ML VIAL IV PRN; +ONDANSETRON 4 MG/2 ML VIAL IVP ONE
[2020-02-10] MEDS ORDERED: ONDANSETRON 4 MG/2 ML VIAL ONE (12:15)
[2020-02-10] MEDS ORDERED: HEPARIN SODIUM,PORCINE 5,000 UNIT/ML 1 ML VIAL ONE (12:15)
[2020-02-10] MEDS ORDERED: LIDOCAINE 1% (10MG/ML) FOR IV START INTRADERMA ONE (12:16)
[2020-02-10] MEDS: LACTATED RINGERS 1,000 ML IV SCH ×2 (12:19→14:27)
[2020-02-10] MEDS ORDERED: ACETAMINOPHEN TAB 500 MG TAB ONE (12:23)
[2020-02-10 12:25] LABS: Basophils # (A) 0.1 k/uL (0-0.2); Basophils % (A) 1 %; Eosinophils # (A) 0.3 k/uL (0-0.7); Eosinophils % (A) 2 %; HCT 44.8 % (34.0-46.0); HGB 15.2 gm/dL (11.4-16.0); Lymphocytes # (A) 4.2 k/uL (1.0-4.8); Lymphocytes % (A) 31 %; MCH 31.8 pg (25.0-35.0); MCHC 33.9 g/dL (31.0-37.0); MCV 93.8 fL (80.0-100.0); Mean Platelet Volume 7.4; Monocytes # (A) 0.7 k/uL (0-1.0); Monocytes % (A) 5 %; Neutrophils % (A) 60 %; Platelet Count 370 k/uL (150-450); RBC 4.77 m/uL (3.80-5.40); RDW 12.9 % (11.5-15.5); WBC 13.4 k/uL (3.8-10.6)
[2020-02-10] MEDS ORDERED: PHENYLEPHRINE-0.9% NACL SYG 1 MG/10 ML SYRINGE ONE (14:26)
[2020-02-10] MEDS ORDERED: GLYCOPYRROLATE 0.2 MG/ML 2 ML VIAL ONE (14:26)
[2020-02-10] MEDS ORDERED: MIDAZOLAM 2 MG/2 ML VIAL ONE (14:26)
[2020-02-10] MEDS ORDERED: LIDOCAINE 1% INJ 10MG/ML (20 ML MDV) ONE (14:26)
[2020-02-10] MEDS ORDERED: NEOSTIGMINE 1 MG/ML 10 ML VIAL ONE (14:26)
[2020-02-10] MEDS ORDERED: HYDROmorphone (PF) 1 MG/ML ONE (14:26)
[2020-02-10] MEDS ORDERED: ROPIVACAINE 5 MG/ML 30 ML VIAL ONE (14:26)
[2020-02-10] MEDS ORDERED: PROPOFOL 10 MG/ML 20 ML VIAL IV ONE (14:26)
[2020-02-10] MEDS ORDERED: ROCURONIUM BROMIDE 10 MG/ML 5 ML VIAL IV ONE (14:26)
[2020-02-10] MEDS ORDERED: fentaNYL (PF) 50 MCG/ML 2 ML AMP ONE (14:26)
[2020-02-10] MEDS ORDERED: BUPIVACAIN-EPI 0.25%-1:200,000 30 ML VIAL SQ ONE (14:41)
[2020-02-10] MEDS ORDERED: LACTATED RINGERS 1,000 ML IV ONE ×2 (16:41→18:19)
[2020-02-10] MEDS: HYDROmorphone 0.5 MG/0.5 ML SYRINGE IVP PRN ×4 (17:06→17:51)
[2020-02-10] MEDS ORDERED: NALOXONE 0.4 MG/ML 1 ML VIAL IV PRN (17:11)
[2020-02-10] MEDS ORDERED: ONDANSETRON 4 MG/2 ML VIAL IVP PRN (17:11)
[2020-02-10] MEDS ORDERED: METOCLOPRAMIDE 5 MG/ML 2 ML VIAL IVP PRN (17:11)
--- NOTE | 2020-02-10 17:17 | P.OP ---
Date of Procedure: 02/10/20 Procedure(s) Performed: PREOPERATIVE DIAGNOSIS: Reducible incisional hernia POSTOPERATIVE DIAGNOSIS: Same PROCEDURE: Reducible incisional hernia with mesh SURGEON: Nima EBL: Minimal ANESTHESIA: Gen. COMPLICATIONS: None OPERATIVE PROCEDURE: Patient placed on the operating table in the supine position. Abdomen was prepped and draped in usual sterile fashion. Approximately two thirds of the midline incision was re-incised. Dissection through the subcutaneous tissues took place using electrocautery. A large hernia was identified. The hernia sac was carefully dissected down to the level of the fascia where it was excised. The patient had a total of 5 fascial openings with the largest measuring about 6.5 cm in diameter. These were all incorporated into one larger fascial defect which measured approximately 12 x 7 cm. The 17 x 14 cm ventrio mesh was placed beneath the fascia and sutured to the fascia using trans-fascial 0 Ethibond sutures. Following that the midline fascia was reapproximated using [id number] 0 Ethibond sutures. 2 separate drains were placed anterior to the fascial closure exiting through the bilateral lower quadrant. This was sutured to the skin using a Ethibond stitch. The subcutaneous tissues were closed using 2-0 and 3-0 Vicryl sutures. The skin was closed using selwyn. Sterile dressings were applied. DISPOSITION: Stable to recovery room
[2020-02-10] MEDS ORDERED: diphenhydrAMINE 50 MG/ML 1 ML VIAL IVP ONE (17:25)
--- NOTE | 2020-02-10 18:35 | P.ANPRN ---
Procedure Note - Anesthesia - Nerve Block Performed Right Rectus Abdominis Single Time Out Performed: Yes Date of Procedure: 02/10/20 Procedure Start Time: 17:46 Procedure Stop Time: 17:55 Location of Patient: Phase I Indication: Acute Post-Operative Pain, Dx/Pain Location, Requested by Surgeon Sedation Type: Awake Preparation: Sterile Prep, Sterile Dressing Position: Supine Needle Types: Pajunk Needle Gauge: 21 Ultrasound used to visualize needle placement: Yes Ultrasound used to observe medication spread: Yes Injectate: 0.5% Ropivacaine (see comment for volume) (20ml) Blood Aspirated: No Pain Paresthesia on Injection Noted: No Resistance on Injection: Normal Image Stored and Saved: Yes Events: Uneventful and Well Tolerated
[2020-02-10] MEDS: HYDROcodone/APAP 5-325MG 1 EACH TAB PO PRN ×2 (19:19→23:16)
[2020-02-10] MEDS: NICOTINE 14MG/24HR PATCH TRANSDERM SCH (19:51)
[2020-02-10] MEDS ORDERED: PSEUDOEPHEDRINE 12HR 120 MG TABLET.ER PO PRN (20:13)
[2020-02-10] MEDS: HYDROmorphone 1 MG/ML 1 ML SYRINGE IVP PRN (21:28)
[2020-02-10] MEDS: busPIRone HCl 10 MG TAB PO SCH (21:28)
[2020-02-10] MEDS: SERTRALINE 50 MG TAB PO SCH (21:28)
[2020-02-10] MEDS: D5-0.45% NACL WITH KCL 20MEQ/L 1,000 ML IV SCH (21:55)
[2020-02-10] MEDS ORDERED: LORazepam 2 MG/ML INJ IV PRN ×3 (23:01)
[2020-02-10] MEDS: HEPARIN SODIUM,PORCINE 5,000 UNIT/ML 1 ML VIAL SQ SCH (23:17)
[2020-02-11] MEDS: D5-0.45% NACL WITH KCL 20MEQ/L 1,000 ML IV SCH ×2 (00:34→05:40)
[2020-02-11] MEDS: LACTATED RINGERS 1,000 ML IV SCH (00:34)
[2020-02-11] MEDS: HYDROcodone/APAP 5-325MG 1 EACH TAB PO PRN ×2 (03:22→09:51)
[2020-02-11] MEDS: NICOTINE 14MG/24HR PATCH TRANSDERM SCH (07:36)
[2020-02-11] MEDS: busPIRone HCl 10 MG TAB PO SCH ×3 (07:36→23:50)
[2020-02-11] MEDS: SERTRALINE 50 MG TAB PO SCH ×2 (07:36→23:50)
[2020-02-11] MEDS: HYDROmorphone 1 MG/ML 1 ML SYRINGE IVP PRN ×3 (07:36→20:04)
[2020-02-11] MEDS: PANTOPRAZOLE 40 MG/10 ML VIAL IV SCH (07:36)
[2020-02-11] MEDS: HEPARIN SODIUM,PORCINE 5,000 UNIT/ML 1 ML VIAL SQ SCH ×4 (07:36→23:50)
[2020-02-11 07:54] LABS: Basophils % (A) 0 %; Eosinophils # (A) 0.1 k/uL (0-0.7); Eosinophils % (A) 1 %; HCT 28.9 % (34.0-46.0); Lymphocytes # (A) 3.9 k/uL (1.0-4.8); Lymphocytes % (A) 18 %; MCH 31.7 pg (25.0-35.0); MCHC 33.1 g/dL (31.0-37.0); MCV 95.7 fL (80.0-100.0); Mean Platelet Volume 8.1; Monocytes % (A) 5 %; Neutrophils # (A) 16.1 k/uL (1.3-7.7); Neutrophils % (A) 75 %; Platelet Count 309 k/uL (150-450); RBC 3.02 m/uL (3.80-5.40); RDW 12.9 % (11.5-15.5); WBC 21.4 k/uL (3.8-10.6)
[2020-02-11 08:00] LABS: HGB 9.6 gm/dL (11.4-16.0)
[2020-02-11 08:06] LABS: African American GFR (CKD) >90 (>60 ml/min/1.73 sqM); Anion Gap 4 mmol/L; Blood Urea Nitrogen 11 mg/dL (7-17); Calcium 8.4 mg/dL (8.4-10.2); Carbon Dioxide 23 mmol/L (22-30); Chloride 105 mmol/L (98-107); Glucose 124 mg/dL (74-99); Magnesium 1.6 mg/dL (1.6-2.3); Non-African American GFR(CKD) >90 (>60 ml/min/1.73 sqM); Phosphorus 3.2 mg/dL (2.5-4.5); Potassium 4.8 mmol/L (3.5-5.1); Sodium 132 mmol/L (137-145)
--- NOTE | 2020-02-11 11:04 | P.PN ---
<Carmen Beaver Moody - Last Filed: 02/11/20 10:52> Subjective Progress Note Date: 02/11/20 CHIEF COMPLAINT: Incisional hernia HISTORY OF PRESENT ILLNESS: Patient is status post repair of incisional hernia with mesh. POD #1. Patient examined this morning at the bedside. She reports pain 8/10. Tolerating diet. No nausea or vomiting. Nursing reports 100cc and 70cc from JANE drains. WBC 21.4. Hemoglobin 9.6. PHYSICAL EXAM: VITAL SIGNS: Reviewed. GENERAL: Well-developed in no acute distress. HEENT: No sclera icterus. Extraocular movements grossly intact. Moist buccal mucosa. Head is atraumatic, normocephalic. ABDOMEN: Soft. Mildly bloated. JANE drains x 2 with sanguinous drainage. Midline dressing clean dry and intact. NEUROLOGIC: Alert and oriented. Cranial nerves II through XII grossly intact. ASSESSMENT: 1. Status post repair of incisional hernia 2. Acute blood loss anemia PLAN: -Continue diet as tolerated -Monitor hemoglobin. Repeat in AM. Will obtain type and screen also. -Monitor drainage from JANE drains -Pain continue. Continue [place] and Dilaudid -Incentive spirometer Nurse practitioner note has been reviewed by physician. Signing provider agrees with the documented findings, assessment, and plan of care. Objective - Vital Signs Vital signs: Vital Signs Temp 98.2 F 02/11/20 07:00 Pulse 88 02/11/20 07:00 Resp 18 02/11/20 07:00 BP 104/67 02/11/20 07:00 Pulse Ox 96 02/11/20 07:00 Intake & Output 02/10/20 02/11/20 02/11/20 18:59 06:59 18:59 Intake Total 2050 790 Output Total 95 1220 250 Balance 1955 -430 -250 Weight 66.451 kg 66.451 kg Intake: IV 0 250 0.9% Normal Saline 250 Oral 540 Output: Drainage 570 250 Left Lower Abdomen 265 120 Right Lower Abdomen 305 130 Urine 650 Estimated Blood Loss 95 Other: Voiding Method Toilet # Voids 1 - Labs CBC & Chem 7: 02/11/20 06:50 02/11/20 06:50 Labs: Abnormal Lab Results - Last 24 Hours (Table) 02/10/20 02/11/20 02/11/20 Range/Units 12:20 06:50 06:50 WBC 13.4 H 21.4 H (3.8-10.6) k/uL RBC 3.02 L (3.80-5.40) m/uL Hgb 9.6 L D (11.4-16.0) gm/dL Hct 28.9 L (34.0-46.0) % Neutrophils # 8.0 H 16.1 H (1.3-7.7) k/uL Sodium 132 L (137-145) mmol/L Creatinine 0.51 L (0.52-1.04) mg/dL Glucose 124 H (74-99) mg/dL <Malcolm Herring - Last Filed: 02/11/20 11:09> Subjective As above. Patient with drop in hemoglobin. Suspect some surgical site bleeding. JANE output was increased although for a while the tubes were kinked and there was no output. Abdominal examination reveals mild swelling at the incision site without significant hematoma formation. No significant ecchymosis thus far. Continue close observation for now. Repeat CBC with type and screen tomorrow. Objective - Vital Signs Vital signs: Vital Signs Temp 98.2 F 02/11/20 07:00 Pulse 88 02/11/20 07:00 Resp 18 02/11/20 07:00 BP 104/67 02/11/20 07:00 Pulse Ox 96 02/11/20 07:00 Intake & Output 02/10/20 02/11/20 02/11/20 18:59 06:59 18:59 Intake Total 2050 790 Output Total 95 1220 250 Balance 1955 -430 -250 Weight 66.451 kg 66.451 kg Intake: IV 2049 250 0.9% Normal Saline 250 Oral 540 Output: Drainage 570 250 Left Lower Abdomen 265 120 Right Lower Abdomen 305 130 Urine 650 Estimated Blood Loss 95 Other: Voiding Method Toilet # Voids 1 - Labs CBC & Chem 7: 02/11/20 06:50 02/11/20 06:50 Labs: Abnormal Lab Results - Last 24 Hours (Table) 02/10/20 02/11/20 02/11/20 Range/Units 12:20 06:50 06:50 WBC 13.4 H 21.4 H (3.8-10.6) k/uL RBC 3.02 L (3.80-5.40) m/uL Hgb 9.6 L D (11.4-16.0) gm/dL Hct 28.9 L (34.0-46.0) % Neutrophils # 8.0 H 16.1 H (1.3-7.7) k/uL Sodium 132 L (137-145) mmol/L Creatinine 0.51 L (0.52-1.04) mg/dL Glucose 124 H (74-99) mg/dL
[2020-02-11] MEDS: D5-0.9% NACL WITH KCL 20 MEQ/L 1,000 ML IV SCH ×2 (15:34→23:51)
[2020-02-11] MEDS ORDERED: ACETAMINOPHEN IV (For NPO) 1,000 MG in EMPTY BAG 1 BAG IVPB STA (16:04)
[2020-02-11 16:16] LABS: HCT 23.3 % (34.0-46.0); MCH 31.3 pg (25.0-35.0); MCHC 32.9 g/dL (31.0-37.0); MCV 95.1 fL (80.0-100.0); Mean Platelet Volume 7.8; Platelet Count 248 k/uL (150-450); RBC 2.45 m/uL (3.80-5.40); WBC 15.3 k/uL (3.8-10.6)
[2020-02-11 16:21] LABS: HGB 7.7 gm/dL (11.4-16.0)
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
[2020-02-11] MEDS ORDERED: SODIUM CHLORIDE 0.9% 500 ML 500 ML IV ONE (17:43)
[2020-02-11] MEDS ORDERED: HYDROmorphone 1 MG/ML 1 ML SYRINGE IVP ONE (20:21)
[2020-02-11] MEDS ORDERED: MIDAZOLAM 2 MG/2 ML VIAL ONE (20:55)
[2020-02-11] MEDS ORDERED: SUCCINYLCHOLINE CHLORIDE 100 MG/5 ML SYR IV ONE (20:55)
[2020-02-11] MEDS ORDERED: LACTATED RINGERS 1,000 ML IV ONE (20:55)
[2020-02-11] MEDS ORDERED: fentaNYL (PF) 50 MCG/ML 2 ML AMP ONE (20:55)
[2020-02-11] MEDS ORDERED: PROPOFOL 10 MG/ML 20 ML VIAL IV ONE (20:55)
--- NOTE | 2020-02-11 21:10 | P.PN ---
Progress Note - Text Progress Note Date: 02/11/20 I been in contact with the patient's nursing staff throughout the day. The patient's drain output did decrease but did not diminish as much as I would have liked. Her hemoglobin did drop was not entirely unexpected. She did receive 1 unit of blood. Overall the patient has not required a significant amount of narcotics however the patient was stating that the pressure along the incision seemed to be increasing as the day progresses. I had scheduled her for drainage of hematoma tomorrow but given the increasing subjective complaints decided to proceed with drainage of hematoma this evening. Risks of bleeding, infection, recurrent hematoma, recurrent hernia, dehiscence reviewed. She understands and wishes to proceed.
[2020-02-11] MEDS ORDERED: SODIUM CHLORIDE 0.9% 100 ML with ceFAZolin 2,000 MG IV ONE ×2 (21:16)
--- NOTE | 2020-02-11 22:02 | P.OP ---
Date of Procedure: 02/11/20 Procedure(s) Performed: PREOPERATIVE DIAGNOSIS: Abdominal wall hematoma POSTOPERATIVE DIAGNOSIS: Same PROCEDURE: Evacuation abdominal wall hematoma SURGEON: Nima EBL: 10 mL, 800 mL clot evacuated ANESTHESIA: Gen. COMPLICATIONS: None OPERATIVE PROCEDURE: Patient placed under general anesthesia. Abdomen prepped and draped sterilely. [place] previously placed were removed. Entrance through the subcutaneous tissues took place bluntly. The previous Vicryl's were excised. A moderate sized hematoma cavity was identified and evacuated. I would estimate approximately 7 800 mL of old clot was removed. As I started to irrigate the exposed fascia I did notice a single area of bleeding from a deblocker to the left of midline at about the level of the umbilicus. This was easily controlled using a single [id number] 3-0 Vicryl suture. No additional areas of bleeding was seen. Further irrigation took place. The drains were left in place. All clot had been removed at this point. The subcutaneous tissues were closed using 20 and 3-0 Vicryl sutures. Skin was again closed using selwyn. Sterile dressings were applied. DISPOSITION: Stable to recovery room
[2020-02-11] MEDS ORDERED: ONDANSETRON 4 MG/2 ML VIAL IVP ONE (22:27)
[2020-02-11] MEDS: HYDROmorphone 0.5 MG/0.5 ML SYRINGE IVP PRN (22:30)
[2020-02-12 02:48] VITALS: RESP 20
[2020-02-12 08:13] LABS: African American GFR (CKD) >90 (>60 ml/min/1.73 sqM); Anion Gap 1 mmol/L; Blood Urea Nitrogen 4 mg/dL (7-17); Calcium 8.2 mg/dL (8.4-10.2); Carbon Dioxide 23 mmol/L (22-30); Chloride 113 mmol/L (98-107); Glucose 124 mg/dL (74-99); Non-African American GFR(CKD) >90 (>60 ml/min/1.73 sqM); Potassium 4.5 mmol/L (3.5-5.1); Sodium 137 mmol/L (137-145)
[2020-02-12 08:18] LABS: Basophils # (A) 0.1 k/uL (0-0.2); Basophils % (A) 1 %; Eosinophils # (A) 0.4 k/uL (0-0.7); Eosinophils % (A) 3 %; HGB 8.9 gm/dL (11.4-16.0); Lymphocytes # (A) 2.7 k/uL (1.0-4.8); Lymphocytes % (A) 20 %; MCH 31.7 pg (25.0-35.0); MCHC 33.1 g/dL (31.0-37.0); MCV 95.9 fL (80.0-100.0); Mean Platelet Volume 7.9; Monocytes % (A) 7 %; Neutrophils # (A) 9.6 k/uL (1.3-7.7); Neutrophils % (A) 69 %; Platelet Count 229 k/uL (150-450); RBC 2.82 m/uL (3.80-5.40); RDW 13.9 % (11.5-15.5)
[2020-02-12] MEDS: HEPARIN SODIUM,PORCINE 5,000 UNIT/ML 1 ML VIAL SQ SCH ×2 (12:54→15:16)
[2020-02-12] MEDS: D5-0.9% NACL WITH KCL 20 MEQ/L 1,000 ML IV SCH ×2 (12:54→15:16)
[2020-02-12] MEDS: PANTOPRAZOLE 40 MG/10 ML VIAL IV SCH (12:54)
[2020-02-12] MEDS: busPIRone HCl 10 MG TAB PO SCH ×2 (12:54→15:16)
[2020-02-12] MEDS: SERTRALINE 50 MG TAB PO SCH (12:55)
--- NOTE | 2020-02-12 14:39 | P.PN ---
Subjective patient's postoperative day 2 incisional hernia repair still having significant amount of pain in pass gas yet sluggish bowel sounds.leukocytosis improving. Constitutional: Denied any fatigue denied any fever. Cardio vascular: denied any chest pain, palpitations Gastrointestinal denied any nausea vomiting Pulmonary: Denied any shortness of breath cough Neurologic denied any new focal deficits All inpatient medications were reviewed and appropriate changes in these medications as dictated in the interval history and assessment and plan. Objective - Vital Signs Vital signs: Vital Signs Temp 99.8 F H 02/12/20 07:00 Pulse 103 H 02/12/20 08:00 Resp 20 02/12/20 08:00 BP 106/71 02/12/20 07:00 Pulse Ox 90 L 02/12/20 07:00 Intake & Output 02/11/20 02/12/20 02/12/20 18:59 06:59 18:59 Intake Total 540 1260 320 Output Total 1915 400 60 Balance -1375 860 260 Intake: IV 950 Oral 540 320 Blood Product 0 310 Rc As-1 Unit 0 310 [id number] Output: Drainage 390 390 60 Left Lower Abdomen 210 210 10 Right Lower Abdomen 180 180 50 Urine 1525 Estimated Blood Loss 10 Other: Voiding Method Toilet Toilet Toilet # Voids 2 - Exam PHYSICAL EXAMINATION: GENERAL: The patient is alert and oriented x3, not in any acute distress. Well developed, well nourished. HEENT: Pupils are round and equally reacting to light. EOMI. No scleral icterus. No conjunctival pallor. Normocephalic, atraumatic. No pharyngeal erythema. No thyromegaly. CARDIOVASCULAR: S1 and S2 present. No murmurs, rubs, or gallops. PULMONARY: Chest is clear to auscultation, no wheezing or crackles. ABDOMEN: JANE drain with bloody fluid abdominal binder in place absent are sluggish bowel sounds MUSCULOSKELETAL: No joint swelling or deformity. EXTREMITIES: No cyanosis, clubbing, or pedal edema. NEUROLOGICAL: Gross neurological examination did not reveal any focal deficits. SKIN: No rashes. - Labs CBC & Chem 7: 02/12/20 07:46 02/12/20 07:46 Labs: Abnormal Lab Results - Last 24 Hours (Table) 02/11/20 02/11/20 02/12/20 Range/Units 16:03 16:03 07:46 WBC 15.3 H 14.0 H (3.8-10.6) k/uL RBC 2.45 L 2.82 L (3.80-5.40) m/uL Hgb 7.7 L D 8.9 L (11.4-16.0) gm/dL Hct 23.3 L 27.0 L (34.0-46.0) % Neutrophils # 9.6 H (1.3-7.7) k/uL Chloride (98-107) mmol/L BUN (7-17) mg/dL Creatinine (0.52-1.04) mg/dL Glucose (74-99) mg/dL Calcium (8.4-10.2) mg/dL Crossmatch See Detail 02/12/20 Range/Units 07:46 WBC (3.8-10.6) k/uL RBC (3.80-5.40) m/uL Hgb (11.4-16.0) gm/dL Hct (34.0-46.0) % Neutrophils # (1.3-7.7) k/uL Chloride 113 H (98-107) mmol/L BUN 4 L (7-17) mg/dL Creatinine 0.45 L (0.52-1.04) mg/dL Glucose 124 H (74-99) mg/dL Calcium 8.2 L (8.4-10.2) mg/dL Crossmatch Assessment and Plan Plan: -leukocytosis reactive without any clinical evidence of infection. -Hyponatremia secondary to D5 half-normal saline which we'll use should to D5 normal saline with the potassium therapy developed lites tomorrow -Hypotension and tachycardia secondary to acute blood loss anemia intravascular depletion -Acute blood loss anemia from surgery. -hyperlipidemia -History of colostomy and reversal of colostomy in the past
[2020-02-12] MEDS: NICOTINE 14MG/24HR PATCH TRANSDERM SCH (15:11)
[2020-02-12] MEDS: HYDROcodone/APAP 5-325MG 1 EACH TAB PO PRN (15:15)
--- NOTE | 2020-02-12 18:57 | PN ---
PROGRESS NOTE INTERVAL HISTORY: Patient doing better today. Pain is improved. T-max 99.8. Mild tachycardia. Today's hemoglobin 8.9. JANE drain more serosanguineous at this time with decreased output compared to yesterday. The patient would like to go home today, but realizes it is probably better for her to be observed overnight. Abdomen: Soft, nondistended. Incision dressing clean and dry, JANE drain serosanguineous. IMPRESSION/PLAN: Patient doing well after drainage of postoperative hematoma. Gradually increase ambulation. Diet as tolerated. Anticipate discharge tomorrow. MMODL / IJN: [id number] /
[2020-02-13] MEDS: LACTATED RINGERS 1,000 ML IV SCH ×2 (03:36→05:24)
[2020-02-13] MEDS: busPIRone HCl 10 MG TAB PO SCH ×2 (03:37→08:00)
[2020-02-13] MEDS: SERTRALINE 50 MG TAB PO SCH ×2 (03:37→08:00)
[2020-02-13] MEDS: HEPARIN SODIUM,PORCINE 5,000 UNIT/ML 1 ML VIAL SQ SCH ×2 (03:37→08:00)
[2020-02-13] MEDS: HYDROcodone/APAP 5-325MG 1 EACH TAB PO PRN (05:24)
[2020-02-13 07:09] LABS: Basophils % (A) 0 %; Eosinophils # (A) 0.5 k/uL (0-0.7); Eosinophils % (A) 3 %; HGB 8.4 gm/dL (11.4-16.0); Lymphocytes # (A) 3.4 k/uL (1.0-4.8); Lymphocytes % (A) 24 %; MCH 31.6 pg (25.0-35.0); MCHC 33.7 g/dL (31.0-37.0); MCV 93.9 fL (80.0-100.0); Mean Platelet Volume 7.9; Monocytes # (A) 0.9 k/uL (0-1.0); Monocytes % (A) 6 %; Neutrophils # (A) 9.1 k/uL (1.3-7.7); Neutrophils % (A) 65 %; Platelet Count 262 k/uL (150-450); RBC 2.66 m/uL (3.80-5.40); RDW 14.2 % (11.5-15.5); WBC 14.1 k/uL (3.8-10.6)
[2020-02-13] MEDS: PANTOPRAZOLE 40 MG/10 ML VIAL IV SCH (08:01)
[2020-02-13] MEDS: NICOTINE 14MG/24HR PATCH TRANSDERM SCH (08:01)
[2020-02-13] MEDS: D5-0.9% NACL WITH KCL 20 MEQ/L 1,000 ML IV SCH (08:01)
--- NOTE | 2020-02-13 14:08 | P.PN ---
Subjective Progress Note Date: 02/13/20 Principal diagnosis: This is a 54-year-old female who was recently admitted for incisional hernia repair and is postop day #3. We are following with surgery for medical management. Patient continues to have some mild abdominal discomfort although is passing gas now and denies any bowel movements at this time. Patient continues to have mild leukocytosis which is improving. Patient instructed to follow-up with primary care provider in a few days for repeat labs to monitor. P atient states she is tolerating diet with no reports of nausea or vomiting noted. Currently no reports of chest pain, shortness of breath, or palpitations. Patient has been up and walking to the bathroom with no difficulties and denies any dysuria or retention. Objective - Vital Signs Vital signs: Vital Signs Temp 98.5 F 02/13/20 07:00 Pulse 90 02/13/20 08:01 Resp 20 02/13/20 08:01 BP 132/84 02/13/20 07:00 Pulse Ox 93 L 02/13/20 07:00 Intake & Output 02/12/20 02/13/20 02/13/20 18:59 06:59 18:59 Intake Total 1070 600 240 Output Total 145 188 110 Balance 925 412 130 Intake: Intake, IV Titration 750 600 Amount D5-0.9% NaCl with KCl 20 700 550 Meq/l 1,000 ml @ 100 mls/ hr IV .Q10H FAYE Rx#: [id number] ceFAZolin 2 gm In Sodium 50 50 Chloride 0.9% 50 ml @ 100 mls/hr IVPB Q8HR FAYE Rx# :[id number] Oral 320 240 Output: Drainage 145 188 110 Left Lower Abdomen 35 50 55 Right Lower Abdomen 110 138 55 Other: Voiding Method Toilet Toilet Toilet # Voids 2 - Exam GENERAL: The patient is alert and oriented x3, not in any acute distress. Well developed, well nourished. HEENT: Pupils are round and equally reacting to light. EOMI. No scleral icterus. No conjunctival pallor. Normocephalic, atraumatic. No pharyngeal erythema. No thyromegaly. CARDIOVASCULAR: S1 and S2 present. No murmurs, rubs, or gallops. PULMONARY: Chest is clear to auscultation, no wheezing or crackles. ABDOMEN: JANE drain with bloody fluid, abdominal binder in place, Positive bowel sounds MUSCULOSKELETAL: No joint swelling or deformity. EXTREMITIES: No cyanosis, clubbing, or pedal edema. NEUROLOGICAL: Gross neurological examination did not reveal any focal deficits. SKIN: No rashes. - Labs CBC & Chem 7: 02/13/20 06:43 02/12/20 07:46 Labs: Abnormal Lab Results - Last 24 Hours (Table) 02/13/20 Range/Units 06:43 WBC 14.1 H (3.8-10.6) k/uL RBC 2.66 L (3.80-5.40) m/uL Hgb 8.4 L (11.4-16.0) gm/dL Hct 25.0 L (34.0-46.0) % Neutrophils # 9.1 H (1.3-7.7) k/uL Assessment and Plan Assessment: -leukocytosis reactive without any clinical evidence of infection. -Hyponatremia secondary to D5 half-normal saline, Improved -Hypotension and tachycardia secondary to acute blood loss anemia intravascular depletion -Acute blood loss anemia from surgery. -hyperlipidemia -History of colostomy and reversal of colostomy in the past Plan: Continue current medications, management, and symptomatic treatment. Patient is passing gas but has not had a bowel movement yet. Will continue to follow along with surgery. Patient states she is going home today. Further recommendations to follow.
--- NOTE | 2020-02-13 17:45 | P.DS ---
Providers Date of admission: 02/11/20 12:04 Expected date of discharge: 02/13/20 Attending physician: Malcolm Herring Consults: 02/10/20 17:11 Consult Physician Routine Consulting Provider: Uli Priest Consult Reason/Comments: med mgmt Do you want consulting provider notified?: Yes Primary care physician: [facility] [place]: Patient admitted for repair large incisional hernia. Patient underwent operative repair with mesh. Multiple fascial defects were found. Postoperatively the patient was found to have increased bloody drainage from her JANE drains and a drop in hemoglobin. Clinical diagnosis of surgical site bleeding made at that time. We were watching the patient's drain output as the patient on the day following surgery describe increasing pressure and pain. She was taken to the operating room with evacuation of hematoma. A small area of bleeding was seen and controlled using a single 3-0 Vicryl stitch. Postoperatively the patient has done well. She did receive 1 unit PRBC transfusion. She is doing well today. She would like to go home. She is tolerating her diet. We'll send home with both drains in place. Follow-up next week. Plan - Discharge Summary Discharge Rx Participant: Yes New Discharge Prescriptions: New Hydrocodone/Acetaminophen [[place] 5-325] 1 tab PO Q6HR PRN 3 Days #10 tab PRN Reason: Pain Continue busPIRone HCl [Buspar] 10 mg PO TID Antihistamine(Name Unknown) 1 tab PO DAILY Sertraline [Zoloft] 50 mg PO BID Multivitamins, Thera [Multivitamin (formulary)] 1 tab PO DAILY Discontinued Ibuprofen 800 mg PO Q8H PRN PRN Reason: Pain Discharge Medication List busPIRone HCl [Buspar] 10 mg PO TID 06/03/19 [History] Antihistamine(Name Unknown) 1 tab PO DAILY 08/02/19 [History] Multivitamins, Thera [Multivitamin (formulary)] 1 tab PO DAILY 08/02/19 [History] Sertraline [Zoloft] 50 mg PO BID 08/02/19 [History] Hydrocodone/Acetaminophen [[place] 5-325] 1 tab PO Q6HR PRN 3 Days #10 tab 02/13/20 [Rx] Follow up Appointment(s)/Referral(s): Malcolm Herring MD [Medical Doctor] - 02/19/20 2:15 pm Patient Instructions/Handouts: Incisional Hernia (DC) Activity/Diet/Wound Care/Special Instructions: Activity Limited until follow-up Follow-up with surgery in the outpatient setting Follow-up with primary care provider Continue current diet Discharge Disposition: HOME SELF-CARE
[2020-02-14 05:18] VITALS: BP 132/84; PULSE 90; TEMP 98.5
== END 2020-02-13 14:38 | disposition home or self-care (01) ==
LOC: OR 11:29 → 4SSUR 18:50 → OR 02-11 12:04 → 4SSUR 02-11 12:04
PROVIDERS: ADMIT Surgery; ATTEND Surgery
DX: K43.2 Incisional hernia without obstruction or gangrene (principal); D62 Acute posthemorrhagic anemia; K91.870 Postprocedural hematoma of a digestive system organ or structure following a digestive system procedure; J44.9 Chronic obstructive pulmonary disease, unspecified; E78.5 Hyperlipidemia, unspecified; E87.1 Hypo-osmolality and hyponatremia; G43.909 Migraine, unspecified, not intractable, without status migrainosus; F41.9 Anxiety disorder, unspecified; F32.9 Major depressive disorder, single episode, unspecified; F17.210 Nicotine dependence, cigarettes, uncomplicated; F10.10 Alcohol abuse, uncomplicated; D72.829 Elevated white blood cell count, unspecified; Z79.899 Other long term (current) drug therapy; Z88.0 Allergy status to penicillin; Z88.8 Allergy status to other drugs, medicaments and biological substances; Z85.828 Personal history of other malignant neoplasm of skin; Z90.49 Acquired absence of other specified parts of digestive tract; Z90.710 Acquired absence of both cervix and uterus; Z87.820 Personal history of traumatic brain injury; Z86.010 Personal history of colon polyps; Z98.890 Other specified postprocedural states; Z80.3 Family history of malignant neoplasm of breast; Z83.3 Family history of diabetes mellitus; Z81.1 Family history of alcohol abuse and dependence
CPT/HCPCS: 49560; 49568; 36430; 35840; 86900; 86901; 80048 ×2; 83735; 84100; 85025 ×4; 85027; 86850; 86920; 88302; G0378 ×3; C1781; P9016; S4990 ×3; J2250 ×2; J1200; J1644 ×4; J1100; J2710; J0690 ×5; J2405 ×2; J2001; J3010 ×2; J1170 ×4; J2795; J0131; J2370; J0330; J2704 ×2; C9113 ×2

== ENCOUNTER → 2020-04-27 | Outpatient (CLI) | payer OTHER ==
--- NOTE | 2020-04-27 18:19 | CT ---
EXAMINATION TYPE: CT pelvis w con DATE OF EXAM: 04/27/2020 COMPARISON: 06/11/2019 HISTORY: Specified disease of anus/rectum. Pt states she feels a mass between legs. CT DLP: 523 mGycm Automated exposure control for dose reduction was used. CONTRAST: CT scan of the pelvis is performed with IV Contrast, patient injected with 100 mL of Isovue 300. FINDINGS-thickening of the anterior rectus muscle and periumbilical region may be postsurgical should be correlated clinically. A prior exam showed a large hernia in the region of thickening and therefo re scar is favored. This is only partially included on exam. Visualized bowel gas pattern nonspecific. Soft tissue nodule in the left adnexa measures 2.8 x 2 cm and is stable from prior exam. Correlate fo r previous hysterectomy. This could represent a lymph node or retained ovary correlate with surgical history. Severe degenerative disc disease L5-S1 with suspected canal stenosis, grade 1 anterolisthesis and sev ere bilateral foraminal encroachment. No free fluid. In the right perineum there is a soft tissue mass measuring 4 x 2 cm. Extends to the r egion of the vaginal cuff. IMPRESSION: 1. In the right perineum there is a soft tissue mass measuring 4 x 2 cm. Extends to the region of the vaginal cuff. Correlate clinically. 2. There is a 2.8 x 2 cm mass in the left adnexa which could represent a residual ovary stable from t he prior exam. Lymphadenopathy not excluded, correlate with surgical history, CA 125, and ultrasound as clinically warranted.
== END | disposition home or self-care (01) ==
LOC: RADCTMAIN 14:42
PROVIDERS: ATTEND Family Medicine
DX: M79.89 Other specified soft tissue disorders (principal)
CPT/HCPCS: 72193; Q9967

== ENCOUNTER 2021-05-14 07:04 | Day surgery (SDC) | payer OTHER ==
[2021-05-12 14:01] VITALS: BMI 26.2
[~2021-05-14 07:04] MED LIST changes: -ACETAMINOPHEN TAB 500 MG TAB PO ONE; +ACETAMINOPHEN TAB 500 MG TAB PO PRN; -DEXAMETHASONE SOD PHOSPHATE 10 MG/ML 1 ML VIAL IV ONE; +DEXAMETHASONE SOD PHOSPHATE 4 MG/ML 1 ML VIAL IV ONE; -HEPARIN SODIUM,PORCINE 5,000 UNIT/ML 1 ML VIAL SQ ONE; +HEPARIN SODIUM,PORCINE/PF 5,000 UNIT/0.5 ML SYRINGE SQ PRN; +HYDROmorphone 0.5 MG/0.5 ML SYRINGE IVP PRN; +LACTATED RINGERS 1,000 ML IV SCH; +SCOPOLAMINE 1.5MG/72HR PATCH TRANSDERM ONE
[2021-05-14 08:06] LABS: Glucose,Whole Blood 113 mg/dL (75-99)
[2021-05-14] MEDS ORDERED: ACETAMINOPHEN TAB 500 MG TAB ONE (08:10)
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
[2021-05-14] MEDS ORDERED: PROPOFOL 10 MG/ML 20 ML VIAL IV ONE (08:45)
[2021-05-14] MEDS ORDERED: fentaNYL (PF) 50 MCG/ML 2 ML AMP ONE (08:45)
[2021-05-14] MEDS ORDERED: LIDOCAINE 1% INJ 10MG/ML (20 ML MDV) ONE (08:45)
[2021-05-14] MEDS ORDERED: SUCCINYLCHOLINE CHLORIDE 100 MG/5 ML SYR IV ONE (08:45)
[2021-05-14] MEDS ORDERED: NEOSTIGMINE 1 MG/ML 10 ML VIAL ONE (08:45)
[2021-05-14] MEDS ORDERED: PHENYLEPHRINE-0.9% NACL SYG 1,000 MCG/10 ML SYRINGE ONE (08:45)
[2021-05-14] MEDS ORDERED: GLYCOPYRROLATE 0.2 MG/ML 2 ML VIAL ONE (08:45)
[2021-05-14] MEDS ORDERED: MIDAZOLAM 2 MG/2 ML VIAL ONE (08:45)
[2021-05-14] MEDS ORDERED: ROCURONIUM 10 MG/ML (5 ML VIAL) IV ONE (08:45)
[2021-05-14] MEDS ORDERED: ALBUTEROL HFA INHALER INHALATION ONE (08:45)
--- NOTE | 2021-05-14 09:55 | P.OP ---
Date of Procedure: 05/14/21 Procedure(s) Performed: PREOPERATIVE DIAGNOSIS: Reducible incisional hernia POSTOPERATIVE DIAGNOSIS: Same PROCEDURE: Repair reducible incisional hernia with mesh SURGEON: Dr. Herring ANESTHESIA: General OPERATIVE PROCEDURE DETAILS: Patient placed on the operating table in the supine position. Abdomen was prepped and draped in usual sterile fashion. The previous incision was re-incised superiorly. Dissection through the subcutaneous tissues took place using electrocautery. The hernia sac was carefully dissected down to the level of the fascia where it was excised. The patient had a single fascial defect measuring 2.5 x 2 cm. The preperitoneal space was carefully dissected. We never entered the peritoneal cavity. The previous mesh was identified inferior to the fascial defect by 1 cm or so. I was able to dissect deep to the previous preperitoneal mesh. Once we had adequate 6.4 cm ventral ex mesh was placed in the preperitoneal space. This was sutured to the fascia using interrupted trans-fascial 0 Ethibond sutures. Following that the midline fascia was reapproximated using horizontal mattress interrupted 0 Ethibond sutures. The folding edge was tacked down using interrupted 0 Ethibond sutures as well. The subcutaneous tissues were closed using 20 and 3-0 Vicryl sutures. The skin was closed using a running 4-0 Monocryl subcuticular suture. Skin glue and sterile dressings were applied. HERNIA CHARACTERISTICS: Length: 2 cm Width: 2.5 cm Type: Reducible incisional TYPE OF MESH USED: 6.4 cm ventral ex LOCATION OF MESH: [place] FIXATION: Trans-fascial 0 Ethibond sutures DISPOSITION: Stable to recovery room
[2021-05-14] MEDS ORDERED: ALBUTEROL NEBULIZED 2.5 MG/3 ML INHALATION ONE ×2 (10:07→10:13)
[2021-05-14 10:13] VITALS: TEMP 97
[2021-05-14 11:15] VITALS: BP 124/75; PULSE 77; RESP 16
[2021-05-14] MEDS ORDERED: ACETAMINOPHEN TAB 325 MG TAB PO SCH (12:00)
[2021-05-14] MEDS ORDERED: IBUPROFEN 600 MG TAB PO SCH (13:00)
== END 2021-05-14 11:44 | disposition home or self-care (01) ==
LOC: OR 07:04
PROVIDERS: ATTEND Surgery
DX: K43.2 Incisional hernia without obstruction or gangrene (principal); E78.5 Hyperlipidemia, unspecified; J44.9 Chronic obstructive pulmonary disease, unspecified; G43.909 Migraine, unspecified, not intractable, without status migrainosus; F17.200 Nicotine dependence, unspecified, uncomplicated; F41.9 Anxiety disorder, unspecified; F32.9 Major depressive disorder, single episode, unspecified; Z85.828 Personal history of other malignant neoplasm of skin; Z87.820 Personal history of traumatic brain injury; Z86.14 Personal history of Methicillin resistant Staphylococcus aureus infection; Z86.19 Personal history of other infectious and parasitic diseases; Z90.49 Acquired absence of other specified parts of digestive tract; Z98.890 Other specified postprocedural states; Z90.710 Acquired absence of both cervix and uterus; Z97.2 Presence of dental prosthetic device (complete) (partial); Z83.3 Family history of diabetes mellitus; Z81.1 Family history of alcohol abuse and dependence; Z80.3 Family history of malignant neoplasm of breast; Z79.899 Other long term (current) drug therapy; Z88.0 Allergy status to penicillin; Z88.8 Allergy status to other drugs, medicaments and biological substances
CPT/HCPCS: 49560; 49568; C1781; J2250; J1100; J2710; J0690; J2405; J2001; J3010; J2370; J0330; J2704; J1170; J1644

== ENCOUNTER → 2021-08-30 | Outpatient (CLI) | payer OTHER ==
--- NOTE | 2021-08-30 11:28 | MM ---
Reason for exam: additional evaluation requested from prior study. Last mammogram was performed 2 years and 9 months ago. History: Patient is postmenopausal and has history of other cancer at age 55. Family history of breast cancer in mother at age 52. Physical Findings: Nurse did not find any significant physical abnormalities on exam. MG Diagnostic Mammo w CAD FLOR Bilateral CC and MLO view(s) were taken. Prior study comparison: November 14, 2018, right breast MG diagnostic mammo RT w CAD. May 15, 2018, right breast MG work up mamm w CAD RT. The breast tissue is heterogeneously dense. This may lower the sensitivity of mammography. There are benign appearing round calcifications bilaterally. Right mediport catheter axilla. These results were verbally communicated with the patient and result sheet given to the patient on 08/30/21. ASSESSMENT: Benign, BI-RAD 2 RECOMMENDATION: Routine screening mammogram of both breasts in 1 year.
== END | disposition home or self-care (01) ==
LOC: RADMAMWWP 10:32
PROVIDERS: ATTEND Family Medicine
DX: R92.8 Other abnormal and inconclusive findings on diagnostic imaging of breast (principal)
CPT/HCPCS: 77066

== ENCOUNTER 2022-12-18 03:44 | Inpatient (IN) | payer MEDICAID, OTHER ==
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
[2022-12-18] MEDS ORDERED: ACETAMINOPHEN TAB 325 MG TAB PO PRN (15:48)
[2022-12-18] MEDS ORDERED: diphenhydrAMINE 25 MG CAP PO PRN (15:48)
[2022-12-18] MEDS ORDERED: MAGNESIUM HYDROXIDE 2,400 MG/10 ML CUP PO PRN (15:48)
[2022-12-18] MEDS ORDERED: MAG HYDROX/AL HYDROX/SIMETH 30 ML CUP PO PRN (15:48)
[2022-12-18] MEDS ORDERED: HALOPERIDOL LACTATE 5 MG/ML 1 ML VIAL IM PRN (15:54)
[2022-12-18] MEDS ORDERED: LORazepam 2 MG/ML INJ IM PRN (15:54)
[2022-12-18] MEDS: LORazepam 1 MG TAB PO PRN ×2 (16:32→21:21)
[2022-12-18 21:35] LABS: Urine Alcohol Negative (Negative); Urine Barbiturate Negative (Negative); Urine Cocaine Negative (Negative); Urine Methadone Negative (Negative); Urine Opiates Negative (Negative); Urine Phencyclidine Negative (Negative)
[2022-12-18] MEDS: NICOTINE 14MG/24HR PATCH TRANSDERM SCH (21:36)
[2022-12-19 06:32] VITALS: RESP 16
[2022-12-19 08:00] LABS: Basophils # (A) 0.1 k/uL (0-0.2); Basophils % (A) 1 %; Eosinophils # (A) 0.1 k/uL (0-0.7); Eosinophils % (A) 2 %; HCT 45.7 % (34.0-46.0); HGB 15.9 gm/dL (11.4-16.0); Lymphocytes # (A) 2.1 k/uL (1.0-4.8); Lymphocytes % (A) 24 %; MCH 31.9 pg (25.0-35.0); MCHC 34.7 g/dL (31.0-37.0); MCV 91.8 fL (80.0-100.0); Mean Platelet Volume 8.7; Monocytes # (A) 0.8 k/uL (0-1.0); Monocytes % (A) 9 %; Neutrophils # (A) 5.5 k/uL (1.3-7.7); Neutrophils % (A) 62 %; Platelet Count 348 k/uL (150-450); RBC 4.98 m/uL (3.80-5.40); RDW 13.3 % (11.5-15.5); WBC 8.8 k/uL (3.8-10.6)
[2022-12-19 09:48] LABS: ALT 22 U/L (4-34); AST 21 U/L (14-36); African American GFR (CKD) >90 (>60 ml/min/1.73 sqM); Alkaline Phosphatase 118 U/L (38-126); Anion Gap 11 mmol/L; Blood Urea Nitrogen 13 mg/dL (7-17); Calcium 9.3 mg/dL (8.4-10.2); Carbon Dioxide 19 mmol/L (22-30); Chloride 107 mmol/L (98-107); Glucose 156 mg/dL (74-99); Non-African American GFR(CKD) >90 (>60 ml/min/1.73 sqM); Potassium 4.5 mmol/L (3.5-5.1); Sodium 137 mmol/L (137-145); Total Bilirubin 0.6 mg/dL (0.2-1.3); Total Protein 6.9 g/dL (6.3-8.2)
[2022-12-19] MEDS: LORazepam 1 MG TAB PO PRN (11:12)
[2022-12-19] MEDS: NICOTINE 14MG/24HR PATCH TRANSDERM SCH (11:12)
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
[2022-12-19 17:41] LABS: Chol/HDL Ratio 7.54 Ratio
--- NOTE | 2022-12-19 18:11 | P.HP ---
Psychiatric H&P - . H&P Date: 12/19/22 History & Physical: Allergies Allergy/AdvReac Type Severity Reaction Status Date / Time Penicillins Allergy Unknown Verified 12/18/22 16:43 Childhood phenobarbital Allergy Unknown Verified 12/18/22 16:43 Childhood Vital Signs Temp 97.8 F 12/19/22 06:31 Pulse 79 12/19/22 06:31 Resp 16 12/19/22 06:31 BP 109/77 12/19/22 06:31 Pulse Ox 98 12/19/22 06:31 FiO2 Intake & Output 12/18/22 12/19/22 12/19/22 18:59 06:59 18:59 Weight 60.5 kg Laboratory Last Values WBC 8.8 k/uL (3.8-10.6) 12/19/22 07:00 RBC 4.98 m/uL (3.80-5.40) 12/19/22 07:00 Hgb 15.9 gm/dL (11.4-16.0) 12/19/22 07:00 Hct 45.7 % (34.0-46.0) 12/19/22 07:00 MCV 91.8 fL (80.0-100.0) 12/19/22 07:00 MCH 31.9 pg (25.0-35.0) 12/19/22 07:00 MCHC 34.7 g/dL (31.0-37.0) 12/19/22 07:00 RDW 13.3 % (11.5-15.5) 12/19/22 07:00 Plt Count 348 k/uL (150-450) 12/19/22 07:00 MPV 8.7 12/19/22 07:00 Neutrophils % 62 % 12/19/22 07:00 Lymphocytes % 24 % 12/19/22 07:00 Monocytes % 9 % 12/19/22 07:00 Eosinophils % 2 % 12/19/22 07:00 Basophils % 1 % 12/19/22 07:00 Neutrophils # 5.5 k/uL (1.3-7.7) 12/19/22 07:00 Lymphocytes # 2.1 k/uL (1.0-4.8) 12/19/22 07:00 Monocytes # 0.8 k/uL (0-1.0) 12/19/22 07:00 Eosinophils # 0.1 k/uL (0-0.7) 12/19/22 07:00 Basophils # 0.1 k/uL (0-0.2) 12/19/22 07:00 Manual Slide Review Performed 12/19/22 07:00 Sodium 137 mmol/L (137-145) 12/19/22 08:54 Potassium 4.5 mmol/L (3.5-5.1) 12/19/22 08:54 Chloride 107 mmol/L (98-107) 12/19/22 08:54 Carbon Dioxide 19 mmol/L (22-30) L 12/19/22 08:54 Anion Gap 11 mmol/L 12/19/22 08:54 BUN 13 mg/dL (7-17) 12/19/22 08:54 Creatinine 0.56 mg/dL (0.52-1.04) 12/19/22 08:54 Est GFR (CKD-EPI)AfAm >90 (>60 ml/min/1.73 sqM) 12/19/22 08:54 Est GFR (CKD-EPI)NonAf >90 (>60 ml/min/1.73 sqM) 12/19/22 08:54 Glucose 156 mg/dL (74-99) H 12/19/22 08:[address] Glu mg/dL 118 12/19/22 07:05 Hemoglobin A1c 5.7 % (0.0-6.0) 12/19/22 07:05 Calcium 9.3 mg/dL (8.4-10.2) 12/19/22 08:54 Total Bilirubin 0.6 mg/dL (0.2-1.3) 12/19/22 08:54 AST 21 U/L (14-36) 12/19/22 08:54 ALT 22 U/L (4-34) 12/19/22 08:54 Alkaline Phosphatase 118 U/L (38-126) 12/19/22 08:54 Total Protein 6.9 g/dL (6.3-8.2) 12/19/22 08:54 Albumin 4.0 g/dL (3.5-5.0) 12/19/22 08:54 Triglycerides 214.00 mg/dL (0.00-149.00) H 12/19/22 08:54 Cholesterol 273.00 mg/dL (0.00-200.00) H 12/19/22 08:54 LDL Cholesterol, Calc 194.0 mg/dL (0.0-131.0) H 12/19/22 08:54 VLDL Cholesterol, Calc 42.80 mg/dL (5.00-40.00) H 12/19/22 08:54 HDL Cholesterol 36.20 mg/dL (40.00-60.00) L 12/19/22 08:54 Cholesterol/HDL Ratio 7.54 Ratio 12/19/22 08:54 TSH 1.740 mIU/L (0.465-4.680) 12/19/22 08:54 Urine Opiates Screen Negative (Negative) 12/18/22 10:25 Urine Methadone Screen Negative (Negative) 12/18/22 10:25 Ur Propoxyphene Screen Negative (Negative) 12/18/22 10:25 Urine Barbiturates Negative (Negative) 12/18/22 10:25 Ur Phencyclidine Scrn Negative (Negative) 12/18/22 10:25 Ur Amphetamine Screen Negative (Negative) 12/18/22 10:25 U Benzodiazepines Scrn Negative (Negative) 12/18/22 10:25 Urine Cocaine Screen Negative (Negative) 12/18/22 10:25 U Cannabinoids Screen Negative (Negative) 12/18/22 10:25 Urine Alcohol Negative (Negative) 12/18/22 10:25 Coronavirus (PCR) Not Detected (Not Detectd) 12/18/22 10:25 12/19/22 17:48 Psychiatric consultation and admisison note She was seen around December 17-December 18 by the [facility] staff : with Psychiatric assessment entered in the panel . She was also seen by [facility] medical staff for any outsnading medical problem priror to transfer to the [facility] as of December 18, 2022. She was admitted to [facility] and was seen by me around 9 am ; she was highly drowsy with her curling up inher bed. complaining of unable to sleep. She was later on seen by me in late afternoon to corroborate on her early history HPI; Unable to sleep since off Rx HPI, Her history was somewhat different from ER account : she was seen as "crazy and insomnia was her primary complaint. At other time, she dated the onset ofher problem to be related entirely to her change or recent start of her medications. She cited she was on Buspar, Sertraline and evne trazone as prescribed by Dr. Gerald Hall at the psychiatric clinic. I don't have any notes from her psychiatrist to clarify whether she may have misunderstand the instructions given to her. She stated that for 10 years, she was on differnet anti-depressants regualry, but did not cite insomnia as her primary complaint. 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 SHe later on indciat ed she lost her who committed suicidae many years. ago. 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 She complained that the combination of SSRI's Rx made her suicidal . SHe stopped taking all her Rxs and initially felt better only to find her sleep was totally disrupted. She cold no longer tolerate sleep deprivation. She attmepted to contact her community psychiatrist but "my car broke down" with communciation difficulties to connect with her. Her last resort was to find herself asking for desperate help ; however, she did not recall her thought process or her behavior was totally disorganized. Her history was soemwaht evastive and slifghlty differed from the [facility]. When she was seen again in the late afternoon, she wanted her Rxs to be adjusted. I reviewed with her Rx and let her know discontinuation of her anti- depressnats might bring about REBOUND insomnia independent of any mood changes. Psychosis may occur but this did not seem to happen to her case. she did not presnet with any delirium past Psychiatric history: She admitted to 10 yr history of depressoin following the suicidal attmept of her dentist . She did not elaborate much on her past. Full resp;osne would have to be retrieved fromher psychiatrist ntlorrie. Past medical history and substance use : Uneventful. No outstnading medical problems, Recent medical : lab work was uneventful. Past psychosical history: SHe did not recall her dentist succcessfully committed suicide; she did nto talk amuch about her grief work. She did not elaborate on what Rx she was ever tried , her adverse events if any . She may have received psychoterhapy in the past . She has been seeing her community psychiatrist. Dr. Doroat Martini in the [place] area. Full progress notes have yet to be otained. She has nost resumed work for a long time. She may have been on disability benefits for her psychiatric diagnnosis. She was confortable with her "boyfriend relatioinship for over 20 yeras. She has not re- and has no children from her marriage. Family history of psychiatric disorder was unknown MSE: she was seen again x2 on December 19. Coperative anf engaging . affect. Moderatley irritable over her insomnia, congruent with her thought content. jPreoccupied with her sleep deprivation . She was eager to be sent home, feleing that nothing much was accomplished during her stay . No suicidlal or homicidal ideaiton. Nohallucinations or delusions. Cognition. Oriented fair insight and judgment Diagnosis : Major Depresisve disorder with anxious distres, mdoerate severoity chornic perisisting depressive disorder, dysthymia. Insomnia rebound related to Rx withdrwal Management: ;unresolved grief may be the tiigger. I would restart her on Remeron SNRI at 30 mg po qhs. She would be seen again with sleep hygene educaiton. Connect her to her community psychiatrist. social network therapy in community might help her to recover
[2022-12-19] MEDS ORDERED: MIRTAZAPINE 15 MG TAB PO SCH (21:00)
[2022-12-20 06:41] VITALS: BP 88/59; PULSE 83; TEMP 98.6
[2022-12-20] MEDS: NICOTINE 14MG/24HR PATCH TRANSDERM SCH ×2 (08:46→08:47)
[2022-12-20] MEDS: LORazepam 1 MG TAB PO PRN (08:48)
--- NOTE | 2022-12-20 11:16 | P.DS ---
Providers Date of admission: 12/18/22 15:45 Discharge summary This 57 yr old female living with her boyfriend in the community has been followed in the community by psychiatrist Dr. Nellie Martini. She presented to the [facility]. complaining of INSOMNIA after she decided th Rxs were not working: SSRI (buspar, sertraline ). She became more irritable and presented to the ER in a highly distraught state. She experienced for the first time suicidal ideation with no intent She was assessed by me on December 19 and December 20. She agreed to be restarted on a low odsage of Mirtazepine. Today when she was seen, she was alert less tired and foggy , affect:slightly anxious no longer preoccupied with her sleep deprviation. No suicidla vlad homicidal ideaiton. No perceputal disturbances of hallucinations. No delusions of grandeur or paranoia. Cognition: oreined time palce people insight and judgment has davanced from marginal to relativley intact yesterday I discussed with her the plan. Today at the team meeting she was off the active list of [facility] and would have to go through the screening rpocess. I recommend intensive follow up was required to prevent relapsae and to further stablize her mood. Family dynamics would have to be further explored given her early trauma of siwtnessing suicidal attempt of her late . Discharge disagnosis: Major Depressiv edisorder, stressor: medication discontinuation. Differential : she may be experienceing serotonin syndrome in the absence of any signs: no Extra-pyramidal motor deficts, no febrile Dishage Rx; Mirtazpine 30 mg. po qhs. SH eowuld contact her family to transport her home Attending physician: Jean-Paul Ram MD Consults: 12/18/22 15:48 Consult Physician Routine Consulting Provider: Uli Priest Consult Reason/Comments: medical management Do you want consulting provider notified?: Yes Primary care physician: Nancy Dobbs Patient Condition at Discharge: Stable Plan - Discharge Summary Discharge Rx Participant: No New Discharge Prescriptions: New Mirtazapine [Remeron] 30 mg PO HS 30 Days #30 tab No Action No Known Home Medications Discharge Medication List No Known Home Medications 12/18/22 [History] Mirtazapine [Remeron] 30 mg PO HS 30 Days #30 tab 12/20/22 [Rx] Follow up Appointment(s)/Referral(s): None,Stated [REFERRING] - 1-2 days
== END 2022-12-20 13:45 | disposition home or self-care (01) | DRG 58 ==
LOC: EC 03:44 → 3MHU 15:45
PROVIDERS: ADMIT Psychiatry & Neurology Psychiatry; ATTEND Psychiatry & Neurology Psychiatry
DX: G47.09 Other insomnia (principal); R45.851 Suicidal ideations; Z93.3 Colostomy status; Z20.822 Contact with and (suspected) exposure to COVID-19; F43.21 Adjustment disorder with depressed mood; F34.1 Dysthymic disorder; E78.5 Hyperlipidemia, unspecified; F17.210 Nicotine dependence, cigarettes, uncomplicated; Z71.6 Tobacco abuse counseling; Z85.828 Personal history of other malignant neoplasm of skin; Z76.5 Malingerer [conscious simulation]; Z86.14 Personal history of Methicillin resistant Staphylococcus aureus infection
CPT/HCPCS: 80053; 80061; 80306; 82075; 83036; 84443; 85025; 87635; 99285